=== PATIENT | male | born 1950 | race Caucasian/White ===

== ENCOUNTER → 2017-05-05 | Outpatient (CLI) | payer BC ==
[~2017-05-05] MED LIST: ACIDOPHILUS1 EAC3 PO; ALPHA LIPOIC A600 M1 PO; AMLODIPINE BESY10 MG PO; ANCEF 1GM1 GM/50 M2 IV; ASPIR 8181 MG PO; ASPIRIN325 PO; ATORVASTATIN CA20 MG PO; AZITHROMYCIN 2250 MG PO; BENTYL 10 MG CA10 M1 PO; CEFDINIR300 MG PO; COLESTID1 GM PO; COREG25 MG PO; COZAAR 25 MG TA25 M1 PO; FLAGYL500 MG PO; FLEXERIL PO; GABAPENTIN PO; HUMALOG100 UNIT/1 SUBQ; INSULIN; IRON325 PO; JUVEN PACKET1 EAC1 PO; LANTUS SUBQ; LEVAQUIN 500 M500 M2 PO; LISINOPRIL20 MG PO; LOMOTIL TABLET1 EACH PO; LOPRESSOR 50 MG50 M1 PO; LOPRESSOR100 M1 PO; MAALOX ADVANCE355 M1 PO; NEURONTIN 300300 M1 PO; NEURONTIN 400400 M1 PO; NORVASC 5 MG TAB5 MG PO; NORVASC5 MG PO; OMEPRAZOLE40 MG PO; ONDANSETRON HCL4 M2 PO; PERCOCET 5-3251 EACH PO; PHENERGAN12.5 M2 PO; PRILOSEC 20 MG20 MG PO; PRILOSEC PO; PRILOSEC40 MG PO; REGLAN 10 MG TA10 M1 PO; REGLAN 10 MG TA10 MG PO; SENNA-DOCUSATE1 EACH PO; SERTRALINE HCL50 MG PO; SIMVASTATIN20 MG PO; TOPROL XL50 MG PO; TRAZODONE HCL50 MG PO; UNICOMPLEX M TA1 TA1 PO; VITAMIN C1000 MG PO; VITAMIN D3400 UNIT PO; VITAMINC500 PO; ZINC CHELATE50 MG PO; ZOCOR PO; [UNRECOGNIZED DRUG - OTHER]
== END ==
LOC: M.WC 05-04 08:00
DX: E11.621 Type 2 diabetes mellitus with foot ulcer (principal); L97.411 Non-pressure chronic ulcer of right heel and midfoot limited to breakdown of skin; I70.234 Atherosclerosis of native arteries of right leg with ulceration of heel and midfoot; E11.51 Type 2 diabetes mellitus with diabetic peripheral angiopathy without gangrene; E78.2 Mixed hyperlipidemia; K21.9 Gastro-esophageal reflux disease without esophagitis; Z68.23 Body mass index [BMI] 23.0-23.9, adult; E11.40 Type 2 diabetes mellitus with diabetic neuropathy, unspecified; Z87.891 Personal history of nicotine dependence

== ENCOUNTER → 2017-05-09 | Outpatient (CLI) | payer BC | LOC: M.ULTRA 05-06 13:00 | DX: M79.671 Pain in right foot (principal); M79.89 Other specified soft tissue disorders ==

== ENCOUNTER → 2017-05-11 | Outpatient (CLI) | payer BC | LOC: M.RAD 01:39 → M.WC 01:39 | DX: I70.234 Atherosclerosis of native arteries of right leg with ulceration of heel and midfoot (principal); E11.621 Type 2 diabetes mellitus with foot ulcer; L97.411 Non-pressure chronic ulcer of right heel and midfoot limited to breakdown of skin; E11.51 Type 2 diabetes mellitus with diabetic peripheral angiopathy without gangrene; I10 Essential (primary) hypertension; E78.2 Mixed hyperlipidemia; K21.9 Gastro-esophageal reflux disease without esophagitis; E11.40 Type 2 diabetes mellitus with diabetic neuropathy, unspecified; Z87.891 Personal history of nicotine dependence ==

== ENCOUNTER → 2017-05-25 | Outpatient (CLI) | payer BC | LOC: M.WC 03:25 | DX: E11.621 Type 2 diabetes mellitus with foot ulcer (principal); L97.411 Non-pressure chronic ulcer of right heel and midfoot limited to breakdown of skin; L97.421 Non-pressure chronic ulcer of left heel and midfoot limited to breakdown of skin; I70.234 Atherosclerosis of native arteries of right leg with ulceration of heel and midfoot; I70.244 Atherosclerosis of native arteries of left leg with ulceration of heel and midfoot; E11.40 Type 2 diabetes mellitus with diabetic neuropathy, unspecified; E11.51 Type 2 diabetes mellitus with diabetic peripheral angiopathy without gangrene; I10 Essential (primary) hypertension; E78.2 Mixed hyperlipidemia; L84 Corns and callosities; K21.9 Gastro-esophageal reflux disease without esophagitis; Z87.891 Personal history of nicotine dependence ==

== ENCOUNTER 2017-06-01 12:44 | Inpatient (IN) | payer BC ==
[~2017-06-01] VITALS: Ht 175.3 cm; Wt 69.9 kg
[~2017-06-01 12:44] MED LIST changes: -ACIDOPHILUS1 EAC3 PO; -AMLODIPINE BESY10 MG PO; -ANCEF 1GM1 GM/50 M2 IV; -ATORVASTATIN CA20 MG PO; -AZITHROMYCIN 2250 MG PO; -CEFDINIR300 MG PO; -IRON325 PO; -JUVEN PACKET1 EAC1 PO; -LOPRESSOR100 M1 PO; -MAALOX ADVANCE355 M1 PO; -NEURONTIN 300300 M1 PO; -NEURONTIN 400400 M1 PO; -NORVASC5 MG PO; -OMEPRAZOLE40 MG PO; -ONDANSETRON HCL4 M2 PO; -PERCOCET 5-3251 EACH PO; -PHENERGAN12.5 M2 PO; -SENNA-DOCUSATE1 EACH PO; -SERTRALINE HCL50 MG PO; -UNICOMPLEX M TA1 TA1 PO; -VITAMIN C1000 MG PO; -VITAMINC500 PO; -ZINC CHELATE50 MG PO
[2017-06-01 16:00] VITALS: BP 174/77
[2017-06-01 18:04] LABS: HEMATOCRIT 24.3 % (42.0-52.0); MCH 24.7 pg (26.0-34.0); MPV 8.5 fl. (7.2-11.1); NUCLEATED RBCS 0 /100WBC; PLATELET COUNT* 335 thou/uL (150-400); RBC 3.24 mil/uL (4.50-6.00); RDW-CV 14.5 % (10.5-14.5); WBC 8.3 thou/uL (4.0-11.0)
--- NOTE | 2017-06-01 18:05 | NUR ---
PATIENT DIRECT ADMIT TO ROOM 311. ALERT AND ORIENTED X 4. NO COMPLAINTS OF PAIN. PATIENT SENT OVER TO ADMIT FROM WOUND CENTER. RIGHT AND LEFT HEEL WOUND NOTED, PATIENT REFUSED TO LET THIS NURSE REMOVE WRAPPINGS AT THIS TIME PATIENT REQUESTING TO WAIT FOR PODIATRY. IV TO LEFT FOREARM, SCHED ABX ORDERED. BLOOD SUGAR 337 THIS EVENING, DR. HUBER NOTIFIED. MRSA SWAB SENT ORDERED. PATIENT AWARE OF NEED FOR URINE SAMPLE. NPO AFTER MIDNIGHT. ORIENTED TO CALL LIGHT. FALL RISK PROTOCOL PATIENT STATES HE HAS FALLEN IN THE LAST FEW DAYS. DR. HUBER NOTIFIED THAT IS HAS BEEN OVER A WEEK SINCE PATIENT HAD A BM.
[2017-06-01 18:17] LABS: ALBUMIN 2.3 g/dL (3.4-5.0); CALCIUM 8.3 mg/dL (8.5-10.1); CREATININE 1.8 mg/dL (0.6-1.3); TOTAL BILIRUBIN 0.3 mg/dL (<0.1-1.0); TOTAL PROTEIN 6.4 g/dL (6.4-8.2)
[2017-06-01 19:19] LABS: ESR (SEDRATE) 74 mm/hr (0-20)
[2017-06-01 19:33] LABS: ABSOLUTE LYMPHOCYTES 0.3 thou/uL (0.8-5.3); ABSOLUTE MONOCYTES 0.4 thou/uL (0.0-1.2); ABSOLUTE NEUTROPHILS 7.6 thou/uL (1.6-8.1); PLATELET ESTIMATE ADEQUATE
[2017-06-01 19:34] LABS: HYPOCHROMASIA 1+; MACROCYTES Occasional; MICROCYTES Occasional
[2017-06-02] VITALS (9 sets, daily range): BP systolic 143–201; BP diastolic 67–101
[2017-06-02 02:49] LABS: URINE BILIRUBIN NEGATIVE (Negative); URINE BLOOD TRACE (Negative); URINE CLARITY CLEAR; URINE COLOR YELLOW; URINE GLUCOSE-RANDOM TRACE (Negative); URINE KETONES NEGATIVE (Negative); URINE LEUKOCYTES-REFLEX NEGATIVE (Negative); URINE NITRITE-REFLEX NEGATIVE (Negative); URINE PROTEIN 2+ (Negative); URINE UROBILINOGEN 0.2 E.U./dl (0.2-1.0)
[2017-06-02 03:08] LABS: SQUAMOUS 0-3 Few /LPF (0-3); TRANSITIONAL EPITHEL CELL 0-3 Few /LPF (None Seen); URINE RBC 3-10 Few /HPF (0-2); URINE WBC-REFLEX 0-5 Rare /HPF (0-5)
[2017-06-02 03:09] LABS: AMORPHOUS URATES Few /LPF (None Seen); CELLULAR CASTS 0-3 Few /LPF (None Seen); COARSE GRANULAR CASTS 0-3 Few /LPF (None Seen); FINE GRANULAR CASTS 0-3 Few /LPF (None Seen); HYALINE CASTS 0-3 Few /LPF (None Seen); MUCUS 4-6 Moderate strn/LPF (None Seen)
[2017-06-02 04:32] LABS: HEMOGLOBIN 8.2 gm/dL (14.0-18.0); MCH 24.4 pg (26.0-34.0); MCHC 32.7 g/dL (28.0-37.0); MCV 74.4 fL (80.0-100.0); MPV 8.5 fl. (7.2-11.1); RBC 3.36 mil/uL (4.50-6.00); RDW-CV 14.1 % (10.5-14.5); WBC 7.9 thou/uL (4.0-11.0)
[2017-06-02 04:37] LABS: CALCIUM 8.3 mg/dL (8.5-10.1); CREATININE 1.9 mg/dL (0.6-1.3); MAGNESIUM 1.5 mg/dL (1.8-2.4); POTASSIUM 4.3 mmol/L (3.5-5.1)
--- NOTE | 2017-06-02 05:37 | NUR ---
PATIENT SLEPT MOST OF THE NIGHT. PATIENT HAD NO COMPLAINTS OF PAIN. DRESSINGS REMAIN INTACT TO BILATERAL HEELS. PATIENT HAS BEEN NPO SINCE MIDNIGHT FOR SURGERY LATER THIS AFTERNOON. WILL CONTINUE TO MONITOR.
--- NOTE | 2017-06-02 14:47 | NUR ---
Nutrition: Pt seen for admission for heel ulcer. Pt has DM, likely osteomyelitis, going for procedure today. Is seen in wound clinic. RX: aspirin, insulin, vanc. Currently NPO. Pt stated no wt changes. Wt: 154#. He stated he has had his ulcer for 3-4 months. Labs: BUN 29, creat 1.9, alb 2.3, prealb 11.7, BG 254. Will not order Arginaid at this time - Pt is still NPO and he has CKD IV. I did recommend renal MVI to aid in wound healing. Consider mild risk at this time. GOALS: tight BG control, diet to advance to a renal after surgery. Follow up per protocol.
--- NOTE | 2017-06-02 15:36 | EKG ---
[place] [address] ELECTROCARDIOGRAM REPORT Name: ABDIAZIZLON Meli Room: [address] ADM IN M.R.#: [id number] Admission: 06/01/17 Attend Phys: Asaf Jaeger MD Discharge: Date of : 50 Report #: [id number] THIS REPORT FOR: //name// [facility] Test Date: 2017-06-01 Test Time: 17:29:14 Pat Name: LON FREED Department: Room: [address] Gender: M Glass Block Bender: : 1950 Requested By: Asaf Jaeger Order Number: [id number] Refugio MD: Jeovany Salgado Measurements Intervals [place] Rate: 97 P: 73 PA: 123 QRS: 48 QRSD: 80 T: 235 QT: 324 QTc: 412 Interpretive Statements Sinus rhythm Nonspecific repol abnormality, diffuse leads Compared to ECG 05/03/2016 15:22:59 Early repolarization now present T-wave abnormality no longer present Electronically Signed On 06-02-2017 15:36:45 BUSINESS SERVICES DIRECTOR by Jeovany Salgado [email or web address] <ELECTRONICALLY SIGNED> By: Jeovany Salgado MD, FACC 06/02/17 1536 1729 1729 Jeovany Salgado MD, [facility] /EPI
--- NOTE | 2017-06-02 19:44 | NUR ---
PATIENT RESTING IN BED. PATIENT RETURNED FROM I&D OF RIGHT HEEL AT 1830, WITHOUT INCIDIENT. PATIENT DENIES ANY PAIN. PATIENT HAS DRESSING TO RIGHT HEEL DRY AND INTACT. PATIENT WAS UP TO COMMODE WITH STAND PIVOT FOR BM. PATIENT HAS EXCELLENT APPETITE. PATIENT BLOOD PRESSURE RUNNING HIGH, DR HUBER AWARE. PATIENT DENIES ANY NEEDS AT THIS TIME. WILL CONTINUE TO MONITOR.
[2017-06-03 00:11] VITALS: BP 118/56
[2017-06-03 03:54] VITALS: BP 158/83
--- NOTE | 2017-06-03 04:56 | NUR ---
PT SLEPT AT INTERVALS DURING THE NIGHT, RIGHT FOOT ON PILLOW, DRSG REMAINS C/D/I, UP WITH ASSIST TO THE BSC, NON-WT BEARING RIGHT FOOT, REMINDED MULTIPLE TIMES NOT TO PLACE PRESSURE ON RIGHT FOOT. IV VANC INFUSED. DENIES PAIN, CALL LIGHT IN REACH, BED ALARM ON FOR SAFETY, WILL CONTINUE TO MONITOR
--- NOTE | 2017-06-03 07:56 | CON ---
[address] [address] CONSULTATION Name: HOWIEANATOLYLON Meli Room: [address] IN .R.#: [id number] Admission: 06/01/17 Attend Phys: Asaf Jaeger MD Discharge: Date of : 50 Report #: [id number] THIS REPORT FOR: //name// CC: Terrell Jaeger DATE OF SERVICE: 06/02/2017 ATTENDING PHYSICIAN: Asaf Jaeger MD REASON FOR EVALUATION: Right calcaneal osteomyelitis. HISTORY OF PRESENT ILLNESS: Chart reviewed, the patient was examined. This is a 66-year-old gentleman with diabetes mellitus who apparently developed a lesion over the plantar aspect of his right foot, this over the toe roughly 3 months ago. It actually had healed, developed a second lesion over the plantar aspect of the heel and has been persistent. He does have some degree of neuropathy, although experiences significant pain associated with it and has been trying to offload walking on his tip toes. He has some intermittent fevers. He notes that he has had some anorexia and believes a small degree of weight loss. Due to concerns about possible infection, he was subsequently admitted. Inflammatory markers were elevated as are blood sugars in the 300s. The MRI of the foot shows possible osteomyelitis involving the calcaneus. He has got to undergo operative debridement this day. Blood cultures are negative thus far. Empirically placed on ceftriaxone and vancomycin. ALLERGIES: LISTED TO DIAZEPAM. CURRENT MEDICATIONS: Include aspirin, losartan, pantoprazole, vancomycin, insulin, metoclopramide, atorvastatin, gabapentin, hydrocodone, p.r.n. analgesics and antiemetics. PAST MEDICAL HISTORY: In addition to the diabetes mellitus, reflux, sleep apnea, hypertension, previous herniorrhaphy, sinus surgery, adenoidectomy, tonsillectomy, carpal tunnel and back surgery. SOCIAL HISTORY: Nonsmoker and no ethanol. FAMILY HISTORY: Noncontributory. REVIEW OF SYSTEMS: Denies significant pulmonary-related complaints. PHYSICAL EXAMINATION: GENERAL: He appears chronically ill and undernourished. VITAL SIGNS: Temperature 98.7 with a T-max of 99.7, pulse 85, respirations 19 and blood pressure 143/70[place] [address] CONSULTATION Name: LON FREED Room: [address]#: [id number] Admission: 06/01/17 Attend Phys: Asaf Jaeger MD Discharge: Date of : 50 Report #: [id number] SKIN: Warm, dry and no rashes. HEENT: Nasal cannula oxygen in place. NECK: Supple. LUNGS: Few scattered coarse breath sounds. HEART: Regular. I do not appreciate a murmur. ABDOMEN: Soft, nontender and nondistended. SKIN: He has got dressing over his right foot. GENITOURINARY AND RECTAL: Deferred. LABORATORY DATA: Blood cultures and MRI as noted above. Prealbumin of 11.7. CBC: White count of 7.9, H and H 8.2 and 25.0 and platelets of 355. Electrolytes: Sodium 137, potassium 4.3, chloride 101, bicarbonate is 27, BUN and creatinine 29 and 1.9 with anion gap of 9. Estimated GFR of 36. Urinalysis: 0-5 white cells. Urine culture is pending. Sed rate is 74. CRP of 114.8. Lactic acid of 0.7. Liver function tests are unremarkable. Albumin of 2.3 and total protein 6.4. Estimated GFR of ____. ASSESSMENT: Probable osteomyelitis involving the right calcaneus. He is scheduled to undergo operative debridement. We will continue empiric therapy as prescribed. Await results/findings of surgery including culture results. In the event of ____, will likely need extended period of parenteral antimicrobial therapy. Again depending on the results, we will go ahead and arrange a PICC line, potentially arrange for outpatient IV therapy versus transitioning to a facility. <ELECTRONICALLY SIGNED> By: Murali Booker MD 06/03/17 0756 1509 [id number] Booker MD /nt
[2017-06-03 08:05] VITALS: BP 155/72
--- NOTE | 2017-06-03 13:13 | NUR ---
WOUND CARE NOTE: CONSULT RECEIVED FOR RIGHT FOOT WOUND. PATIENT IS POD #1 FROM DEBRIDEMENT TO RIGHT FOOT. PATIENT WAS SEEN WITH RECOVERY AGENT. DRESSING TO RIGHT FOOT DRY AND INTACT. DRESSING TAKEN DOWN. LARGE AMOUNTS OF SEROSANGUINEOUS DRAINAGE NOTED ON KERLIX AND ABD OF OLD DRESSING. LARY-WOUND IS SLIGHTLY MACERATED. WOUND BED WITH GEL FOAM, LEAVING IN PLACE AT THIS TIME. MODERATE AMOUNTS OF SANGUINEOUS DRAINAGE NOTED. WOUND BED IS RED, MOIST. GENTLY CLEANSED WITH WOUND CLEANSER AND PHOTOGRAPHED. WOUND MEASURES 7X6.2X0.5. APPLIED AQUACEL AG AND COVERED WIHT 4X4 THEN ABD. SECURED WITH KERLIX AND ROMINA. LEFT FOOT: DIABETIC FOOT ULCER MEASURING 0.5X0.5X0.1. BLACK, ESCHAR COVERING 100% OF WOUND BED. AREA IS BOGGY. LARY-WOUND WITH REDNESS. PAINTED AREA WITH BETADINE AND ALLOWED TO DRY. PATIENT WAS EDUCATED ON IMPORTANCE OF OFFLOADING, NUTRITION, AND BLOOD SUGAR CONTROL, COMMUNICATED WITH UNDERSTANDING. WILL NEED REINFORCEMENT. RECOMMEND PODUS BOOTS TO BILATERAL FEET WHEN IN BED ENCOURAGE GOOD NUTRITION AND HYDRATION TIGHT BLOOD GLUCOSE CONTROL FOLLOW UP IN WOUND CENTER UPON DISCHARGE
--- NOTE | 2017-06-03 15:22 | NUR ---
CONSULTED TO PLACE PICC FOR LEASE BROKER ATB THERAPY. ORDER AND CONSENT NOTED. PT BROUGHT TO INFUSION LAB FOR LINE PLACEMENT. SPOKE WITH PT ABOUT RISK AND BENIFIT INCLUDING INFECTION AND DVT. PT VERBALIZED UNDERSTANDING AND AGREED. RIGHT UPPER ARM BASILIC IDENTIFIED AND NOTED TO BE WIDLEY PATENT. A 3FR SINGLE LUMAN POWER PICC PLACED PER HOSPITAL POLICY. LINE TRIMMED TO 40CM AND ADVANCED TO 37CM LEAVING 3CM EXTERNAL. LINE TIP PLACEMENT CONFIRMED WITH SHERLOCK 3CG. LINE SECURED AND RELEASED FOR USE.
[2017-06-03 15:35] VITALS: BP 167/79
--- NOTE | 2017-06-03 16:58 | NUR ---
CHECKED IV DRUG BENEFITS WITH AMARJIT. ARTIE CALLED BACK AND SAID PT.HAS MET OOP AND DEDUCTIBLE AND THERFORE IVAB AT HOME WOULD BE COVERED AT 100%. PT.HAVING OT, SO DISCUSSED WITH ,KANCHAN, OTHER OPTIONS BESIDES,HOME IV THERAPY. EITHER SNF OR COMING IN DAILY FOR IV INFUSION AT HOSPITAL. SHE IS INTERESTED IN SNF. PT.SAID OK TO THIS. GAVE HER A LIST OF CONTRACTED SNFS WITH HIS INSURANCE. FIRST CHOICE IS [facility] AND 2ND IS [facility] [place], [facility]. CM WILL MAKE REFERRAL TO BOTH.
--- NOTE | 2017-06-03 18:21 | NUR ---
PATIENT RESTING IN BED. PATIENT HAS HAD FEET/HEELS ELEVATED OFF BED. PATIENT SEEN BY DR FERRER AND WOUND CARE NURSE FOR WOUND CARE TO BILATERAL HEELS. PATIENT WORKED WITH PT/OT FOR NWB TRAINING. PATIENT HAS USED URINAL AT EDGE OF BED. PATIENT HAS EXCELLENT APPETITE. PATIENT DENIES ANT NEEDS AT THIS TIME. WILL CONTINUE TO MONITOR.
[2017-06-03 21:00] VITALS: BP 139/68
[2017-06-04 06:13] LABS: HEMOGLOBIN 7.2 gm/dL (14.0-18.0); MCH 24.2 pg (26.0-34.0); MCHC 32.6 g/dL (28.0-37.0); MCV 74.3 fL (80.0-100.0); MPV 8.8 fl. (7.2-11.1); RBC 2.97 mil/uL (4.50-6.00); RDW-CV 14.1 % (10.5-14.5); WBC 8.9 thou/uL (4.0-11.0)
[2017-06-04 06:27] LABS: CALCIUM 8.3 mg/dL (8.5-10.1); CREATININE 1.3 mg/dL (0.6-1.3); MAGNESIUM 1.7 mg/dL (1.8-2.4); POTASSIUM 4.4 mmol/L (3.5-5.1)
--- NOTE | 2017-06-04 07:24 | NUR ---
PT SLEPT MOST OF SHIFT. ASSESSMENT DOCUMENTED. MEDS GIVEN PER E-MAR. PICC PATENT. NO REPORTS OF PAIN OR NAUSEA. DRESSING ON RIGHT FOOT C/D/I. FEET REMAINED ELEVATED ON PILLOWS. WILL CONTINUE WITH PLAN OF CARE.
[2017-06-04 08:40] VITALS: BP 143/74
--- NOTE | 2017-06-04 11:46 | NUR ---
MARY ELLEN SPOKE TO THE PATIENT'S SPOUSE AND SHE INFORMS THAT SHE WOULD LIKE A REFERRAL SENT TO [facility] FOR SKILLED. CM SPOKE TO LAKSHMI AT [facility] TO INFORM OF THE REFERRAL AND FAXED THE PATIENT'S FACESHEET, H&P, LABS, AND PT/OT NOTES. CM WILL REMAIN AVAILABLE TO ASSIST AND FOLLOW NEEDED.
[2017-06-04 14:18] VITALS: BP 103/81; BP 122/59; BP 140/62; BP 141/71
[2017-06-04 14:59] VITALS: BP 143/74
--- NOTE | 2017-06-04 17:18 | NUR ---
PATIENT RECEIVING 1 UNIT OF PRBC'S AT THIS TIME FOR HGB OF 7.2, TOLERATING WELL. INSULIN GIVEN WITH MEALS WHEN REQUIRED. PODUS BOOTS IN PLACE PHILLIP FEET, DR. FERRER HERE THIS AFTERNOON AND RIGHT HEEL DRESSING CHANGED. PATIENT TO HAVE OUTPATIENT WOUND VAC. PRN MORPHIN GIVEN THIS AM FOR PAIN, PATIENT STILL RATED PAIN A 6/10, DILAUDID ORDERED AND GIVEN. NO FURTHER COMPLAINTS OF PAIN THIS EVENING. MG VALUE 1.7 THIS AM, REPLACED PER PROTOCOL.
[2017-06-04 19:44] LABS: HEMOGLOBIN 8.1 gm/dL (14.0-18.0)
[2017-06-04 20:20] VITALS: BP 128/70
--- NOTE | 2017-06-05 05:35 | NUR ---
PT SLEPT SOUNDLY DURING THE NIGHT, UP WITH ASSIST AT HS TO VOID PER URINAL, VOICED PAIN IN FEET ONCE BACK IN BED, PRN PAIN MEDS THEN GIVEN, ALONG WITH BENEDRYL FOR REQUEST FOR SLEEPING MEDICATION, BOOTS ON BOTH FEET, IV VANC GIVEN, RIGHT FOOT DRESSING REMAINS C/D/I, CALL LIGHT IN REACH, BED ALARM ON FOR SAFETY, WILL CONTINUE TO MONITOR
[2017-06-05 07:06] LABS: ABSOLUTE BASOPHILS 0.1 thou/uL (0.0-0.2); ABSOLUTE EOSINOPHILS 0.2 thou/uL (0.0-0.7); ABSOLUTE LYMPHOCYTES 1.4 thou/uL (0.8-5.3); ABSOLUTE MONOCYTES 0.7 thou/uL (0.0-1.2); ABSOLUTE NEUTROPHILS 3.8 thou/uL (1.6-8.1); BASOPHILS 1.4 %; EOSINOPHILS 2.7 %; HEMATOCRIT 23.8 % (42.0-52.0); HEMOGLOBIN 7.7 gm/dL (14.0-18.0); MCH 24.6 pg (26.0-34.0); MCHC 32.5 g/dL (28.0-37.0); MCV 75.6 fL (80.0-100.0); MONOCYTES 11.7 %; MPV 9.1 fl. (7.2-11.1); NUCLEATED RBCS 0 /100WBC; PLATELET COUNT* 270 thou/uL (150-400); POLYS 61.2 %; RBC 3.14 mil/uL (4.50-6.00); RDW-CV 14.7 % (10.5-14.5); WBC 6.3 thou/uL (4.0-11.0)
[2017-06-05 07:13] LABS: CALCIUM 8.3 mg/dL (8.5-10.1); CREATININE 1.5 mg/dL (0.6-1.3); POTASSIUM 4.4 mmol/L (3.5-5.1)
[2017-06-05 09:00] VITALS: BP 142/72
[2017-06-05 16:36] LABS: % SATURATION 16 % (20-39); IRON 19 ug/dL (50-175)
[2017-06-05 16:50] VITALS: BP 150/70
--- NOTE | 2017-06-05 17:44 | NUR ---
PHOTOS TAKEN TODAY OF HEEL WOUNDS, DR. FERRER HERE THIS AM AND RIGHT HEEL DRESSING CHANGED. PODUS BOOTS REMAIN IN PLACE TO PHILLIP FEET. PRN HYDROCODONE GIVEN X 1 THIS SHIFT, GOOD RELIEF NOTED. SCHED IV ABX REMAIN. INSULIN GIVEN WITH MEALS WHEN REQUIRED.
[2017-06-05 23:29] VITALS: BP 131/67
[2017-06-06 04:42] LABS: HEMATOCRIT 24.2 % (42.0-52.0); HEMOGLOBIN 7.8 gm/dL (14.0-18.0); MCH 24.6 pg (26.0-34.0); MCHC 32.2 g/dL (28.0-37.0); MCV 76.2 fL (80.0-100.0); RBC 3.18 mil/uL (4.50-6.00); RDW-CV 14.7 % (10.5-14.5); WBC 7.1 thou/uL (4.0-11.0)
[2017-06-06 04:53] LABS: CREATININE 1.8 mg/dL (0.6-1.3); MAGNESIUM 1.9 mg/dL (1.8-2.4); POTASSIUM 4.9 mmol/L (3.5-5.1)
--- NOTE | 2017-06-06 05:04 | NUR ---
PT SLEPT OFF AND ON OVERNIGHT. UP WITH ASSIST AND WALKER AT BEDSIDE TO VOID PER URINAL, NWB R FOOT. PODUS BOOTS REMAIN IN PLACE TO PHILLIP FEET. ISABELLE CDI. RPICC SL, AM LAB DRAWN. IV PAIN MED AND BENADRYL GIVEN AT HS FOR CO PAIN AND SLEEP AID-GOOD RESULT.HS ACCUCHECK 168, INSULIN GIVEN ORDERED WITH SNACK. ABLE TO USE CALL LITE AND MAKE NEEDS KNOWN. AM LABS DRAWN.
[2017-06-06 08:00] VITALS: BP 180/85
--- NOTE | 2017-06-06 10:14 | NUR ---
MARY ELLEN SPOKE TO LAKSHMI AT [facility] TO DISCUSS THE SKILLED REFERRAL. LAKSHMI INFORMS THAT GLENN WILL COME TO THE HOSPITAL TODAY TO DO AN ON-SITE VISIT WITH THE PATIENT. MARY ELLEN INFORMED THE PATIENT, HIS SPOUSE, AND THE RN IN-CHARGE OF THE PATIENT OF THIS INFO AND ALL ARE IN AGREEMENT. CM WILL REMAIN AVIALABLE TO ASSIST AND FOLLOW NEEDED.
--- NOTE | 2017-06-06 13:05 | NUR ---
Nutrition: RN alerted me that pt's was asking questions about high-protein diet. RD provided pt and handouts and discussion on protein sources. All questions answered. Will continue to follow per protocol.
[2017-06-06 16:00] VITALS: BP 156/78
--- NOTE | 2017-06-06 18:48 | NUR ---
PT UP IN CHAIR MOST OF SHIFT. PT TOLERATING PO WELL. GOOD APPETITE. PAIN CONTROLLED WITH PO MEDS
[2017-06-06 23:53] VITALS: BP 114/58
--- NOTE | 2017-06-07 06:38 | NUR ---
PT SLEPT WELL OVERNIGHT. UP WITH ASSIST AND WALKER TO VOID USING URINAL AT BEDSIDE. SPECIALTY BOOTS ON BLE, NWB RLE. DRSG CDI. LESLY PICC SL, NO LABS THIS MORNING. HS ACCUCHECK 148. CM ASSISTING TO ARRANGE POSSIBLE DISCHARGE TO [facility]. ABLE TO USE CALL LITE AND MAKE NEEDS KNOWN.
--- NOTE | 2017-06-07 08:14 | NUR ---
MARY ELLEN RECIEVED A CALL FROM [facility] WITH V ADMISSIONS AND SHE INFROMS THAT THE [facility] HAS ACCEPTED THE PATIENT PENDING INSURANCE AUTH. CM WILL REMAIN AVIALABLE TO ASSIST AND FOLLOW NEEDED.
[2017-06-07 08:30] VITALS: BP 180/80
--- NOTE | 2017-06-07 11:20 | S ---
[place] [address] SURGICAL PATH RPT PROCEDURE Name: GEMA FREED Room: [address] IN .R.#: [id number] Admission: 06/01/17 Date of : 50 Discharge: Report #: [id number] Path Case #: [id number] PATHOLOGY REPORT COLLECTION DATE: 06/02/2017 RECEIVED DATE: 06/03/2017 SUBMITTING PHYS: Dr. Wily Graham OTHER PHYS: Dr. Asaf Cosby SPECIMEN(S) RECEIVED: A.Lesion right calcaneous B.R calcaneous * * * * * * * * * * * * FINAL DIAGNOSIS: A. Skin with underlying soft tissue, "lesion right calcaneous": - Acute ulceration with necrotic acute inflammatory exudate extending deeply into the underlying fat and to the deep inked surgical resection margin. B. Bone and soft tissue, "right calcaneous": - Acute inflammation extending into the underlying bone with acute osteomyelitis. (see comment) COMMENT: B: No resection margins were dictated grossly and microscopically as they could not be seen grossly. ([facility]:; 06/07/2017) PATHOLOGIST: Peterson Randolph M.D. REPORT ELECTRONICALLY SIGNED BY: Peterson Randolph M.D. DATE/TIME: 06/07/2017 11:19 * * * * * * * * * * * * GROSS PATHOLOGY: A. Received in formalin labeled "Gema Freed, lesion right calcaneus" is a 7.5 x 6.3 x 1.0 cm ovoid portion of payne-brown possibly necrotic skin and soft tissue. The resection margin is inked entirely black. A scant amount of possible uninvolved payne-white skin is identified along the periphery. The discolored lesional tissue grossly abuts the resection margins. A digital sales representative section of the specimen is submitted in cassette A1. B. Received in formalin labeled "Gema Freed right calcaneus" is a 6.2 x 3.2 x 1.5 cm irregular portion of payne-white bone and attached payne-white membranous possible soft tissue. The specimen does not have a definitive resection margin. Multiple areas of payne-zacarias discoloration are present on the soft tissue, [place] [address] SURGICAL PATH RPT PROCEDURE Name: GEMA FREED Room: [address] IN [facility].#: [id number] Admission: 06/01/17 Date of : 50 Discharge: Report #: [id number] Path Case #: [id number] 75% of the soft tissue. News Videotape Editor sections of the specimen are submitted in cassette B1 following decalcification. ([facility]; 06/05/2017) CLINICAL HISTORY: Osteomyelitis right heel. INITIAL CPT CODE(S): A; 58344 B; 29571, 39640 Professional services performed by [employer] at [facility], [facility] [place] [address]. Technical services performed by [facility] at [address] [place] [address], [address], [place] [address]. [facility] [address] [place] [address] PHONE: [phone] DIRECTOR: Harsh Jerez M.D. * * * END OF REPORT * * *
[2017-06-07 16:31] VITALS: BP 102/54
--- NOTE | 2017-06-07 19:51 | NUR ---
PATIENT HAS BEEN A/O X 4 THIS SHIFT. MEDICATED FOR RIGHT HEEL PAIN WITH HYDROCODONE AND OXYCODONE. STATES OXYCODONE HAS RELIEVED PAIN BETTER THAN HYDROCODONE. PICC LINE PATENT AND ANTIBIOTICS INFUSED ORDERED. DRESSING TO RIGHT HEEL CHANGED WITH DR FERRER AND LEFT HEEL PAINTED WITH BETADINE. PATIENT PARTICIPATED WITH PHYSICAL THERAPY. HOPEFUL TO BE DISCHARGED SOON TO [facility]. AT BEDSIDE. HOURLY ROUNDING COMPLETED. CALL LIGHT WITHIN REACH. WILL CONTINUE WITH PLAN OF CARE.
[2017-06-07 22:22] VITALS: BP 127/62
[2017-06-08 08:30] VITALS: BP 170/84
[2017-06-08 09:00] VITALS: BP 170/84
--- NOTE | 2017-06-08 11:00 | NUR ---
MARY ELLEN SPOKE TO [facility] AND SHE INFORMS THAT THE FACILITY HAS RECIEVED INSURANCE AUTH, AND WILL PROVIDE TRANSPORTATION AT 1300. CM SPOKE TO THE PATIENT AND TO INFORM OF THIS AND THEY ARE IN AGREEMENT. CM INFORMED THE RN IN-CHARGE OF THE PATIENT OF [facility] ACCEPTANCE OF THE PATIENT AND WHERE TO CALL REPORT. CM WILL REMAIN AVAILABLE TO ASSIST AND FOLLOW NEEDED.
[2017-06-08] MEDS ORDERED: ANCEF 1GM1 GM/50 M2 IV (11:39)
[2017-06-08] MEDS ORDERED: PERCOCET 5-3251 EACH PO (11:40)
[2017-06-08] MEDS ORDERED: HUMALOG100 UNIT/1 SUBQ (11:40)
--- NOTE | 2017-06-11 14:18 | CON ---
[address] [address] CONSULTATION Name: LON FREED Room: [address] IN .R.#: [id number] Admission: 06/01/17 Attend Phys: Asaf Jaeger MD Discharge: 06/08/17 Date of : 50 Report #: [id number] THIS REPORT FOR: //name// CC: Terrell Jaeger DICTATED BY: Ana M PLASENCIA DATE OF SERVICE: 06/03/2017 REASON FOR CONSULTATION: Right diabetic foot wound. HISTORY OF PRESENT ILLNESS: The patient is a very pleasant 66-year-old male who is well known to our service with a history of a chronic right foot wound. He follows as an outpatient with Dr. Matthew Samuel. He was seen in the wound care on Tuesday, Dr. Samuel was concerned about progression of the wound; therefore, recommended admission to the hospital for further evaluation and treatment. He underwent an MRI, which suggested osteomyelitis of the calcaneus. He ultimately underwent surgical debridement with Dr. Schmidt on 06/01. The patient did recently undergo a right lower extremity arteriogram on 05/24/2017 with ____. He was found to have normal arterial flow with 3-vessel runoff into the right ankle. The posterior tibial artery was noted to be diminutive at the ankle, but good collateral flow on to the ankle via the peroneal and anterior tibial arteries. The patient currently reports minimal discomfort in his right foot, no other complaints at this time. PAST MEDICAL HISTORY: 1. Diabetes mellitus. 2. History of diabetic ketoacidosis. 3. Diabetic foot ulcer. 4. Osteomyelitis. 5. Gastroesophageal reflux disease. 6. Sleep apnea. 7. Hypertension. 8. Carpal tunnel. PAST SURGICAL HISTORY: 1. Sinus surgery. 2. Adenoids removed. 3. Tonsillectomy. 4. Hernia surgery. 5. Elbow surgery. 6. Back surgery. 7. Right foot debridement. 8. Right [place] [address] CONSULTATION Name: LON FREED Room: [address]#: [id number] Admission: 06/01/17 Attend Phys: Asaf Jaeger MD Discharge: 06/08/17 Date of : 50 Report #: [id number] ALLERGIES: DIAZEPAM. HOME MEDICATIONS: 1. Lantus insulin 5-10 units subcutaneously at bedtime. 2. Simvastatin 20 mg at bedtime. 3. Gabapentin 800 mg at dinner. 4. Humalog insulin before meals and at bedtime. 5. Bentyl 10 mg 3 times daily as needed for abdominal pain. 6. Lomotil one tablet 4 times daily as needed for diarrhea. 7. Aspirin 81 mg daily. 8. Metoclopramide 10 mg before meals and at bedtime. 9. Prilosec 40 mg daily. 10. Cozaar 25 mg daily. SOCIAL HISTORY: He is a nonsmoker and no alcohol or illicit drug use. REVIEW OF SYSTEMS: A 12-point review of systems has been reviewed and is negative except for the above-mentioned in the history of present illness. PHYSICAL EXAMINATION: VITAL SIGNS: Temperature 36.6, heart rate 86, respiratory rate 18, blood pressure 167/79 and oxygen saturation is 96% on room air. GENERAL: He is alert and oriented, in no acute distress. HEENT: Head is normocephalic and atraumatic. NECK: Supple without jugular venous distention. HEART: Regular rate and rhythm. CHEST: Lungs are diminished throughout. ABDOMEN: Soft and nontender. EXTREMITIES: Palpable bilateral radial and femoral pulses. He has a surgical dressing in place to the right foot. His toes are pink and warm. He does have diminished sensation to the right toes. NEUROLOGIC: Alert and oriented with no focal neurologic deficits. LABORATORY DATA: Hemoglobin 8.2, hematocrit 25, white blood cell count 7.9 and platelets 355. Sodium 137, potassium 4.3, chloride 101, CO2 27, BUN 29, creatinine 1.9 and glucose 240. ASSESSMENT AND PLAN: Right diabetic foot ulcer, status post debridement by Dr. Magana. Recommend continued local wound care per Dr. Magana. He should have adequate arterial perfusion for wound healing noted [place] [address] CONSULTATION Name: LON FREED Room: [address]#: [id number] Admission: 06/01/17 Attend Phys: Asaf Jaeger MD Discharge: 06/08/17 Date of : 50 Report #: [id number] We thank you for the opportunity to participate in the care of the patient. Please feel free to contact our office with any questions or concerns. <ELECTRONICALLY SIGNED> By: Matthew Samuel DO 06/11/17 1418 1704 [id number] Samuel DO /nt
--- NOTE | 2017-06-22 13:02 | CON ---
[address] [address] CONSULTATION Name: HOWIEANATOLYLON Meli Room: [address] IN .R.#: [id number] Admission: 06/01/17 Attend Phys: Asaf Jaeger MD Discharge: 06/08/17 Date of : 50 Report #: [id number] THIS REPORT FOR: //name// CC: Terrell Jaeger DATE OF SERVICE: 06/07/2017 CHIEF COMPLAINT: Status post right partial calcanectomy for osteomyelitis, which grew methicillin sensitive Staph aureus and Klebsiella pneumoniae. He is on parenteral cefazolin per Dr. Booker. Possible discharge to a long-term facility today, pending insurance approval. He has moderate pain somewhat controlled with oral hydrocodone. He is nonweightbearing to the right lower extremity. He has had physical therapy, so that he can use the walker appropriately for transfers and short distances. He has been afebrile with no constitutional symptoms and stable appetite. There are no new labs for review. PHYSICAL EXAMINATION: The right postoperative wound has healthy granulation to the periphery with some areas of slough. There is no melissa necrosis, low grade inflammation to the wound periphery consistent with resolving cellulitis. No melissa bone necrosis or lysis of the other residual inferior calcaneus. The extremity is warm with palpable dorsalis pedis and posterior tibial pulses with no signs of acute vascular embarrassment. The left inferior heel ulcer has a dry eschar with no inflammation or drainage. IMPRESSION: Status post partial calcanectomy, right foot; osteomyelitis; type 2 diabetes mellitus; peripheral arterial disease. PLAN: Excisional ulcer debridement with forceps and scissors to remove subcutaneous tissue and slough. The wound was cleansed and dressed with Aquacel Ag and sterile gauze and offload in a PRAFO boot. I will follow up with him next week at [facility] with Dr. Murali Booker. <ELECTRONICALLY SIGNED> By: Kain Magana DPM 06/22/17 1302 1239 1345Kain Magana DPM /nt
--- NOTE | 2017-06-22 13:02 | CON ---
[address] [address] CONSULTATION Name: HOWIEANATOLYLON Meli Room: [address]R.#: [id number] Admission: 06/01/17 Attend Phys: Asaf Jaeger MD Discharge: 06/08/17 Date of : 50 Report #: [id number] THIS REPORT FOR: //name// CC: Terrell Jaeger DATE OF SERVICE: 06/05/2017 CHIEF COMPLAINT: Postoperative right partial calcanectomy for osteomyelitis. Surgical pathology is pending. Surgical bone and tissue cultures grew sensitive Staph aureus and Klebsiella pneumoniae. He is on parenteral vancomycin and ceftriaxone with good tolerance. He relates his pain as 6/10. We have been changing his bandage daily with Aquacel Ag, ABDs, Kerlix, Lewis and offloading both heels in a Multi Podus PRAFO boot. He received 1 unit of PRBCs yesterday, his hemoglobin is 7.7 this morning. LABORATORY DATA: WBC 6.3, RBC 3.14, hemoglobin 7.7, hematocrit 23.8, platelets 270. BUN 25, creatinine 1.5, glucose 193. PHYSICAL EXAMINATION: The wound bed is fairly clean with red granulation with some slough along the periphery. The calcaneus is exposed with no necrosis or active bleeding, minimal inflammation around the periwound, which has decreased since prior to surgery. The foot is warm with palpable right dorsalis pedis and posterior tibial pulses with no pallor, cyanosis or signs of acute vascular embarrassments. No Shelley's or Alanis sign either extremity, no right popliteal adenopathy, moderate pain with palpation to the periwound during the dressing change. IMPRESSION: Osteomyelitis, right calcaneus with diabetes mellitus, peripheral neuropathy and peripheral vascular disease. PLAN: The wound was cleansed with wound cleanser and redressed with Aquacel Ag, ABDs, Kerlix and Lewis and offloaded with the PRAFO boot. The left heel had a dry intact eschar with no inflammation, basically unchanged since hospital admission. The patient requires rehabilitative physical therapy to improve his strength and ability to transfer and ambulate nonweightbearing. He will require parenteral antibiotics and a wound vacuum to the right heel. I will follow daily during this hospitalization. <ELECTRONICALLY SIGNED> By: Kain Magana DPM 06/22/17 1302 1014 [id number] Magana DPM /nt
--- NOTE | 2017-06-22 13:02 | OP ---
[address] [address] OPERATIVE REPORT Name: ABDIAZIZLON Meli Room: [address]R.#: [id number] Admission: 06/01/17 Attend Phys: Asaf Jaeger MD Discharge: 06/08/17 Date of : 50 Report #: [id number] THIS REPORT FOR: //name// CC: Terrell Jaeger DATE OF SERVICE: 06/02/2017 SURGEON: Kain Magana DPM PREOPERATIVE DIAGNOSIS: Osteomyelitis, right calcaneus with nonhealing ulceration. POSTOPERATIVE DIAGNOSIS: Osteomyelitis, right calcaneus with nonhealing ulceration. PROCEDURE: 1. Partial calcanectomy, right foot. 2. Incision and drainage, right foot. 3. Wound debridement of subcutaneous tissue, muscle and fascial layer, right foot. ANESTHESIA: MAC. INJECTABLES: 30 mL of a 1:1 mixture of 0.5% Marcaine plain and 1% lidocaine plain. HEMOSTASIS: Right ankle pneumatic tourniquet at 250 mmHg. SPECIMENS: 1. Right inferior calcaneus. 2. Soft tissue ulceration, right inferior heel. CULTURES: 1. Bone, right calcaneus, aerobic and anaerobic. 2. Soft tissue, right foot, aerobic and anaerobic. ESTIMATED BLOOD LOSS: Roughly 50 mL. COMPLICATIONS: None. DESCRIPTION OF PROCEDURE: The patient was brought to the OR and placed on the table supine with induction of MAC anesthesia. A well-padded right ankle pneumatic tourniquet was given and the right ankle block was performed. The extremity was prepped and draped aseptically. It was then exsanguinated with inflation of the tourniquet, and a #10 blade was used to excise the necrotic [address] [address] OPERATIVE REPORT Name: HOWIEANATOLYLON Meli Room: [address]#: [id number] Admission: 06/01/17 Attend Phys: Asaf Jaeger MD Discharge: 06/08/17 Date of : 50 Report #: [id number] ulcer from the right inferior heel down to the bone. There was no healthy granulation and the entire soft tissue wound was grossly necrotic and infected. I sent a development representative specimen for aerobic and anaerobic tissue cultures. The remaining wound was sent for surgical pathology. I extensively debrided the inferior calcaneus of all infected and necrotic tissue. At this point, I inspected the calcaneus and the plantar lateral aspect was grossly necrotic and infected consistent with osteomyelitis. The bone was soft and discolored with a yellowish zacarias appearance. I used an osteotome and mallet. I removed a portion of the inferior calcaneus and a portion was sent for bone culture and the remainder for surgical pathology. The bone was hard at this level, although I went back and removed more bone with the osteotome until I am sure that I had solid hard bone that did not display clinical signs of osteomyelitis. Hemostasis was achieved during the surgery with electrocautery. The wound was flushed with 1 liter of sterile saline with bacitracin. The wound was dried and packed with Gelfoam and covered with fluffs, ABDs, Kerlix and Lewis. The tourniquet was deflated and the patient left the OR alert and oriented with no complications. <ELECTRONICALLY SIGNED> By: Kain Magana DPM 06/22/17 1302 0723 [id number] Magana DPM /sina
--- NOTE | 2017-06-22 13:02 | CON ---
[address] [address] CONSULTATION Name: HOWIEANATOLYLON Meli Room: [address]R.#: [id number] Admission: 06/01/17 Attend Phys: Asaf Jaeger MD Discharge: 06/08/17 Date of : 50 Report #: [id number] THIS REPORT FOR: //name// CC: Terrell Jaeger DATE OF SERVICE: 06/01/2017 CHIEF COMPLAINT: Podiatric consultation for evaluation and treatment of right inferior calcaneal wound for surgical debridement. The patient was referred by Dr. Samuel, vascular surgery. HISTORY OF PRESENT ILLNESS: The patient is a 66-year-old male with a history of type 2 diabetes mellitus and nonhealing ulceration to the right inferior calcaneus of several months. He has been seen at [facility] by Dr. Samuel, although the wound has recently worsened with a soft black eschar and necrotic odor. He relates mild to moderate pain with direct pressure of the calcaneus, but not when he is resting and offloading it. He denies fevers, chills, nausea or shortness of breath. Recent right foot wound cultures grew Enterococcus faecalis and Klebsiella pneumoniae. He was on oral minocycline 100 mg p.o. b.i.d. as an outpatient, but was placed on parenteral vancomycin today after hospital admission. He had noninvasive arterial duplex Doppler performed last month, which showed noncompressible vessels consistent with medial calcific sclerosis. Avulsed pulse volume recordings and Doppler showed normal waveforms throughout both lower extremities. Today's foot x-rays were negative for osteolysis or bony abnormality. He is scheduled for MRI without contrast tomorrow morning. Blood cultures are pending. LABORATORY DATA: WBC 8.3, RBC 3.24, hemoglobin 8.0, hematocrit 24.3, platelets 335. BUN 27, creatinine 1.8, glucose 367. PHYSICAL EXAMINATION: There is a large, soft black eschar to the right inferior calcaneus that encompasses nearly the entire inferior calcaneus and extends slightly at the lateral aspect. There is no drainage or active bleeding. The area is soft with melissa necrosis of the underlying subcutaneous tissue. There is no crepitation noted and no granulation. His feet are warm with faintly palpable dorsalis pedis and posterior tibial pulses bilaterally. No popliteal adenopathy to either extremity. Negative Homans' or Alanis sign. IMPRESSION: Deep tissue infection to right calcaneus, possible osteomyelitis complicated by type 2 diabetes mellitus with peripheral arterial disease. PLAN: I will surgically debride the right calcaneus tomorrow to excise soft tissue and possibly some portion of bone depending on its [place] [address] CONSULTATION Name: LON FREED Meli Room: [address] IN M.R.#: [id number] Admission: 06/01/17 Attend Phys: Asaf Jaeger MD Discharge: 06/08/17 Date of : 50 Report #: [id number] findings. The patient does have an eschar to the left inferior, which I did not plan on debriding. I will review MRI findings tomorrow prior to surgery. <ELECTRONICALLY SIGNED> By: Kain Magana DPM 06/22/17 1302 2008 [id number] Magana DPM /nt
--- NOTE | 2017-06-22 13:02 | CON ---
[address] [address] CONSULTATION Name: HOWIEANATOLYLON Meli Room: [address] IN M.R.#: [id number] Admission: 06/01/17 Attend Phys: Asaf Jageer MD Discharge: 06/08/17 Date of : 50 Report #: [id number] THIS REPORT FOR: //name// CC: Terrell Jaeger Primary Care Physician DATE OF SERVICE: 06/04/2017 CHIEF COMPLAINT: Followup of partial calcanectomy with wound debridement to right heel for osteomyelitis. Surgical bone and tissue cultures growing Klebsiella pneumoniae and Staph aureus. Surgical pathology is pending. He is on parenteral vancomycin and ceftriaxone with good tolerance. He relates moderate pain to the area, he is offloading in a PRAFO boot. He has been afebrile with no constitutional symptoms. LABORATORY DATA: WBC 8.9, RBC 2.97, hemoglobin 7.2, hematocrit 22.0, platelets 313. BUN 27, creatinine 1.3, glucose 203. PHYSICAL EXAMINATION: Postoperative wound is stable with no signs of acute vascular embarrassment. The inferior calcaneus is visible with no bone necrosis, some slough mixed with granulation along the wound margins. No pallor or cyanosis. No dehiscence to the wound margins. The foot is warm with palpable dorsalis pedis and posterior tibial pulses. Negative Homans' or Alanis sign in either extremity. No right popliteal adenopathy. Inflammation is low grade to the wound margins, substantially improved since prior to surgery. IMPRESSION: Osteomyelitis, status post partial calcanectomy, right foot; diabetes mellitus, peripheral artery disease. PLAN: Excisional ulcer debridement with scissors and forceps to excise subcutaneous tissue from the wound margins. Bleeding was stopped with pressure. The wound was cleansed and dressed with Aquacel Ag over the bone, covered with ABDs, Kerlix, and Lewis bandage and offloaded in a Multi Podus PRAFO boot. I did not change the left heel bandage today since it is a dry eschar. The left foot is also being offloaded in the PRAFO boot. The patient to receive 1 unit of PRBCs today. Physical Therapy to continue with nonweightbearing to the right extremity, likely chcf placement next week, PICC line was placed yesterday. <ELECTRONICALLY SIGNED> By: Kain Magana DPM 06/22/17 1302 1419 [id number] Magana DPM /nt
--- NOTE | 2017-06-22 13:02 | CON ---
[address] [address] CONSULTATION Name: ABDIAZIZLON Meli Room: [address] IN M.R.#: [id number] Admission: 06/01/17 Attend Phys: Asaf Jaeger MD Discharge: 06/08/17 Date of : 50 Report #: [id number] THIS REPORT FOR: //name// CC: Terrell Jaeger DATE OF SERVICE: 06/03/2017 CHIEF COMPLAINT: Status post right partial calcanectomy and wound debridement for osteomyelitis. He has type 2 diabetes mellitus with PAD and peripheral neuropathy. He has poor glycemic control. Surgical pathology and cultures are pending. He relates mild pain to the area, he has been afebrile during hospitalization with stable vitals. No new labs for review. PHYSICAL EXAMINATION: Inferior calcaneus is exposed with overlying Gelfoam. There is a mixture of slough and granulation to the wound periphery with mild periwound inflammation, which has decreased since prior to surgery. No pallor, cyanosis or signs of acute vascular embarrassment. The right foot is warm to the touch with palpable dorsalis pedis and posterior tibial pulses. No popliteal adenopathy to right lower extremity and negative Homans' or Alanis sign either leg. IMPRESSION: Status post right partial calcanectomy. PLAN: The wound was cleansed and I removed some of the Gelfoam with forceps and scissors. No debridement was performed. The wound was dressed with Aquacel Ag, ABDs, Kerlix and gauze and off loaded in a PRAFO boot. I will follow the patient daily during hospitalization. He will likely require 6 weeks of parenteral antibiotics, put PICC line. <ELECTRONICALLY SIGNED> By: Kain Magana DPM 06/22/17 1302 1422 1846Kain Magana DPM /nt
[2018-01-28] MEDS ORDERED: OMEPRAZOLE40 MG PO (12:01)
[2018-01-31] MEDS ORDERED: AZITHROMYCIN 2250 MG PO (13:43)
[2018-01-31] MEDS ORDERED: CEFDINIR300 MG PO (13:43)
[2018-01-31] MEDS ORDERED: ATORVASTATIN CA20 MG PO (13:43)
[2018-01-31] MEDS ORDERED: AMLODIPINE BESY10 MG PO (13:44)
[2018-01-31] MEDS ORDERED: NEURONTIN 300300 M1 PO (13:45)
[2018-01-31] MEDS ORDERED: VITAMIN C1000 MG PO (13:45)
[2018-01-31] MEDS ORDERED: SENNA-DOCUSATE1 EACH PO (13:45)
[2018-01-31] MEDS ORDERED: NORVASC5 MG PO (16:41)
[2018-01-31] MEDS ORDERED: NEURONTIN 400400 M1 PO (16:41)
== END 2017-06-08 13:10 | DRG 622 ==
LOC: M.3W 12:44
PROVIDERS: Family Medicine; Internal Medicine Infectious Disease; ADMIT Internal Medicine
PROC: 0QBL0ZZ Excision of Right Tarsal, Open Approach (ICD-10-PCS; principal; 2017-06-02)
PROC: 0JBQ0ZZ Excision of Right Foot Subcutaneous Tissue and Fascia, Open Approach (ICD-10-PCS; principal; 2017-06-02)
PROC: 05HB33Z Insertion of Infusion Device into Right Basilic Vein, Percutaneous Approach (ICD-10-PCS; 2017-06-03)
PROC: 30233N1 Transfusion of Nonautologous Red Blood Cells into Peripheral Vein, Percutaneous Approach (ICD-10-PCS; 2017-06-04)
DX: E11.69 Type 2 diabetes mellitus with other specified complication (principal); R65.11 Systemic inflammatory response syndrome (SIRS) of non-infectious origin with acute organ dysfunction; M86.9 Osteomyelitis, unspecified; E44.1 Mild protein-calorie malnutrition; L97.419 Non-pressure chronic ulcer of right heel and midfoot with unspecified severity; E11.51 Type 2 diabetes mellitus with diabetic peripheral angiopathy without gangrene; E11.621 Type 2 diabetes mellitus with foot ulcer; N18.4 Chronic kidney disease, stage 4 (severe); N17.9 Acute kidney failure, unspecified; K21.9 Gastro-esophageal reflux disease without esophagitis; E11.22 Type 2 diabetes mellitus with diabetic chronic kidney disease; E11.42 Type 2 diabetes mellitus with diabetic polyneuropathy; D64.9 Anemia, unspecified; I12.9 Hypertensive chronic kidney disease with stage 1 through stage 4 chronic kidney disease, or unspecified chronic kidney disease; E11.65 Type 2 diabetes mellitus with hyperglycemia; I25.10 Atherosclerotic heart disease of native coronary artery without angina pectoris; B96.1 Klebsiella pneumoniae [K. pneumoniae] as the cause of diseases classified elsewhere; B95.61 Methicillin susceptible Staphylococcus aureus infection as the cause of diseases classified elsewhere; Z88.8 Allergy status to other drugs, medicaments and biological substances; Z79.82 Long term (current) use of aspirin; Z83.3 Family history of diabetes mellitus; Z79.899 Other long term (current) drug therapy

== ENCOUNTER → 2017-06-01 | Outpatient (CLI) | payer BC | LOC: M.WC 04:46 | DX: E11.621 Type 2 diabetes mellitus with foot ulcer (principal); L97.421 Non-pressure chronic ulcer of left heel and midfoot limited to breakdown of skin; L97.411 Non-pressure chronic ulcer of right heel and midfoot limited to breakdown of skin; I70.244 Atherosclerosis of native arteries of left leg with ulceration of heel and midfoot; I70.234 Atherosclerosis of native arteries of right leg with ulceration of heel and midfoot; E11.51 Type 2 diabetes mellitus with diabetic peripheral angiopathy without gangrene; E11.40 Type 2 diabetes mellitus with diabetic neuropathy, unspecified; I10 Essential (primary) hypertension; K21.9 Gastro-esophageal reflux disease without esophagitis; L84 Corns and callosities; Z87.891 Personal history of nicotine dependence ==

== ENCOUNTER → 2017-06-15 | Outpatient (CLI) | payer BC ==
[~2017-06-15] MED LIST changes: +ACIDOPHILUS1 EAC3 PO; +AMLODIPINE BESY10 MG PO; +ANCEF 1GM1 GM/50 M2 IV; +ATORVASTATIN CA20 MG PO; +AZITHROMYCIN 2250 MG PO; +CEFDINIR300 MG PO; +IRON325 PO; +JUVEN PACKET1 EAC1 PO; +LOPRESSOR100 M1 PO; +MAALOX ADVANCE355 M1 PO; +NEURONTIN 300300 M1 PO; +NEURONTIN 400400 M1 PO; +NORVASC5 MG PO; +OMEPRAZOLE40 MG PO; +ONDANSETRON HCL4 M2 PO; +PERCOCET 5-3251 EACH PO; +PHENERGAN12.5 M2 PO; +SENNA-DOCUSATE1 EACH PO; +SERTRALINE HCL50 MG PO; +UNICOMPLEX M TA1 TA1 PO; +VITAMIN C1000 MG PO; +VITAMINC500 PO; +ZINC CHELATE50 MG PO
--- NOTE | 2017-06-16 13:07 | CON ---
[address] [address] CONSULTATION Name: HOWIEANATOLYLON Meli [facility] [id number] Admission: 06/15/17 Attend Phys: Kain Magana DPM Discharge: Date of : 50 Report #: [id number] THIS REPORT FOR: //name// CC: Terrell Magana DATE OF SERVICE: 06/15/2017 HISTORY OF PRESENT ILLNESS: He is here for osteomyelitis involving the right calcaneus. He was post partial osteoectomy. Review of path confirmed acute osteomyelitis. He has completed about 3 weeks of parenteral therapy at this point. PHYSICAL EXAMINATION: On evaluation, the wound shows some degree of healing. There is some granulation tissue starting to cover the bone. He does have some marginal wound inflammation that is at least moderate and he notes some pain on palpation. Dr. Magana did debride the site. ASSESSMENT: Acute osteomyelitis involving the right calcaneus. PLAN: We will continue parenteral therapy. We will plan at least 6 weeks of treatment. He is to continue wound care as prescribed. They are trying to arrange a wound VAC as well. Optimize nutritional status. Certainly offload the site. There is some discussion if not improved in terms of the inflammation, may need additional surgery. We will reevaluate next week. <ELECTRONICALLY SIGNED> By: Murali Booker MD 06/16/17 1307 2039 [id number] Booker MD /sina
== END ==
LOC: M.WC 02:02
DX: E11.621 Type 2 diabetes mellitus with foot ulcer (principal); L97.421 Non-pressure chronic ulcer of left heel and midfoot limited to breakdown of skin; L97.411 Non-pressure chronic ulcer of right heel and midfoot limited to breakdown of skin; I70.234 Atherosclerosis of native arteries of right leg with ulceration of heel and midfoot; I70.244 Atherosclerosis of native arteries of left leg with ulceration of heel and midfoot; E11.51 Type 2 diabetes mellitus with diabetic peripheral angiopathy without gangrene; E11.40 Type 2 diabetes mellitus with diabetic neuropathy, unspecified; I10 Essential (primary) hypertension; E78.2 Mixed hyperlipidemia; K21.9 Gastro-esophageal reflux disease without esophagitis; Z68.23 Body mass index [BMI] 23.0-23.9, adult; Z87.891 Personal history of nicotine dependence

== ENCOUNTER 2017-06-19 08:17 | Inpatient (IN) | payer BC ==
[~2017-06-19] VITALS: Ht 175.3 cm; Wt 79.5 kg
--- NOTE | ~2017-06-19 | OP ---
[address] [address] OPERATIVE REPORT Name: LON FREED Room: [address] IN ..#: [id number] Admission: 06/19/17 Attend Phys: Kendy Holley Discharge: Date of : 50 Report #: [id number] THIS REPORT FOR: //name// For details of the operative procedure, please see the post operative note. By: 06Medical Records Staff MELODY /STEVE
[~2017-06-19 08:17] MED LIST changes: -ACIDOPHILUS1 EAC3 PO; -AMLODIPINE BESY10 MG PO; -ATORVASTATIN CA20 MG PO; -AZITHROMYCIN 2250 MG PO; -CEFDINIR300 MG PO; -IRON325 PO; -JUVEN PACKET1 EAC1 PO; -LOPRESSOR100 M1 PO; -MAALOX ADVANCE355 M1 PO; -NEURONTIN 300300 M1 PO; -NEURONTIN 400400 M1 PO; -NORVASC5 MG PO; -OMEPRAZOLE40 MG PO; -ONDANSETRON HCL4 M2 PO; -PHENERGAN12.5 M2 PO; -SENNA-DOCUSATE1 EACH PO; -SERTRALINE HCL50 MG PO; -UNICOMPLEX M TA1 TA1 PO; -VITAMIN C1000 MG PO; -VITAMINC500 PO; -ZINC CHELATE50 MG PO
[2017-06-19] MEDS ORDERED: VITAMINC500 PO (08:24)
[2017-06-19] MEDS ORDERED: ACIDOPHILUS1 EAC3 PO (08:24)
[2017-06-19] MEDS ORDERED: ZINC CHELATE50 MG PO (08:30)
[2017-06-19] MEDS ORDERED: UNICOMPLEX M TA1 TA1 PO (08:30)
[2017-06-19] MEDS ORDERED: JUVEN PACKET1 EAC1 PO (08:30)
[2017-06-19] MEDS ORDERED: IRON325 PO (08:31)
[2017-06-19] MEDS ORDERED: MAALOX ADVANCE355 M1 PO (08:31)
[2017-06-19] MEDS ORDERED: ONDANSETRON HCL4 M2 PO (08:32)
[2017-06-19] MEDS ORDERED: PHENERGAN12.5 M2 PO (08:32)
[2017-06-19 08:44] LABS: PCO2 36.7 mmHg (35.0-45.0); pH 7.468 (7.340-7.450)
--- NOTE | 2017-06-19 08:55 | NUR ---
PT HAD A LARGE BM AT THIS TIME, CLEANED PT UP AND CHANGED SHEETS.
[2017-06-19 08:57] LABS: HEMATOCRIT 28.5 % (42.0-52.0); MCHC 31.6 g/dL (28.0-37.0); NUCLEATED RBCS 0 /100WBC; PLATELET COUNT* 301 thou/uL (150-400); RBC 3.75 mil/uL (4.50-6.00); RDW-CV 15.9 % (10.5-14.5); WBC 8.4 thou/uL (4.0-11.0)
[2017-06-19 09:04] LABS: CALCIUM 8.7 mg/dL (8.5-10.1); POTASSIUM 4.5 mmol/L (3.5-5.1)
[2017-06-19 09:11] LABS: ALBUMIN 2.4 g/dL (3.4-5.0); TOTAL BILIRUBIN 0.4 mg/dL (<0.1-1.0); TOTAL PROTEIN 6.9 g/dL (6.4-8.2); TROPONIN-I LEVEL 0.16 ng/mL (<0.06)
[2017-06-19 09:26] LABS: ABSOLUTE LYMPHOCYTES 0.5 thou/uL (0.8-5.3); ABSOLUTE NEUTROPHILS 6.9 thou/uL (1.6-8.1); ANISOCYTOSIS 1+; HYPOCHROMASIA 1+; PLATELET ESTIMATE ADEQUATE
[2017-06-19 09:28] LABS: TEARDROPS Occasional
[2017-06-19 10:53] VITALS: BP 166/83
[2017-06-19 11:00] VITALS: BP 143/72
--- NOTE | 2017-06-19 11:59 | NUR ---
PATIENT ADMITTED TO ICU ROOM 007 AT 1100. HISTORY AND ASSESSMENT COMPLETED. MEDICATIONS RECONCILED AND MESSAGE SENT TO DR PEREZ TO REORDER. PATIENT VITALS STABLE AT THIS TIME. REFER TO CHARTING. TRACING NSR ON FLY FRAME TENDER. BIPAP IN PLACE. SETTINGS 14/6, 15, 40%, CURRENT SATURATION 96%. PATIENT AOX4, CALM, COOPERATIVE. DTRS RANDALL AND DESTINY TO SEE PATIENT AND UPDATED ON PLAN OF CARE. NS BOLUSES INFUSING AT THIS TIME. WILL CONTINUE WITH CURRENT PLAN OF CARE.
[2017-06-19 12:48] LABS: BE -0.1 mmol/L (-2 to +3); HCO3 25.1 mmol/L (22.0-26.0); PCO2 43.7 mmHg (35.0-45.0); PO2 105.7 mmHg (75.0-100.0); pH 7.377 (7.340-7.450)
[2017-06-19 13:14] VITALS: BP 132/49
[2017-06-19 13:47] LABS: URINE BILIRUBIN NEGATIVE (Negative); URINE BLOOD NEGATIVE (Negative); URINE CLARITY CLEAR; URINE COLOR YELLOW; URINE GLUCOSE-RANDOM NEGATIVE (Negative); URINE KETONES TRACE (Negative); URINE LEUKOCYTES-REFLEX NEGATIVE (Negative); URINE NITRITE-REFLEX NEGATIVE (Negative); URINE PROTEIN 2+ (Negative); URINE SPECIFIC GRAVITY 1.025 (1.005-1.030); URINE UROBILINOGEN 0.2 E.U./dl (0.2-1.0)
[2017-06-19 13:53] LABS: CALCIUM 7.9 mg/dL (8.5-10.1); CREATININE 1.8 mg/dL (0.6-1.3); MAGNESIUM 1.9 mg/dL (1.8-2.4); POTASSIUM 4.2 mmol/L (3.5-5.1)
[2017-06-19 13:58] LABS: CRYSTALS None Seen /LPF (None Seen); HYALINE CASTS 0-3 Few /LPF (None Seen); MUCUS 0-3 Light strn/LPF (None Seen); SQUAMOUS 0-3 Few /LPF (0-3)
[2017-06-19 13:59] LABS: BACTERIA-REFLEX 1-9 Few /HPF (None Seen); URINE RBC 0-2 Rare /HPF (0-2); URINE WBC-REFLEX 0-5 Rare /HPF (0-5)
[2017-06-19 14:31] LABS: AMP/METHAMP Negative (Negative); BARBITURATES Negative (Negative); BENZODIAZEPINES Negative (Negative); COCAINE Negative (Negative); METHADONE Negative (Negative); OPIATES Negative (Negative); PCP Negative (Negative); THC Negative (Negative)
[2017-06-19 15:48] VITALS: BP 128/52
--- NOTE | 2017-06-19 18:06 | NUR ---
PATIENT PROGRESSING TOWARDS GOALS. HAS REMAINED AOX4 SINCE ADMISSION. ANSWERS ALL QUESTIONS APPROPRAITELY. DOES SLEEP CONSTANTLY, STATES HE DOES THIS AT [facility]. WHEN ASKED ABOUT THERAPY HE STATED "I HATE IT". EDUCATED ON IMPORTANCE OF BUILDING UP STRENGTH AND HE STATED "I'M STRONG ENOUGH. I DON'T NEED THIS". DENIES PAIN. DIABETIC WOUNDS TO BILATERAL HEELS, DRESSING CHANGED, PHOTOS TAKEN. LESLY PICC IN PLACE WITH FLUIDS PER ORDERS. PATIENT DOWNGRADED TO TELEMETRY STATUS. CARDIOLOGY SAW PATIENT TODAY AND STATED HE WOULD NEED TO HAVE HEART CATHETERIZATION AT SOME POINT. LAST TROPONIN 0.72. DENIES CHEST PAIN. REMAINS NSR ON LEGAL ASSISTANT WITH NO ECTOPY. VITALS WNL. AFEBRILE. PATIENT POSSIBLY ASPIRATION. O2 DESATURATES MORE THAN 10% WITH DRINKING WATER. PLACED NPO AND SPEECH EVALUATION ORDERED FOR TOMORROW. DENIES OTHER CONCERNS WITH CARE.
--- NOTE | 2017-06-19 18:53 | NUR ---
PATIENT TRANSFERED TO ROOM 212 AT 1850.
[2017-06-19 20:00] VITALS: BP 159/81
[2017-06-20] VITALS (7 sets, daily range): BP systolic 135–173; BP diastolic 71–84
[2017-06-20 04:52] LABS: HEMATOCRIT 23.6 % (42.0-52.0); HEMOGLOBIN 7.5 gm/dL (14.0-18.0); MCH 24.5 pg (26.0-34.0); MCHC 31.9 g/dL (28.0-37.0); MCV 76.8 fL (80.0-100.0); MPV 9.4 fl. (7.2-11.1); RBC 3.08 mil/uL (4.50-6.00); RDW-CV 15.5 % (10.5-14.5); WBC 8.4 thou/uL (4.0-11.0)
--- NOTE | 2017-06-20 04:56 | NUR ---
ASSUME DPT CARE AT 1930, PT IS A&OX4, TRACING NSR ON THE MONITOR, ON 7L NC AT THIS TIME. PT IS C/O NAUSEA, PRN NAUSEA MEDICATIONS GIVEN PER MAY. THIS RN STARTED IVF WELL A HEPARIN GTT PER CARDIOLOGY PROTOCOL. PT HAS HAD A SLIGHT FEVER THIS SHIFT., PT IS NPO AT THIS TIME PENDING SPEECH CONSULT. PT HAS WOUNDS TO BOTH HEELS, WOUNDS WERE WRAPPED AND PICTURES TAKEN BY DAY RN. ACCORDING TO THE PATIENT HE IS NON WEIGHT BEARING TO HIS RIGHT LEG THEY HAD RECENTLY CUT PART OF HIS HEEL OFF. AROUND 0400 PT SHOWED SOME INCREASE IN RESPIRATORY DISTRESS SATTING 80 ON 7L NC, PT WAS PLACED ON 10L HFNC, STILL SATTING IN THE UPPER 80'S. PT WAS THE PLACED ON BIPAP BY RT, PT IS NOW SATTING MID TO HIGH 90'S. STAT ABG AND CHEST XRAY ORDERED. BED IN LOW POSITION, CALL LIGHT IN REACH, BED ALARM ON, YELLOW ARM BAND AND SOCKS IN PLACE. HOURLY ROUNDING COMPLETED FOR PT SAFETY.
[2017-06-20 05:07] LABS: BE -4.1 mmol/L (-2 to +3); HCO3 20.9 mmol/L (22.0-26.0); PCO2 37.4 mmHg (35.0-45.0); pH 7.365 (7.340-7.450)
[2017-06-20 05:12] LABS: PO2 56.9 mmHg (75.0-100.0)
[2017-06-20 05:12] LABS: ALBUMIN 2.1 g/dL (3.4-5.0); CALCIUM 7.9 mg/dL (8.5-10.1); CREATININE 1.5 mg/dL (0.6-1.3); POTASSIUM 4.3 mmol/L (3.5-5.1); TOTAL BILIRUBIN 0.3 mg/dL (<0.1-1.0); TOTAL PROTEIN 6.1 g/dL (6.4-8.2)
--- NOTE | 2017-06-20 12:31 | NUR ---
CM ASSESSMENT: Pt asleep, spoke with Pt's via phone. informed that Pt was being skilled at [facility] prior to this hospital stay. states that Pt had been progressing towards his goals. Prior to skilled, Pt resided at home with his and was independent with ADLS. Pt used a cane for mobility. No hx of HH. Pt also has a walker at home that he can use. states that she has the flu, which is why she has not been up to the hospital. Goal is for Pt to return to [facility] at or. Spoke with Ld, admissions at [facility], they are able to accept Pt at or, pending insurance auth. Following.
--- NOTE | 2017-06-20 13:28 | NUR ---
WOUND CARE NOTE: CONSULT RECEIVED FOR DIABETIC ULCERS TO BILATERAL HEELS. PATIENT WAS SEEN WITH PODIATRY. PATIENT KNOWN TO ME FROM PREVIOUS STAY. FULL THICKNESS ULCERATION NOTED TO THE RIGHT HEEL. WOUND MEASURES 6.5X9X1.5 PINK, MOIST GRANULATION TO 80% OF WOUND BED, THERE IS BONE PRESENT IN WOUND BED TOO. TO THE WOUND EDGES, THERE IS 20% YELLOW/BLACK SLOUGH TISSUE. LARY-WOUND WITH SMALL AMOUNT OF REDNESS. WOUND WAS CLEANSED WITH WOUND CLEANSER, PATTED DRY. APPLIED AQUACEL AG TO WOUND BED AND COVERED WITH ABD. SECURED WITH KERLIX THEN ROMINA. APPLIED PODUS BOOT. LEFT HEEL WITH WOUND MEASURING 3X2.5X0.1. LARY-WOUND WITH BLACK ESCHAR. CENTER OF WOUND IS PINK, MOIST, DRAINING SMALL AMOUNTS OF SANGUINEOUS DRAINAGE. AREA WAS CLEANSED WITH WOUND CLEANSER, PATTED DRY. APPLIED AQUACEL AG AND SECURED WITH KERLIX. APPLIED OFFLOADING BOOT. EDUCATED PATIENT ON IMPORTANCE OF KEEPING HEELS UP OFF BED, COMMUNICATED UNDERSTANDING. RECOMMEND OFFLOADING BOOTS BILATERALLY ENCOURAGE GOOD NUTRITION AND HYDRATION FOR WOUND HEALING FOLLOW UP IN WOUND CENTER UPON DISCHARGE TIGHT BLOOD GLUCOSE CONTROL
--- NOTE | 2017-06-20 14:31 | 2DMMODE ---
[place] [address] 2 D/M-MODE ECHOCARDIOGRAM Name: HOWIECHARLEYLON PENNINGTON Room: [address] ADM IN [facility]#: [id number] Admission: 06/19/17 Attend Phys: Jaya Mayorga Discharge: Date of : 50 Date of Service: 06/20/17 1431 Report #: [id number] THIS REPORT FOR: //name// APPROVED REPORT Study performed: 06/20/2017 11:20:31 EXAM: Comprehensive 2D, Doppler, and color-flow Echocardiogram Patient Location: In-Patient Room #: [facility] Status: routine BSA: 1.80 HR: 92 bpm BP: 164/84 mmHg Rhythm: NSR Other Information Study Quality: Good Indications Sepsis Dyspnea CAD Elevated Troponin pneumonia 2D Dimensions LVEF(%): 61.94 (>50%) IVSd: 13.17 (7-11mm) LVOT Diam: 19.92 (18-24mm) LVDd: 43.31 mm PWd: 12.28 (7-11mm) Ascending Ao: 27.41 (22-36mm) LVDs: 28.98 (25-40mm) Aortic Root: 32.31 mm Serrano's LVEF: 61.94 % Volumes Left Atrial Volume (Systole) LA ESV Index: 34.70 mL/m2 Aortic Valve AoV Peak Carlos.: 1.63 m/s AO Peak Gr.: 10.65 mmHg LVOT Max P.71 mmHg AO Mean Gr.: 6.63 mmHg LVOT Mean P.16 mmHg LVOT Max V: 1.09 m/s AO V2 VTI: 30.05 cm LVOT Mean V: 0.67 m/[place] [address] 2 D/M-MODE ECHOCARDIOGRAM Name: LON FREED Room: [address] IN ..#: [id number] Admission: 06/19/17 Attend Phys: Jaya Mayorga Discharge: Date of : 50 Date of Service: 06/20/17 1431 Report #: [id number] YUKI (VTI): 2.25 cm2 LVOT V1 VTI: 21.70 cm Mitral Valve E/A Ratio: 1.10 MV Decel. Time: 159.54 ms MV E Max Carlos.: 1.45 m/s MV PHT: 46.27 ms MVA (PHT): 4.76 cm2 TDI E/Lateral E': 16.11 E/Medial E': 16.11 Medial E' Carlos.: 0.09 m/s Lateral E' Carlos.: 0.09 m/s Pulmonary Valve PV Peak Carlos.: 1.01 m/s PV Peak Gr.: 4.07 mmHg Tricuspid Valve TR Peak Gr.: 30.38 mmHg RVSP: 35.00 mmHg Left Ventricle The left ventricle is normal size. There is normal LV segmental wall motion. Mild concentric left ventricular hypertrophy. Left ventricular systolic function is normal. The left ventricular ejection fraction is within the normal range. LVEF is 60-65%. The left ventricular diastolic function is normal. Right Ventricle The right ventricle is normal size. The right ventricular systolic function is normal. Atria The left atrium size is normal. The right atrium size is normal. Aortic Valve The aortic valve is normal in structure. No aortic regurgitation is present. There is no aortic valvular stenosis. Mitral Valve There is mitral annular calcification. Mild mitral regurgitation. No evidence of mitral valve stenosis. Tricuspid Valve The tricuspid valve is normal in structure. Trace tricuspid regurgitation. The RVSP is 35-[place] [address] 2 D/M-MODE ECHOCARDIOGRAM Name: LON FREED Room: [address]#: [id number] Admission: 06/19/17 Attend Phys: Jaya Mayorga Discharge: Date of : 50 Date of Service: 06/20/17 1431 Report #: [id number] Pulmonic Valve The pulmonary valve is normal in structure. There is no pulmonic valvular regurgitation. Great Vessels The aortic root is normal in size. IVC is normal in size and collapses with >50% inspiration Pericardium There is no pericardial effusion. <Conclusion> The left ventricle is normal size. Mild concentric left ventricular hypertrophy. Left ventricular systolic function is normal. The left ventricular ejection fraction is within the normal range. LVEF is 60-65%. The left ventricular diastolic function is normal. The right ventricle is normal size. The left atrium size is normal. The aortic valve is normal in structure. There is mitral annular calcification. Mild mitral regurgitation. No evidence of mitral valve stenosis. The tricuspid valve is normal in structure. Trace tricuspid regurgitation. The RVSP is 35-40 mmHg. IVC is normal in size and collapses with >50% inspiration There is no pericardial effusion. There is normal LV segmental wall motion. <ELECTRONICALLY SIGNED> By: Gautam Rodriguez MD, FACC 06/20/17 1431 1431 1431 Gautam Rodriguez MD, FACC /INF
--- NOTE | 2017-06-20 14:42 | EKG ---
[place] [address] ELECTROCARDIOGRAM REPORT Name: JULIANNREGANLON LEDBETTER Room: [address] ADM IN .R.#: [id number] Admission: 06/19/17 Attend Phys: Kendy Holley Discharge: Date of : 50 Report #: [id number] THIS REPORT FOR: //name// [facility] ED Test Date: 2017-06-19 Test Time: 08:29:41 Pat Name: LON FREED Department: Room: [facility] Gender: M Pet Care Associate: STEVE : 1950 Requested By: Nina Stovall Order Number: [id number] MD: Gautam Rodriguez Measurements Intervals [place] Rate: 111 P: 77 MO: 129 QRS: 42 QRSD: 78 T: 200 QT: 333 QTc: 453 Interpretive Statements Sinus tachycardia Probable left atrial enlargement Anterior infarct, old Repol abnrm suggests ischemia, lateral leads Compared to ECG 06/01/2017 17:29:14 Myocardial infarct finding now present Possible ischemia now present Electronically Signed On 06-20-2017 14:42:44 CDT by Gautam Rodriguez [email or web address] <ELECTRONICALLY SIGNED> By: Gautam Rodriguez MD, [facility] 06/20/17 1442 0829 0829 Gautam Rodriguez MD, [facility] /EPI
--- NOTE | 2017-06-20 14:43 | EKG ---
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 : 1950 Requested By: Nina Stovall Order Number: [id number] : Gautam Rodriguez Measurements Intervals [place] Rate: 99 P: 68 MD: 119 QRS: 43 QRSD: 85 T: 101 QT: 358 QTc: 460 Interpretive Statements Sinus rhythm Anterior infarct, old Borderline repolarization abnormality Compared to ECG 06/01/2017 17:29:14 Myocardial infarct finding now present Electronically Signed On 06-20-2017 14:43:22 CDT by Gautam Rodriguez [email or web address] <ELECTRONICALLY SIGNED> By: Gautam Rodriguez MD, [facility] 06/20/17 1443 1035 1035 Gautam Rodriguez MD, [facility] /EPI
--- NOTE | 2017-06-20 18:48 | NUR ---
ASSUMED CARE OF PT AT 0730. PT CONTINUES TO BE A&O X4 CALM AND COOPERATIVE BUT TIRED. PT WAS ON BIPAP THIS AM AND WAS SWITCHED TO HIGH FLOW NC AT 9L THIS AFTERNOON PER PULMONOLOGY ORDERS. PT HAS HAD C/O BILATERAL HEEL PAIN TODAY AND PAIN MEDS GIVEN PER MAY. PT WAS RUNNING A FEVER THIS MORNING BUT WAS NPO D/T ASPIRATION CONCERNS. PT REFUSED RECTAL TYLENOL FOR HIS FEVER AND BY THE TIME THE PT WAS TAKEN OFF OF NPO HIS FEVER HAD SUBSIDED. PT HAS BEEN TRACING SR-ST ON THE MONITOR TODAY WITH RATES MAINLY IN THE UPPER 90'S. PT HEEL WOUNDS WERE ASSESSED AND REDRESSED BR DR SYLVESTER AND WOUND NURSE SRINIVASAN. PT HAS HAD A POOR APPETITE AND ATE 0% OF HIS MEALS TODAY. THIS NURSE OFFERED SUPPLEMENMTS AND ALTERNATIVES BUT PT REFUSED. PT VOIDING VIA URINAL NORMALLY, NO BM TODAY. PT CURRENTLY RESTING IN BED WITH NC IN PLACE AND NO APPARENT S/S OF PAIN OR DISTRESS.
--- NOTE | 2017-06-20 23:25 | NUR ---
PT'S APTT WAS FOUND TO BE OVER 100 AT 2044; HEPARIN GTT WAS TURNED OFF FOR AN HOUR AT THAT TIME; GTT WAS RESUMED AT 2144 AT A REDUCED RATE CALCULATED USING THE WEIGHT BASED PROTOCOL FOUND ON THE PT'S MAY.
[2017-06-21 03:03] LABS: HEMATOCRIT 22.1 % (42.0-52.0); HEMOGLOBIN 7.3 gm/dL (14.0-18.0); MCH 24.9 pg (26.0-34.0); MCV 75.3 fL (80.0-100.0); MPV 9.3 fl. (7.2-11.1); RBC 2.93 mil/uL (4.50-6.00); RDW-CV 15.9 % (10.5-14.5); WBC 7.5 thou/uL (4.0-11.0)
[2017-06-21 03:18] LABS: ALBUMIN 1.8 g/dL (3.4-5.0); CALCIUM 7.6 mg/dL (8.5-10.1); CREATININE 1.9 mg/dL (0.6-1.3); POTASSIUM 3.8 mmol/L (3.5-5.1); TOTAL BILIRUBIN 0.3 mg/dL (<0.1-1.0); TOTAL PROTEIN 5.5 g/dL (6.4-8.2); TROPONIN-I LEVEL 0.4 ng/mL (<0.06)
[2017-06-21 04:00] VITALS: BP 141/64
[2017-06-21 06:16] LABS: BE -0.9 mmol/L (-2 to +3); HCO3 23.6 mmol/L (22.0-26.0); PCO2 38.3 mmHg (35.0-45.0); pH 7.407 (7.340-7.450)
[2017-06-21 06:17] LABS: PO2 59.6 mmHg (75.0-100.0)
[2017-06-21 07:30] VITALS: BP 144/68
--- NOTE | 2017-06-21 08:06 | NUR ---
PT IS ABLE TO COMMUNICATE HIS NEEDS TO STAFF EFFECTIVELY. HE HAS DENIED THE NEED FOR PAIN MEDICATION UP TO THIS TIME. HEPARIN GTT RUNNING AT THIS TIME. BILATERAL HEEL WOUND DRESSINGS CHANGED DAILY ON DAY SHIFT. HEEL PROTECTION BOOTS IN PLACE OVERNIGHT AND UP TO THIS TIME.
[2017-06-21 11:30] VITALS: BP 152/76
--- NOTE | 2017-06-21 15:09 | NUR ---
CONSULTED TO REMOVED PICC PT HAD PARTIALY PULLED OUT AND PLACE NEW PICC. ORDER AND CONSENT NOTED. RIGHT UPPER ARM PICC NOTED TO HAVE DRESSING PULLED BACK AND 30CM OF PICC EXTERNAL. PICC AND DRESSING REMOVED WITH EASE. NEW SINGLE LUMAN 3FR. POWER PICC PLACED TO RIGHT UPPER BASILIC PER HOSPITAL POLICY. LINE TRIMMED TO 45CM AND ADVANCED TO OCM EXTERNAL. LINE CLEARED WITH SHERLOCK 3CG AND SECURED. LINE RELEASED FOR IMMEDIATE USE TO PRIMARY RN TALIA. TOLERATED WELL.
[2017-06-21 16:00] VITALS: BP 166/80
--- NOTE | 2017-06-21 16:00 | CON ---
[address] [address] CONSULTATION Name: LON FREED Room: [address] IN .R.#: [id number] Admission: 06/19/17 Attend Phys: Kendy Holley Discharge: Date of : 50 Report #: [id number] THIS REPORT FOR: //name// CC: TERRELL Mayorga DATE OF SERVICE: 06/20/2017 ATTENDING PHYSICIAN: Celine Walker MD. PRIMARY CARE PHYSICAIN: Dr. Terrell Valderrama. The patient is located in room 212 up on U. INDICATION FOR CONSULTATION: Aspiration pneumonia, hypoxemia. CLINICAL SUMMARY: The patient is a 66-year-old male who states he is a nonsmoker, admitted to the hospital with possible drug overdose on 06/18. He is admitted to the ICU over the weekend. He was on 40% BiPAP. He seemed to do okay with that. It appeared the detention staff was unable to arouse him on the morning of admission. He was given some Percocet for pain around 1700, in the morning, could not recall if anything else was given. During the morning, he did woke up after being given Narcan, and he was better. He has had some chills. has had a dry cough, no fever or purulent sputum. He has no memory of losing consciousness, states he has not had pneumonia or COPD before. He is on BiPAP and then he is on 7 liters, sats are 94%. He feels better. He was getting tired of the BiPAP. PAST MEDICAL HISTORY: He has had altered mental status, possibly some dementia, diabetic foot ulcers, has a history of diabetic ketoacidosis. He has had diabetes mellitus with peripheral vascular disease, osteomyelitis and neuropathy and nephropathy. ALLERGIES: FROM DIAZEPAM, NOT CERTAIN WHAT. OUTPATIENT MEDICATIONS: Included metoclopramide 10 mg 4 times a day, ferrous sulfate 325 mg 3 times a day for iron deficiency anemia. Simvastatin 20 mg at bedtime, aspirin 81 mg daily, omeprazole 20 mg daily, gabapentin 400 mg b.i.d., losartan 25 mg daily. In the hospital, he is on antibiotics, vancomycin and Zosyn, on some breathing treatments and BiPAP, now on 7 liters. PAST SURGICAL HISTORY: He has had obstructive sleep apnea. The patient refuses treatment, has also diabetes mellitus with again neuropathy, nephropathy and vasculopathy. He has had rotator cuff repair, elbow surgery, hernia surgery, [place] [address] CONSULTATION Name: LON FREED Room: [address]#: [id number] Admission: 06/19/17 Attend Phys: Kendy Holley Discharge: Date of : 50 Report #: [id number] tonsillectomy, osteomyelitis and chronic leg lesions. He has had muscle weakness. SOCAL HISTORY: By history, he is a nonsmoker, nondrinker. FAMILY HISTORY: Positive for diabetes, negative for other premature cardiopulmonary disease. REVIEW OF SYSTEMS: A 14-point review of systems reviewed and negative except for pertinent positives noted in HPI. PHYSICAL EXAMINATION: GENERAL: Thin, frail, older appearing 66-year-old male, in no acute distress. He is on 7 liters at this time. Saturation of 95%. He is off his BiPAP. VITAL SIGNS: Blood pressure is 159/71, heart rate is 90, respirations are 16, temperature is 37.5 degrees. He is 5 feet 4 inches tall, weight 76 kilograms or 170 pounds, BMI is 33. HEENT: He is somewhat sluggish. He will respond to a few commands. He will stick out his tongue, and he can cough on command to protect his airway. Mucous membranes slightly dry. Pupils are midpoint. NECK: Supple without nodes. CHEST: Shows bilateral rhonchi and crackles in both lower lobes. HEART: Regular rate and rhythm without murmur, gallop or rub. Heart rate is 90. ABDOMEN: Soft, without masses or megaly. EXTREMITIES: Both covered up. He has Unna boots on both legs, and he has had previous diabetic foot ulcers as well as osteomyelitis there. Peripheral pulses are 0-1+. NEUROLOGIC: He moves all 4 extremities, albeit somewhat weekly. LABORATORY DATA: He has had iron deficiency anemia. Labs from 06/20/2017: Hemoglobin 7.5, white count 8400, MCV is 76 and platelet count of 241,000. Sodium is 143, potassium is 4.3, BUN is 30, creatinine is 1.5, glucose 119, calcium 7.9. LFTs within normal limits. Albumin is low at 2.1. ABGs from this morning at 06/20 on 0500 on either 40% or 60% BiPAP, not certain, with a 14/6 and a backup rate of 14, shows a pO2 of 57, a pH of 7.36, pCO2 is 37, bicarbonate is 22, sat 85%. Previous carboxyhemoglobins were 0.3-0.6. Serology is negative. Urine drug screen was negative. Chest x-ray shows diffuse lower lobe infiltrates consistent with aspiration pneumonia, right lower lobe greater than left lower lobe. Somewhat more prevalent than on the 06/19 chest x-ray, which basically was within normal limits and diffuse infiltrate at least at that time. IMPRESSION: 1. Aspiration pneumonia, etiology unclear. 2. Altered mental status, etiology unclear, could [place] [address] CONSULTATION Name: LON FREED Room: [address] IN [facility].#: [id number] Admission: 06/19/17 Attend Phys: Kendy Holley Discharge: Date of : 50 Report #: [id number] Percocet use. 3. Diabetes mellitus with end-organ damage with peripheral vascular disease, osteomyelitis. PLAN: Continue on with antibiotics. Keep him on either BiPAP at 60% and 14/8, we can go up to 16/8 if the need to, with a backup rate of 14 and see if we can oxygenate him better. If not, we will see how he does on the 7 liters nasal cannula and will do another chest x-ray in a day or two. I think he is still full code at this time, we have to look into his code status. <ELECTRONICALLY SIGNED> By: Romel Regalado MD 06/21/17 1600 1414 1458Agalindo Ocampo MD /nt
--- NOTE | 2017-06-21 18:51 | NUR ---
PATIENT PARTIALLY PROGRESSING TOWARDS GOALS. PAIN CONTROLLED WITH PRN PAIN MEDICATIONS. CONTINUES TO WEAR O2 AT 9L PER NC. UP IN THE CHAIR WITH ASSIST X1 AND A WALKER. TOLERATED THERAPY WELL THIS AFTERNOON. HE CONTINUES TO REFUSE TO EAT THE FOOD. SUPPLEMENTAL BREEZE FRUIT DRINK GIVEN AND BOOST PUDDING. PATIENT DID DRINK THE BREEZE FRUIT DRINK AND DID HAVE CHICKEN BROTH PER HIS REQUEST BUT REFUSED TO EAT THE FOOD IN HIS LUNCH AND DINNER TRAYS. PICC LINE WAS FOUND TO BE PULLED OUT OF PLACE AND IVF WERE STOPPED. PICC LINE NURSE NOTIFIED FOR NEW PICC PLACEMENT. CONSENT SIGNED AND PICC WAS PLACED IN THE RIGHT UPPER ARM. PROCAL INFUSION STARTED POST PICC PLACEMENT. LASIX X1 DOSE ORDERED PER PULMONARY THIS AFTERNOON BUT PATIENT REFUSED THIS DOSE AND STATED 'I PEE ENOUGH IT IS AND I DO NOT NEED THAT.' EDUCATION GIVEN BUT PATIENT CONTINUED TO REFUSE. ATTEMPTED TO CHANGE 210'S WOUND DRESSINGS THIS AFTERNOON BUT PATIENT REFUSED STATING 'I DONT NEED THEM CHANGED, I AM GOING TO THE WOUND CARE CLINIC TOMORROW AND DR FERRER SAID THEY ARE TO BE CHANGED EVERY OTHER DAY.' EXPLAINED TO PATIENT THAT WHEN YOU ARE INPATIENT WOUND CARE COMES TO HIM AND THE CURRENT ORDERS PER DR FERRER ARE TO CHANGE THEM EVERY DAY ON HIS RIGHT FOOT AND EVERY OTHER DAY ON HIS LEFT FOOT. PATIENT BECAME FRUSTRATED AND STATED 'I AM DONE' 'YOU PEOPLE COME IN MY ROOM EVERY 20 MIN TO DO SOMETHING AND I CAN NEVER GET ANY SLEEP.''I WILL NEVER GET BETTER IF YOU GUYS WON'T LEAVE ME ALONE.' EDUCATED AND REINFORCED TO PATIENT THAT WE ARE ONLY TRYING TO HELP HIM GET BETTER SO HE CAN GO HOME. HOURLY ROUNDING CHARTED. CALL LIGHT WITHIN REACH. BED ALARM ON. WILL CONTINUE TO MONITOR.
[2017-06-21 20:59] VITALS: BP 161/80
[2017-06-22] VITALS (7 sets, daily range): BP systolic 151–193; BP diastolic 71–92
[2017-06-22 04:50] LABS: HEMATOCRIT 23.5 % (42.0-52.0); HEMOGLOBIN 7.6 gm/dL (14.0-18.0); MCH 24.4 pg (26.0-34.0); MCHC 32.4 g/dL (28.0-37.0); MCV 75.3 fL (80.0-100.0); MPV 9.3 fl. (7.2-11.1); RBC 3.12 mil/uL (4.50-6.00); RDW-CV 15.6 % (10.5-14.5); WBC 4.7 thou/uL (4.0-11.0)
[2017-06-22 05:04] LABS: ALBUMIN 1.8 g/dL (3.4-5.0); CALCIUM 7.8 mg/dL (8.5-10.1); CREATININE 1.6 mg/dL (0.6-1.3); POTASSIUM 4.4 mmol/L (3.5-5.1); TOTAL BILIRUBIN 0.3 mg/dL (<0.1-1.0); TOTAL PROTEIN 6.1 g/dL (6.4-8.2)
--- NOTE | 2017-06-22 07:46 | NUR ---
PT IS ABLE TO COMMUNICATE HIS NEEDS TO STAFF EFFECTIVELY. HE HAS DENIED THE NEED FOR PAIN MEDICATION UP TO THIS TIME. RIGHT ARM PICC LINE IS PATENT. PT HAS TOLERATED PROCAL UP TO THIS TIME. BILATERAL HEEL BOOTS AND BANDAGES INTACT.
--- NOTE | 2017-06-22 13:02 | CON ---
[address] [address] CONSULTATION Name: ALESSANDRO FREEDDALLAS Meli Room: [address] IN M.R.#: [id number] Admission: 06/19/17 Attend Phys: Kendy Holley Discharge: Date of : 50 Report #: [id number] THIS REPORT FOR: //name// CC: Terrell Mayorga DATE OF SERVICE: 06/20/2017 CHIEF COMPLAINT: Followup of ulceration to both plantar heels. I performed a recent partial calcanectomy to the right heel for osteomyelitis. He is on parenteral Zosyn and vancomycin. He also has a small eschar to the left inferior heel without clinical signs of infection. Surgical bone and tissue cultures grew Klebsiella pneumoniae and sensitive Staph aureus. He was admitted yesterday for respiratory failure with likely due to the medicine overdose. He was given Narcan and woke up and admitted to the ICU. He is now on the cardiac unit. He is scheduled for a transesophageal echocardiogram today. LABORATORY DATA: WBC 8.4, RBC 3.08, hemoglobin 7.5, hematocrit 23.6, platelets 241. BUN 30, creatinine 1.5, glucose 119. PHYSICAL EXAMINATION: Large wound to the right inferior calcaneus, relatively unchanged in size since his last visit at [facility] last week. There is exposed calcaneus with red granulation. There is no visible bone lysis or necrosis. There is some yellow slough at the wound periphery. The inflammation to the medial aspect of the wound is decreased since last week's visit. No melissa necrosis or signs of acute vascular embarrassment. The left plantar heel has a black eschar with an adjacent area of red granulation. There is no inflammation to that area. IMPRESSION: Status post partial calcanectomy, right foot, for osteomyelitis. Type 2 diabetes mellitus, coronary artery disease, acute respiratory failure, chronic renal insufficiency, anemia. PLAN: The wound was cleansed and re-dressed with Aquacel Ag, ABDs, Kerlix and a PRAFO boot. The left heel wound was painted with Betadine and dressed with ABDs, Kerlix and PRAFO. I will monitor the patient during his hospitalization. <ELECTRONICALLY SIGNED> By: Kain Magana DPM 06/22/17 1302 1207 [id number] Magana DPM /nt
--- NOTE | 2017-06-22 18:04 | NUR ---
ASSUMED PT CARE AT 0700 PT IS ALERT AND ORIENTED X 4 PT IS A FALL RISK BED ALARM IS ON, PT DENIES PAIN OR SOA, PT HAS MULTIPLE ANTIBIOTICS PT IS ON PPN, PHYSICIAN STARTED MEDICATION TO INCREASE APPETITE, PT AGREES TO BOOST PUDDING WHEN OFFERED PT REFUSED, PT IS EATING MORE AT MEALS, PT BLOOD SUGARS HAVE STAYED ELEVATED THIS NURSE INCREASED SLIDING SCALE THIS AM TO MODERATE WHICH DID NOT LOWERS BLOOD SUGARS THIS NURSE NOTIFIED PHYSICIAN WHO ORDERED BLOOD SUGARS Q 4 HOURS FOR 24 HOURS AND THEN RESUME BLOOD GLUCOSE MONITORING AC AND HS INCREASE SLIDING SCALE TO HIGH DOSE WHICH THIS NURSE DID AND GAVE DOSE OF INSULIN FROM NEW SCALE, PT HAS VIDEO SWALLOW WHICH PT PASSED HAS CARB CONTROL DIET ORDERED, WILL CONTINUE TO MONITOR
[2017-06-23 03:47] VITALS: BP 177/88
[2017-06-23 05:06] LABS: HEMATOCRIT 23.5 % (42.0-52.0); MCH 24.7 pg (26.0-34.0); MCHC 33.9 g/dL (28.0-37.0); MCV 72.9 fL (80.0-100.0); MPV 9.1 fl. (7.2-11.1); RBC 3.23 mil/uL (4.50-6.00); RDW-CV 15.4 % (10.5-14.5); WBC 7.7 thou/uL (4.0-11.0)
[2017-06-23 05:10] LABS: CALCIUM 7.7 mg/dL (8.5-10.1); CREATININE 1.4 mg/dL (0.6-1.3); POTASSIUM 3.9 mmol/L (3.5-5.1)
--- NOTE | 2017-06-23 07:25 | NUR ---
CHANGE OF SHIFT, BEDSIDE REPORT GIVEN ASSUMED PATIENT CARE PATIENT SEEN IN ROOM IN BED ASLEEP
[2017-06-23 08:00] VITALS: BP 182/87
--- NOTE | 2017-06-23 08:18 | NUR ---
PT IS ABLE TO COMMUNICATE HIS NEEDS TO STAFF EFFECTIVELY. HE HAS DENIED THE NEED FOR PAIN MEDICATION U[P TO THIS TIME. ORDERED Q4 HR. BLOOD SUGAR CHECKS MAINTAINED THIS SHIFT. BILATERAL HEEL PROTECTION BOOT ON PT THROUGHOUT THIS SHIFT.
[2017-06-23 11:20] VITALS: BP 196/88
--- NOTE | 2017-06-23 18:28 | NUR ---
PATIENT TRANSFERRED TO 3RD FLOOR RM 315 MS STATUS, TELEMETRY BOX REMOVED EARLIER PERSONAL BELONGINGS RETURNED REPORT GIVEN FAMILY NOTIFIED
--- NOTE | 2017-06-23 18:55 | NUR ---
PATIENT CAME TO THE FLOOR IN STABLE CONDITION. ON 2 LITERS OF OXYGEN THROUGH NASAL CANNULA. NO COMPLAINTS OF ANY PAIN AT THIS TIME.
[2017-06-23 20:00] VITALS: BP 131/67
[2017-06-24 03:17] VITALS: BP 157/76
--- NOTE | 2017-06-24 05:06 | NUR ---
ASSUMED CARE OF PT AT 1900 PT ALERT AND ORIENTED X4 VS AND ASSESSMENT STABLE. PT VERY IRRITABLE AT THE BEGINING OF THE SHIFT PT WANTING TO BE LEFT ALONE. PT YELLED AT TECH WHEN SHE WAS TRYING TO TAKE HIM TO THE TOILET "IF YOU DONT WANT TO HELP ME THEN JUST LEAVE" EXPLAINED TO PT THAT WE WERE THERE TO HELP HIM AND WERE JUST TRYING TO FIGURE OUT THE BEST WAY TO HELP HIM. PT ASSISTED TO TOILET AND BACK TO BED. 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 PT GETS MULTIPLE ABX AND WAS IRRITATED WITH THE FREQUENT INTERUPTIONS./ WILL CONTINUE PLAN OF CARE.
[2017-06-24 06:09] LABS: ABSOLUTE LYMPHOCYTES 0.8 thou/uL (0.8-5.3); ABSOLUTE MONOCYTES 0.6 thou/uL (0.0-1.2); ABSOLUTE NEUTROPHILS 6.1 thou/uL (1.6-8.1); BASOPHILS 0.3 %; HEMATOCRIT 26.2 % (42.0-52.0); HEMOGLOBIN 8.4 gm/dL (14.0-18.0); LYMPHOCYTES 10.3 %; MCH 23.8 pg (26.0-34.0); MCV 74.4 fL (80.0-100.0); MPV 9.2 fl. (7.2-11.1); NUCLEATED RBCS 0 /100WBC; PLATELET COUNT* 255 thou/uL (150-400); POLYS 81.4 %; RBC 3.52 mil/uL (4.50-6.00); RDW-CV 16.1 % (10.5-14.5); WBC 7.5 thou/uL (4.0-11.0)
[2017-06-24 06:30] LABS: ALBUMIN 1.8 g/dL (3.4-5.0); CREATININE 1.5 mg/dL (0.6-1.3); MAGNESIUM 1.9 mg/dL (1.8-2.4); POTASSIUM 4.5 mmol/L (3.5-5.1); TOTAL BILIRUBIN 0.3 mg/dL (<0.1-1.0); TOTAL PROTEIN 5.1 g/dL (6.4-8.2)
--- NOTE | 2017-06-24 11:17 | CON ---
[address] [address] CONSULTATION Name: HOWIECHARLEYADITILON Meli Room: [address] IN .R.#: [id number] Admission: 06/19/17 Attend Phys: Kendy Holley Discharge: Date of : 50 Report #: [id number] THIS REPORT FOR: //name// CC: Terrell Mayorga DATE OF SERVICE: 06/19/2017 REASON FOR CONSULTATION: Abnormal ECG. HISTORY OF PRESENT ILLNESS: The patient is a 66-year-old man brought with a decreased level of consciousness from a long-term. Apparently, he had a mild narcotic overdose and respiratory insufficiency. His presenting ECG showed dynamic lateral ST segment depression with 1-2 mm, which normalized in the second ECG. The patient is mildly obtunded. He is on BiPAP, but has no active complaints of chest discomfort or chest tightness. He has a significant cardiovascular and cardiovascular risk factor history. He has a history of severe peripheral vascular disease and has nonhealing foot heel ulcer where he recently just had a podiatric surgery and was recovering at a usp facility after this. He is a longtime insulin-requiring diabetic. He denies a history of congestive heart failure. PAST MEDICAL HISTORY: Apparently had a heart attack 2 years ago, which was said to be treated at this hospital, but there are no records. He also gets care at [facility]. He had a lower extremity arteriogram at that hospital. He has insulin requiring diabetes, GERD, hypertension and hyperlipidemia. HOME MEDICATIONS: Include Zocor 20 mg daily, Bentyl, aspirin, omeprazole, gabapentin, insulin, oxycodone, lactobacillus, ascorbic acid, zinc, multivitamin, iron and losartan 25 mg daily. ALLERGIES: HE HAS ALLERGIES TO DIAZEPAM. FAMILY HISTORY: Positive for high blood pressure and coronary artery disease. SOCIAL HISTORY: He is a remote smoker and none actively. Does not actively drink. REVIEW OF SYSTEMS: GENERAL: No fevers or chills. CARDIOVASCULAR: No chest pain. PULMONARY: Positive shortness of breath. No cough. GENERAL: [place] [address] CONSULTATION Name: LON FREED Room: [address]#: [id number] Admission: 06/19/17 Attend Phys: Kendy Holley Discharge: Date of : 50 Report #: [id number] HEMATOLOGIC: No anemia or bleeding disorders. SKIN: No rashes. MUSCULOSKELETAL: Positive weakness. GENITOURINARY: No dysuria. HEMATOLOGIC: No anemia or bleeding disorders. GASTROINTESTINAL: No hematemesis or melena. SKIN: He has a nonhealing ulcer on his right heel, not actively bleeding. OBJECTIVE: VITAL SIGNS: Blood pressure is 143/72, heart rate is 95, temperature is 37.1 and respirations 20. GENERAL: This is a middle-aged male. He is in no apparent distress. HEENT: Eyes are intact. No facial asymmetry. NECK: Supple. No jugular venous distention. CARDIOVASCULAR: Regular. I cannot hear a murmur. LUNGS: Clear to auscultation. ABDOMEN: Soft and nontender. EXTREMITIES: On his right heel, there is a clean and dry dressing. PULSES: Femoral pulses are intact. Dorsalis pedis pulses are diminished. NEUROLOGIC: There are no focal deficits. ELECTROCARDIOGRAM: On initial presentation showed a sinus rhythm with 1-[address] segment depressions. His ECG most recently performed showed normalization of these abnormalities and a concern for prior anterior infarct. His hemoglobin is 9.0, white blood cell count 8.4 and platelet count 301,000. Sodium is 142, potassium is 4.5, chloride 102, CO2 is 29, BUN is 29 and creatinine is 2.0. Glucose is 320. CK was 52. Troponin I was 0.27. BNP is 91. IMPRESSION: 1. Acute coronary syndrome. He has dynamic ST segment changes, numerous cardiovascular risk factors and a questionable history of [place] remotely. His ECG abnormalities have normalized. I am concerned with his kidney dysfunction and concern for active bleeding. I would like to continue with aspirin and place him on IV heparin without a bolus and monitor for bleeding. I will check an echocardiogram to assess LV function. Based on the dynamic abnormalities on his ECG, I would not recommend stress testing and we will plan for heart catheterization at some point during this hospitalization after his respiratory function has stabilized and his renal function has improved. 2. Acute kidney injury. I think he is dehydrated. We will start him on gentle IV fluid hydration. 3. Chronic wound. We will need to monitor for any bleeding on [place] [address] CONSULTATION Name: LON FREED Room: [address] IN ..#: [id number] Admission: 06/19/17 Attend Phys: Kendy Holley Discharge: Date of : 50 Report #: [id number] think is really going to be critical as to whether or not we can proceed with revascularization this hospitalization. <ELECTRONICALLY SIGNED> By: Edu Chavez MD, FACC 06/24/17 1117 1231 1303Edu Chavez MD, FACC /nt
--- NOTE | 2017-06-24 15:27 | NUR ---
CAROLYN met with pt and pt son today and provided the [facility] paperwork to son to give to his mother ([place]). SW clarifying dc plan to go to SNF vs home with care and pt and pt son preference for pt to return to [facility] SNF at dc. Pt under the impression that he will have surgery this weekend. CAROLYN called and spoke with Angela at [facility] and SW faxed referral for SNF. Angela explained that insurances aren't responding today (on Good Tuesday) and would not be able to receive auth over the weekend either if pt ready to dc over the weekend, the transition to SNF would need to be on Tuesday due to insurance authorization not attainable until Tuesday at least. SW to continue to follow to assist with safe dc planning.
[2017-06-24 17:07] VITALS: BP 116/64
--- NOTE | 2017-06-24 18:32 | NUR ---
PATIENT IS ALERT AND ORIENTED TODAY VERY PLEASANT IS AT BEDSIDE AND HELPFUL TODAY. PATIENT IS HAVING DIARRHEA TODAY. NO COMPLAINTS OF PAIN TODAY. BANDAGE WAS CHANGED TODAY BY PROVIDER AT BEDSIDE. PATIENT IS WEAK TODAY. PICC LINE IN RIGHT UPPER ARM WORKS WELL. CALL LIGHT IS IN REACH. WILL CONTINUE TO MONITOR.
[2017-06-25 05:03] LABS: HEMATOCRIT 26.6 % (42.0-52.0); HEMOGLOBIN 8.9 gm/dL (14.0-18.0); MCH 24.5 pg (26.0-34.0); MCHC 33.6 g/dL (28.0-37.0); MCV 72.9 fL (80.0-100.0); RBC 3.64 mil/uL (4.50-6.00); RDW-CV 15.5 % (10.5-14.5); WBC 7.1 thou/uL (4.0-11.0)
[2017-06-25 05:13] LABS: ALBUMIN 1.7 g/dL (3.4-5.0); CALCIUM 7.9 mg/dL (8.5-10.1); CREATININE 1.5 mg/dL (0.6-1.3); MAGNESIUM 1.7 mg/dL (1.8-2.4); POTASSIUM 3.7 mmol/L (3.5-5.1); TOTAL BILIRUBIN 0.2 mg/dL (<0.1-1.0); TOTAL PROTEIN 5.3 g/dL (6.4-8.2)
--- NOTE | 2017-06-25 05:28 | NUR ---
ASSESSMENT COMPLETE. PT SLEPT THROUGH THE NIGHT. PT HAD ONE EPISODE OF DIARRHEA DURING THE NIGHT. PT DENIES PAIN. PT IS ON ROOM AIR WITH ADEQAUTE SATS. PT REFUSED Q2 TURNS. PT HAS BOOTS ON BILAT FEET, ELEVATED WITH PILLOWS. PT HAS PICC IN RIGHT UPPER ARM, FLUSHES AND DRAWS WITHOUT DIFFICULTY. PT USES URINAL WITH STANDBY ASSIST. PT IS FALL RISK, BED ALARM ON. SEE ASSESSMENT AND VITALS FOR OTHER DETAILS. CALL LIGHT WITHIN REACH, WILL CONTINUE PLAN OF CARE
[2017-06-25 08:00] VITALS: BP 114/66
[2017-06-25 16:00] VITALS: BP 131/65
--- NOTE | 2017-06-25 19:50 | NUR ---
PT IS ALERT AND ORIENTED X 3 BUT FORGETFUL PT WAS VERY AGITATED THIS AM BUT BECAME BETTER WITH THERAPEUTIC COMMUNICATION IV ANTIBIOTICS CONTINUE TO LESLY PICC PT DENIES ANY PAIN WEARS BOOTS TO BLE NEED MRSA SWAB TOLD HS NURSE STILL NEED SPUTUM AND STOOL WELL BUT NO PRODUCTION YET PT WITH GOOD APPETITE BS ELEVATED AT LUNCH INSULIN CONTINUES TOE TOUCH WEIGHT BEARING CALL LIGHT IN REACH
[2017-06-26 00:50] VITALS: BP 141/67
--- NOTE | 2017-06-26 06:32 | NUR ---
ASSESSMENT COMPLETE. PT SLEPT THROUGH THE NIGHT. PT IS ON ROOM AIR WITH ADEQUATE SATS. DENIES PAIN. PT HAS PICC IN RIGHT UPPER ARM, FLUSHES AND DRAWS WITHOUT DIFFICULTY. PT DID NOT HAVE ANY DIARRHEA DURING THE NIGHT. PT STANDS AT BEDSIDE TO USE URINAL. PT IS ONE ASSIST WITH WALKER. BED ALARM ON. BOOTS TO BILATERAL FEET IN PLACE. SEE ASSESSMENT AND VITALS FOR OTHER DETAILS. CALL LIGHT WITHIN REACH, WILL CONTINUE PLAN OF CARE
[2017-06-26 07:22] LABS: CALCIUM 7.8 mg/dL (8.5-10.1); CREATININE 1.5 mg/dL (0.6-1.3); MAGNESIUM 1.8 mg/dL (1.8-2.4); POTASSIUM 4.3 mmol/L (3.5-5.1)
[2017-06-26 12:48] VITALS: BP 160/75
--- NOTE | 2017-06-26 17:32 | NUR ---
PATIENT IS ALERT AND ORIENTED TODAY PLEASANT. HAS BEEN AT BEDSIDE MOST OF THE DAY. VITAL SIGNS STABLE ON ROOM AIR. NO COMPLAINTS OF PAIN TODAY. DRESSING ON FEET CHAGED AND PICC DRESSING AND CAP CHANGED TODAY. CALL LIGHT IS IN REACH, WILL CONTINUE TO MONITOR.
[2017-06-27 01:59] VITALS: BP 152/71
[2017-06-27 05:46] LABS: CALCIUM 7.9 mg/dL (8.5-10.1); CREATININE 1.5 mg/dL (0.6-1.3); MAGNESIUM 1.7 mg/dL (1.8-2.4); POTASSIUM 4.1 mmol/L (3.5-5.1)
--- NOTE | 2017-06-27 06:11 | NUR ---
ASSESSMENT COMPLETE. PT SLEPT MOST OF THE NIGHT. PT UP TO URINATE IN URINAL A COUPLE TIMES DURING THE NIGHT. PT DENIES PAIN. BOOTS ON BILATERAL FEET. DRESSING TO RIGHT FOOT C/D/I. PT IS ON ROOM AIR WITH ADEQUATE SATS. PT HAS PIC IN RIGHT UPPER ARM, FLUSHES AND DRAWS WITHOUT DIFFICULTY. PT REPORTS DIARRHEA, IMMODIUM GIVEN PER REQUEST. PT REFUSED TURNS DURING THE NIGHT, PT TURNS SELF WHEN HE WANTS. PT HAS BEEN NPO FOR STRESS TEST ORDERED TODAY. SEE ASSESSMENT AND VITALS FOR OTHER DETAILS. BED ALARM ON, CALL LIGHT WITHIN REACH. WILL CONTINUE PLAN OF CARE.
[2017-06-27 08:50] VITALS: BP 139/64
--- NOTE | 2017-06-27 10:53 | NUR ---
SW followed up with nursing and pt to complete stress test today, possibly not ready to dc until a couple more days. CAROLYN called and spoke with Ld at [facility] to provide update for possible dc to SNF when pt ready. SW to send PT, OT notes tomorrow to continue pending referral/insurance auth process. SW to continue to follow.
[2017-06-27 16:02] VITALS: BP 109/56
--- NOTE | 2017-06-27 16:33 | CARDNUC ---
[place] [address] CARDIAC NUCLEAR IMAGING REPORT Name: LON FREED Room: [address] IN [facility]#: [id number] Admission: 06/19/17 Attend Phys: Jaya Mayorga Discharge: Date of : 50 Date of Service: 06/27/17 1633 Report #: [id number] THIS REPORT FOR: //name// APPROVED REPORT Study performed: 06/25/2017 12:30:00 Exam: Nuclear Stress Test Patient Location: In-Patient Stress Tech: Alessandra Duncan NM Tech:DEJAH Perez BMI: 0 Stress Test Details HR Max Heart Rate (APMHR): 154 bpm Target HR (85% APMHR): 130 bpm BP ECG Resting ECG: Sinus Rhythm, normal EKG Stress ECG: Sinus Rhythm, normal EKG ST Change: None Arrhythmia: None Recovery ECG: Sinus Rhythm, normal EKG Recovery ST Change: None Recovery Arrhythmia: None Clinical The patient had no significant symptoms with Lexiscan infusion. Stress ECG Conclusion The baseline 12-lead electrocardiogram shows sinus rhythm with no significant ST or T wave abnormality. EKGs obtained during and post Lexiscan stress show sinus rhythm with no significant ST or T wave changes when compared to baseline. There were no stress-induced arrhythmias. NM EXAM: Myocardial Perfusion REST/STRESS Imaging Protocol: Rest Tc-99m/Stress Tc-99m 1 day Resting Data Rest SPECT myocardial perfusion imaging [place] [address] CARDIAC NUCLEAR IMAGING REPORT Name: HOWIEANATOLYLON Meli Room: [address] IN ..#: [id number] Admission: 06/19/17 Attend Phys: Jaya Mayorga Discharge: Date of : 50 Date of Service: 06/27/17 1633 Report #: [id number] position 30 minutes following the intravenous injection of 12.0 mCi of Tc-99m Sestamibi. Time of rest injection: 0945 Time of rest imagin The images were gated to evaluate regional wall motion and calculate left ventricular ejection fraction. Administration Route: IV Administration Site: Right AC Pharmacologic Stress Pharmacologic stress test was performed by injecting Regadenoson 0.4 mg IV push followed by the intravenous injection of 36.0 mCi of Tc-99m Sestamibi. Time of stress injection: 1115 Time of stress imagin Administration Route: IV Administration Site: Right AC Heart Rate at time of stress injection: 78 bpm. Gated Stress SPECT was performed 125 minutes after stress injection. The images were gated to evaluate regional wall motion and calculate left ventricular ejection fraction. Study Quality Study: Fair Artifact: Mild Diaphragmatic artifact Study Data At rest, the left ventricular ejection fraction was 62%.. Post stress, the left ventricular ejection was C1%.. TID = 0.94. Perfusion Myocardial perfusion images obtained at rest and post Lexiscan infusion show a moderate size mild intensity defect involving the inferior wall likely due to diaphragmatic attenuation artifact. No other defects were identified. Wall Motion Gated study showed normal left ventricular systolic function with normal wall motion. Nuclear Conclusion ECG Findings: negative for ischemia Clinical Findings: negative for ischemia Nuclear Findings: [place] [address] CARDIAC NUCLEAR IMAGING REPORT Name: HOWIEANATOLYLON Meli Room: [address] IN ..#: [id number] Admission: 06/19/17 Attend Phys: Jaya Mayorga Discharge: Date of : 50 Date of Service: 06/27/17 1633 Report #: [id number] Exercise Capacity: not assessed Left Ventricular Function: normal Risk Study: low Myocardial perfusion images show no defects to suggest ischemia. Fixed defect of the inferior wall is likely due to diaphragmatic attenuation artifact in light of normal wall motion. This is a low risk study. <Conclusion> The baseline 12-lead electrocardiogram shows sinus rhythm with no significant ST or T wave abnormality. EKGs obtained during and post Lexiscan stress show sinus rhythm with no significant ST or T wave changes when compared to baseline. There were no stress-induced arrhythmias. <ELECTRONICALLY SIGNED> By: Jeovany Salgado MD, FACC 06/27/17 1633 1633 1633 Jeovany Salgado MD, FAC /INF
--- NOTE | 2017-06-27 17:13 | NUR ---
PATIENT HAS BEEN A/O X 4 THIS SHIFT, FLAT AFFECT AT TIMES. PATIENT HAS DENIED PAIN OR SHORTNESS OF AIR, CONTINUES ON ROOM AIR. PATIENT HAD STRESS TEST COMPLETED THIS SHIFT, DR MASCORRO GAVE RESULTS TO PATIENT AND SPOUSE. PATIENT VOIDING PER URINAL. BLOOD SUGARS CHARTED AND COVERED WITH INSULIN. C DIFF NEGATIVE THIS SHIFT. DRESSINGS INTACT TO FEET BILATERALLY, PATIENT WOULD PREFER TO HAVE DR FERRER CHANGE DRESSINGS TODAY. REFUSED TO WORK WITH PHYSICAL THERAPY DUE TO BEING WORN OUT FROM TESTING. HOURLY ROUNDING COMPLETED. CALL LIGHT WITHIN REACH. WILL CONTINUE WITH PLAN OF CARE.
[2017-06-27 20:45] VITALS: BP 109/52
[2017-06-28 05:23] LABS: HEMATOCRIT 22.8 % (42.0-52.0); HEMOGLOBIN 7.4 gm/dL (14.0-18.0); MCH 24.4 pg (26.0-34.0); MCHC 32.5 g/dL (28.0-37.0); MCV 74.9 fL (80.0-100.0); MPV 8.4 fl. (7.2-11.1); RBC 3.04 mil/uL (4.50-6.00); RDW-CV 16.1 % (10.5-14.5); WBC 6.6 thou/uL (4.0-11.0)
--- NOTE | 2017-06-28 05:45 | NUR ---
PT SLEPT MOST OF SHIFT. ASSESSMENT DOCUMENTED. MEDS GIVEN PER E-MAY. PICC PATENT. TYLENOL GIVEN FOR DISCOMFORT. BOOTS REMAINED ON FEET, DRESSINGS C/D/I. WILL CONTINUE WITH PLAN OF CARE.
[2017-06-28 05:56] LABS: ALBUMIN 1.7 g/dL (3.4-5.0); CALCIUM 7.8 mg/dL (8.5-10.1); CREATININE 1.5 mg/dL (0.6-1.3); MAGNESIUM 1.7 mg/dL (1.8-2.4); POTASSIUM 4.3 mmol/L (3.5-5.1); TOTAL BILIRUBIN 0.2 mg/dL (<0.1-1.0); TOTAL PROTEIN 5.2 g/dL (6.4-8.2)
[2017-06-28 09:30] VITALS: BP 192/85
[2017-06-28 14:45] VITALS: BP 192/85
--- NOTE | 2017-06-28 14:57 | NUR ---
CAROLYN met with pt and pt about possible dc planning for tomorrow. Pt and pt hopeful for a short stay at [facility] SNF and then for pt to be strong enough to be able to dc home with HH. CAROLYN faxed updated progress note and what therapy notes/variance notes were available to [facility] admissions in case pt ready to dc tomorrow so that insurance authorization could be in progress. CAROLYN called and left message for [facility] admissions requesting return call to update on possibility of admission to SNF. SW to continue to follow.
--- NOTE | 2017-06-28 15:56 | NUR ---
PATIENT TAKEN TO SURGERY AT THIS TIME VIA BED. ZOSYN CURRENTLY INFUSING AND SENT WITH PATIENT AND PACU PERSONNEL. ACCOMPANIED PATIENT.
[2017-06-28 16:00] VITALS: BP 155/76
--- NOTE | 2017-06-28 17:17 | NUR ---
PATIENT HAS BEEN A/O X 4 THIS SHIFT, FLAT AFFECT NOTED AT TIMES. HAS CONTINUED TO DENY PAIN OR SHORTNESS OF AIR. PATIENT NPO FOR MOST OF SHIFT DUE TO SURGERY THIS AFTERNOON WITH DR FERRER. PATIENT UP TO CHAIR THIS SHIFT. PATIENT REMINDED TO TURN WHILE IN BED, HAS HAD FEET ELEVATED WHILE IN BED. PATIENT STARTED ON IV FLUIDS DUE TO BEING NPO FOR THIS SHIFT. CONTINUES ON IV ANTIBIOTICS VIA PICC LINE TO RIGHT UPPER ARM. PODUS BOOT IN PLACE TO RIGHT FOOT AND PREVALON BOOT IN PLACE TO LEFT HEEL. AT BEDSIDE THIS SHIFT. FALL PRECAUTIONS IN PLACE. HOURLY ROUNDING COMPLETED. CALL LIGHT WITHIN REACH. WILL CONTINUE WITH PLAN OF CARE.
[2017-06-28 19:01] VITALS: BP 168/75
[2017-06-28 20:00] VITALS: BP 129/62
[2017-06-29 01:00] VITALS: BP 122/66
--- NOTE | 2017-06-29 04:57 | NUR ---
PATIENT SLEPT WELL DURING THIS SHIFT. PT REPOSITIONED SEVERAL TIMES DURING THIS SHIFT. DSG ON RT FOOT C/D/I; ELEVATED WITH PILLOW. LT FOOT DSG C/D/I WITH PROVO BOOT IN PLACE. PT WITH FLUIDS/ANTIBIOTICS INFUSING PER DR ORDER IN RT UPPER SINGLE LUMAN PICC LINE. ABLE TO DRAW/FLUSH LINE WITH NO RESISTANCE. PT DENIES PAIN ON THIS SHIFT. PT DISCUSSED HOW HE WAS NOT LOOKING FORWARD TO HAVING HIS FOOT AMPUTATED. ENCOURAGEMENT GIVEN. PT DENIES NEEDS AT THIS TIME. FREQUENTLY USED ITEMS AND CALL LIGHT WITHIN REACH. SIDERAILS UPX4 AND BED ALARM ON. WILL CONTINUE TO MONITOR.
[2017-06-29 05:04] LABS: ABSOLUTE BASOPHILS 0.1 thou/uL (0.0-0.2); ABSOLUTE EOSINOPHILS 0.3 thou/uL (0.0-0.7); ABSOLUTE MONOCYTES 0.4 thou/uL (0.0-1.2); BASOPHILS 0.8 %; EOSINOPHILS 3.9 %; HEMATOCRIT 21.2 % (42.0-52.0); HEMOGLOBIN 7.1 gm/dL (14.0-18.0); LYMPHOCYTES 12.9 %; MCH 24.7 pg (26.0-34.0); MCHC 33.3 g/dL (28.0-37.0); MCV 74.1 fL (80.0-100.0); MONOCYTES 5.4 %; MPV 7.9 fl. (7.2-11.1); NUCLEATED RBCS 0 /100WBC; PLATELET COUNT* 286 thou/uL (150-400); RBC 2.86 mil/uL (4.50-6.00); RDW-CV 16.5 % (10.5-14.5); WBC 7.8 thou/uL (4.0-11.0)
[2017-06-29 05:06] LABS: CALCIUM 7.5 mg/dL (8.5-10.1); CREATININE 1.5 mg/dL (0.6-1.3); POTASSIUM 4.5 mmol/L (3.5-5.1)
[2017-06-29 07:24] LABS: ESR (SEDRATE) 30 mm/hr (0-20)
[2017-06-29 07:46] VITALS: BP 178/79
--- NOTE | 2017-06-29 13:26 | NUR ---
SW met with pt and pt to discuss pending dc plans. Pt and pt expressed dc on hold due to pt surgery for BKA. Pt and pt wondered if dc plan could be inpt rehab at [facility] and if not, then possibly SNF at [facility]. SW to continue to follow to assist with safe dc planning.
[2017-06-29 14:48] VITALS: BP 114/55
--- NOTE | 2017-06-29 20:31 | NUR ---
PATIENT HAS BEEN A/O X4 THIS SHIFT, PATIENT VERY FLAT AND DEPRESSED. PATIENT NOT VERY COMPLIANT WITH NON WEIGHT BEARING STATUS TO RIGHT FOOT. DRESSING TO RIGHT FOOT REINFORCED X 2 TODAY DUE TO BLEEDTRHU. PATIENT REFUSED TO WORK WITH PHYSICAL THERAPY. PICC LINE PATENT AND ZOSYN CONTINUES. SEEN BY ID AND VASCULAR. PLAN IS FOR PATIENT TO HAVE BKA ON TUESDAY. INSULIN ADJUSTED PER DR CHRISTOPHER. PATIENT STARTING TO HAVE LOOSE STOOLS THIS EVENING. APPETITE POOR, REFUSES SUPPLEMENTS. FAMILY AT BEDSIDE THIS SHIFT. PATIENT TURNED WHEN ALLOWED, PODUS BOOT REMAINS IN PLACE TO RIGHT FOOT AND PREVALON BOOT TO LEFT FOOT. PATIENT TO BE NPO AFTER MIDNIGHT. HOULRY ROUNDING COMPLETED. CALL LIGHT WITHIN. WILL CONTINUE WITH PLAN OF CARE.
[2017-06-30] VITALS (8 sets, daily range): BP systolic 138–192; BP diastolic 64–90
[2017-06-30 05:52] LABS: ABSOLUTE BASOPHILS 0.1 thou/uL (0.0-0.2); ABSOLUTE EOSINOPHILS 0.2 thou/uL (0.0-0.7); ABSOLUTE LYMPHOCYTES 1.1 thou/uL (0.8-5.3); ABSOLUTE MONOCYTES 0.4 thou/uL (0.0-1.2); ABSOLUTE NEUTROPHILS 6.4 thou/uL (1.6-8.1); BASOPHILS 0.7 %; HEMATOCRIT 22.2 % (42.0-52.0); HEMOGLOBIN 7.1 gm/dL (14.0-18.0); LYMPHOCYTES 13.5 %; MCH 24.4 pg (26.0-34.0); MCHC 32.1 g/dL (28.0-37.0); MONOCYTES 4.9 %; NUCLEATED RBCS 0 /100WBC; PLATELET COUNT* 283 thou/uL (150-400); POLYS 77.9 %; RBC 2.92 mil/uL (4.50-6.00); WBC 8.2 thou/uL (4.0-11.0)
[2017-06-30 05:59] LABS: ALBUMIN 1.8 g/dL (3.4-5.0); CALCIUM 7.6 mg/dL (8.5-10.1); CREATININE 1.5 mg/dL (0.6-1.3); POTASSIUM 4.8 mmol/L (3.5-5.1); TOTAL BILIRUBIN 0.2 mg/dL (<0.1-1.0); TOTAL PROTEIN 5.4 g/dL (6.4-8.2)
--- NOTE | 2017-06-30 06:06 | NUR ---
ASSESSMENT COMPLETE. PT SLEPT THROUGH THE NIGHT WITHOUT ANY CONCERNS. DENIES PAIN. PT TURNED SELF IN BED. PT IS FALL RISK, BED ALARM ON. PT HAS PICC IN RIGHT UPPER ARM, DRAWS AND FLUSHES WITHOUT DIFFICULTY. PT HAS BEEN AFEBRILE THROUGH THE NIGHT. DR FERRER CALLED AND NOTIFIED RN HE'D COME SEE PT IN AM. PT HAS BEEN NPO SINCE MIDNIGHT FOR SURGERY. SEE ASSESSMENT AND VITALS FOR OTHER DETAILS. CALL LIGHT WITHIN REACH, WILL CONTINUE PLAN OF CARE
--- NOTE | 2017-06-30 10:57 | CON ---
[address] [address] CONSULTATION Name: LON FREED Meli Room: [address] IN M.R.#: [id number] Admission: 06/19/17 Attend Phys: Kendy Holley Discharge: Date of : 50 Report #: [id number] THIS REPORT FOR: //name// CC: Terrell Mayorga DATE OF SERVICE: 06/29/2017 INFECTIOUS DISEASES CONSULTATION ATTENDING PHYSICIAN: Jaya Mayorga DO REASON FOR EVALUATION: Deep infection and osteomyelitis involving the right foot, particularly calcaneus. HISTORY OF PRESENT ILLNESS: Chart reviewed, the patient examined. This is a 67-year-old who I am familiar with, saw in early part of May in 2017 with complaints of right calcaneal ulceration in the setting of diabetes mellitus, had progressed rapidly and ended up having partial calcaneal osteoectomy, confirmed to have acute osteomyelitis, been on antibiotics based on culture results, which had polymicrobial growth including Enterococcus, Klebsiella, Staph aureus. DICTATION ENDS HERE. <ELECTRONICALLY SIGNED> By: Murali Booker MD 06/30/17 1057 1502 1819Murali Booker MD /nt
--- NOTE | 2017-06-30 10:57 | CON ---
[address] [address] CONSULTATION Name: HOWIEANATOLYLON Meli Room: [address] IN M.R.#: [id number] Admission: 06/19/17 Attend Phys: Kendy Holley Discharge: Date of : 50 Report #: [id number] THIS REPORT FOR: //name// CC: Terrell Mayorga INFECTIOUS DISEASE CONSULTATION HISTORY OF PRESENT ILLNESS: He completed roughly 3 weeks of therapy. He was readmitted due to worsening signs and symptoms associated with the foot. There was a concern about noncompliance and walking, evaluation including surgical intervention over the course of the last couple of days. It was recommended that he undergo below-knee amputation at this point. He has been on broad spectrum therapy with linezolid as well as Zosyn. There were additional cultures collected yesterday, which are in progress. He does have moderate degree of pain at this point. He has not been febrile. He is as expected quite discouraged. ALLERGIES: DIAZEPAM. CURRENT MEDICATIONS: Include promethazine, Zosyn, carvedilol, insulin, losartan, aspirin, pantoprazole, metoprolol, gabapentin, atorvastatin, ferrous sulfate, ondansetron, zolpidem, and melatonin. PAST MEDICAL HISTORY: As noted above, diabetes mellitus type 2 complicated by some diminished sensation, reflux disease, sleep apnea, and hypertension. PAST SURGICAL HISTORY: Previous hernia surgery, elbow surgery, rotator cuff surgery, carpal tunnel, and back surgery. SOCIAL HISTORY: Nonsmoker, no ethanol. FAMILY HISTORY: Noncontributory. REVIEW OF SYSTEMS: As above. PHYSICAL EXAMINATION: GENERAL: He appears somewhat chronically ill. He has a flat affect. He is not encephalopathic, [id number] distress. VITAL SIGNS: Temperature 100.2, pulse 73, respirations 16, blood pressure 114/55. SKIN: Warm, dry. HEENT: Otherwise, unremarkable. NECK: Supple. LUNGS: Diminished, otherwise clear breath sounds. HEART: Regular. I do not appreciate murmur. ABDOMEN: [place] [address] CONSULTATION Name: HOWIEANATOLYLON Room: [address] [place] [facility]#: [id number] Admission: 06/19/17 Attend Phys: Kendy oHlley Discharge: Date of : 50 Report #: [id number] EXTREMITIES: Dressing over the left foot. GENITOURINARY AND RECTAL: Deferred. LABORATORY DATA: Most recent CBC, white count of 7.8, H and H 7.1 and 21.2, platelets of 286. Sed rate of 30. Recent resection of the right inferior calcaneus, suggested clinically consistent with osteomyelitis. Path report is pending as are culture results. Prealbumin 16.7. Legionella antibody was negative. Electrolytes: Sodium 138, potassium 4.3, chloride 105, bicarbonate is 26, anion gap of 7, BUN and creatinine 27 and 1.5, glucose of 346. AST of 14, ALT of 7. Albumin 17, total protein 5.2, estimated GFR 47. ASSESSMENT: Right calcaneal osteomyelitis, status post osteoectomy, partial inferior aspect. Apparently, the decision was made to go ahead and do the below-knee amputation. We will continue perioperative antibiotics at this point. I do not think he will need a long-term course. He does have a PICC line in place and likely we will remove that prior to his discharge. We will await culture results, adjust as needed. <ELECTRONICALLY SIGNED> By: Murali Booker MD 06/30/17 1057 1509 1844Joramon Booker MD /nt
--- NOTE | 2017-06-30 16:22 | NUR ---
PATIENT NPO THIS SHIFT FOR RIGHT BKA PER VASCULAR. PATIENT STATED HE WANTED TO TALK TO VASCULAR FIRST BEFORE SIGNING CONSENTS. IV ABX SCHEDULED. DR. CHRISTOPHER NOTIFIED THIS AM REGARDING HGB AND SURGERY THIS AFTERNOON, ORDERS FOR BLOOD. PATIENT GIVEN 1 UNIT PRBCS TOLERATING WITHOUT DIFFICULTY. UP TO BEDSIDE WITH WALKER AND ASSISTANCE TO VOID PER URINAL, LARGE AMOUNTS OF URINE NOTED. INUSLIN GIVEN THIS SHIFT FOR INCREASED BLOOD SUGARS.
[2017-07-01 03:52] VITALS: BP 164/80
[2017-07-01 05:20] LABS: PREALBUMIN 16.1 mg/dL (18.0-35.7)
[2017-07-01 05:23] LABS: ALBUMIN 1.7 g/dL (3.4-5.0); CALCIUM 7.9 mg/dL (8.5-10.1); CREATININE 1.3 mg/dL (0.6-1.3); POTASSIUM 4.5 mmol/L (3.5-5.1); TOTAL BILIRUBIN 0.4 mg/dL (<0.1-1.0); TOTAL PROTEIN 5.3 g/dL (6.4-8.2)
--- NOTE | 2017-07-01 06:22 | NUR ---
PT BACK TO FLOOR AROUND 2207. ASSESSMENT AND VITALS COMPLETE. PT ALERT AND ORIENTED X4. PT DEPRESSED AND WITHDRAWN. PT REPORTS PAIN THROUGHOUT THE NIGHT IN RIGHT LEG, PRN PAIN MEDICATIONS GIVEN NEEDED. PT HAD CAPNO DURING THE NIGHT. DRESSING AND WOUND VAC TO RIGHT LEG IN PLACE. PT HAS PICC IN RIGHT UPPER ARM. PT REFUSED Q2 TURNS. LEGS ELEVATED ON PILLOWS. PT UNABLE TO VOID MOST THE NIGHT, BLADDER SCAN AT 0500 SHOWED 900ML, PT REUFSED [place] AND STRAIGHT CATH AND DR NOTIFIED. PT ABLE TO URINATE 250ML IN URINAL AROUND 0600 BUT STILL REFUSING CATHETER. PT IS FALL RISK, BED ALARM ON. SEE ASSESSMENT AND VITALS FOR OTHER DETAILS. CALL LIGHT WITHIN REACH, WILL CONTINUE PLAN OF CARE
[2017-07-01 06:26] LABS: HEMATOCRIT 26.7 % (42.0-52.0); HEMOGLOBIN 8.7 gm/dL (14.0-18.0); MCH 25.7 pg (26.0-34.0); MCHC 32.7 g/dL (28.0-37.0); MCV 78.5 fL (80.0-100.0); MPV 8.1 fl. (7.2-11.1); NUCLEATED RBCS 0 /100WBC; PLATELET COUNT* 240 thou/uL (150-400); RDW-CV 18.1 % (10.5-14.5); WBC 10.4 thou/uL (4.0-11.0)
[2017-07-01 07:23] LABS: ABSOLUTE LYMPHOCYTES 0.6 thou/uL (0.8-5.3); ABSOLUTE MONOCYTES 0.4 thou/uL (0.0-1.2); ABSOLUTE NEUTROPHILS 9.4 thou/uL (1.6-8.1)
[2017-07-01 07:24] LABS: ANISOCYTOSIS 1+; PLATELET ESTIMATE ADEQUATE
[2017-07-01 08:30] VITALS: BP 178/80
--- NOTE | 2017-07-01 12:15 | S ---
[place] [address] SURGICAL PATH RPT PROCEDURE Name: GEMA FREED Room: [address] IN ..#: [id number] Admission: 06/19/17 Date of : 50 Discharge: Report #: [id number] Path Case #: [id number] PATHOLOGY REPORT COLLECTION DATE: 06/28/2017 RECEIVED DATE: 06/29/2017 SUBMITTING PHYS: Dr. Kain Magana OTHER PHYS: Dr. Jaya Cosby SPECIMEN(S) RECEIVED: A.Superficial calcaneus right foot B.Deep calcaneus right foot * * * * * * * * * * * * FINAL DIAGNOSIS: A. Superficial calcaneus right foot: - Bone with acute osteomyelitis and extensive remodeling. - Osteomyelitis involves inked resection margin. B. Deep calcaneus right foot: - Bone with remodeling. - Negative for osteomyelitis. - Fragment of benign skin. PATHOLOGIST: Jeovany Moore M.D. REPORT ELECTRONICALLY SIGNED BY: Jeovany Moore M.D. DATE/TIME: 07/01/2017 12:14 * * * * * * * * * * * * GROSS PATHOLOGY: A. The specimen is received in formalin labeled "Gema Freed superficial calcaneus right foot". Received is a segment of white-payne bone with a slight amount of attached necrotic-appearing white-payne possible soft tissue measuring 5.0 x 3.2 x 2.3 cm in greatest dimensions. The blunt margin with no attached soft tissue is inked black. Sectioning reveals light payne cut surfaces throughout. The specimen is submitted representatively in cassettes A1 through A4, following decalcification. B. The specimen is received in formalin labeled "Gema Freed, deep calcaneus right foot". Received is a segment of light payne bone measuring 4.7 x 2.8 by up to 1.0 cm in greatest dimensions. One margin is smooth and blunt in appearance, and is inked black. The opposite margin is irregular in contour. Sectioning reveals light payne cut surfaces throughout. The specimen is submitted representatively in cassettes B1 through B3, following decalcification. Gross photographs are taken, one of which shows how the [place] [address] SURGICAL PATH RPT PROCEDURE Name: GEMA FREED Room: [address] IN [facility].#: [id number] Admission: 06/19/17 Date of : 50 Discharge: Report #: [id number] Path Case #: [id number] (CAA; 06/30/2017) CLINICAL HISTORY: Osteomyelitis right calcaneus INITIAL CPT CODE(S): A; 80656, 92074 B; 56858, 96796 Professional services performed by [facility] at [address] [address] Technical services performed by [facility] at [address] [place] [address], [address], [place] [address]. [facility] [address] [place] [address] PHONE: [phone] DIRECTOR: Harsh Jerez M.D. * * * END OF REPORT * * *
[2017-07-01 16:14] VITALS: BP 149/66
--- NOTE | 2017-07-01 16:24 | NUR ---
PATIENT GIVEN PRN FENTANYL/DILAUDID/PERCOCET FOR PAIN THIS SHIFT. DRESSING TO LEFT HEEL CHANGED THIS EVENING PER ORDERS. SCHED IV ABX REMAIN. PATIENT REFUSING TO EAT THIS AM, DR. CHRISTOPHER SPOKE WITH PATIENT. MEALS ORDERED FOR PATIENT PER PATIENT REQUEST OF WHAT HE WANTS TO EAT. NO INSULIN REQUIRED WITH MEALS FOR BREAKFAST OF LUNCH. PATIENT REFUSED TO TURN THIS SHIFT OR LEGS BE READJUSTED, EDUCATION GIVEN. PATIENT 93% ON RA.
--- NOTE | 2017-07-01 17:22 | NUR ---
CALLED TO REQUEST P.T./O.T. RESUME ORDERS. NURSE ASKED PHYSICIAN, BUT PT. IS NOT READY PER PHYSICIAN TO RESUME THERAPY.
[2017-07-01 23:39] VITALS: BP 127/73; BP 132/78
--- NOTE | 2017-07-02 06:00 | NUR ---
PT STATES HE SLEPT FAIRLY WELL. USING URINAL TO VOID OVERNIGHT. R BKA WITH ROMINA WRAP, SPLINT AND WOUND VAC INTACT. LESLY PICC SL, ABX GIVEN SCHEDULED. AM LABS DRAWN AND TAKEN TO LAB. HS ACCUCHECK 232, INSULIN GIVEN ORDERED. PT DENIES NEED FOR PAIN MED THIS SHIFT. REFUSING TURNS, EDUCATION GIVEN. ABLE TO USE CALL LITE AND MAKE NEEDS KNOWN. BED ALARM ON FOR SAFETY.
[2017-07-02 06:06] LABS: HEMATOCRIT 24.2 % (42.0-52.0); HEMOGLOBIN 7.9 gm/dL (14.0-18.0); MCH 25.5 pg (26.0-34.0); MCHC 32.5 g/dL (28.0-37.0); MCV 78.6 fL (80.0-100.0); MPV 7.5 fl. (7.2-11.1); RBC 3.08 mil/uL (4.50-6.00); RDW-CV 18.5 % (10.5-14.5); WBC 7.4 thou/uL (4.0-11.0)
[2017-07-02 09:10] VITALS: BP 155/68
--- NOTE | 2017-07-02 16:20 | NUR ---
PATIENT SLEEPING ALL AFTERNOON. PRN DILAUDID, PERCOCET, AND FENTANYL. PATIENT INCONTINENT OF BOWEL THIS AM. PATIENT REFUSING TO TURN, EDUCATION GIVEN. RIGHT BKA REMAINS ON PILLOW WITH PROVENA IN PLACE. LEFT HEEL DRESSING REMAINS IN PLACE. IV ABX REMAIN. FAIR APPETITE THE PAST 2 DAYS. INSULIN GIVEN WITH MEALS WHEN REQUIRED.
[2017-07-02 17:53] VITALS: BP 157/70
[2017-07-02 20:40] VITALS: BP 158/67
--- NOTE | 2017-07-03 06:14 | NUR ---
PATIENT SLEPT MOST OF THE NIGHT. PATIENT WAS GIVEN PAIN MEDICINE ONCE THIS SHIFT. PATIENT CONTINUES TO REFUSE TO TURN. WILL CONTINUE TO MONITOR.
[2017-07-03 08:00] VITALS: BP 127/59
--- NOTE | 2017-07-03 10:00 | NUR ---
PT REFUSES STAFF ASSISTED TURNS. HE STATES IT CAUSES TOO MUCH PAIN. DISCUSSED RISK OF PRESSURE ULCERS BY NOT TURNING. PT STATES "I MOVE MY BUTT BY MYSELF". COCCYX INTACT-NO PRESSURE ULCERS NOTED. PAIN MEDS GIVEN ORDERED
[2017-07-03 16:10] VITALS: BP 118/57
--- NOTE | 2017-07-03 17:08 | NUR ---
PT REPORTS PAIN-NOT CONTROLLED WITH CURRENT MEDS. PT REFUSES TO GET OUT OF BED AND REPOSITIONING DUE TO PAIN. PT TOLERATING PO WELL WITH A GOOD APPETITE. VOIDING PER URINAL.
[2017-07-03 20:45] VITALS: BP 155/67
--- NOTE | 2017-07-04 06:22 | NUR ---
PATIENT SLEPT MOST OF THE NIGHT. IV ANTIBIOTICS WERE GIVEN ORDERED. PATIENT WAS GIVEN PAIN MEDICINE ONCE THIS SHIFT. WILL CONTINUE TO MONITOR.
[2017-07-04 09:00] VITALS: BP 190/83
--- NOTE | 2017-07-04 11:01 | S ---
[place] [address] SURGICAL PATH RPT PROCEDURE Name: GEMA FREED Room: [address] IN [facility].#: [id number] Admission: 06/19/17 Date of : 50 Discharge: Report #: [id number] Path Case #: [id number] PATHOLOGY REPORT COLLECTION DATE: 07/01/2017 RECEIVED DATE: 07/01/2017 SUBMITTING PHYS: Dr. Matthew Samuel OTHER PHYS: Dr. Jaya Cosby SPECIMEN(S) RECEIVED: A.Right below knee amputation * * * * * * * * * * * * FINAL DIAGNOSIS: Right below knee amputation: - Benign right lower extremity with nonspecific ulceration of heel, acute and chronic inflammation and necrosis of soft tissues and osteomyelitis of calcaneus and with diffuse severe calcifying arteriosclerosis of anterior and posterior tibial arteries and more distal arteries. (FRANKLIN:mml; 07/04/2017) PATHOLOGIST: Edgar Ching M.D. REPORT ELECTRONICALLY SIGNED BY: Edgar Ching M.D. DATE/TIME: 07/04/2017 11:01 * * * * * * * * * * * * GROSS PATHOLOGY: Received fresh labeled "Gema Freed, right below knee amputation" and consists of a right leg amputated below the knee with the leg measuring 42 cm from heel to tibia margin and foot measuring 25 cm from heel to tip of hallux. All 5 toes are present. There is an ulcerated wound at the heel measuring 8.0 x 4.5 cm. The calcaneus is exposed. The bed of the wound is dark red and shaggy. There are no other lesions identified. There is 5 cm of tibia and 4 cm of fibula extending above the soft tissue margin. The anterior and posterior tibial arteries show marked atherosclerosis. The margin appears grossly viable. Deliverer Outside sections submitted A1-A5. A1 lesion at heel A2 anterior and posterior tibial arteries A3 margin A4 calcaneus bone, decal A5 marrow of tibia (NATASHA; 07/01/2017) [place] [address] SURGICAL PATH RPT PROCEDURE Name: GEMA FREED Room: [address] IN .R.#: [id number] Admission: 06/19/17 Date of : 50 Discharge: Report #: [id number] Path Case #: [id number] CLINICAL HISTORY: Osteomyelitis, gangrene INITIAL CPT CODE(S): A; 65142, 30166 Professional services performed by [facility] at [facility] [address] [place] [address] Technical services performed by [facility] at [address] [place] [address], [address] [address]. [facility] [address] [place] [address] PHONE: [phone] DIRECTOR: Harsh Jerez M.D. * * * END OF REPORT * * *
[2017-07-04 16:00] VITALS: BP 157/66
--- NOTE | 2017-07-04 16:21 | NUR ---
PT.PARTICIPATED IN THERAPY TODAY. CONSULT FOR /[facility].REHAB MADE BY .
--- NOTE | 2017-07-04 18:03 | NUR ---
PATIENT HAS BEEN ALERT AND ORIENTED TODAY. SOME PAIN THAT IS CONTROLLED PARTIALLY WITH ORAL PAIN MEDICATIONS. PATIENT WORKED WITH THERAPY TODAY UNTIL PATIENT ASKED THERAPIST TO LEAVE. PATIENT DID SIT UP ON THE SIDE OF THE BED TO EAT DINNER. VITAL SIGNS HAVE BEEN STABLE ON ROOM AIR. CALL LIGHT IS IN REACH, WILL CONTINUE TO MONITOR.
[2017-07-05 00:08] VITALS: BP 151/66
[2017-07-05 05:44] LABS: ABSOLUTE BASOPHILS 0.1 thou/uL (0.0-0.2); ABSOLUTE EOSINOPHILS 0.1 thou/uL (0.0-0.7); ABSOLUTE LYMPHOCYTES 0.9 thou/uL (0.8-5.3); ABSOLUTE MONOCYTES 0.8 thou/uL (0.0-1.2); ABSOLUTE NEUTROPHILS 5.7 thou/uL (1.6-8.1); BASOPHILS 0.9 %; EOSINOPHILS 1.5 %; HEMATOCRIT 22.8 % (42.0-52.0); HEMOGLOBIN 7.4 gm/dL (14.0-18.0); MCH 25.7 pg (26.0-34.0); MCHC 32.4 g/dL (28.0-37.0); MCV 79.2 fL (80.0-100.0); MONOCYTES 10.8 %; MPV 8.3 fl. (7.2-11.1); NUCLEATED RBCS 0 /100WBC; PLATELET COUNT* 198 thou/uL (150-400); POLYS 74.8 %; RBC 2.87 mil/uL (4.50-6.00); RDW-CV 18.8 % (10.5-14.5); WBC 7.6 thou/uL (4.0-11.0)
[2017-07-05 06:16] LABS: ALBUMIN 1.7 g/dL (3.4-5.0); CALCIUM 8.1 mg/dL (8.5-10.1); CREATININE 1.3 mg/dL (0.6-1.3); POTASSIUM 4.2 mmol/L (3.5-5.1); TOTAL BILIRUBIN 0.2 mg/dL (<0.1-1.0); TOTAL PROTEIN 5.1 g/dL (6.4-8.2)
--- NOTE | 2017-07-05 06:21 | NUR ---
ASSESSMENT COMPLETE. PT SLEPT THROUGH THE NIGHT WITHOUT ANY CONCERNS. PT DENIES PAIN MEDS. PT ENCOURAGED TO TURN Q2 FOR SKIN INTEGRITY. PT HAS HARD BOOT ON LEFT HEEL, BLE ELEVATED WITH PILLOW. RIGHT BKA DRESSING INTACT WITH WOUND VAC IN PLACE. PT WITHDRAWN AND DEPRESSED. PT IS ON ROOM AIR WITH ADEQUATE SATS. PT USES URINAL NEEDED. SEE ASSESSMENT AND VITALS FOR OTHER DETAILS. BED ALARM ON, CALL LIGHT WITHIN REACH. WILL CONTINUE PLAN OF CARE
[2017-07-05 08:00] VITALS: BP 189/89
--- NOTE | 2017-07-05 14:58 | NUR ---
SW faxed updated information and referral for SNF to [facility] as an option for dc placement in case option of [facility] not available or approved by insurance. CAROLYN met with pt to discuss dc planning options and pt said that he would like to go to [facility] re[facility] but expressed understanding of [facility] SNF as a back up option if needed. SW to continue to follow to assist with safe dc planning.
--- NOTE | 2017-07-05 17:43 | NUR ---
PATIENT HAS BEEN ALERT AND ORIENTED TODAY VERY PLEASANT. VITAL SIGNS STABLE ON ROOM AIR. WORKED WELL WITH THERAPY AND SAT UP FOR MOST OF THE MORNING IN THE CHAIR. SOME COMPLAINTS OF PAIN THAT IS WELL CONTROLLED WITH ORAL PAIN MEDICATIONS. CALL LIGHT IS IN REACH, WELL CONTINUE TO MONITOR.
[2017-07-05 23:18] VITALS: BP 153/70
--- NOTE | 2017-07-06 06:43 | NUR ---
ASSESSMENT COMPLETE. PT SLEPT THROUGH THE NIGHT WITHOUT ANY CONCERNS. PRN PAIN MEDICATION GIVEN ONCE. PT ENCOURAGED TO TURN FOR SKIN INTEGRITY. DRESSING C/D/I. PT IS FALL RISK, BED ALARM ON. SEE ASSESSMENT AND VITALS FOR OTHER DETAILS. CALL LIGHT WITHIN REACH, WILL CONTINUE PLAN OF CARE
[2017-07-06 06:47] LABS: ABSOLUTE EOSINOPHILS 0.1 thou/uL (0.0-0.7); ABSOLUTE LYMPHOCYTES 0.9 thou/uL (0.8-5.3); ABSOLUTE MONOCYTES 0.6 thou/uL (0.0-1.2); ABSOLUTE NEUTROPHILS 4.8 thou/uL (1.6-8.1); BASOPHILS 0.7 %; EOSINOPHILS 1.8 %; HEMOGLOBIN 7.5 gm/dL (14.0-18.0); LYMPHOCYTES 14.5 %; MCH 25.5 pg (26.0-34.0); MCHC 32.5 g/dL (28.0-37.0); MCV 78.4 fL (80.0-100.0); MONOCYTES 9.5 %; NUCLEATED RBCS 0 /100WBC; PLATELET COUNT* 223 thou/uL (150-400); POLYS 73.5 %; RBC 2.94 mil/uL (4.50-6.00); RDW-CV 18.7 % (10.5-14.5); WBC 6.5 thou/uL (4.0-11.0)
[2017-07-06 06:54] LABS: ALBUMIN 1.7 g/dL (3.4-5.0); CALCIUM 8.3 mg/dL (8.5-10.1); CREATININE 1.1 mg/dL (0.6-1.3); POTASSIUM 4.2 mmol/L (3.5-5.1); TOTAL BILIRUBIN 0.2 mg/dL (<0.1-1.0); TOTAL PROTEIN 5.4 g/dL (6.4-8.2)
[2017-07-06 07:30] VITALS: BP 173/77
--- NOTE | 2017-07-06 09:42 | NUR ---
RECEIVED CONSULT FOR POSSIBLE REHAB ADMISSION. CONSULT HAS BEEN ACKNOWLEDGED BY CHAIN REPAIRER AND DR. SANTA. PT IS S/P RIGHT BKA. HE IS PARTICIPATING WITH THERAPIES AND SLOWLY PROGRESSING. SPOKE WITH PT AND HE IS WILLING AND ABLE TO TOLERATE 3 HOURS OF THERAPY AND IS AWARE OF AGREEABLE TO ACUTE REHAB GUIDELINES. SPOKE WITH MAGO HYDE AND INFORMED WILL ACCEPT PT TO REHAB PENDING INSURANCE AUTHORIZATION. THANK YOU FOR THIS CONSULT.
--- NOTE | 2017-07-06 09:47 | OP ---
[facility] [address] [place] [address] OPERATIVE REPORT Name: HOWIEANATOLYLON Meli Room: [address] IN .R.#: [id number] Admission: 06/19/17 Attend Phys: Kendy Holley Discharge: Date of : 50 Report #: [id number] THIS REPORT FOR: //name// CC: Terrell Mayorga DATE OF SERVICE: 06/30/2017 PREOPERATIVE DIAGNOSIS: Osteomyelitis and gangrene, right foot. POSTOPERATIVE DIAGNOSIS: Osteomyelitis and gangrene, right foot. SURGEON: Matthew Samuel DO POWER REACTOR OPERATOR: None. PROCEDURE: Right below knee amputation. ANESTHESIA: General endotracheal anesthesia. ESTIMATED BLOOD LOSS: 150 mL. SPECIMEN: Right leg, which was discarded. COMPLICATIONS: None. CONDITION: Stable. DISPOSITION: Floor. INDICATIONS FOR THE PROCEDURE AND CONSENT: This is a 67-year-old male with a nonhealing right calcaneal heel ulcer that had been debrided multiple times, attempted wound VAC therapy and local wound care without any improvement. Recommendation for below knee amputation was made by his technical staff engineer, Dr. Magana and I agreed and concurred with this assessment and plan and recommended the same. Risks and benefits were discussed, infection, bleeding, inability to re-have a prosthesis despite good results. The patient wished to proceed, was consented and scheduled. PROCEDURE IN DETAIL: After timeout was performed, the patient was placed in the supine position with sterile prep and drape of the right lower extremity. Transverse incision was made in the lower leg proximal one handbreadth below the tibial tuberosity. Dissection was carried down using Bovie electrocautery. Superficial veins were controlled with hemostats, divided and ligated with silk sutures. The compartmental muscles were divided with Bovie electrocautery anteriorly. The anterior tibial vascular bundle was controlled and ligated with [facility] [address] [place] [address] OPERATIVE REPORT Name: LON FREED Meli Room: [address] IN [facility]#: [id number] Admission: 06/19/17 Attend Phys: Kendy Holley Discharge: Date of : 50 Report #: [id number] 4-0 Prolene and divided. The fibula was identified and freed of its attachments with Bovie electrocautery and a Oneil periosteal elevator. The tibia was also freed of its attachments and cleaned with a ramsey periosteal elevator. Once these attachments were freed and vascular bundle was noted to be controlled, the tibia and fibula were then divided with the bone saw and the bone cutter respectively. The posterior flap was then created with an amputation knife and the leg was discarded. The bleeding arteries were then controlled with hemostats and larger vessels controlled with 4-0 Prolene. Smaller vessels were controlled with either simple cautery or silk ties. The main bleeding vein was also controlled with [id number] 4-0 Prolene. I did identify the tibial nerve, which was rather large. This was injected. This was freed up and injected with lidocaine and transected proximally within the muscle. The wound was copiously irrigated. The tibia was then bevelled and sanded to have a smooth transition as to avoid undue tension on the skin. The posterior flap was then brought up to the anterior tibia for myodesis. It was also transected and additional 2 inches to fit well; 2-0 Vicryl was then used to close the fascial layers. Subdermal components and then esteban were used to close the skin. A Prevena wound VAC and ROMINA compression were applied as sterile dressing. A posterior knee immobilizer was also applied. The patient tolerated the procedure well. Lap, needle and instrument counts were correct. <ELECTRONICALLY SIGNED> By: Matthew Samuel DO 07/06/17 0947 2149 [id number] Samuel DO /nt
--- NOTE | 2017-07-06 14:21 | CON ---
[address] [address] CONSULTATION Name: HOWIEANATOLYLON Meli Room: [address] IN .R.#: [id number] Admission: 06/19/17 Attend Phys: Kendy Holley Discharge: Date of : 50 Report #: [id number] THIS REPORT FOR: //name// CC: Terrell Mayroga DATE OF SERVICE: 06/27/2017 CHIEF COMPLAINT: Status post right partial calcanectomy for osteomyelitis and deep tissue infection. He has a large postoperative wound to the right inferior heel with some necrotic tissue and possible retained osteomyelitis. He had a nuclear medicine cardiac stress test today, the report is not available for review. I was told by the nurse that he was verbally cleared by Cardiology for surgery. I have not confirmed that with Cardiology yet. I would like to perform some more bone and soft tissue debridement of the wound and get a wound VAC in place at some point. His anemia is improved. He denies foot pain to either extremity. He is on parenteral Zosyn and p.o. linezolid with good tolerance. LABORATORY DATA: Sodium 134, potassium 4.1, chloride 102, CO2 of 26, BUN 28, creatinine 1.5, glucose 158. PHYSICAL EXAMINATION: Large wound to the right inferior calcaneus with exposed bone. There is inflammation to the plantar medial aspect of the wound with some fibronecrotic tissue along that wound margin. It is unclear whether the bone is infected. There is no visible necrosis, but the bone is exposed across the entire inferior wound from the prior surgical resection site. Prior surgical pathology confirmed osteomyelitis, no margins were delineated in the surgical pathology report. Foot is warm with palpable dorsalis pedis and posterior tibial pulses, no pallor or cyanosis. No popliteal adenopathy. Negative Homans or Alanis sign to either extremity. IMPRESSION: Status post right partial calcanectomy, deep tissue infection, possible osteomyelitis. PLAN: I recommend to start formal surgical debridement in the OR to remove some more bone to even out the inferior surface of the calcaneus to make it more plantigrade and acceptable for weightbearing in the future. I will obtain more bone and soft tissue cultures as well as bone pathology. I plan on having a wound VAC in placed in the next several days once surgical hemostasis has been achieved. <ELECTRONICALLY SIGNED> By: Kain Magana DPM 07/06/17 1421 [id number] Magana DPM /nt
--- NOTE | 2017-07-06 14:21 | CON ---
[address] [address] CONSULTATION Name: ALESSANDRO FREEDDALLAS Meli Room: [address] IN .R.#: [id number] Admission: 06/19/17 Attend Phys: Kendy Holley Discharge: Date of : 50 Report #: [id number] THIS REPORT FOR: //name// CC: Terrell Mayorga DATE OF SERVICE: 06/24/2017 CHIEF COMPLAINT: Followup of partial calcanectomy to the right foot for osteomyelitis. The patient had an acute respiratory failure, some improvement in anemia with iron infusion. He is currently comfortable, afebrile with no constitutional symptoms. He remains off oxygen. Denies foot pain to either extremity. He is on parenteral Zosyn with good tolerance. LABORATORY DATA: WBC is 7.5, hemoglobin 8.4, hematocrit 26.2, platelets 255, BUN 45, creatinine 1.5, glucose 302. PHYSICAL EXAMINATION: Surgical bed has exposed bone with some granulation buds to the surface. There is some inflammation to the plantar medial soft tissue envelope. There is some yellowish fibronecrotic tissue along the medial edge of the wound from the 6 to 12 o'clock position. There is no purulence, no fluctuance or crepitation, no pallor or cyanosis, no melissa necrosis of the bone. Overall, slightly improved since hospital admission. IMPRESSION: Chronic osteomyelitis, right calcaneus with deep tissue infection. PLAN: An excisional ulcer debridement will be performed with scissors and forceps to excise subcutaneous tissue from the wound margin. This was a surgical excisional wound debridement, minimal bleeding was achieved. The wound was cleansed and dried. It was dressed with Aquacel Ag to the inferior calcaneus covered with ABDs and Kerlix gauze and PRAFO boot to offload. The patient would likely benefit from further surgical debridement, but his medical status is tenuous as he is getting over ____ due to the recent respiratory failure. I will monitor and continue daily dressing changes. <ELECTRONICALLY SIGNED> By: Kain Magana DPM 07/06/17 1421 1243 2102Dleslie Magana DPM /nt
[2017-07-06 16:00] VITALS: BP 167/72
--- NOTE | 2017-07-06 16:17 | NUR ---
PATIENT A&OX4, FLAT AFFECT, DEPRESSED AT TIMES. ROOM AIR, RIGH UPPER ARM SINGLE LUMEN PICC, FLUSHES AND DRAWS FINE. UP WITH MAX ASSISTX2-3 WITH WALKER AND GAITBELT. RIGHT BKA, WITH BRACE AND WOUND VAC. WOUND TO LEFT HEEL, HARD BOOT ON, WITH TRANSFERS AND AMBULATION. CONSULT TO BE ACCEPTED TO IN HOUSE REHAB, PENDING. REDNESS AND YEAST NOTED IN GROIN AREA, PHYSICIAN AWARE. NO OTHER CONCERNS AT THIS TIME. APPROPRIATE AND COOPORATIVE WITH CARE.
[2017-07-07 00:11] VITALS: BP 158/79
--- NOTE | 2017-07-07 05:23 | NUR ---
ASSESSMENT COMPLETE. PT SLEPT GOOD THROUGH THE NIGHT. PT GIVEN PAIN MEDICATION ONCE WITH RELIEF REPORTED. PT TURNED Q2 FOR SKIN INTEGRITY. [place]STATIN POWDER STARTED FOR REDNESS TO GROIN AREA. PT HAD 2 EPISODES OF DIARRHEA THROUGHOUT THE NIGHT, PRN IMODIUM GIVEN. PT USES URINAL NEEDED. PT IS ON ROOM AIR WITH ADEQAUTE SATS. BLE ELEVATED WITH PILLOWS. PT IS FALL RISK, BED ALARM ON. SEE ASSESSMENT AND VITALS FOR OTHER DETAILS. CALL LIGHT WITHIN REACH, WILL CONTINUE PLAN OF CARE
[2017-07-07 06:33] LABS: HEMOGLOBIN 7.8 gm/dL (14.0-18.0); MCH 25.4 pg (26.0-34.0); MCHC 32.5 g/dL (28.0-37.0); MPV 7.8 fl. (7.2-11.1); NUCLEATED RBCS 0 /100WBC; PLATELET COUNT* 254 thou/uL (150-400); RBC 3.07 mil/uL (4.50-6.00); RDW-CV 19.4 % (10.5-14.5); WBC 6.4 thou/uL (4.0-11.0)
[2017-07-07 06:46] LABS: PREALBUMIN 13.4 mg/dL (18.0-35.7)
[2017-07-07 07:01] LABS: ALBUMIN 1.8 g/dL (3.4-5.0); CALCIUM 8.4 mg/dL (8.5-10.1); POTASSIUM 4.1 mmol/L (3.5-5.1); TOTAL BILIRUBIN 0.2 mg/dL (<0.1-1.0); TOTAL PROTEIN 5.6 g/dL (6.4-8.2)
[2017-07-07 07:17] LABS: ABSOLUTE EOSINOPHILS 0.3 thou/uL (0.0-0.7); ABSOLUTE LYMPHOCYTES 1.4 thou/uL (0.8-5.3); ABSOLUTE MONOCYTES 0.4 thou/uL (0.0-1.2); ABSOLUTE NEUTROPHILS 4.4 thou/uL (1.6-8.1); ANISOCYTOSIS 1+; PLATELET ESTIMATE ADEQUATE; POLYCHROMASIA 1+
[2017-07-07 07:40] VITALS: BP 159/74
--- NOTE | 2017-07-07 10:47 | NUR ---
UDPATED INSURANCE CM/JOHANNE MANTILLA OF PLAN FOR INPT REHAB PENDING INSURANCE AUTH. LEFT VMAIL AT [phone] [id number]
[2017-07-07 15:52] VITALS: BP 156/64
--- NOTE | 2017-07-07 19:06 | NUR ---
PATIENT A&OX4, ROOM AIR, IV RIGHT UPPER ARM SALINE LOCK. UP WITH MODERATE TO MAX ASSISTX1-2 WITH WALKER AND GAITBELT. C/O PAIN IN LEGS, RELIEF WITH MEDICATION. RIGHT BKA, BRACE ON AT ALL TIMES. NO BM TODAY. STILL WAITING AUTHORIZATION FOR REHAB. NO OTHER CONCERNS AT THIS TIME. APPROPRAITE AND COOPORATIVE WITH CARE.
--- NOTE | 2017-07-08 04:49 | NUR ---
PATIENT SLEPT WELL DURING THIS SHIFT. PT TURNED Q2H PER PROTOCAL. PT WITH 2100 BLOOD SUGAR OF 232; LANTUS 5 UNITS GIVEN AND HUMALOG 3 UNITS GIVEN. PT DENIES PAIN/NAUSEA ON THIS SHIFT. PT WITH RT UPPER ARM PICC LINE, UNABLE TO DRAW BLOOD THIS AM AND DIFFICULTY FLUSHING LINE. PAIN MEDICATION GIVEN X1 FOR RT LEG PAIN. PT WITH ONE BOWEL MOVEMENT IN BEDPAN, VOIDS PER URINAL AND ONE EPISODE OF INCONTINENCE OF URINE. FREQUENTLY USED ITEMS AND CALL LIGHT WITHIN REACH. SIDERAILS UPX4 AND BED ALARM ON. WILL CONTINUE TO MONITOR.
[2017-07-08 05:22] VITALS: BP 172/76
[2017-07-08 09:00] VITALS: BP 153/67
--- NOTE | 2017-07-08 14:40 | NUR ---
Pt accepted to inpatient rehab unit and to dc there today. Pt and pt in agreement with plan.
[2017-07-08 15:43] VITALS: BP 102/63
--- NOTE | 2017-07-08 16:22 | NUR ---
PATIENT TURNED Q2. GOOD APPETITE THIS SHIFT. INSULIN GIVEN WITH MEALS WHEN REQUIRED. NO BM NOTED TODAY. RIGHT PICC DC'D PER ORDERS, HARD TO FLUSH THIS AM AND NO BLOOD RETURN NOTED. NO PRN PAIN MEDICATION NEEDED THIS SHIFT. DRESSING TO LEFT HEEL CHANGED AND PHOTO TAKEN. PATIENT TO DISCHARGE OVER TO REHAB TODAY ROOM 324. REPORT GIVEN TO GOSIA SPENCE.
--- NOTE | 2017-07-19 13:30 | CON ---
[address] [address] CONSULTATION Name: HOWIEANATOLYLON Meli Room: [address] IN M.R.#: [id number] Admission: 06/19/17 Attend Phys: Kendy Holley Discharge: 07/08/17 Date of : 50 Report #: [id number] THIS REPORT FOR: //name// CC: Terrell Mayorga REASON FOR CONSULTATION: Evaluation and recommendations regarding post-acute rehabilitation. HISTORY OF PRESENT ILLNESS: This is a 67-year-old male with chronic right foot wound, who is now status post below-knee amputation after multiple I and Ds over the last several months. He has been followed by Podiatry as well as Vascular for a long time. He has also had intermediate altered mental status, anemia and currently is complaining of diarrhea, which is his current reason for saying he is unable to do his therapies. His previous level of function sounds like modified independent with activities of daily living. Current level of function is min assist to supervision on days where he has participated with occupational therapy and moderate assistance to max assistance with physical therapies. He has been refusing gait training most recently, but did ambulate 4 feet on 07/05 at max assist. He lives in a house with his who he states is in fairly good health and is able to help at the home setting upon discharge. He has about 3 steps to enter. He does have multiple medical comorbidities. Imaging, vital signs, labs, and medications have all been reviewed. PAST MEDICAL HISTORY AND PAST SURGICAL HISTORY: Diabetes mellitus, uncontrolled; GERD; sleep apnea, but refusing treatment; hypertension; back surgery; carpal tunnel surgery; rotator cuff injury; elbow surgery; hernia repair; tonsillectomy; adenoids removed; sinus surgery; osteomyelitis, now with right-sided below-knee amputation; ongoing weakness. FAMILY HISTORY: Diabetes and heart disease. SOCIAL HISTORY: No tobacco, alcohol or illicit drug use. REVIEW OF SYSTEMS: A 14-point review of systems is attempted today, but patient is very groggy and unable to answer questions. PHYSICAL EXAMINATION: Somewhat limited. GENERAL: The patient is stating that he is not feeling well. He is having diarrhea and is not cooperative with extensive physical exam. GENERAL: He is alert. HEENT: Head is atraumatic. LUNGS: Symmetric expansion. ABDOMEN: Soft. SKIN: Warm and dry. EXTREMITIES: Right below-knee amputation stump [place] [address] CONSULTATION Name: LON FERED Room: [address]#: [id number] Admission: 06/19/17 Attend Phys: Kendy Holley Discharge: 07/08/17 Date of : 50 Report #: [id number] NEUROLOGIC: Unable to complete exam. ASSESSMENT: 1. Status post right below-knee amputation due to ongoing nonhealing wound. 2. Recent altered mental status with lactic acidosis, known diabetes mellitus and possible overdose. 3. Hypertension. 4. Hyperlipidemia. 5. Multiple medical comorbidities. 6. Changes and alterations in activities of daily living from previous level of function. PLAN: 1. He is still on the acute side and physical and occupational therapy are on board. 2. Recommend BiPAP, but he is refusing. 3. Recommend acute inpatient rehabilitation if he is willing to participate in his therapies. We will follow. <ELECTRONICALLY SIGNED> By: Naina Martinez DO 07/19/17 1330 1356 1447Naina Martinez DO /nt
[2018-01-28] MEDS ORDERED: OMEPRAZOLE40 MG PO (12:01)
[2018-01-31] MEDS ORDERED: CEFDINIR300 MG PO (13:43)
[2018-01-31] MEDS ORDERED: AZITHROMYCIN 2250 MG PO (13:43)
[2018-01-31] MEDS ORDERED: ATORVASTATIN CA20 MG PO (13:43)
[2018-01-31] MEDS ORDERED: AMLODIPINE BESY10 MG PO (13:44)
[2018-01-31] MEDS ORDERED: NEURONTIN 300300 M1 PO (13:45)
[2018-01-31] MEDS ORDERED: VITAMIN C1000 MG PO (13:45)
[2018-01-31] MEDS ORDERED: SENNA-DOCUSATE1 EACH PO (13:45)
[2018-01-31] MEDS ORDERED: NORVASC5 MG PO (16:41)
[2018-01-31] MEDS ORDERED: NEURONTIN 400400 M1 PO (16:41)
== END 2017-07-08 18:49 | DRG 239 ==
LOC: M.ERS 08:17 → M.TBA-ER 09:23 → M.2W 09:23 → M.ICU 09:23 → M.2W 19:18 → M.3W 06-23 18:39
PROVIDERS: Internal Medicine; Internal Medicine Critical Care Medicine; Personal Emergency Response Attendant; Podiatrist Foot & Ankle Surgery; Registered Nurse; ADMIT Internal Medicine
PROC: 5A09357 Assistance with Respiratory Ventilation, Less than 24 Consecutive Hours, Continuous Positive Airway Pressure (ICD-10-PCS; principal; 2017-06-19)
PROC: B24BZZ4 Ultrasonography of Heart with Aorta, Transesophageal (ICD-10-PCS; 2017-06-20)
PROC: 02HV33Z Insertion of Infusion Device into Superior Vena Cava, Percutaneous Approach (ICD-10-PCS; 2017-06-21)
PROC: 0Q9 Lower Bones, Drainage (ICD-10-PCS; 2017-06-29)
PROC: 0QBL0ZZ Excision of Right Tarsal, Open Approach (ICD-10-PCS; 2017-06-29)
PROC: 30233N1 Transfusion of Nonautologous Red Blood Cells into Peripheral Vein, Percutaneous Approach (ICD-10-PCS; 2017-06-30)
PROC: 0Y6H0Z1 Detachment at Right Lower Leg, High, Open Approach (ICD-10-PCS; 2017-06-30)
DX: E11.52 Type 2 diabetes mellitus with diabetic peripheral angiopathy with gangrene (principal); J69.0 Pneumonitis due to inhalation of food and vomit; I21.4 Non-ST elevation (NSTEMI) myocardial infarction; R65.11 Systemic inflammatory response syndrome (SIRS) of non-infectious origin with acute organ dysfunction; J96.01 Acute respiratory failure with hypoxia; G92 Toxic encephalopathy; E87.2 Acidosis; M86.671 Other chronic osteomyelitis, right ankle and foot; E44.0 Moderate protein-calorie malnutrition; N17.9 Acute kidney failure, unspecified; E11.69 Type 2 diabetes mellitus with other specified complication; I25.10 Atherosclerotic heart disease of native coronary artery without angina pectoris; I12.9 Hypertensive chronic kidney disease with stage 1 through stage 4 chronic kidney disease, or unspecified chronic kidney disease; E11.22 Type 2 diabetes mellitus with diabetic chronic kidney disease; E11.40 Type 2 diabetes mellitus with diabetic neuropathy, unspecified; G47.33 Obstructive sleep apnea (adult) (pediatric); E11.621 Type 2 diabetes mellitus with foot ulcer; L97.519 Non-pressure chronic ulcer of other part of right foot with unspecified severity; N18.3 Chronic kidney disease, stage 3 (moderate); F32.9 Major depressive disorder, single episode, unspecified; B96.1 Klebsiella pneumoniae [K. pneumoniae] as the cause of diseases classified elsewhere; B95.2 Enterococcus as the cause of diseases classified elsewhere; D50.9 Iron deficiency anemia, unspecified; B95.61 Methicillin susceptible Staphylococcus aureus infection as the cause of diseases classified elsewhere; K21.9 Gastro-esophageal reflux disease without esophagitis; E78.5 Hyperlipidemia, unspecified; Z68.25 Body mass index [BMI] 25.0-25.9, adult; Z87.891 Personal history of nicotine dependence; I25.2 Old myocardial infarction; Z79.4 Long term (current) use of insulin; Z90.49 Acquired absence of other specified parts of digestive tract; Z79.82 Long term (current) use of aspirin; Z79.899 Other long term (current) drug therapy; Z88.8 Allergy status to other drugs, medicaments and biological substances; Z82.49 Family history of ischemic heart disease and other diseases of the circulatory system; Z83.3 Family history of diabetes mellitus

== ENCOUNTER 2017-07-08 14:24 | Inpatient (IN) | payer BC ==
[~2017-07-08] VITALS: Ht 175.3 cm; Wt 67.9 kg
--- NOTE | ~2017-07-08 | H ---
[address] [address] HISTORY AND PHYSICAL Name: LON FREED Room: [address]#: [id number] Admission: 07/08/17 Attend Phys: Naina Martinez DO Discharge: 07/27/17 Date of : 50 Report #: [id number] THIS REPORT FOR: //name// For History and Physical please refer to the handwritten note in the patient's medical record. By: [id number] Records Staff CHRISS /STEVE
[~2017-07-08 14:24] MED LIST changes: +ACIDOPHILUS1 EAC3 PO; +IRON325 PO; +JUVEN PACKET1 EAC1 PO; +MAALOX ADVANCE355 M1 PO; +ONDANSETRON HCL4 M2 PO; +PHENERGAN12.5 M2 PO; +UNICOMPLEX M TA1 TA1 PO; +VITAMINC500 PO; +ZINC CHELATE50 MG PO
[2017-07-08 19:00] VITALS: BP 165/70
[2017-07-09 06:28] LABS: HEMATOCRIT 24.4 % (42.0-52.0); MCH 25.7 pg (26.0-34.0); MCHC 32.6 g/dL (28.0-37.0); MCV 78.8 fL (80.0-100.0); MPV 8.1 fl. (7.2-11.1); RBC 3.1 mil/uL (4.50-6.00); RDW-CV 19.4 % (10.5-14.5); WBC 4.5 thou/uL (4.0-11.0)
[2017-07-09 06:59] LABS: CALCIUM 8.5 mg/dL (8.5-10.1); POTASSIUM 4.6 mmol/L (3.5-5.1)
[2017-07-09 07:30] VITALS: BP 183/74
[2017-07-09 20:36] VITALS: BP 170/77
[2017-07-10 08:00] VITALS: BP 165/75
[2017-07-10 19:30] VITALS: BP 133/63
[2017-07-11 08:00] VITALS: BP 183/81
[2017-07-11 20:05] VITALS: BP 148/61
[2017-07-12 08:14] VITALS: BP 142/66
[2017-07-12 20:00] VITALS: BP 144/68
[2017-07-13 08:00] VITALS: BP 177/83
[2017-07-13 20:12] VITALS: BP 113/55
[2017-07-14 08:01] VITALS: BP 178/77
[2017-07-14 20:14] VITALS: BP 141/61
[2017-07-15 08:00] VITALS: BP 174/74
[2017-07-15 20:14] VITALS: BP 119/59
[2017-07-16 07:38] VITALS: BP 166/73
[2017-07-16 20:10] VITALS: BP 142/64
[2017-07-17 07:28] VITALS: BP 165/79
[2017-07-17 20:28] VITALS: BP 153/72
[2017-07-18 08:33] VITALS: BP 183/86
[2017-07-18 16:00] VITALS: BP 130/71
[2017-07-18 19:59] VITALS: BP 134/68
[2017-07-19 07:30] VITALS: BP 165/78
[2017-07-19 21:06] VITALS: BP 134/60
[2017-07-20 08:17] VITALS: BP 166/77
--- NOTE | 2017-07-20 14:27 | CON ---
[address] [address] CONSULTATION Name: VICKADITIALESSANDRODALLAS Meli Room: [address] IN M.R.#: [id number] Admission: 07/08/17 Attend Phys: Naina Martinez DO Discharge: Date of : 50 Report #: [id number] THIS REPORT FOR: //name// CC: Terrell Martinez DATE OF SERVICE: 07/13/2017 CHIEF COMPLAINT: Followup of ulceration to the left inferior calcaneus complicated by type 2 diabetes mellitus with peripheral vascular disease and diabetic peripheral neuropathy. He is status post right BK amputation for osteomyelitis of the calcaneus. He has had a longstanding ulceration to the left inferior heel, Stout stage 2 to 3. We have kept it dry and clean with Betadine so as not to exacerbate maceration and bacterial infection. He offloads the area and up in a Multi Podus PRAFO boot. He is doing physical therapy, ambulating in a surgical shoe, and he relates good traction in the surgical shoe. PHYSICAL EXAMINATION: Ulceration of the left inferior heel, roughly 1.5 cm diameter, full thickness and with a superficial level of the subcutaneous tissue exposed. There is some loose skin at the periphery and pale slough overlying the granulation. There is no exposed bone, tendon or joint. Minimal inflammation with no melissa cellulitis. Overall, the wound has improved over the last several weeks with less fibrosis and eschar. IMPRESSION: Type 2 diabetes mellitus with peripheral vascular disease, left inferior calcaneal ulceration. PLAN: I debrided some loose skin and macerated tissue with forceps and scissors. I did not violate the subcutaneous tissue layer, nor did I achieve any bleeding. This was trimmed skin and macerated tissue that was loose and lifted off the wound margin. The wound was painted with Betadine. He was placed back in a clean sock with PRAFO boot for offloading. <ELECTRONICALLY SIGNED> By: Kain Magana DPM 07/20/17 1427 1713 1911Dleslie Magana DPM /nt
[2017-07-20 20:32] VITALS: BP 142/64
[2017-07-21 07:43] VITALS: BP 168/77
[2017-07-21 20:42] VITALS: BP 92/49
[2017-07-22 06:10] VITALS: BP 155/72
[2017-07-22 08:11] VITALS: BP 161/73
[2017-07-22 20:34] VITALS: BP 149/65
[2017-07-23 08:30] VITALS: BP 191/78
[2017-07-23 11:38] VITALS: BP 181/80
[2017-07-23 20:00] VITALS: BP 147/68
[2017-07-24 08:25] VITALS: BP 185/84
[2017-07-24 20:00] VITALS: BP 134/63
[2017-07-25 08:27] VITALS: BP 169/74
[2017-07-25 20:39] VITALS: BP 183/66
[2017-07-25 21:25] VITALS: BP 124/55
[2017-07-26 04:43] LABS: HEMATOCRIT 26.4 % (42.0-52.0); HEMOGLOBIN 8.5 gm/dL (14.0-18.0); MCH 25.5 pg (26.0-34.0); MCV 79.6 fL (80.0-100.0); MPV 8.8 fl. (7.2-11.1); RBC 3.32 mil/uL (4.50-6.00); RDW-CV 19.7 % (10.5-14.5); WBC 5.3 thou/uL (4.0-11.0)
[2017-07-26 04:55] LABS: ALBUMIN 2.4 g/dL (3.4-5.0); CALCIUM 8.6 mg/dL (8.5-10.1); CREATININE 1.1 mg/dL (0.6-1.3); POTASSIUM 5.5 mmol/L (3.5-5.1); TOTAL BILIRUBIN 0.1 mg/dL (<0.1-1.0); TOTAL PROTEIN 5.6 g/dL (6.4-8.2)
[2017-07-26 07:00] VITALS: BP 120/76
[2017-07-26 15:03] VITALS: BP 120/76
[2017-07-26 20:10] VITALS: BP 175/61
[2017-07-27] MEDS ORDERED: SERTRALINE HCL50 MG PO (01:48)
[2017-07-27 07:35] VITALS: BP 180/76
--- NOTE | 2017-07-27 14:25 | PLAN ---
[address] [address] REHAB UNIT PLAN OF CARE Name: HOWIEANATOLYLON Meli Room: [address] IN .R.#: [id number] Admission: 07/08/17 Attend Phys: Naina Martinez DO Discharge: 07/27/17 Date of : 50 Report #: [id number] THIS REPORT FOR: //name// CC: Terrell Martinez The patient is known from previous consultation while on acute. He is status post right below-knee amputation on 06/30/2017. He did have some postoperative confusion and encephalopathy. He does have also a left heel ulceration. He has needs in physical and occupational therapy as well as speech and language pathology in the postoperative period. His previous level of function was modified independent with activities of daily living. His current level of function is minimum to moderate assistance of 1-2 depending on therapy, activity and time of day. He does have some mild confusion, delayed processing and some memory changes. Medical prognosis is good. Rehabilitation prognosis is good. Estimated length of stay is 14-16 days with discharge disposition to the home setting with supportive family. Physical therapy will see the patient 60-90 minutes per day, 5 days per week, working on upper and lower body strength, balance, coordination, and navigation. Occupational therapy will work with the patient 60-90 minutes per day, 5 days per week, working on upper and lower body strength, balance, coordination, navigation, bathing, dressing, and toileting. Speech and language pathology will work with the patient, 30-90 minutes per day, 5 days per week, working on cognition, memory, and strategies for effective with expression. This is an overall plan of care, may change from time to time. We will team weekly and make changes to plan of care as needed. <ELECTRONICALLY SIGNED> By: Naina Martinez DO 07/27/17 1425 1157 1333Kalonzo Martinez DO /nt
--- NOTE | 2017-07-27 14:26 | D ---
[address] [address] DISCHARGE SUMMARY Name: JULIANNREGANANATOLYLON Meli Room: [address] IN M.R.#: [id number] Admission: 07/08/17 Attend Phys: Naina Martinez DO Discharge: 07/27/17 Date of : 50 Report #: [id number] THIS REPORT FOR: //name// CC: Terrell Martinez DATE OF SERVICE: 07/27/2017 DISCHARGE DIAGNOSIS: Right below knee amputation. DISCHARGE DISPOSITION: To the home setting with supportive spouse. MEDICATIONS: Reviewed, reconciled by myself and available in the MAR. Two prescriptions were given, one for Zoloft 50 mg p.o. daily, which was started here, and one also for his Cozaar, which is a new dose of 75 mg daily as opposed to 25 mg. He was given one month prescriptions for those. He will remain on his diabetic home regimen. He does have a wound on the left heel, which will be skin prepped, Drawtex to the wound bed, cover with a 4 x 4 and change every other day and p.r.n. Will follow up with Dr. Whitfield at [facility] and his primary care physician within one week. Notifications for physician were given. Have a regular diet, carb-controlled diabetic. Right lower extremity nonweightbearing until released from Vascular Surgery. Fall precautions. DISCHARGE PHYSICAL EXAMINATION: GENERAL: Alert, oriented, no apparent distress. VITAL SIGNS: Reviewed and are stable. HEENT: Head atraumatic, normocephalic. Pupils equal, round, reactive. ABDOMEN: Soft, nontender, nondistended. NEUROLOGIC: Cranial nerves 2-12 are grossly intact with no focal neuro deficits, 5/5 strength in the bilateral upper and lower extremities. SKIN: Warm and dry. Left heel wound is freshly dressed, right stump is also freshly dressed, immobilizer is in place. <ELECTRONICALLY SIGNED> By: Naina Martinez DO 07/27/17 1426 1309 1421Naina Martinez DO /nt
[2018-01-28] MEDS ORDERED: OMEPRAZOLE40 MG PO (12:01)
[2018-01-31] MEDS ORDERED: ATORVASTATIN CA20 MG PO (13:43)
[2018-01-31] MEDS ORDERED: CEFDINIR300 MG PO (13:43)
[2018-01-31] MEDS ORDERED: AZITHROMYCIN 2250 MG PO (13:43)
[2018-01-31] MEDS ORDERED: AMLODIPINE BESY10 MG PO (13:44)
[2018-01-31] MEDS ORDERED: NEURONTIN 300300 M1 PO (13:45)
[2018-01-31] MEDS ORDERED: VITAMIN C1000 MG PO (13:45)
[2018-01-31] MEDS ORDERED: SENNA-DOCUSATE1 EACH PO (13:45)
[2018-01-31] MEDS ORDERED: NORVASC5 MG PO (16:41)
[2018-01-31] MEDS ORDERED: NEURONTIN 400400 M1 PO (16:41)
== END 2017-07-27 13:45 | disposition home health service (06) | DRG 637 ==
LOC: M.REH 14:24
PROVIDERS: Internal Medicine; ADMIT Physical Medicine & Rehabilitation
DX: E11.69 Type 2 diabetes mellitus with other specified complication (principal); G93.40 Encephalopathy, unspecified; J69.0 Pneumonitis due to inhalation of food and vomit; J96.01 Acute respiratory failure with hypoxia; M86.8X6 Other osteomyelitis, lower leg; E44.0 Moderate protein-calorie malnutrition; L97.429 Non-pressure chronic ulcer of left heel and midfoot with unspecified severity; E11.51 Type 2 diabetes mellitus with diabetic peripheral angiopathy without gangrene; N18.3 Chronic kidney disease, stage 3 (moderate); E11.22 Type 2 diabetes mellitus with diabetic chronic kidney disease; D64.9 Anemia, unspecified; F32.9 Major depressive disorder, single episode, unspecified; K59.00 Constipation, unspecified; I12.9 Hypertensive chronic kidney disease with stage 1 through stage 4 chronic kidney disease, or unspecified chronic kidney disease; Z88.8 Allergy status to other drugs, medicaments and biological substances; Z79.82 Long term (current) use of aspirin; Z79.899 Other long term (current) drug therapy; Z90.49 Acquired absence of other specified parts of digestive tract; Z68.23 Body mass index [BMI] 23.0-23.9, adult; Z83.3 Family history of diabetes mellitus; Z89.511 Acquired absence of right leg below knee

== ENCOUNTER → 2017-08-02 | Outpatient (CLI) | payer BC ==
[~2017-08-02] MED LIST changes: +AMLODIPINE BESY10 MG PO; +ATORVASTATIN CA20 MG PO; +AZITHROMYCIN 2250 MG PO; +CEFDINIR300 MG PO; +COLACE100 MG PO; +FLOMAX0.4 MG PO; +LASIX 20 MG TAB20 MG PO; +LOPRESSOR100 M1 PO; +MIRALAX17 GM PO; +NEURONTIN 300300 M1 PO; +NEURONTIN 400400 M1 PO; +NORVASC5 MG PO; +OMEPRAZOLE40 MG PO; +SENNA-DOCUSATE1 EACH PO; +SERTRALINE HCL50 MG PO; +VITAMIN C1000 MG PO; +ZOLOFT50 MG PO
== END ==
LOC: M.WC 08:38
DX: T87.89 Other complications of amputation stump (principal); E11.621 Type 2 diabetes mellitus with foot ulcer; L89.623 Pressure ulcer of left heel, stage 3; L97.421 Non-pressure chronic ulcer of left heel and midfoot limited to breakdown of skin; E11.622 Type 2 diabetes mellitus with other skin ulcer; L97.811 Non-pressure chronic ulcer of other part of right lower leg limited to breakdown of skin; E11.40 Type 2 diabetes mellitus with diabetic neuropathy, unspecified; K21.9 Gastro-esophageal reflux disease without esophagitis; Z87.891 Personal history of nicotine dependence; Y83.5 Amputation of limb(s) as the cause of abnormal reaction of the patient, or of later complication, without mention of misadventure at the time of the procedure

== ENCOUNTER → 2017-08-16 | Outpatient (CLI) | payer BC | LOC: M.WC 02:10 | DX: T87.89 Other complications of amputation stump (principal); E11.621 Type 2 diabetes mellitus with foot ulcer; L97.421 Non-pressure chronic ulcer of left heel and midfoot limited to breakdown of skin; E11.622 Type 2 diabetes mellitus with other skin ulcer; L97.811 Non-pressure chronic ulcer of other part of right lower leg limited to breakdown of skin; E11.40 Type 2 diabetes mellitus with diabetic neuropathy, unspecified; K21.9 Gastro-esophageal reflux disease without esophagitis; Z87.891 Personal history of nicotine dependence; Y83.5 Amputation of limb(s) as the cause of abnormal reaction of the patient, or of later complication, without mention of misadventure at the time of the procedure ==

== ENCOUNTER → 2017-08-24 | Outpatient (CLI) | payer BC | LOC: M.WC 04:13 | DX: T87.89 Other complications of amputation stump (principal); E11.621 Type 2 diabetes mellitus with foot ulcer; L89.623 Pressure ulcer of left heel, stage 3; L97.421 Non-pressure chronic ulcer of left heel and midfoot limited to breakdown of skin; E11.622 Type 2 diabetes mellitus with other skin ulcer; L97.811 Non-pressure chronic ulcer of other part of right lower leg limited to breakdown of skin; K21.9 Gastro-esophageal reflux disease without esophagitis; Z87.891 Personal history of nicotine dependence; Y83.5 Amputation of limb(s) as the cause of abnormal reaction of the patient, or of later complication, without mention of misadventure at the time of the procedure ==

== ENCOUNTER → 2017-08-25 | Outpatient (CLI) | payer BC | LOC: M.RAD 00:58 → M.WC 00:58 | DX: T81.89XD Other complications of procedures, not elsewhere classified, subsequent encounter (principal); E11.622 Type 2 diabetes mellitus with other skin ulcer; L97.811 Non-pressure chronic ulcer of other part of right lower leg limited to breakdown of skin; E11.621 Type 2 diabetes mellitus with foot ulcer; L97.421 Non-pressure chronic ulcer of left heel and midfoot limited to breakdown of skin; E11.40 Type 2 diabetes mellitus with diabetic neuropathy, unspecified; K21.9 Gastro-esophageal reflux disease without esophagitis; Z87.891 Personal history of nicotine dependence; Z89.511 Acquired absence of right leg below knee; Y83.8 Other surgical procedures as the cause of abnormal reaction of the patient, or of later complication, without mention of misadventure at the time of the procedure ==

== ENCOUNTER → 2017-08-31 | Outpatient (CLI) | payer BC | LOC: M.WC 03:32 | DX: T87.89 Other complications of amputation stump (principal); E11.621 Type 2 diabetes mellitus with foot ulcer; L89.623 Pressure ulcer of left heel, stage 3; L97.421 Non-pressure chronic ulcer of left heel and midfoot limited to breakdown of skin; E11.622 Type 2 diabetes mellitus with other skin ulcer; L97.811 Non-pressure chronic ulcer of other part of right lower leg limited to breakdown of skin; E11.40 Type 2 diabetes mellitus with diabetic neuropathy, unspecified; L84 Corns and callosities; K21.9 Gastro-esophageal reflux disease without esophagitis; Z87.891 Personal history of nicotine dependence; Y83.5 Amputation of limb(s) as the cause of abnormal reaction of the patient, or of later complication, without mention of misadventure at the time of the procedure ==

== ENCOUNTER → 2017-09-07 | Outpatient (CLI) | payer BC | LOC: M.WC 00:22 | DX: T87.89 Other complications of amputation stump (principal); E11.621 Type 2 diabetes mellitus with foot ulcer; L89.623 Pressure ulcer of left heel, stage 3; L97.421 Non-pressure chronic ulcer of left heel and midfoot limited to breakdown of skin; E11.40 Type 2 diabetes mellitus with diabetic neuropathy, unspecified; L84 Corns and callosities; K21.9 Gastro-esophageal reflux disease without esophagitis; Z87.891 Personal history of nicotine dependence; Y83.5 Amputation of limb(s) as the cause of abnormal reaction of the patient, or of later complication, without mention of misadventure at the time of the procedure ==

== ENCOUNTER → 2017-09-14 | Outpatient (CLI) | payer BC | LOC: M.WC 04:02 | DX: T87.89 Other complications of amputation stump (principal); E11.622 Type 2 diabetes mellitus with other skin ulcer; L97.811 Non-pressure chronic ulcer of other part of right lower leg limited to breakdown of skin; E11.621 Type 2 diabetes mellitus with foot ulcer; L89.623 Pressure ulcer of left heel, stage 3; L97.421 Non-pressure chronic ulcer of left heel and midfoot limited to breakdown of skin; E11.40 Type 2 diabetes mellitus with diabetic neuropathy, unspecified; L84 Corns and callosities; K21.9 Gastro-esophageal reflux disease without esophagitis; Z87.891 Personal history of nicotine dependence; Y83.5 Amputation of limb(s) as the cause of abnormal reaction of the patient, or of later complication, without mention of misadventure at the time of the procedure ==

== ENCOUNTER → 2017-09-15 | Outpatient (CLI) | payer BC | LOC: M.WC 09:30 | DX: T87.89 Other complications of amputation stump (principal); E11.622 Type 2 diabetes mellitus with other skin ulcer; L97.811 Non-pressure chronic ulcer of other part of right lower leg limited to breakdown of skin; E11.621 Type 2 diabetes mellitus with foot ulcer; L97.421 Non-pressure chronic ulcer of left heel and midfoot limited to breakdown of skin; E11.40 Type 2 diabetes mellitus with diabetic neuropathy, unspecified; K21.9 Gastro-esophageal reflux disease without esophagitis; Z87.891 Personal history of nicotine dependence; Y83.5 Amputation of limb(s) as the cause of abnormal reaction of the patient, or of later complication, without mention of misadventure at the time of the procedure ==

== ENCOUNTER → 2017-09-16 | Outpatient (CLI) | payer BC | LOC: M.WC 09:00 | DX: T87.89 Other complications of amputation stump (principal); E11.621 Type 2 diabetes mellitus with foot ulcer; L97.421 Non-pressure chronic ulcer of left heel and midfoot limited to breakdown of skin; E11.622 Type 2 diabetes mellitus with other skin ulcer; L97.811 Non-pressure chronic ulcer of other part of right lower leg limited to breakdown of skin; E11.40 Type 2 diabetes mellitus with diabetic neuropathy, unspecified; K21.9 Gastro-esophageal reflux disease without esophagitis; Z87.891 Personal history of nicotine dependence; Y83.5 Amputation of limb(s) as the cause of abnormal reaction of the patient, or of later complication, without mention of misadventure at the time of the procedure ==

== ENCOUNTER → 2017-09-21 | Outpatient (CLI) | payer BC | LOC: M.WC 05:05 | DX: T87.89 Other complications of amputation stump (principal); E11.621 Type 2 diabetes mellitus with foot ulcer; L97.421 Non-pressure chronic ulcer of left heel and midfoot limited to breakdown of skin; L97.511 Non-pressure chronic ulcer of other part of right foot limited to breakdown of skin; L97.811 Non-pressure chronic ulcer of other part of right lower leg limited to breakdown of skin; E11.622 Type 2 diabetes mellitus with other skin ulcer; E11.40 Type 2 diabetes mellitus with diabetic neuropathy, unspecified; K21.9 Gastro-esophageal reflux disease without esophagitis; Z68.22 Body mass index [BMI] 22.0-22.9, adult; Z87.891 Personal history of nicotine dependence; Y83.5 Amputation of limb(s) as the cause of abnormal reaction of the patient, or of later complication, without mention of misadventure at the time of the procedure ==

== ENCOUNTER → 2017-10-03 | Outpatient (CLI) | payer BC ==
[~2017-10-03] MED LIST changes: +NYSTATIN15 G1 TOP
== END ==
LOC: M.WC 10:00
DX: T81.89XD Other complications of procedures, not elsewhere classified, subsequent encounter (principal); E11.622 Type 2 diabetes mellitus with other skin ulcer; L97.811 Non-pressure chronic ulcer of other part of right lower leg limited to breakdown of skin; E11.621 Type 2 diabetes mellitus with foot ulcer; L97.421 Non-pressure chronic ulcer of left heel and midfoot limited to breakdown of skin; E11.40 Type 2 diabetes mellitus with diabetic neuropathy, unspecified; H61.321 Acquired stenosis of right external ear canal secondary to inflammation and infection; K21.9 Gastro-esophageal reflux disease without esophagitis; Z68.22 Body mass index [BMI] 22.0-22.9, adult; Z87.891 Personal history of nicotine dependence; Z89.511 Acquired absence of right leg below knee; Y83.8 Other surgical procedures as the cause of abnormal reaction of the patient, or of later complication, without mention of misadventure at the time of the procedure

== ENCOUNTER → 2017-10-05 | Outpatient (CLI) | payer BC | LOC: M.WC 04:34 | DX: T81.89XD Other complications of procedures, not elsewhere classified, subsequent encounter (principal); E11.621 Type 2 diabetes mellitus with foot ulcer; L97.421 Non-pressure chronic ulcer of left heel and midfoot limited to breakdown of skin; E11.622 Type 2 diabetes mellitus with other skin ulcer; L97.811 Non-pressure chronic ulcer of other part of right lower leg limited to breakdown of skin; E11.40 Type 2 diabetes mellitus with diabetic neuropathy, unspecified; L84 Corns and callosities; K21.9 Gastro-esophageal reflux disease without esophagitis; Z68.22 Body mass index [BMI] 22.0-22.9, adult; Z87.891 Personal history of nicotine dependence; Y83.8 Other surgical procedures as the cause of abnormal reaction of the patient, or of later complication, without mention of misadventure at the time of the procedure ==

== ENCOUNTER → 2017-10-12 | Outpatient (CLI) | payer BC | LOC: M.WC 05:08 | DX: T87.81 Dehiscence of amputation stump (principal); E11.621 Type 2 diabetes mellitus with foot ulcer; L97.421 Non-pressure chronic ulcer of left heel and midfoot limited to breakdown of skin; E11.622 Type 2 diabetes mellitus with other skin ulcer; L97.811 Non-pressure chronic ulcer of other part of right lower leg limited to breakdown of skin; E11.40 Type 2 diabetes mellitus with diabetic neuropathy, unspecified; K21.9 Gastro-esophageal reflux disease without esophagitis; H61.321 Acquired stenosis of right external ear canal secondary to inflammation and infection; Z87.891 Personal history of nicotine dependence; Y83.5 Amputation of limb(s) as the cause of abnormal reaction of the patient, or of later complication, without mention of misadventure at the time of the procedure ==

== ENCOUNTER → 2017-10-13 | Outpatient (CLI) | payer BC ==
[2017-10-13 09:43] LABS: CALCIUM 8.7 mg/dL (8.5-10.1); CREATININE 1.8 mg/dL (0.6-1.3); POTASSIUM 5.8 mmol/L (3.5-5.1)
== END ==
LOC: M.LAB 09:13
PROVIDERS: Family Medicine
DX: E11.65 Type 2 diabetes mellitus with hyperglycemia (principal)

== ENCOUNTER → 2017-10-20 | Outpatient (CLI) | payer BC | LOC: M.WC 03:43 | DX: T87.89 Other complications of amputation stump (principal); E11.621 Type 2 diabetes mellitus with foot ulcer; L97.421 Non-pressure chronic ulcer of left heel and midfoot limited to breakdown of skin; E11.622 Type 2 diabetes mellitus with other skin ulcer; L97.821 Non-pressure chronic ulcer of other part of left lower leg limited to breakdown of skin; L97.811 Non-pressure chronic ulcer of other part of right lower leg limited to breakdown of skin; E11.40 Type 2 diabetes mellitus with diabetic neuropathy, unspecified; L84 Corns and callosities; K21.9 Gastro-esophageal reflux disease without esophagitis; Z87.891 Personal history of nicotine dependence; Y83.5 Amputation of limb(s) as the cause of abnormal reaction of the patient, or of later complication, without mention of misadventure at the time of the procedure ==

== ENCOUNTER → 2017-10-26 | Outpatient (CLI) | payer BC | LOC: M.WC 02:56 | DX: T87.89 Other complications of amputation stump (principal); E11.621 Type 2 diabetes mellitus with foot ulcer; L97.421 Non-pressure chronic ulcer of left heel and midfoot limited to breakdown of skin; E11.622 Type 2 diabetes mellitus with other skin ulcer; I70.238 Atherosclerosis of native arteries of right leg with ulceration of other part of lower leg; L97.811 Non-pressure chronic ulcer of other part of right lower leg limited to breakdown of skin; E11.40 Type 2 diabetes mellitus with diabetic neuropathy, unspecified; K21.9 Gastro-esophageal reflux disease without esophagitis; Z87.891 Personal history of nicotine dependence; Y83.5 Amputation of limb(s) as the cause of abnormal reaction of the patient, or of later complication, without mention of misadventure at the time of the procedure ==

== ENCOUNTER → 2017-11-01 | Outpatient (CLI) | payer BC | LOC: M.WC 09:30 | DX: T81.89XD Other complications of procedures, not elsewhere classified, subsequent encounter (principal); E11.622 Type 2 diabetes mellitus with other skin ulcer; I70.238 Atherosclerosis of native arteries of right leg with ulceration of other part of lower leg; L97.811 Non-pressure chronic ulcer of other part of right lower leg limited to breakdown of skin; E11.621 Type 2 diabetes mellitus with foot ulcer; L97.421 Non-pressure chronic ulcer of left heel and midfoot limited to breakdown of skin; E11.40 Type 2 diabetes mellitus with diabetic neuropathy, unspecified; K21.9 Gastro-esophageal reflux disease without esophagitis; Z87.891 Personal history of nicotine dependence; Y83.8 Other surgical procedures as the cause of abnormal reaction of the patient, or of later complication, without mention of misadventure at the time of the procedure ==

== ENCOUNTER → 2017-11-02 | Outpatient (CLI) | payer BC | LOC: M.WC 04:05 | DX: T87.89 Other complications of amputation stump (principal); E11.622 Type 2 diabetes mellitus with other skin ulcer; I70.238 Atherosclerosis of native arteries of right leg with ulceration of other part of lower leg; L97.821 Non-pressure chronic ulcer of other part of left lower leg limited to breakdown of skin; E11.621 Type 2 diabetes mellitus with foot ulcer; L97.421 Non-pressure chronic ulcer of left heel and midfoot limited to breakdown of skin; E11.40 Type 2 diabetes mellitus with diabetic neuropathy, unspecified; K21.9 Gastro-esophageal reflux disease without esophagitis; Z87.891 Personal history of nicotine dependence; Y83.5 Amputation of limb(s) as the cause of abnormal reaction of the patient, or of later complication, without mention of misadventure at the time of the procedure ==

== ENCOUNTER → 2017-11-09 | Outpatient (CLI) | payer BC | LOC: M.WC 03:20 | DX: T87.89 Other complications of amputation stump (principal); E11.621 Type 2 diabetes mellitus with foot ulcer; L97.421 Non-pressure chronic ulcer of left heel and midfoot limited to breakdown of skin; E11.622 Type 2 diabetes mellitus with other skin ulcer; I70.238 Atherosclerosis of native arteries of right leg with ulceration of other part of lower leg; L97.811 Non-pressure chronic ulcer of other part of right lower leg limited to breakdown of skin; E11.51 Type 2 diabetes mellitus with diabetic peripheral angiopathy without gangrene; E11.40 Type 2 diabetes mellitus with diabetic neuropathy, unspecified; K21.9 Gastro-esophageal reflux disease without esophagitis; Z87.891 Personal history of nicotine dependence; Y83.8 Other surgical procedures as the cause of abnormal reaction of the patient, or of later complication, without mention of misadventure at the time of the procedure ==

== ENCOUNTER → 2017-11-16 | Outpatient (CLI) | payer BC | LOC: M.WC 01:34 | DX: T87.89 Other complications of amputation stump (principal); E11.622 Type 2 diabetes mellitus with other skin ulcer; L97.811 Non-pressure chronic ulcer of other part of right lower leg limited to breakdown of skin; E11.621 Type 2 diabetes mellitus with foot ulcer; L97.421 Non-pressure chronic ulcer of left heel and midfoot limited to breakdown of skin; I70.238 Atherosclerosis of native arteries of right leg with ulceration of other part of lower leg; E11.51 Type 2 diabetes mellitus with diabetic peripheral angiopathy without gangrene; E11.40 Type 2 diabetes mellitus with diabetic neuropathy, unspecified; K21.9 Gastro-esophageal reflux disease without esophagitis; Z87.891 Personal history of nicotine dependence; Y83.5 Amputation of limb(s) as the cause of abnormal reaction of the patient, or of later complication, without mention of misadventure at the time of the procedure ==

== ENCOUNTER → 2017-11-23 | Outpatient (CLI) | payer BC | LOC: M.WC 04:34 | DX: T87.89 Other complications of amputation stump (principal); E11.621 Type 2 diabetes mellitus with foot ulcer; L97.421 Non-pressure chronic ulcer of left heel and midfoot limited to breakdown of skin; E11.40 Type 2 diabetes mellitus with diabetic neuropathy, unspecified; K21.9 Gastro-esophageal reflux disease without esophagitis; Z87.891 Personal history of nicotine dependence; Y83.5 Amputation of limb(s) as the cause of abnormal reaction of the patient, or of later complication, without mention of misadventure at the time of the procedure ==

== ENCOUNTER → 2017-11-30 | Outpatient (CLI) | payer BC | LOC: M.WC 04:49 | DX: T87.89 Other complications of amputation stump (principal); E11.622 Type 2 diabetes mellitus with other skin ulcer; L97.811 Non-pressure chronic ulcer of other part of right lower leg limited to breakdown of skin; E11.621 Type 2 diabetes mellitus with foot ulcer; L97.421 Non-pressure chronic ulcer of left heel and midfoot limited to breakdown of skin; I70.238 Atherosclerosis of native arteries of right leg with ulceration of other part of lower leg; E11.51 Type 2 diabetes mellitus with diabetic peripheral angiopathy without gangrene; E11.40 Type 2 diabetes mellitus with diabetic neuropathy, unspecified; K21.9 Gastro-esophageal reflux disease without esophagitis; Z87.891 Personal history of nicotine dependence; Y83.5 Amputation of limb(s) as the cause of abnormal reaction of the patient, or of later complication, without mention of misadventure at the time of the procedure ==

== ENCOUNTER → 2017-12-07 | Outpatient (CLI) | payer BC, OTHER | LOC: M.WC 03:04 | DX: T87.89 Other complications of amputation stump (principal); E11.622 Type 2 diabetes mellitus with other skin ulcer; L97.811 Non-pressure chronic ulcer of other part of right lower leg limited to breakdown of skin; E11.621 Type 2 diabetes mellitus with foot ulcer; L97.421 Non-pressure chronic ulcer of left heel and midfoot limited to breakdown of skin; I70.238 Atherosclerosis of native arteries of right leg with ulceration of other part of lower leg; E11.51 Type 2 diabetes mellitus with diabetic peripheral angiopathy without gangrene; E11.42 Type 2 diabetes mellitus with diabetic polyneuropathy; K21.9 Gastro-esophageal reflux disease without esophagitis; Z87.891 Personal history of nicotine dependence; Y83.5 Amputation of limb(s) as the cause of abnormal reaction of the patient, or of later complication, without mention of misadventure at the time of the procedure ==

== ENCOUNTER 2017-12-12 18:41 | Emergency (ER) | payer BC, OTHER ==
[~2017-12-12] VITALS: Ht 175.3 cm; Wt 74.8 kg
[~2017-12-12 18:41] MED LIST changes: -AMLODIPINE BESY10 MG PO; -ATORVASTATIN CA20 MG PO; -AZITHROMYCIN 2250 MG PO; -CEFDINIR300 MG PO; -COLACE100 MG PO; -FLOMAX0.4 MG PO; -LASIX 20 MG TAB20 MG PO; -LOPRESSOR100 M1 PO; -MIRALAX17 GM PO; -NEURONTIN 300300 M1 PO; -NEURONTIN 400400 M1 PO; -NORVASC5 MG PO; -NYSTATIN15 G1 TOP; -OMEPRAZOLE40 MG PO; -SENNA-DOCUSATE1 EACH PO; -VITAMIN C1000 MG PO; -ZOLOFT50 MG PO
[2017-12-12] MEDS ORDERED: LOPRESSOR100 M1 PO (19:05)
[2017-12-12 19:21] LABS: ABSOLUTE EOSINOPHILS 0.2 thou/uL (0.0-0.7); ABSOLUTE LYMPHOCYTES 1.1 thou/uL (0.8-5.3); ABSOLUTE MONOCYTES 0.6 thou/uL (0.0-1.2); ABSOLUTE NEUTROPHILS 3.1 thou/uL (1.6-8.1); EOSINOPHILS 3.7 %; HEMATOCRIT 30.9 % (42.0-52.0); LYMPHOCYTES 21.8 %; MCH 26.5 pg (26.0-34.0); MCHC 32.4 g/dL (28.0-37.0); MCV 81.9 fL (80.0-100.0); MPV 8.5 fl. (7.2-11.1); NUCLEATED RBCS 0 /100WBC; PLATELET COUNT* 296 thou/uL (150-400); POLYS 62.5 %; RBC 3.78 mil/uL (4.50-6.00)
[2017-12-12 19:25] LABS: CALCIUM 8.7 mg/dL (8.5-10.1); CREATININE 1.6 mg/dL (0.6-1.3); POTASSIUM 4.5 mmol/L (3.5-5.1)
[2017-12-12 19:30] LABS: ALBUMIN 2.7 g/dL (3.4-5.0); TOTAL BILIRUBIN 0.2 mg/dL (<0.1-1.0); TOTAL PROTEIN 6.6 g/dL (6.4-8.2)
[2017-12-12 21:33] VITALS: BP 176/78
[2018-01-28] MEDS ORDERED: OMEPRAZOLE40 MG PO (12:01)
[2018-01-31] MEDS ORDERED: AZITHROMYCIN 2250 MG PO (13:43)
[2018-01-31] MEDS ORDERED: CEFDINIR300 MG PO (13:43)
[2018-01-31] MEDS ORDERED: ATORVASTATIN CA20 MG PO (13:43)
[2018-01-31] MEDS ORDERED: AMLODIPINE BESY10 MG PO (13:44)
[2018-01-31] MEDS ORDERED: VITAMIN C1000 MG PO (13:45)
[2018-01-31] MEDS ORDERED: NEURONTIN 300300 M1 PO (13:45)
[2018-01-31] MEDS ORDERED: SENNA-DOCUSATE1 EACH PO (13:45)
[2018-01-31] MEDS ORDERED: NEURONTIN 400400 M1 PO (16:41)
[2018-01-31] MEDS ORDERED: NORVASC5 MG PO (16:41)
== END 2017-12-12 21:35 | disposition home or self-care (01) ==
LOC: M.ERS 18:41
PROVIDERS: Personal Emergency Response Attendant
DX: E11.649 Type 2 diabetes mellitus with hypoglycemia without coma (principal); K21.9 Gastro-esophageal reflux disease without esophagitis; G47.30 Sleep apnea, unspecified; I10 Essential (primary) hypertension; Z87.891 Personal history of nicotine dependence; Z88.8 Allergy status to other drugs, medicaments and biological substances; Z79.4 Long term (current) use of insulin

== ENCOUNTER → 2017-12-14 | Outpatient (CLI) | payer BC ==
[~2017-12-14] MED LIST changes: +AMLODIPINE BESY10 MG PO; +ATORVASTATIN CA20 MG PO; +AZITHROMYCIN 2250 MG PO; +CEFDINIR300 MG PO; +COLACE100 MG PO; +FLOMAX0.4 MG PO; +LASIX 20 MG TAB20 MG PO; +LOPRESSOR100 M1 PO; +MIRALAX17 GM PO; +NEURONTIN 300300 M1 PO; +NEURONTIN 400400 M1 PO; +NORVASC5 MG PO; +NYSTATIN15 G1 TOP; +OMEPRAZOLE40 MG PO; +SENNA-DOCUSATE1 EACH PO; +VITAMIN C1000 MG PO; +ZOLOFT50 MG PO
== END ==
LOC: M.WC 05:18
DX: T87.89 Other complications of amputation stump (principal); E11.621 Type 2 diabetes mellitus with foot ulcer; L97.421 Non-pressure chronic ulcer of left heel and midfoot limited to breakdown of skin; E11.622 Type 2 diabetes mellitus with other skin ulcer; L97.811 Non-pressure chronic ulcer of other part of right lower leg limited to breakdown of skin; I70.238 Atherosclerosis of native arteries of right leg with ulceration of other part of lower leg; E11.51 Type 2 diabetes mellitus with diabetic peripheral angiopathy without gangrene; E11.40 Type 2 diabetes mellitus with diabetic neuropathy, unspecified; K21.9 Gastro-esophageal reflux disease without esophagitis; Z87.891 Personal history of nicotine dependence; Y83.5 Amputation of limb(s) as the cause of abnormal reaction of the patient, or of later complication, without mention of misadventure at the time of the procedure

== ENCOUNTER → 2017-12-21 | Outpatient (CLI) | payer BC | LOC: M.WC 04:25 | DX: T87.89 Other complications of amputation stump (principal); E11.622 Type 2 diabetes mellitus with other skin ulcer; L97.811 Non-pressure chronic ulcer of other part of right lower leg limited to breakdown of skin; I70.238 Atherosclerosis of native arteries of right leg with ulceration of other part of lower leg; E11.621 Type 2 diabetes mellitus with foot ulcer; L97.421 Non-pressure chronic ulcer of left heel and midfoot limited to breakdown of skin; E11.51 Type 2 diabetes mellitus with diabetic peripheral angiopathy without gangrene; E11.40 Type 2 diabetes mellitus with diabetic neuropathy, unspecified; K21.9 Gastro-esophageal reflux disease without esophagitis; Z87.891 Personal history of nicotine dependence; Y83.5 Amputation of limb(s) as the cause of abnormal reaction of the patient, or of later complication, without mention of misadventure at the time of the procedure ==

== ENCOUNTER → 2017-12-28 | Outpatient (CLI) | payer BC ==
[~2017-12-28] MED LIST changes: -COLACE100 MG PO; -FLOMAX0.4 MG PO; -LASIX 20 MG TAB20 MG PO; -MIRALAX17 GM PO; -NYSTATIN15 G1 TOP; -ZOLOFT50 MG PO
== END ==
LOC: M.WC 03:57
DX: T87.89 Other complications of amputation stump (principal); E11.621 Type 2 diabetes mellitus with foot ulcer; L97.421 Non-pressure chronic ulcer of left heel and midfoot limited to breakdown of skin; E11.622 Type 2 diabetes mellitus with other skin ulcer; L97.811 Non-pressure chronic ulcer of other part of right lower leg limited to breakdown of skin; I70.238 Atherosclerosis of native arteries of right leg with ulceration of other part of lower leg; E11.51 Type 2 diabetes mellitus with diabetic peripheral angiopathy without gangrene; E11.40 Type 2 diabetes mellitus with diabetic neuropathy, unspecified; K21.9 Gastro-esophageal reflux disease without esophagitis; Z87.891 Personal history of nicotine dependence; Y83.5 Amputation of limb(s) as the cause of abnormal reaction of the patient, or of later complication, without mention of misadventure at the time of the procedure

== ENCOUNTER → 2018-01-04 | Outpatient (CLI) | payer BC | LOC: M.WC 01:34 | DX: T87.89 Other complications of amputation stump (principal); E11.622 Type 2 diabetes mellitus with other skin ulcer; L97.811 Non-pressure chronic ulcer of other part of right lower leg limited to breakdown of skin; I70.238 Atherosclerosis of native arteries of right leg with ulceration of other part of lower leg; E11.621 Type 2 diabetes mellitus with foot ulcer; L97.421 Non-pressure chronic ulcer of left heel and midfoot limited to breakdown of skin; E11.40 Type 2 diabetes mellitus with diabetic neuropathy, unspecified; K21.9 Gastro-esophageal reflux disease without esophagitis; Z87.891 Personal history of nicotine dependence; Y83.5 Amputation of limb(s) as the cause of abnormal reaction of the patient, or of later complication, without mention of misadventure at the time of the procedure ==

== ENCOUNTER → 2018-01-13 | Outpatient (CLI) | payer BC ==
[~2018-01-13] MED LIST changes: +COLACE100 MG PO; +FLOMAX0.4 MG PO; +LASIX 20 MG TAB20 MG PO; +MIRALAX17 GM PO; +NYSTATIN15 G1 TOP; +ZOLOFT50 MG PO
== END ==
LOC: M.WC 01-11 10:00
DX: T87.89 Other complications of amputation stump (principal); E11.621 Type 2 diabetes mellitus with foot ulcer; L97.421 Non-pressure chronic ulcer of left heel and midfoot limited to breakdown of skin; E11.622 Type 2 diabetes mellitus with other skin ulcer; I70.238 Atherosclerosis of native arteries of right leg with ulceration of other part of lower leg; L97.811 Non-pressure chronic ulcer of other part of right lower leg limited to breakdown of skin; E11.51 Type 2 diabetes mellitus with diabetic peripheral angiopathy without gangrene; E11.40 Type 2 diabetes mellitus with diabetic neuropathy, unspecified; K21.9 Gastro-esophageal reflux disease without esophagitis; Z87.891 Personal history of nicotine dependence; Y83.5 Amputation of limb(s) as the cause of abnormal reaction of the patient, or of later complication, without mention of misadventure at the time of the procedure

== ENCOUNTER → 2018-01-18 | Outpatient (CLI) | payer BC ==
[~2018-01-18] MED LIST changes: -COLACE100 MG PO; -FLOMAX0.4 MG PO; -LASIX 20 MG TAB20 MG PO; -MIRALAX17 GM PO; -NYSTATIN15 G1 TOP; -ZOLOFT50 MG PO
== END ==
LOC: M.WC 04:25
DX: T87.89 Other complications of amputation stump (principal); E11.622 Type 2 diabetes mellitus with other skin ulcer; I70.238 Atherosclerosis of native arteries of right leg with ulceration of other part of lower leg; L97.811 Non-pressure chronic ulcer of other part of right lower leg limited to breakdown of skin; E11.621 Type 2 diabetes mellitus with foot ulcer; L97.421 Non-pressure chronic ulcer of left heel and midfoot limited to breakdown of skin; L97.521 Non-pressure chronic ulcer of other part of left foot limited to breakdown of skin; E11.40 Type 2 diabetes mellitus with diabetic neuropathy, unspecified; K21.9 Gastro-esophageal reflux disease without esophagitis; Z87.891 Personal history of nicotine dependence; Y83.2 Surgical operation with anastomosis, bypass or graft as the cause of abnormal reaction of the patient, or of later complication, without mention of misadventure at the time of the procedure

== ENCOUNTER → 2018-01-25 | Outpatient (CLI) | payer BC ==
[~2018-01-25] MED LIST changes: +COLACE100 MG PO; +FLOMAX0.4 MG PO; +LASIX 20 MG TAB20 MG PO; +MIRALAX17 GM PO; +NYSTATIN15 G1 TOP; +ZOLOFT50 MG PO
== END ==
LOC: M.WC 03:00
DX: T87.89 Other complications of amputation stump (principal); E11.621 Type 2 diabetes mellitus with foot ulcer; L97.421 Non-pressure chronic ulcer of left heel and midfoot limited to breakdown of skin; L97.521 Non-pressure chronic ulcer of other part of left foot limited to breakdown of skin; E11.622 Type 2 diabetes mellitus with other skin ulcer; I70.238 Atherosclerosis of native arteries of right leg with ulceration of other part of lower leg; L97.811 Non-pressure chronic ulcer of other part of right lower leg limited to breakdown of skin; E11.51 Type 2 diabetes mellitus with diabetic peripheral angiopathy without gangrene; E11.40 Type 2 diabetes mellitus with diabetic neuropathy, unspecified; K21.9 Gastro-esophageal reflux disease without esophagitis; Z87.891 Personal history of nicotine dependence; Y83.5 Amputation of limb(s) as the cause of abnormal reaction of the patient, or of later complication, without mention of misadventure at the time of the procedure

== ENCOUNTER 2018-01-28 11:35 | Inpatient (IN) | payer BC ==
[~2018-01-28] VITALS: Ht 175.3 cm; Wt 75.7 kg
[~2018-01-28 11:35] MED LIST changes: -AMLODIPINE BESY10 MG PO; -ATORVASTATIN CA20 MG PO; -AZITHROMYCIN 2250 MG PO; -CEFDINIR300 MG PO; -COLACE100 MG PO; -FLOMAX0.4 MG PO; -LASIX 20 MG TAB20 MG PO; -MIRALAX17 GM PO; -NEURONTIN 300300 M1 PO; -NEURONTIN 400400 M1 PO; -NORVASC5 MG PO; -NYSTATIN15 G1 TOP; -OMEPRAZOLE40 MG PO; -SENNA-DOCUSATE1 EACH PO; -VITAMIN C1000 MG PO; -ZOLOFT50 MG PO
[2018-01-28 11:42] VITALS: BP 230/100
[2018-01-28] MEDS ORDERED: OMEPRAZOLE40 MG PO ×2 (12:01)
[2018-01-28 12:31] LABS: HEMATOCRIT 35.1 % (42.0-52.0); HEMOGLOBIN 11.5 gm/dL (14.0-18.0); MCH 26.7 pg (26.0-34.0); MCHC 32.7 g/dL (28.0-37.0); MCV 81.5 fL (80.0-100.0); MPV 7.8 fl. (7.2-11.1); NUCLEATED RBCS 0 /100WBC; PLATELET COUNT* 390 thou/uL (150-400)
[2018-01-28 12:40] LABS: ANION GAP 6 mmol/L (7-16); BUN 21 mg/dL (7-18); CALCIUM 9.3 mg/dL (8.5-10.1); CHLORIDE 102 mmol/L (98-107); CO2 30 mmol/L (21-32); CREATININE 1.2 mg/dL (0.6-1.3); GLUCOSE 198 mg/dL (70-99); POTASSIUM 4.3 mmol/L (3.5-5.1); SODIUM 138 mmol/L (136-145)
[2018-01-28 12:57] LABS: ALBUMIN 2.8 g/dL (3.4-5.0); ALKALINE PHOSPHATASE 155 U/L (46-116); LIPASE 60 U/L (73-393); SGOT 16 U/L (15-37); SGPT 20 U/L (30-65); TOTAL BILIRUBIN 0.3 mg/dL (<0.1-1.0); TOTAL PROTEIN 7.2 g/dL (6.4-8.2); TROPONIN-I LEVEL <0.06 ng/mL (<0.06)
[2018-01-28 13:15] LABS: ABSOLUTE BASOPHILS 0.1 thou/uL (0.0-0.2); ABSOLUTE LYMPHOCYTES 0.6 thou/uL (0.8-5.3); ABSOLUTE MONOCYTES 0.5 thou/uL (0.0-1.2); ABSOLUTE NEUTROPHILS 6.8 thou/uL (1.6-8.1); ANISOCYTOSIS 1+; PLATELET ESTIMATE ADEQUATE; POIKILOCYTOSIS 1+
[2018-01-28 13:45] LABS: URINE BILIRUBIN NEGATIVE (Negative); URINE BLOOD 2+ (Negative); URINE CLARITY CLEAR; URINE COLOR YELLOW; URINE GLUCOSE-RANDOM 1+ (Negative); URINE KETONES TRACE (Negative); URINE LEUKOCYTES-REFLEX NEGATIVE (Negative); URINE NITRITE-REFLEX NEGATIVE (Negative); URINE PROTEIN 3+ (Negative); URINE SPECIFIC GRAVITY 1.025 (1.005-1.030); URINE UROBILINOGEN 0.2 E.U./dl (0.2-1.0)
[2018-01-28 13:53] LABS: BACTERIA-REFLEX 1-9 Few /HPF (None Seen); CASTS None Seen /LPF (None Seen); CRYSTALS None Seen /LPF (None Seen); MUCUS 0-3 Light strn/LPF (None Seen); SQUAMOUS 4-10 Moderate /LPF (0-3); URINE RBC 3-10 Few /HPF (0-2); URINE WBC-REFLEX 0-5 Rare /HPF (0-5)
[2018-01-28 14:03] VITALS: BP 187/81
[2018-01-28 14:11] LABS: INFLUENZA A ANTIGEN None Detected (None Detect); INFLUENZA B ANTIGEN None Detected (None Detect)
[2018-01-28 14:52] VITALS: BP 189/75
[2018-01-28 20:00] VITALS: BP 160/64
[2018-01-29 00:40] VITALS: BP 156/54
[2018-01-29 03:27] VITALS: BP 179/72
[2018-01-29 04:39] LABS: HEMATOCRIT 31.2 % (42.0-52.0); HEMOGLOBIN 10.1 gm/dL (14.0-18.0); MCH 26.7 pg (26.0-34.0); MCHC 32.4 g/dL (28.0-37.0); MCV 82.4 fL (80.0-100.0); MPV 8.1 fl. (7.2-11.1); RBC 3.79 mil/uL (4.50-6.00); RDW-CV 13.8 % (10.5-14.5); WBC 8.5 thou/uL (4.0-11.0)
[2018-01-29 04:45] LABS: CALCIUM 8.5 mg/dL (8.5-10.1); CREATININE 1.4 mg/dL (0.6-1.3); MAGNESIUM 1.7 mg/dL (1.8-2.4); POTASSIUM 4.1 mmol/L (3.5-5.1)
[2018-01-29 08:00] VITALS: BP 162/74
[2018-01-29 11:52] VITALS: BP 132/67
[2018-01-29 15:33] VITALS: BP 109/47
[2018-01-29 19:20] VITALS: BP 145/68
[2018-01-30 00:40] VITALS: BP 143/83
[2018-01-30 04:00] VITALS: BP 178/82
[2018-01-30 04:24] LABS: ABSOLUTE BASOPHILS 0.1 thou/uL (0.0-0.2); ABSOLUTE EOSINOPHILS 0.5 thou/uL (0.0-0.7); ABSOLUTE LYMPHOCYTES 1.3 thou/uL (0.8-5.3); ABSOLUTE MONOCYTES 0.8 thou/uL (0.0-1.2); ABSOLUTE NEUTROPHILS 5.2 thou/uL (1.6-8.1); BASOPHILS 1.1 %; EOSINOPHILS 6.8 %; HEMATOCRIT 30.3 % (42.0-52.0); HEMOGLOBIN 9.9 gm/dL (14.0-18.0); LYMPHOCYTES 16.6 %; MCH 26.8 pg (26.0-34.0); MCHC 32.5 g/dL (28.0-37.0); MCV 82.3 fL (80.0-100.0); MONOCYTES 9.7 %; MPV 8.2 fl. (7.2-11.1); NUCLEATED RBCS 0 /100WBC; PLATELET COUNT* 328 thou/uL (150-400); POLYS 65.8 %; RBC 3.69 mil/uL (4.50-6.00); RDW-CV 13.7 % (10.5-14.5); WBC 7.8 thou/uL (4.0-11.0)
[2018-01-30 04:42] LABS: CALCIUM 8.5 mg/dL (8.5-10.1); CREATININE 1.7 mg/dL (0.6-1.3); MAGNESIUM 1.9 mg/dL (1.8-2.4); POTASSIUM 4.8 mmol/L (3.5-5.1)
--- NOTE | 2018-01-30 10:00 | EKG ---
[place] [address] ELECTROCARDIOGRAM REPORT Name: LON FREED Room: [address] ADM IN .R.#: [id number] Admission: 01/28/18 Attend Phys: Asaf Jaeger MD Discharge: Date of : 50 Report #: [id number] THIS REPORT FOR: //name// [facility] ED Test Date: 2018-01-28 Test Time: 12:10:17 Pat Name: LON FREED Department: Room: [facility] Gender: M Vasc Tech: JULIEN : 1950 Requested By: Nina Méndez Order Number: [id number] MD: Stanley Bob Measurements Intervals [place] Rate: 84 P: 15 IA: 126 QRS: 7 QRSD: 77 T: 85 QT: 375 QTc: 444 Interpretive Statements Sinus rhythm Consider anterior infarct Compared to ECG 06/19/2017 10:35:01 No significant changes Electronically Signed On 01-30-2018 10:00:42 MOLECULAR BIOLOGIST by Stanley Bob [email or web address] <ELECTRONICALLY SIGNED> By: Stanley Bob MD, [facility] 01/30/18 1000 1210 1210 Stanley Bob MD, [facility] /EPI
[2018-01-30 12:00] VITALS: BP 160/75
[2018-01-30 16:00] VITALS: BP 168/77
[2018-01-30 20:00] VITALS: BP 133/66
[2018-01-31] VITALS: BP 153/70
[2018-01-31 04:00] VITALS: BP 165/74
[2018-01-31 05:35] LABS: ABSOLUTE BASOPHILS 0.1 thou/uL (0.0-0.2); ABSOLUTE EOSINOPHILS 0.8 thou/uL (0.0-0.7); ABSOLUTE LYMPHOCYTES 1.2 thou/uL (0.8-5.3); ABSOLUTE MONOCYTES 0.8 thou/uL (0.0-1.2); ABSOLUTE NEUTROPHILS 3.9 thou/uL (1.6-8.1); BASOPHILS 1.4 %; EOSINOPHILS 12.3 %; HEMATOCRIT 31.6 % (42.0-52.0); HEMOGLOBIN 10.2 gm/dL (14.0-18.0); LYMPHOCYTES 17.1 %; MCH 26.8 pg (26.0-34.0); MCHC 32.2 g/dL (28.0-37.0); MCV 83.2 fL (80.0-100.0); MONOCYTES 12.1 %; MPV 8.5 fl. (7.2-11.1); NUCLEATED RBCS 0 /100WBC; PLATELET COUNT* 299 thou/uL (150-400); POLYS 57.1 %; RDW-CV 14.2 % (10.5-14.5); WBC 6.9 thou/uL (4.0-11.0)
[2018-01-31 05:44] LABS: CALCIUM 8.7 mg/dL (8.5-10.1); CREATININE 1.6 mg/dL (0.6-1.3); PHOSPHORUS* 4.7 mg/dL (2.5-4.9); POTASSIUM 4.6 mmol/L (3.5-5.1)
[2018-01-31 08:00] VITALS: BP 175/79
[2018-01-31 11:38] VITALS: BP 172/72
[2018-01-31] MEDS ORDERED: CEFDINIR300 MG PO ×2 (13:43)
[2018-01-31] MEDS ORDERED: ATORVASTATIN CA20 MG PO ×2 (13:43)
[2018-01-31] MEDS ORDERED: AZITHROMYCIN 2250 MG PO ×2 (13:43)
[2018-01-31] MEDS ORDERED: AMLODIPINE BESY10 MG PO ×2 (13:44)
[2018-01-31] MEDS ORDERED: NEURONTIN 300300 M1 PO ×2 (13:45)
[2018-01-31] MEDS ORDERED: SENNA-DOCUSATE1 EACH PO ×2 (13:45)
[2018-01-31] MEDS ORDERED: VITAMIN C1000 MG PO ×2 (13:45)
[2018-01-31 15:42] VITALS: BP 172/72
[2018-01-31] MEDS ORDERED: NORVASC5 MG PO ×2 (16:41)
[2018-01-31] MEDS ORDERED: NEURONTIN 400400 M1 PO ×2 (16:41)
[2018-01-31 16:54] VITALS: BP 172/72
== END 2018-01-31 18:00 | disposition home or self-care (01) | DRG 177 ==
LOC: M.ERS 11:35 → M.TBA-ER 13:22 → M.2W 13:22
PROVIDERS: Emergency Medicine; Family Medicine; Physician Assistant; ADMIT Internal Medicine
DX: J15.6 Pneumonia due to other Gram-negative bacteria (principal); J96.01 Acute respiratory failure with hypoxia; E44.0 Moderate protein-calorie malnutrition; M86.9 Osteomyelitis, unspecified; K21.9 Gastro-esophageal reflux disease without esophagitis; G47.30 Sleep apnea, unspecified; E10.22 Type 1 diabetes mellitus with diabetic chronic kidney disease; E10.43 Type 1 diabetes mellitus with diabetic autonomic (poly)neuropathy; K31.84 Gastroparesis; I13.10 Hypertensive heart and chronic kidney disease without heart failure, with stage 1 through stage 4 chronic kidney disease, or unspecified chronic kidney disease; N18.3 Chronic kidney disease, stage 3 (moderate); I25.2 Old myocardial infarction; I25.10 Atherosclerotic heart disease of native coronary artery without angina pectoris; K52.9 Noninfective gastroenteritis and colitis, unspecified; I16.0 Hypertensive urgency; E10.65 Type 1 diabetes mellitus with hyperglycemia; G56.00 Carpal tunnel syndrome, unspecified upper limb; D50.9 Iron deficiency anemia, unspecified; Z79.82 Long term (current) use of aspirin; Z79.4 Long term (current) use of insulin; Z79.899 Other long term (current) drug therapy; Z87.891 Personal history of nicotine dependence; Z79.2 Long term (current) use of antibiotics; Z88.8 Allergy status to other drugs, medicaments and biological substances; Z90.49 Acquired absence of other specified parts of digestive tract; Z89.511 Acquired absence of right leg below knee; Z68.24 Body mass index [BMI] 24.0-24.9, adult; Z83.3 Family history of diabetes mellitus

== ENCOUNTER → 2018-02-01 | Outpatient (CLI) | payer BC ==
[~2018-02-01] MED LIST changes: +AMLODIPINE BESY10 MG PO; +ATORVASTATIN CA20 MG PO; +AZITHROMYCIN 2250 MG PO; +CEFDINIR300 MG PO; +COLACE100 MG PO; +FLOMAX0.4 MG PO; +LASIX 20 MG TAB20 MG PO; +MIRALAX17 GM PO; +NEURONTIN 300300 M1 PO; +NEURONTIN 400400 M1 PO; +NORVASC5 MG PO; +NYSTATIN15 G1 TOP; +OMEPRAZOLE40 MG PO; +SENNA-DOCUSATE1 EACH PO; +VITAMIN C1000 MG PO; +ZOLOFT50 MG PO
== END ==
LOC: M.WC 03:09
DX: T87.89 Other complications of amputation stump (principal); E11.622 Type 2 diabetes mellitus with other skin ulcer; I70.238 Atherosclerosis of native arteries of right leg with ulceration of other part of lower leg; L97.811 Non-pressure chronic ulcer of other part of right lower leg limited to breakdown of skin; E11.621 Type 2 diabetes mellitus with foot ulcer; L97.411 Non-pressure chronic ulcer of right heel and midfoot limited to breakdown of skin; E11.51 Type 2 diabetes mellitus with diabetic peripheral angiopathy without gangrene; E11.40 Type 2 diabetes mellitus with diabetic neuropathy, unspecified; K21.9 Gastro-esophageal reflux disease without esophagitis; Z87.891 Personal history of nicotine dependence; Y83.5 Amputation of limb(s) as the cause of abnormal reaction of the patient, or of later complication, without mention of misadventure at the time of the procedure

== ENCOUNTER 2018-02-05 12:15 | Inpatient (IN) | payer BC ==
[~2018-02-05] VITALS: Ht 175.3 cm; Wt 84.4 kg
--- NOTE | ~2018-02-05 | EKG ---
[place] [address] ELECTROCARDIOGRAM REPORT Name: HOWIEANATOLYLON BLOOD Room: [address] IN .R.#: [id number] Admission: 02/05/18 Attend Phys: Jaylen Kaye MD Discharge: 02/17/18 Date of : 50 Report #: [id number] THIS REPORT FOR: //name// [facility] ED Test Date: 2018-02-21 Test Time: 20:45:22 Pat Name: LON FREED Department: Room: Gender: M Field Engineer: ENOCH : 1950 Requested By: Jack Soto Order Number: [id number] MD: Measurements Intervals [place] Rate: 83 P: 73 NV: 123 QRS: 44 QRSD: 86 T: 207 QT: 386 QTc: 454 Interpretive Statements Sinus rhythm Probable left atrial enlargement Anteroseptal infarct, old Borderline repolarization abnormality No previous ECG available for comparison [email or web address] By: 2045 44 Epiphany Ep[facility]any[facility] /EPI
[~2018-02-05 12:15] MED LIST changes: -COLACE100 MG PO; -FLOMAX0.4 MG PO; -LASIX 20 MG TAB20 MG PO; -MIRALAX17 GM PO; -NYSTATIN15 G1 TOP; -ZOLOFT50 MG PO
[2018-02-05 12:21] VITALS: BP 135/56
[2018-02-05 12:43] LABS: HEMATOCRIT 32.7 % (42.0-52.0); HEMOGLOBIN 10.4 gm/dL (14.0-18.0); MCH 26.8 pg (26.0-34.0); MCHC 31.7 g/dL (28.0-37.0); MCV 84.3 fL (80.0-100.0); MPV 8.6 fl. (7.2-11.1); NUCLEATED RBCS 0 /100WBC; PLATELET COUNT* 333 thou/uL (150-400); RBC 3.88 mil/uL (4.50-6.00); RDW-CV 14.4 % (10.5-14.5); WBC 7.2 thou/uL (4.0-11.0)
[2018-02-05 12:57] LABS: BE -5.7 mmol/L (-2 to +3); HCO3 20.8 mmol/L (22.0-26.0); PCO2 44.8 mmHg (35.0-45.0); PO2 73.2 mmHg (75.0-100.0)
[2018-02-05 13:00] LABS: pH 7.284 (7.340-7.450)
[2018-02-05 13:02] LABS: ALBUMIN 2.5 g/dL (3.4-5.0); ALKALINE PHOSPHATASE 142 U/L (46-116); ANION GAP 11 mmol/L (7-16); BUN 56 mg/dL (7-18); CALCIUM 8.6 mg/dL (8.5-10.1); CHLORIDE 97 mmol/L (98-107); CO2 23 mmol/L (21-32); CREATININE 2.8 mg/dL (0.6-1.3); GLUCOSE 465 mg/dL (70-99); LIPASE 61 U/L (73-393); POTASSIUM 4.3 mmol/L (3.5-5.1); SGOT 12 U/L (15-37); SGPT 19 U/L (30-65); SODIUM 131 mmol/L (136-145); TOTAL BILIRUBIN 0.2 mg/dL (<0.1-1.0); TOTAL PROTEIN 6.3 g/dL (6.4-8.2); TROPONIN-I LEVEL <0.06 ng/mL (<0.06)
[2018-02-05 13:41] LABS: ABSOLUTE BASOPHILS 0.1 thou/uL (0.0-0.2); ABSOLUTE EOSINOPHILS 0.2 thou/uL (0.0-0.7); ABSOLUTE LYMPHOCYTES 0.8 thou/uL (0.8-5.3); ABSOLUTE MONOCYTES 0.4 thou/uL (0.0-1.2); ABSOLUTE NEUTROPHILS 5.6 thou/uL (1.6-8.1); PLATELET ESTIMATE ADEQUATE
[2018-02-05 13:43] LABS: MICROCYTES 1+
[2018-02-05 14:24] VITALS: BP 147/68
[2018-02-05 14:45] VITALS: BP 99/46
[2018-02-05 17:00] VITALS: BP 139/62
[2018-02-05 19:11] LABS: URINE BILIRUBIN NEGATIVE (Negative); URINE BLOOD NEGATIVE (Negative); URINE CLARITY CLEAR; URINE COLOR YELLOW; URINE GLUCOSE-RANDOM 2+ (Negative); URINE KETONES TRACE (Negative); URINE LEUKOCYTES-REFLEX NEGATIVE (Negative); URINE NITRITE-REFLEX NEGATIVE (Negative); URINE PROTEIN 2+ (Negative); URINE SPECIFIC GRAVITY 1.025 (1.005-1.030); URINE UROBILINOGEN 0.2 E.U./dl (0.2-1.0)
[2018-02-05 19:21] LABS: AMORPHOUS URATES Many /LPF (None Seen); BACTERIA-REFLEX 1-9 Few /HPF (None Seen); HYALINE CASTS 0-3 Few /LPF (None Seen); MUCUS 0-3 Light strn/LPF (None Seen); SQUAMOUS 0-3 Few /LPF (0-3); URINE RBC 0-2 Rare /HPF (0-2); URINE WBC-REFLEX None Seen /HPF (0-5)
[2018-02-05 20:32] VITALS: BP 139/60
[2018-02-06] VITALS: BP 124/55
[2018-02-06 04:00] VITALS: BP 118/62
[2018-02-06 06:09] LABS: ABSOLUTE BASOPHILS 0.1 thou/uL (0.0-0.2); ABSOLUTE EOSINOPHILS 0.3 thou/uL (0.0-0.7); ABSOLUTE MONOCYTES 0.9 thou/uL (0.0-1.2); ABSOLUTE NEUTROPHILS 6.8 thou/uL (1.6-8.1); BASOPHILS 1.1 %; EOSINOPHILS 3.7 %; HEMATOCRIT 29.7 % (42.0-52.0); HEMOGLOBIN 9.6 gm/dL (14.0-18.0); LYMPHOCYTES 10.9 %; MCH 27.1 pg (26.0-34.0); MCHC 32.4 g/dL (28.0-37.0); MCV 83.4 fL (80.0-100.0); MONOCYTES 10.2 %; NUCLEATED RBCS 0 /100WBC; PLATELET COUNT* 310 thou/uL (150-400); POLYS 74.1 %; RBC 3.56 mil/uL (4.50-6.00); RDW-CV 14.2 % (10.5-14.5); WBC 9.2 thou/uL (4.0-11.0)
[2018-02-06 06:35] LABS: CALCIUM 8.1 mg/dL (8.5-10.1); CREATININE 2.4 mg/dL (0.6-1.3); POTASSIUM 4.4 mmol/L (3.5-5.1)
[2018-02-06 08:00] VITALS: BP 147/73
[2018-02-06 12:00] VITALS: BP 138/70
[2018-02-06 16:20] VITALS: BP 154/67
[2018-02-06 16:57] LABS: BE -6.1 mmol/L (-2 to +3); HCO3 20.6 mmol/L (22.0-26.0); PO2 66.2 mmHg (75.0-100.0)
[2018-02-06 20:47] VITALS: BP 144/71
[2018-02-06 23:06] LABS: GLYCOHEMOGLOBIN (HGB A1C) 8.4 % (4.8-5.6)
[2018-02-07] VITALS: BP 122/58
[2018-02-07 04:00] VITALS: BP 146/56
[2018-02-07 05:27] LABS: ABSOLUTE BASOPHILS 0.1 thou/uL (0.0-0.2); ABSOLUTE EOSINOPHILS 0.3 thou/uL (0.0-0.7); ABSOLUTE LYMPHOCYTES 0.9 thou/uL (0.8-5.3); ABSOLUTE MONOCYTES 0.9 thou/uL (0.0-1.2); ABSOLUTE NEUTROPHILS 7.5 thou/uL (1.6-8.1); BASOPHILS 0.9 %; EOSINOPHILS 3.2 %; HEMATOCRIT 29.1 % (42.0-52.0); HEMOGLOBIN 9.6 gm/dL (14.0-18.0); LYMPHOCYTES 9.2 %; MCH 27.6 pg (26.0-34.0); MCHC 32.8 g/dL (28.0-37.0); MCV 84.1 fL (80.0-100.0); MONOCYTES 9.3 %; NUCLEATED RBCS 0 /100WBC; PLATELET COUNT* 273 thou/uL (150-400); POLYS 77.4 %; RBC 3.47 mil/uL (4.50-6.00); RDW-CV 14.4 % (10.5-14.5); WBC 9.6 thou/uL (4.0-11.0)
[2018-02-07 05:57] LABS: ALBUMIN 2.1 g/dL (3.4-5.0); CREATININE 2.5 mg/dL (0.6-1.3); MAGNESIUM 1.8 mg/dL (1.8-2.4); PHOSPHORUS* 3.7 mg/dL (2.5-4.9); TOTAL BILIRUBIN 0.3 mg/dL (<0.1-1.0); TOTAL PROTEIN 5.6 g/dL (6.4-8.2)
[2018-02-07 08:12] VITALS: BP 165/74
--- NOTE | 2018-02-07 10:07 | CON ---
[address] [address] CONSULTATION Name: LON FREED Room: [address] IN M.R.#: [id number] Admission: 02/05/18 Attend Phys: Jaylen Kaye MD Discharge: Date of : 50 Report #: [id number] THIS REPORT FOR: //name// CC: Jaylen Tejada Harjeet CONSULTING PHYSICIAN: Jaylen Kaye MD REASON FOR CONSULTATION: Acute kidney injury. HISTORY OF PRESENT ILLNESS: This is a 67-year-old gentleman admitted with pneumonia and poorly controlled diabetes. He was having some jerking movements recently as well as decreased urination. He has had some nausea and vomiting. He is having an EEG done now. He does not have an outpatient kidney doctor, but was actually scheduled to see me as an outpatient on 02/24/2018. He does not take any NSAIDs on a regular basis. He currently has no complaints and appears to be comfortable. REVIEW OF SYSTEMS: Constitutional, psych, heme, eyes, ENT, respiratory, cardiac, GI, and endocrine, all negative except as documented above. PAST MEDICAL HISTORY: Diabetes; GERD; history of sleep apnea, but according to the chart he has refused treatment; history of hypertension; back surgery; coronary artery disease and right BKA. FAMILY HISTORY: Not pertinent in this 67-year-old gentleman. SOCIAL HISTORY: Former smoker. MEDICATIONS: Reviewed. PHYSICAL EXAMINATION: VITAL SIGNS: Blood pressure 147/73, pulse 64, temperature 36.3 and respirations 18. GENERAL: No acute distress. EYES: Extraocular movements intact. EARS: Externally normal. CARDIOVASCULAR: Slightly bradycardic. LUNGS: Decreased breath sounds. ABDOMEN: Soft. MUSCULOSKELETAL: Nontender. PSYCH: Somnolent, but easily arousable and alert and able to answer questions appropriately. LABORATORY DATA: White cell count 9.2, hemoglobin 9.6 and platelets 310. Sodium 136, potassium 4.4, chloride 104, bicarbonate 25, BUN 49, creatinine 2.4, glucose 104 and calcium 8.1[place] [address] CONSULTATION Name: HOWIEANATOLYLON CAITIE Room: [address] IN [facility]#: [id number] Admission: 02/05/18 Attend Phys: Jaylen Kaye MD Discharge: Date of : 50 Report #: [id number] ASSESSMENT: 1. Acute kidney injury in the setting of nausea and vomiting. UA noted. He was also on losartan. He was on outpatient antibiotics and has suspected pneumonia. His admission creatinine is 2.8. He has had creatinines running 1.4 to 1.6 going back to September, but in 07/2017 his creatinine was 1.1. 2. Mixed acidosis with an anion gap metabolic acidosis and respiratory acidosis with an ABG of 7.28, 45 and 21. 3. Hypoalbuminemia with an albumin of 2.5. 4. Diabetes. 5. Diabetic foot infection. 6. Peripheral vascular disease with a history of right below-knee amputation. 7. Suspected pneumonia. PLAN: 1. Renal function is slightly improved. 2. Continue IV fluids. 3. Caution vancomycin use in the setting of renal insufficiency. 4. Check a renal ultrasound. 5. Check urine protein to creatinine ratio. 6. Check CK. 7. He has an outpatient new patient appointment with me on 02/24/2018. We will follow closely. Check labs again in the a.m. Thank you for requesting my opinion in the care and management of this patient. <ELECTRONICALLY SIGNED> By: Cara Brown MD 02/07/18 1007 1156 0006Amelvina Brown MD /nt
--- NOTE | 2018-02-07 11:10 | EKG ---
[place] [address] ELECTROCARDIOGRAM REPORT Name: LON FREED Room: [address] ADM IN .R.#: [id number] Admission: 02/05/18 Attend Phys: Jaylen Kaye MD Discharge: Date of : 50 Report #: [id number] THIS REPORT FOR: //name// [facility] ED Test Date: 2018-02-05 Test Time: 12:45:37 Pat Name: LON FREED Department: Room: [facility] Gender: M Claim Professional: Vito JETT : 1950 Requested By: Sj Paul Order Number: [id number] MD: Edu Chavez Measurements Intervals [place] Rate: 63 P: 7 NM: 92 QRS: 11 QRSD: 90 T: 143 QT: 450 QTc: 461 Interpretive Statements Sinus rhythm Short NM interval Borderline repolarization abnormality Compared to ECG 01/28/2018 12:10:17 Short NM interval now present Myocardial infarct finding no longer present Electronically Signed On 02-07-2018 11:09:58 [employer] by Edu Chavez [email or web address] <ELECTRONICALLY SIGNED> By: Edu Chavez MD, FACC 02/07/18 1109 1245 1245 Edu Chavez MD, FAC /EPI
[2018-02-07 11:55] VITALS: BP 132/64
[2018-02-07 15:52] VITALS: BP 116/55
[2018-02-07 19:50] VITALS: BP 128/58
[2018-02-08] VITALS (16 sets, daily range): BP systolic 143–180; BP diastolic 59–105
[2018-02-08 06:25] LABS: ALBUMIN 2.2 g/dL (3.4-5.0); CALCIUM 8.1 mg/dL (8.5-10.1); CREATININE 2.9 mg/dL (0.6-1.3); PHOSPHORUS* 4.2 mg/dL (2.5-4.9); POTASSIUM 5.1 mmol/L (3.5-5.1)
[2018-02-08 09:19] LABS: BE -10.1 mmol/L (-2 to +3); HCO3 17.6 mmol/L (22.0-26.0); PCO2 46.1 mmHg (35.0-45.0)
[2018-02-08 09:22] LABS: pH 7.199 (7.340-7.450)
[2018-02-08 09:23] LABS: PO2 59.2 mmHg (75.0-100.0)
[2018-02-08 10:57] LABS: HEMOGLOBIN 10.3 gm/dL (14.0-18.0); MCH 26.6 pg (26.0-34.0); MCHC 31.3 g/dL (28.0-37.0); MCV 84.9 fL (80.0-100.0); MPV 9.4 fl. (7.2-11.1); NUCLEATED RBCS 0 /100WBC; RBC 3.89 mil/uL (4.50-6.00); RDW-CV 15.1 % (10.5-14.5)
[2018-02-08 11:19] LABS: NT-PRO BRAIN NAT PEPTIDE 3320 pg/mL (<300); TROPONIN-I LEVEL <0.06 ng/mL (<0.06)
[2018-02-08 11:28] LABS: BE -10.7 mmol/L (-2 to +3); HCO3 16.7 mmol/L (22.0-26.0); PCO2 42.8 mmHg (35.0-45.0); PO2 110.7 mmHg (75.0-100.0)
[2018-02-08 11:30] LABS: pH 7.209 (7.340-7.450)
[2018-02-08 11:35] LABS: PLATELET COUNT* 293 thou/uL (150-400)
[2018-02-08 11:37] LABS: ABSOLUTE BASOPHILS 0.4 thou/uL (0.0-0.2); ABSOLUTE EOSINOPHILS 0.3 thou/uL (0.0-0.7); ABSOLUTE LYMPHOCYTES 0.3 thou/uL (0.8-5.3); ABSOLUTE MONOCYTES 0.5 thou/uL (0.0-1.2); ABSOLUTE NEUTROPHILS 11.6 thou/uL (1.6-8.1); PLATELET ESTIMATE ADEQUATE
--- NOTE | 2018-02-08 15:05 | 2DMMODE ---
[place] [address] 2 D/M-MODE ECHOCARDIOGRAM Name: LON FREED CAITIE [facility] IN [facility]#: [id number] Admission: 02/05/18 Attend Phys: Jaylen Kaye, Discharge: Date of : 50 Date of Service: 02/08/18 1505 Report #: [id number] THIS REPORT FOR: //name// APPROVED REPORT Study performed: 02/08/2018 11:55:36 EXAM: Comprehensive 2D, Doppler, and color-flow Echocardiogram Patient Location: In-Patient Room #: 001 Status: routine BSA: 1.90 HR: 62 bpm BP: 162/104 mmHg Rhythm: NSR Other Information Study Quality: Good Indications Congestive Heart Failure 2D Dimensions IVSd: 12.69 (7-11mm) LVOT Diam: 20.13 (18-24mm) LVDd: 46.70 mm PWd: 11.31 (7-11mm) Ascending Ao: 26.43 (22-36mm) LVDs: 24.76 (25-40mm) Aortic Root: 31.87 mm Volumes Left Atrial Volume (Systole) LA ESV Index: 29.80 mL/m2 Aortic Valve AoV Peak Carlos.: 1.55 m/s AO Peak Gr.: 9.59 mmHg LVOT Max P.82 mmHg AO Mean Gr.: 5.46 mmHg LVOT Mean P.84 mmHg LVOT Max V: 0.98 m/s AO V2 VTI: 36.95 cm LVOT Mean V: 0.62 m/s YUKI (VTI): 2.21 cm2 LVOT V1 VTI: 25.60 cm Mitral Valve E/A Ratio: 1.25 MV Decel. Time: 171.89 ms MV E Max Carlos.: 1.32 m/[place] [address] 2 D/M-MODE ECHOCARDIOGRAM Name: LON FREED CAITIE Room: [address] IN ..#: [id number] Admission: 02/05/18 Attend Phys: Jaylen Kaye, Discharge: Date of : 50 Date of Service: 02/08/18 1505 Report #: [id number] MV PHT: 49.85 ms MVA (PHT): 4.41 cm2 TDI E/Lateral E': 26.40 E/Medial E': 22.00 Medial E' Carlos.: 0.06 m/s Lateral E' Carlos.: 0.05 m/s Pulmonary Valve PV Peak Carlos.: 0.83 m/s PV Peak Gr.: 2.76 mmHg Tricuspid Valve RAP Estimate: 5.00 mmHg TR Peak Gr.: 39.16 mmHg RVSP: 44.00 mmHg PA Pressure: 44.00 mmHg Left Ventricle The left ventricle is normal size. There is normal LV segmental wall motion. Mild concentric left ventricular hypertrophy. Left ventricular systolic function is normal. The left ventricular ejection fraction is within the normal range. LVEF is 60-65%. The left ventricular diastolic function is normal. Right Ventricle The right ventricle is normal size. The right ventricular systolic function is normal. Atria Left atrium is mildly dilated. The right atrium size is normal. Aortic Valve The aortic valve is normal in structure. No aortic regurgitation is present. There is no aortic valvular stenosis. Mitral Valve There is mitral annular calcification. Mild mitral regurgitation. No evidence of mitral valve stenosis. Tricuspid Valve The tricuspid valve is normal in structure. Trace tricuspid regurgitation. estimate pa pressure 45 mm Hg Pulmonic Valve The pulmonary valve is normal in structure. There is no pulmonic [place] [address] 2 D/M-MODE ECHOCARDIOGRAM Name: LON FREED [place] Room: [address] IN .R.#: [id number] Admission: 02/05/18 Attend Phys: Jaylen Kaye, Discharge: Date of : 50 Date of Service: 02/08/18 1505 Report #: [id number] Great Vessels The aortic root is normal in size. IVC is normal in size and collapses >50% with inspiration. Pericardium There is no pericardial effusion. Left pleural effusion. <Conclusion> Mild concentric left ventricular hypertrophy. LVEF is 60-65%. Left atrium is mildly dilated. Mild mitral regurgitation. Trace tricuspid regurgitation. estimate pa pressure 45 mm Hg <ELECTRONICALLY SIGNED> By: Stanley Bob MD, FACC 02/08/18 1505 1505 1505 Stanley Bob MD, FACC /INF
[2018-02-08 18:03] LABS: BE -9.4 mmol/L (-2 to +3); HCO3 16.8 mmol/L (22.0-26.0); PCO2 37.9 mmHg (35.0-45.0)
[2018-02-08 18:08] LABS: pH 7.265 (7.340-7.450)
[2018-02-08 18:09] LABS: PO2 56.5 mmHg (75.0-100.0)
[2018-02-08 21:10] LABS: COMPLEMENT-C4 33 mg/dL (14-44); IgA 194 mg/dL (61-437); IgG 853 mg/dL (700-1600); IgM 210 mg/dL (20-172)
[2018-02-08 23:07] LABS: HEPATITIS B SURFACE AG Negative (Negative)
[2018-02-09] VITALS (16 sets, daily range): BP systolic 135–196; BP diastolic 51–101
[2018-02-09 04:01] LABS: ABSOLUTE EOSINOPHILS 0.2 thou/uL (0.0-0.7); ABSOLUTE LYMPHOCYTES 0.8 thou/uL (0.8-5.3); ABSOLUTE MONOCYTES 1.1 thou/uL (0.0-1.2); ABSOLUTE NEUTROPHILS 8.9 thou/uL (1.6-8.1); BASOPHILS 0.3 %; EOSINOPHILS 1.6 %; HEMATOCRIT 30.6 % (42.0-52.0); HEMOGLOBIN 9.9 gm/dL (14.0-18.0); LYMPHOCYTES 7.5 %; MCH 26.6 pg (26.0-34.0); MCHC 32.2 g/dL (28.0-37.0); MCV 82.6 fL (80.0-100.0); MONOCYTES 9.8 %; MPV 8.4 fl. (7.2-11.1); NUCLEATED RBCS 0 /100WBC; PLATELET COUNT* 329 thou/uL (150-400); POLYS 80.8 %; RDW-CV 14.8 % (10.5-14.5)
[2018-02-09 04:25] LABS: ALBUMIN 1.9 g/dL (3.4-5.0); CREATININE 3.2 mg/dL (0.6-1.3); MAGNESIUM 1.9 mg/dL (1.8-2.4); TOTAL BILIRUBIN 0.2 mg/dL (<0.1-1.0); TOTAL PROTEIN 5.6 g/dL (6.4-8.2)
[2018-02-09 04:48] LABS: PREALBUMIN 15.8 mg/dL (18.0-35.7)
[2018-02-09 05:34] LABS: BE -3.7 mmol/L (-2 to +3); HCO3 22.6 mmol/L (22.0-26.0); PCO2 46.2 mmHg (35.0-45.0); pH 7.307 (7.340-7.450)
[2018-02-09 05:36] LABS: PO2 150.6 mmHg (75.0-100.0)
[2018-02-09 11:34] LABS: INR 1.1; PROTIME 11.3 Seconds (9.20-11.50)
[2018-02-09 12:05] LABS: KAPPA FREE LIGHT CHAINS 40.9 mg/L (3.3-19.4); LAMBDA FREE LIGHT CHAINS 28.9 mg/L (5.7-26.3)
--- NOTE | 2018-02-09 12:06 | CON ---
[facility] [address] [place] [address] CONSULTATION Name: LON FREED Room: [address] ADM IN M.R.#: [id number] Admission: 02/05/18 Attend Phys: Jaylen Kaye MD Discharge: Date of : 50 Report #: [id number] THIS REPORT FOR: //name// CC: Jaylen Tejada [facility] REQUESTING PHYSICIAN: Jaylen Kaye M.D. REASON FOR CONSULTATION: Respiratory failure, now on BiPAP. DISCUSSION: The patient is a 67-year-old man who is currently unable to really provide any history. History was obtained talking with the staff and medical records. He has multiple medical problems. He does have a history of diabetes mellitus, peripheral vascular disease. He was admitted after presenting to Emergency Department on of this month. His blood sugars were uncontrolled. He was having vomiting at home. When seen initially in the Emergency Department, he was noted to have acute kidney injury superimposed on his chronic kidney disease as well as an acidosis. He was started on antibiotics. He was having some abnormal movements. He was confused. Neurology has been involved as well. 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 He has remained afebrile. It is difficult to ascertain what his I's and O's have been, just had a Moody catheter placed. He had increased respiratory difficulty this morning. O2 was titrated up to a nonrebreather. Because of that he was transferred to the Intensive Care Unit. Several hours ago, he was transitioned over to BiPAP. FiO2 is now down to 55% on the BiPAP. Reviewing his records, it is noted he has multiple medical problems. He has a history of diabetes mellitus and it appears overall it is not well controlled. He has had multiple hospitalizations. He was hospitalized here at the beginning of the month for pneumonia as well as ongoing issues with some nausea and vomiting. He was discharged on 01/31/2018. Past medical history besides his diabetes mellitus is also notable for gastroparesis. He has had intermittent issues with nausea and vomiting in the past. He has also had periods of decreased level of consciousness. My group has seen him on other occasions in the past given his altered mental status thought to be due to medication usage, reversed with BiPAP. I do not believe he has been intubated. He has a known history of obstructive sleep apnea, but has declined treatment. Issues with neuropathy and vascular disease. He had a right BKA earlier this year. He has had ongoing issues with left heel wounds. He has known iron deficiency anemia, did receive some intravenous iron earlier this month. History of GERD in addition [place] [address] CONSULTATION Name: LON FREED Room: [address] IN [facility].#: [id number] Admission: 02/05/18 Attend Phys: Jaylen Kaye MD Discharge: Date of : 50 Report #: [id number] SOCIAL HISTORY: He is . Nonsmoker. FAMILY HISTORY: Per chart is positive for diabetes. REVIEW OF SYSTEMS: Unable to obtain from the patient. PHYSICAL EXAMINATION: GENERAL APPEARANCE: A man who looks older than stated age. He is in the Intensive Care Unit. He is currently on BiPAP with FiO2 of 55%. He is not breathing much over the set rate on the BiPAP. His respirations are nonlabored. SpO2 is 100%. He is responding to noxious stimuli. He is not attempting to verbalize (do note he received some IV sedation not too long ago). HEENT: Head is normocephalic. Sclerae nonicteric. Mucous membranes do look a little dry. NECK: Negative for adenopathy. Neck veins are prominent. HEART: Tones are distant to regular. He is mildly tachycardic. No S3 is heard. LUNGS: Sounds are coarse. He has few rhonchi heard bilaterally. Excursion appears equal. ABDOMEN: Protuberant. Does appear to have abdominal wall hernias. No definite hepatosplenomegaly is appreciated. A Moody catheter is in place, it is draining some bloody urine. EXTREMITIES: He has generalized edema noted. He has a right BKA. Left foot is wrapped and immobilized, this was not disturbed. LABORATORY DATA AND X-RAY FINDINGS: Blood gases done earlier this morning, he had a pH of 7.199, pCO2 of 46, pO2 of 59, bicarbonate of 18 with a saturation of 88% on a nonrebreather mask. Blood gases on the BiPAP are pending. When he was admitted several days ago, on 2 liters he had a pH of 7.28, pCO2 of 45, pO2 of 73 and a bicarbonate of 20. On his chemistry this morning, potassium is 5.1, sodium 136, serum bicarbonate is 21, BUN 48, creatinine of 2.9 (up from 1.6 earlier this month). Calcium was 8.1. Transaminases yesterday were unremarkable. Albumin is 2.2. Lactic acid 0.7. ProBNP 3320. Troponins unremarkable. Blood sugar earlier this morning was 320, on recheck 292. White blood cell count 13,000, hemoglobin 10.3, hematocrit 33, platelets 273,000. CRP yesterday was 57.1. MRSA screen done beginning of the month was negative. UA on admission showed 1-9 bacteria, no white blood cells. Blood cultures done on admission, no growth. Cultures done earlier in the month, blood cultures were negative and the urine for legionella antigen were negative. Echocardiogram done this spring revealed preserved LV function with an EF of 60-65%. He had mild concentric LVH. RV was normal. He had mild mitral regurgitation. Chest x-ray was reviewed. Films done earlier this [place] [address] CONSULTATION Name: HOWIELON LEDBETTER CAITIE Room: [address] ADM IN M.R.#: [id number] Admission: 02/05/18 Attend Phys: Jaylen Kaye MD Discharge: Date of : 50 Report #: [id number] post-central line placement. Appears to have some pulmonary vascular congestion. Bilateral infiltrates. Also appears to have a right pleural effusion, which is larger than a small effusion noted on the left side. A followup study done late this morning shows left subclavian line in place. No change relative to studies done earlier. A CT head done several days ago was negative for acute findings. He also had a CT scan done of his abdomen and pelvis on 02/05/2018. It did reveal bibasilar infiltrates. He also had bilateral pleural effusions, right greater than left. Also, he had changes consistent with anasarca. There was also diffuse mesenteric haziness without any inflammatory mass noted. IMPRESSION: 1. Acute respiratory failure. Now on BiPAP, appears to be oxygenating adequately. 2. Profound metabolic acidosis. It does not appear to be a lactic acidosis. Could be from his worsening renal failure. It could also be from worsening pneumonia. Also, he is having issues with perfusion. He appears to be maintaining a good blood pressure at this time. He did not have any evidence of impaired left ventricular function on echocardiogram done earlier this year. It could also be related to his diabetes. 3. Pulmonary infiltrates. It is not clear how much is fluid versus pneumonia. With his ongoing issues with gastroparesis, gastroesophageal reflux disease as well as the nausea and vomiting he had, he is at very high risk for aspiration pneumonia. 4. Altered level of consciousness. This has been an ongoing issue for him. It has somewhat waxed and waned. Did receive some IV medication shortly before I saw him, which may have depressed him more at the time I was seeing him. 5. Diabetes mellitus. 6. Acute kidney injury superimposed on chronic kidney disease. 7. Peripheral vascular disease. RECOMMENDATIONS: 1. Follow up blood gases. If he worsens, may require intubation to protect his airway. 2. Continue with antibiotics. Note, there has been a change today, is now on cefepime, which I agree with. 3. We will increase his neb treatments to every 4 hours. 4. Follow up x-rays, blood gases, lab in the morning as well. <ELECTRONICALLY SIGNED> By: Ciera Bill MD 02/09/18 1206 1141 [id number] Spear MD /nt
--- NOTE | 2018-02-09 12:31 | CON ---
[address] [address] CONSULTATION Name: LON FREED Room: [address] ADM IN M.R.#: [id number] Admission: 02/05/18 Attend Phys: Jaylen Kaye MD Discharge: Date of : 50 Report #: [id number] THIS REPORT FOR: //name// CC: Jaylen Tejada [facility] DATE OF SERVICE: 02/08/2018 INFECTIOUS DISEASE CONSULTATION ATTENDING PHYSICIAN: Jaylen Kaye M.D. REASON FOR EVALUATION: Severe pneumonitis, complicated by respiratory failure. HISTORY OF PRESENT ILLNESS: Chart reviewed, patient examined. This is a 67-year-old gentleman known to myself, has diabetes mellitus type 2 with severe sequelae including renal disease, vasculopathy, previous below-knee amputation due to chronic osteomyelitis. He was admitted through the Emergency Room with complaints of marked hyperglycemia, lactic acidemia, developed some jerking movements of the upper extremities with generalized weakness, nausea with emesis, it is notable he has gastroparesis as well. He was placed on the telemetry floor; however, had worsening encephalopathy, deterioration in his overall status including respiratory failure, now on BiPAP. He is really minimally responsive at this point. He is unable to give additional history. He was started on broad-spectrum antimicrobial therapy. This was tested more recently to cefepime. He has not had any fevers. Hemodynamics have been relatively stable. Initial chest x-ray showed bilateral lower lobe infiltrates, which felt to have worsened over the course of the hours of admission. Empirically started on Zosyn and vancomycin originally. Blood cultures collected on 02/05/2018 are sterile thus far. ALLERGIES: DIAZEPAM. CURRENT MEDICATIONS: Include insulin, metoprolol, ipratropium and albuterol inhaler, cefepime, amlodipine, multivitamin, aspirin, sertraline, pantoprazole, atorvastatin, ascorbic acid, hydralazine as needed, ondansetron and p.r.n. analgesics. PAST MEDICAL HISTORY: As described above, history of diabetes mellitus complicated by vasculopathy, below knee amputation, renal insufficiency, reflux, sleep apnea, coronary artery disease, previous rotator cuff surgery, tonsillectomy, adenoids, sinus surgery, herniorrhaphy. SOCIAL HISTORY: Former smoker. No ethanol, [place] [address] CONSULTATION Name: LON FREED Room: [address]#: [id number] Admission: 02/05/18 Attend Phys: Jaylen Kaye MD Discharge: Date of : 50 Report #: [id number] FAMILY HISTORY: Noncontributory. REVIEW OF SYSTEMS: Not obtainable. PHYSICAL EXAMINATION: GENERAL: He is in moderate to marked distress. He is struggling with the BiPAP attempting to remove it at times, appears chronically ill. VITAL SIGNS: Afebrile, temperature 97.5, pulse 64, respirations 14, blood pressure 143/67. SKIN: Warm, dry, no rashes. HEENT: Remarkable for the BiPAP in place. NECK: Supple. LUNGS: Scattered coarse breath sounds. HEART: Regular. I do not appreciate murmur. ABDOMEN: Mildly distended, soft. There are no peritoneal signs. EXTREMITIES: Distal lower extremity is noted have significant amount of edema. GENITOURINARY: Deferred. RECTAL: Deferred. LABORATORY DATA: Electrolytes: Sodium 136, potassium 5.1, chloride 104, bicarbonate is 21, anion gap of 11, BUN and creatinine 48 and 2.9, glucose of 277. Albumin of 2.2. Estimated GFR of 22. Blood cultures from 02/05/2018 are sterile thus far. CBC: White count of 9.6, H and H 9.6 and 29.1, platelets of 273. ABGs: pH 7.278, pCO2 of 46, pO2 of 66.2 on 2 liters, this was before the clinical deterioration. Lactic acid 0.8. Again, prior to his worsening status. ASSESSMENT: Respiratory failure with complication of pneumonitis in the setting of a patient with recent hospitalization, severe underlying diabetes. We will continue therapeutic approach with cefepime. Did have an elevated vancomycin level to 19. We should give additional 4-6 hours of coverage to see how he does clinically. At this point, it perhaps may worsen before he improves. Did discuss with the spouse. He is critically ill. Continue maximal support. <ELECTRONICALLY SIGNED> By: Murali Booker MD 02/09/18 1231 2219 [id number] Booker MD /nt
[2018-02-09 17:35] LABS: BF RBC <1000 /mm3; TOTAL CELL COUNT 55 /mm3
[2018-02-09 18:47] LABS: CLARITY CLEAR; COLOR YELLOW; TOTAL VOLUME 2265 ml
[2018-02-09 18:48] LABS: SOURCE PLEURAL
[2018-02-09 19:01] LABS: BF LYMPHOCYTES 24 %; BF MONOCYTES 48 %; BF POLYS 28 %; BF TISSUE 4 /100 WBC
[2018-02-10 00:01] VITALS: BP 172/52
[2018-02-10 02:28] LABS: ABSOLUTE BASOPHILS 0.1 thou/uL (0.0-0.2); ABSOLUTE EOSINOPHILS 0.2 thou/uL (0.0-0.7); ABSOLUTE LYMPHOCYTES 0.7 thou/uL (0.8-5.3); ABSOLUTE MONOCYTES 0.7 thou/uL (0.0-1.2); ABSOLUTE NEUTROPHILS 6.2 thou/uL (1.6-8.1); BASOPHILS 0.9 %; EOSINOPHILS 2.1 %; HEMATOCRIT 24.6 % (42.0-52.0); HEMOGLOBIN 8.1 gm/dL (14.0-18.0); LYMPHOCYTES 9.5 %; MCHC 32.9 g/dL (28.0-37.0); MCV 82.2 fL (80.0-100.0); MONOCYTES 9.1 %; NUCLEATED RBCS 0 /100WBC; POLYS 78.4 %; RBC 2.99 mil/uL (4.50-6.00); RDW-CV 15.2 % (10.5-14.5); WBC 7.9 thou/uL (4.0-11.0)
[2018-02-10 02:31] LABS: PLATELET COUNT* 244 thou/uL (150-400)
[2018-02-10 02:43] LABS: PREALBUMIN 13.8 mg/dL (18.0-35.7)
[2018-02-10 03:02] LABS: CALCIUM 7.9 mg/dL (8.5-10.1); MAGNESIUM 1.8 mg/dL (1.8-2.4); POTASSIUM 4.3 mmol/L (3.5-5.1); TOTAL BILIRUBIN 0.2 mg/dL (<0.1-1.0); TOTAL PROTEIN 4.9 g/dL (6.4-8.2)
[2018-02-10 04:32] VITALS: BP 142/107
[2018-02-10 06:04] VITALS: BP 144/58
[2018-02-10 08:15] LABS: BE -3.2 mmol/L (-2 to +3); HCO3 22.6 mmol/L (22.0-26.0); pH 7.329 (7.340-7.450)
[2018-02-10 11:11] LABS: GLOMERULR BASEM MEMBRN AB 4 units (0-20)
[2018-02-10 11:11] LABS: BODY FLUID LDH 40 IU/L (()); BODY FLUID PROTEIN 1.1 g/dL (())
[2018-02-10 13:00] VITALS: BP 136/39
[2018-02-10 14:10] LABS: ANA INTERPRETATION Negative (Negative)
[2018-02-10 16:13] LABS: GLOBULIN TOTAL 2.9 g/dL (2.2-3.9); M-SPIKE Not Observed g/dL (Not Observed)
[2018-02-10 20:00] VITALS: BP 153/100
[2018-02-10 20:37] VITALS: BP 146/83
[2018-02-11] VITALS (7 sets, daily range): BP systolic 106–197; BP diastolic 47–69
[2018-02-11 02:29] LABS: HEMATOCRIT 26.3 % (42.0-52.0); HEMOGLOBIN 8.6 gm/dL (14.0-18.0); MCH 26.9 pg (26.0-34.0); MCHC 32.6 g/dL (28.0-37.0); MCV 82.5 fL (80.0-100.0); MPV 8.4 fl. (7.2-11.1); RBC 3.19 mil/uL (4.50-6.00); RDW-CV 14.9 % (10.5-14.5); WBC 6.5 thou/uL (4.0-11.0)
[2018-02-11 02:47] LABS: ALBUMIN 1.9 g/dL (3.4-5.0); CREATININE 2.3 mg/dL (0.6-1.3); MAGNESIUM 1.7 mg/dL (1.8-2.4); POTASSIUM 3.8 mmol/L (3.5-5.1); TOTAL BILIRUBIN 0.2 mg/dL (<0.1-1.0); TOTAL PROTEIN 5.2 g/dL (6.4-8.2)
[2018-02-11 06:22] LABS: BE 0.2 mmol/L (-2 to +3); PCO2 41.4 mmHg (35.0-45.0); pH 7.399 (7.340-7.450)
[2018-02-12] VITALS: BP 134/62
[2018-02-12 04:00] VITALS: BP 164/97
[2018-02-12 04:36] LABS: HEMATOCRIT 25.6 % (42.0-52.0); HEMOGLOBIN 8.4 gm/dL (14.0-18.0); MCH 26.7 pg (26.0-34.0); MCHC 32.9 g/dL (28.0-37.0); MCV 81.1 fL (80.0-100.0); MPV 8.9 fl. (7.2-11.1); RBC 3.15 mil/uL (4.50-6.00); RDW-CV 14.6 % (10.5-14.5); WBC 6.9 thou/uL (4.0-11.0)
[2018-02-12 04:43] LABS: CALCIUM 8.4 mg/dL (8.5-10.1); MAGNESIUM 1.7 mg/dL (1.8-2.4); POTASSIUM 3.9 mmol/L (3.5-5.1)
[2018-02-12 07:38] VITALS: BP 159/70
[2018-02-12 11:57] VITALS: BP 151/59
[2018-02-12 15:52] VITALS: BP 148/61
[2018-02-12 20:00] VITALS: BP 143/62
[2018-02-13 01:33] VITALS: BP 155/63
[2018-02-13 04:00] VITALS: BP 150/63
[2018-02-13 06:34] LABS: HEMATOCRIT 28.7 % (42.0-52.0); HEMOGLOBIN 9.3 gm/dL (14.0-18.0); MCH 26.7 pg (26.0-34.0); MCHC 32.5 g/dL (28.0-37.0); MPV 9.3 fl. (7.2-11.1); RBC 3.5 mil/uL (4.50-6.00); RDW-CV 14.7 % (10.5-14.5); WBC 9.3 thou/uL (4.0-11.0)
[2018-02-13 06:40] LABS: CALCIUM 8.6 mg/dL (8.5-10.1); CREATININE 1.6 mg/dL (0.6-1.3); MAGNESIUM 1.6 mg/dL (1.8-2.4); POTASSIUM 3.9 mmol/L (3.5-5.1)
[2018-02-13 08:00] VITALS: BP 167/746
[2018-02-13 11:51] VITALS: BP 170/74
[2018-02-13 15:12] LABS: SOURCE PLEURAL
[2018-02-13 16:00] VITALS: BP 170/64
[2018-02-13 20:00] VITALS: BP 150/66; BP 161/65
[2018-02-14] VITALS: BP 161/65
[2018-02-14 04:00] VITALS: BP 168/64
[2018-02-14 05:23] LABS: HEMATOCRIT 27.5 % (42.0-52.0); MCH 26.6 pg (26.0-34.0); MCHC 32.7 g/dL (28.0-37.0); MCV 81.3 fL (80.0-100.0); MPV 8.7 fl. (7.2-11.1); RBC 3.39 mil/uL (4.50-6.00); RDW-CV 14.2 % (10.5-14.5); WBC 7.8 thou/uL (4.0-11.0)
[2018-02-14 05:36] LABS: CALCIUM 8.1 mg/dL (8.5-10.1); CREATININE 1.4 mg/dL (0.6-1.3)
[2018-02-14 05:46] LABS: POTASSIUM 2.8 mmol/L (3.5-5.1)
[2018-02-14 08:00] VITALS: BP 159/55
[2018-02-14 12:00] VITALS: BP 148/66
[2018-02-14 16:00] VITALS: BP 164/70
[2018-02-14 20:00] VITALS: BP 156/67
[2018-02-15] VITALS (7 sets, daily range): BP systolic 134–160; BP diastolic 59–76
[2018-02-15 06:22] LABS: HEMATOCRIT 27.4 % (42.0-52.0); HEMOGLOBIN 8.9 gm/dL (14.0-18.0); MCH 26.4 pg (26.0-34.0); MCHC 32.6 g/dL (28.0-37.0); MCV 81.1 fL (80.0-100.0); MPV 8.3 fl. (7.2-11.1); RBC 3.38 mil/uL (4.50-6.00); RDW-CV 14.2 % (10.5-14.5); WBC 7.4 thou/uL (4.0-11.0)
[2018-02-15 06:45] LABS: CALCIUM 8.3 mg/dL (8.5-10.1); CREATININE 1.4 mg/dL (0.6-1.3); MAGNESIUM 1.7 mg/dL (1.8-2.4); POTASSIUM 4.7 mmol/L (3.5-5.1)
--- NOTE | 2018-02-15 17:08 | PATH ---
[address] [address] PATHOLOGY RPT PROCEDURE Name: LON FREED Room: [address] IN .R.#: [id number] Admission: 02/05/18 Date of : 50 Discharge: Report #: [id number] Path Case #: [id number] Note [facility] Accession Number: [id number] TESTS RESULT FLAG UNITS REF RANGE LAB Clinician Provided Cytology Information No. of containers..01 Other (Miscellaneous) Source: RIGHT PLEURAL DIAGNOSIS: 02 RIGHT PLEURAL INCONCLUSIVE. REACTIVE MESOTHELIAL CELLS ARE PRESENT. Addendum: 02 "This report was reviewed and proofread by Dr. Edgar Ching, electronically released by Dr. Harsh Jerez." QMS/02/15/2018 Addendum Electronically Signed by Harsh Jerez MD, Pathologist Signed out by: 02 Harsh Jerez MD, Pathologist NPI- [id number] Performed by: 01 Milagro Narayanan, Cheese Cook ([facility]) Gross description: 01 40ML, NONE, CLEAR /LCS FLAG LEGEND: L-Low Normal,H-High Normal,LL-Alert Low,HH-Alert High <-Panic Low,>-Panic High,A-Abnormal,AA-Critical Abnormal Performed at: [address] [place] [address] Luke Urrutia MD, [address] [address] Harsh Jerez MD, Specimen Comment: A courtesy copy of this report has been sent to Specimen Comment: [phone]. Specimen Comment: Report sent to Performed at: [address], [place], [place] [id number] MD Luke Urrutia MD Phone: [phone]
[2018-02-16 07:19] LABS: HEMATOCRIT 27.1 % (42.0-52.0); HEMOGLOBIN 8.9 gm/dL (14.0-18.0); MCH 26.5 pg (26.0-34.0); MCHC 32.8 g/dL (28.0-37.0); MCV 80.9 fL (80.0-100.0); MPV 7.7 fl. (7.2-11.1); RBC 3.35 mil/uL (4.50-6.00); RDW-CV 13.8 % (10.5-14.5); WBC 7.2 thou/uL (4.0-11.0)
[2018-02-16 07:30] VITALS: BP 154/68
[2018-02-16 07:33] LABS: ALBUMIN 1.9 g/dL (3.4-5.0); CALCIUM 8.5 mg/dL (8.5-10.1); CREATININE 1.5 mg/dL (0.6-1.3); POTASSIUM 4.4 mmol/L (3.5-5.1); TOTAL BILIRUBIN 0.2 mg/dL (<0.1-1.0); TOTAL PROTEIN 5.5 g/dL (6.4-8.2)
[2018-02-16 12:00] VITALS: BP 143/61
[2018-02-16 16:00] VITALS: BP 139/62
[2018-02-16 19:30] VITALS: BP 140/61
[2018-02-17 06:25] LABS: HEMATOCRIT 28.2 % (42.0-52.0); HEMOGLOBIN 9.2 gm/dL (14.0-18.0); MCH 26.4 pg (26.0-34.0); MCHC 32.5 g/dL (28.0-37.0); MPV 8.1 fl. (7.2-11.1); RBC 3.48 mil/uL (4.50-6.00)
[2018-02-17 06:44] LABS: CALCIUM 8.4 mg/dL (8.5-10.1); CREATININE 1.8 mg/dL (0.6-1.3); MAGNESIUM 2.2 mg/dL (1.8-2.4); PHOSPHORUS* 3.8 mg/dL (2.5-4.9); POTASSIUM 5.2 mmol/L (3.5-5.1)
[2018-02-17 08:17] VITALS: BP 149/57
[2018-02-17 11:56] VITALS: BP 143/49
[2018-02-17] MEDS ORDERED: FLOMAX0.4 MG PO (12:31)
[2018-02-17] MEDS ORDERED: ZOLOFT50 MG PO (12:31)
[2018-02-17] MEDS ORDERED: MIRALAX17 GM PO (12:32)
[2018-02-17] MEDS ORDERED: COLACE100 MG PO (12:32)
[2018-02-17] MEDS ORDERED: LASIX 20 MG TAB20 MG PO (12:34)
--- NOTE | 2018-02-18 15:44 | CON ---
[address] [address] CONSULTATION Name: LON FREED Room: [address] IN M.R.#: [id number] Admission: 02/05/18 Attend Phys: Jaylen Kaye MD Discharge: 02/17/18 Date of : 50 Report #: [id number] THIS REPORT FOR: //name// CC: Jaylen Tejada [facility] DATE OF SERVICE: 02/06/2018 HISTORY OF PRESENT ILLNESS: This is a 67-year-old male patient who was evaluated by me for involuntary movements of all 4 extremities. It is not clear when this started. The family and the patient think it was a few days ago. It started insidiously and has progressively become worse. The patient is on gabapentin. He is on gabapentin for a long time, but his creatinine has increased from 1.2 to 2.4 from 01/28/2018 to 02/06/2018. He does not know anything, which makes it worse or better, but these movements are pretty repetitive and pretty exhaustive. He is going to be seen by a mold closer helper. REVIEW OF SYSTEMS: Indicate that he does have kidney problems, but his renal problem has deteriorated looking at his creatinine. He has a pretty involved history. His 14-point review of systems indicates that he is a diabetic. He has elevated blood sugar when he came in. He has generalized weakness, nausea and vomiting. The patient has recently been diagnosed with pneumonia and he is getting antibiotics for that. He had a below-knee amputation earlier this year. He has a known history of diabetic neuropathy, which has caused weakness in the upper and lower extremities and they are pretty severe. also thinks the patient is confused. He is usually pretty sharp, but now, his mentation has slowed down a lot. He is not complaining of any new visual, ENT, cardiac, respiratory, , musculoskeletal, dermatological, hematological, psychiatric, throat, allergic symptom associated with present symptomatology. PAST MEDICAL HISTORY: Positive for neuropathy involving all 4 extremities. FAMILY HISTORY: Negative for congenital neuropathy. SOCIAL HISTORY: He lives with his who is here and she is very concerned with his condition. He used to smoke in the past and does not abuse alcohol. PHYSICAL EXAMINATION: Indicate he is alert. He is responsive. He can follow simple commands. He is very slow in responding. When I asked him what month it is, he says it is January. When I asked him what date, he says it is 02/03/2018. He, after sometime, is able to come that he is in [facility] and after thinking for some time, is able to name the president. His speech is slow and most of the time, he does not want to talk. His cranial nerve examination 2-12, the best I can do looks mostly unremarkable. Neuromuscular examination is difficult because he had carpal tunnel syndrome, rotator cuff, elbow surgeries in the past, so I do not know what his baseline is, [place] [address] CONSULTATION Name: LON FREED Room: [address] IN [facility]#: [id number] Admission: 02/05/18 Attend Phys: Jaylen Kaye MD Discharge: 02/17/18 Date of : 50 Report #: [id number] an amputation on the right side. He has no position sense in the left lower extremity. His reflexes are absent in the left lower extremity. Tone looks still symmetrical. His muscle strength is diminished, but he can move the left lower extremity. His strength in the upper extremity is also diminished. He does not appear to have any cerebellar sign. I could not look at the patient's fundus. He is moderately built individual who does not have any dysmorphic features of eyes, ears and face. His vision and hearing looks adequate. His pulses are difficult to palpate and I could not palpate in the left lower extremity. He does not have any edema, cyanosis or jaundice. He has no thyroid mass. His vital signs indicate a blood pressure of 147/73, pulse is 54, temperature is 97.4. LABORATORY DATA: Indicate a white count of 9.2 and the creatinine has progressively increased. He did not have any imaging study of the brain. IMPRESSION: The patient's clinical symptoms are pretty typical for gabapentin toxicity. He is on the same dose of gabapentin, but his creatinine has significantly increased in the last few days and that will cause gabapentin toxicity and will give rise to these kinds of symptoms. We need to exclude the possibility of seizure disorder and may be a stroke in a location where it can cause involuntary movements. I discussed that aspect with the family. RECOMMENDATIONS: 1. We will get an EEG done. 2. Once he is stabilized to some extent, we will get an MRI done. 3. We will stop the patient's gabapentin, but it will take a little while for the patient's gabapentin to be out of the patient's system. 4. I will give him some thiamine since he had some nausea and vomiting as well as kidney problems. Thank you very much for this referral and we will follow this patient along with you. <ELECTRONICALLY SIGNED> By: Ricardo Reed MD 02/18/18 1544 1057 [id number] Reed MD /sina
--- NOTE | 2018-02-18 15:44 | EEG ---
[address] [address] EEG STUDY REPORT Name: LON FREED Room: [address] IN M.R.#: [id number] Admission: 02/05/18 Attend Phys: Jaylen Kaye MD Discharge: 02/17/18 Date of : 50 Report #: [id number] THIS REPORT FOR: //name// CC: Jaylen Tejada [facility] DATE OF SERVICE: 02/06/2018 This patient is being evaluated for involuntary movements. EEG is being done to evaluate the possibility of seizure. Background activity in this patient's EEG is about 7-8 Hz and 30 microvolt. The patient went to sleep and that is associated with bilaterally symmetrical sleep spindle and vertex sharp waves. Photic stimulation was unremarkable. EEG demonstrates no active epileptiform activity. IMPRESSION: This patient's EEG does not demonstrate any active epileptiform activity. That would indicate that the patient's symptoms are probably because of the medication effect, especially gabapentin. The patient's EEG also demonstrated diffuse slowing consistent with encephalopathy. Clinical correlation is recommended. <ELECTRONICALLY SIGNED> By: Ricardo Reed MD 02/18/18 1544 1707 [id number] m Reed MD /nt
== END 2018-02-17 15:37 | disposition home health service (06) | DRG 177 ==
LOC: M.ERS 12:15 → M.2W 13:33 → M.TBA-ER 13:33 → M.2W 14:52 → M.ICU 02-08 09:24 → M.2W 02-11 14:25
PROVIDERS: Emergency Medicine Emergency Medical Services; Internal Medicine; Internal Medicine Nephrology; Internal Medicine Pulmonary Disease; ADMIT Internal Medicine
PROC: 5A09357 Assistance with Respiratory Ventilation, Less than 24 Consecutive Hours, Continuous Positive Airway Pressure (ICD-10-PCS; principal; 2018-02-08)
PROC: 0W993ZZ Drainage of Right Pleural Cavity, Percutaneous Approach (ICD-10-PCS; 2018-02-09)
PROC: 5A09357 Assistance with Respiratory Ventilation, Less than 24 Consecutive Hours, Continuous Positive Airway Pressure (ICD-10-PCS; 2018-02-09)
PROC: 5A09357 Assistance with Respiratory Ventilation, Less than 24 Consecutive Hours, Continuous Positive Airway Pressure (ICD-10-PCS; 2018-02-10)
PROC: 0W9B3ZZ Drainage of Left Pleural Cavity, Percutaneous Approach (ICD-10-PCS; 2018-02-10)
PROC: 5A09357 Assistance with Respiratory Ventilation, Less than 24 Consecutive Hours, Continuous Positive Airway Pressure (ICD-10-PCS; 2018-02-11)
DX: J69.0 Pneumonitis due to inhalation of food and vomit (principal); E11.10 Type 2 diabetes mellitus with ketoacidosis without coma; J96.20 Acute and chronic respiratory failure, unspecified whether with hypoxia or hypercapnia; N17.9 Acute kidney failure, unspecified; E87.2 Acidosis; G93.40 Encephalopathy, unspecified; I50.30 Unspecified diastolic (congestive) heart failure; I13.0 Hypertensive heart and chronic kidney disease with heart failure and stage 1 through stage 4 chronic kidney disease, or unspecified chronic kidney disease; K21.9 Gastro-esophageal reflux disease without esophagitis; I25.10 Atherosclerotic heart disease of native coronary artery without angina pectoris; N18.3 Chronic kidney disease, stage 3 (moderate); E88.09 Other disorders of plasma-protein metabolism, not elsewhere classified; E11.51 Type 2 diabetes mellitus with diabetic peripheral angiopathy without gangrene; E11.622 Type 2 diabetes mellitus with other skin ulcer; E11.40 Type 2 diabetes mellitus with diabetic neuropathy, unspecified; T42.6X5A Adverse effect of other antiepileptic and sedative-hypnotic drugs, initial encounter; E11.22 Type 2 diabetes mellitus with diabetic chronic kidney disease; E11.65 Type 2 diabetes mellitus with hyperglycemia; E11.649 Type 2 diabetes mellitus with hypoglycemia without coma; N40.1 Benign prostatic hyperplasia with lower urinary tract symptoms; R33.8 Other retention of urine; E87.70 Fluid overload, unspecified; E83.42 Hypomagnesemia; G24.9 Dystonia, unspecified; I25.2 Old myocardial infarction; Z89.511 Acquired absence of right leg below knee; Z88.8 Allergy status to other drugs, medicaments and biological substances; Z87.891 Personal history of nicotine dependence; Z83.3 Family history of diabetes mellitus; Z79.82 Long term (current) use of aspirin; Z79.899 Other long term (current) drug therapy

== ENCOUNTER 2018-02-21 19:04 | Emergency (ER) | payer BC ==
[~2018-02-21] VITALS: Ht 175.3 cm; Wt 72.6 kg
[~2018-02-21 19:04] MED LIST changes: +COLACE100 MG PO; +FLOMAX0.4 MG PO; +LASIX 20 MG TAB20 MG PO; +MIRALAX17 GM PO; +ZOLOFT50 MG PO
[2018-02-21 20:03] LABS: HEMATOCRIT 32.2 % (42.0-52.0); HEMOGLOBIN 10.1 gm/dL (14.0-18.0); MCH 25.6 pg (26.0-34.0); MCHC 31.4 g/dL (28.0-37.0); MCV 81.5 fL (80.0-100.0); MPV 8.6 fl. (7.2-11.1); NUCLEATED RBCS 0 /100WBC; PLATELET COUNT* 435 thou/uL (150-400); RBC 3.95 mil/uL (4.50-6.00); RDW-CV 14.2 % (10.5-14.5); WBC 11.4 thou/uL (4.0-11.0)
[2018-02-21 20:12] LABS: ANION GAP 15 mmol/L (7-16); BUN 34 mg/dL (7-18); CHLORIDE 92 mmol/L (98-107); CO2 22 mmol/L (21-32); CREATININE 1.8 mg/dL (0.6-1.3); GLUCOSE 432 mg/dL (70-99); POTASSIUM 3.9 mmol/L (3.5-5.1); SODIUM 129 mmol/L (136-145)
[2018-02-21 20:18] LABS: ALBUMIN 2.7 g/dL (3.4-5.0); ALKALINE PHOSPHATASE 154 U/L (46-116); LIPASE 79 U/L (73-393); SGOT 26 U/L (15-37); SGPT 35 U/L (30-65); TOTAL BILIRUBIN 0.5 mg/dL (<0.1-1.0); TOTAL PROTEIN 6.7 g/dL (6.4-8.2); TROPONIN-I LEVEL <0.06 ng/mL (<0.06)
[2018-02-21 20:28] LABS: ABSOLUTE LYMPHOCYTES 1.4 thou/uL (0.8-5.3); ABSOLUTE MONOCYTES 0.6 thou/uL (0.0-1.2); ABSOLUTE NEUTROPHILS 9.5 thou/uL (1.6-8.1)
[2018-02-21 20:29] LABS: PLATELET ESTIMATE ADEQUATE
[2018-02-21 20:30] LABS: MICROCYTES Occasional
[2018-02-21] MEDS ORDERED: NYSTATIN15 G1 TOP (21:40)
[2018-02-21 21:49] VITALS: BP 162/68
== END 2018-02-21 21:52 | disposition home or self-care (01) ==
LOC: M.ERS 19:04
PROVIDERS: Emergency Medicine
DX: E11.65 Type 2 diabetes mellitus with hyperglycemia (principal); B35.6 Tinea cruris; K21.9 Gastro-esophageal reflux disease without esophagitis; G47.30 Sleep apnea, unspecified; I12.9 Hypertensive chronic kidney disease with stage 1 through stage 4 chronic kidney disease, or unspecified chronic kidney disease; E11.22 Type 2 diabetes mellitus with diabetic chronic kidney disease; N18.3 Chronic kidney disease, stage 3 (moderate); I25.10 Atherosclerotic heart disease of native coronary artery without angina pectoris; Z89.511 Acquired absence of right leg below knee; Z98.890 Other specified postprocedural states; Z87.891 Personal history of nicotine dependence; Z88.8 Allergy status to other drugs, medicaments and biological substances; Z79.4 Long term (current) use of insulin

== ENCOUNTER → 2018-02-22 | Outpatient (CLI) | payer BC ==
[~2018-02-22] MED LIST changes: +NYSTATIN15 G1 TOP
== END ==
LOC: M.WC 10:00
DX: T87.89 Other complications of amputation stump (principal); E11.622 Type 2 diabetes mellitus with other skin ulcer; I70.238 Atherosclerosis of native arteries of right leg with ulceration of other part of lower leg; L97.811 Non-pressure chronic ulcer of other part of right lower leg limited to breakdown of skin; E11.51 Type 2 diabetes mellitus with diabetic peripheral angiopathy without gangrene; E11.40 Type 2 diabetes mellitus with diabetic neuropathy, unspecified; K21.9 Gastro-esophageal reflux disease without esophagitis; Z87.891 Personal history of nicotine dependence; Y83.5 Amputation of limb(s) as the cause of abnormal reaction of the patient, or of later complication, without mention of misadventure at the time of the procedure

== ENCOUNTER → 2018-03-01 | Outpatient (CLI) | payer BC | LOC: M.WC 04:31 | DX: T87.89 Other complications of amputation stump (principal); E11.622 Type 2 diabetes mellitus with other skin ulcer; I70.238 Atherosclerosis of native arteries of right leg with ulceration of other part of lower leg; L97.811 Non-pressure chronic ulcer of other part of right lower leg limited to breakdown of skin; E11.621 Type 2 diabetes mellitus with foot ulcer; L97.421 Non-pressure chronic ulcer of left heel and midfoot limited to breakdown of skin; E11.51 Type 2 diabetes mellitus with diabetic peripheral angiopathy without gangrene; E11.40 Type 2 diabetes mellitus with diabetic neuropathy, unspecified; K21.9 Gastro-esophageal reflux disease without esophagitis; Z87.891 Personal history of nicotine dependence; Y83.5 Amputation of limb(s) as the cause of abnormal reaction of the patient, or of later complication, without mention of misadventure at the time of the procedure ==

== ENCOUNTER → 2018-03-08 | Outpatient (CLI) | payer BC | LOC: M.WC 02:49 | DX: T87.89 Other complications of amputation stump (principal); E11.622 Type 2 diabetes mellitus with other skin ulcer; I70.238 Atherosclerosis of native arteries of right leg with ulceration of other part of lower leg; L97.811 Non-pressure chronic ulcer of other part of right lower leg limited to breakdown of skin; E11.40 Type 2 diabetes mellitus with diabetic neuropathy, unspecified; K21.9 Gastro-esophageal reflux disease without esophagitis; Z87.891 Personal history of nicotine dependence; Y83.5 Amputation of limb(s) as the cause of abnormal reaction of the patient, or of later complication, without mention of misadventure at the time of the procedure ==

== ENCOUNTER → 2018-03-15 | Outpatient (CLI) | payer BC ==
[~2018-03-15] MED LIST changes: +COZAAR 25 MG TA25 M2 PO; +IRON325 M1 PO
== END ==
LOC: M.WC 04:39
DX: T87.89 Other complications of amputation stump (principal); E11.622 Type 2 diabetes mellitus with other skin ulcer; I70.238 Atherosclerosis of native arteries of right leg with ulceration of other part of lower leg; L97.818 Non-pressure chronic ulcer of other part of right lower leg with other specified severity; E11.51 Type 2 diabetes mellitus with diabetic peripheral angiopathy without gangrene; E11.40 Type 2 diabetes mellitus with diabetic neuropathy, unspecified; K21.9 Gastro-esophageal reflux disease without esophagitis; Z87.891 Personal history of nicotine dependence; Y83.5 Amputation of limb(s) as the cause of abnormal reaction of the patient, or of later complication, without mention of misadventure at the time of the procedure

== ENCOUNTER 2018-03-18 08:30 | Inpatient (IN) | payer BC ==
[~2018-03-18] VITALS: Ht 175.3 cm; Wt 72.6 kg
[2018-03-18] VITALS (10 sets, daily range): BP systolic 111–193; BP diastolic 54–95
--- NOTE | ~2018-03-18 | EEG ---
[address] [address] EEG STUDY REPORT Name: LON FREED Room: [address] IN M.R.#: [id number] Admission: 03/18/18 Attend Phys: Jimi Pugh MD Discharge: Date of : 50 Report #: [id number] THIS REPORT FOR: //name// CC: Terrell Pugh DATE OF SERVICE: 03/19/2018 DESCRIPTION: This patient is being evaluated for altered mental status. EEG was done by placing the electrode by standard 10-20 system of electrode placement. Both referential and sequential montages were used for recording. Background activity in this patient's EEG is about 7 Hz and 30 microvolts. The patient went to sleep that is associated with bilaterally symmetrical sleep spindle and vertex sharp waves. Photic stimulation is unremarkable. No active epileptiform activity was noticed. IMPRESSION: This patient's EEG is intermixed with theta range slowing on both sides. That is a nonspecific finding, which can occur with encephalopathy, effect of psychotropic medication, dementia, etc. Clinical correlation is recommended. By: 1353 [id number] m Reed MD /nt
--- NOTE | ~2018-03-18 | CON ---
[address] [address] CONSULTATION Name: LON FREED Room: [address] ADM IN M.R.#: [id number] Admission: 03/18/18 Attend Phys: Jimi Pugh MD Discharge: Date of : 50 Report #: [id number] THIS REPORT FOR: //name// CC: Terrell Pugh DATE OF SERVICE: 03/19/2018 REQUESTING PHYSICIAN: Dr. Pugh. REASON FOR CONSULTATION: Acute kidney injury. HISTORY OF PRESENT ILLNESS: The patient is a 67-year-old gentleman known to us. We saw him while he was here in January of this year. He did not have a chance to follow up with us in the office. The patient was admitted yesterday with altered mental status. Apparently, it started about 24 hours prior to admission. He was not following commands. He was found to be diabetic ketoacidosis, also had left-sided weakness and was diagnosed with a stroke. He was not a TPA candidate due to his severe DKA, so he started on IV fluids, on insulin drip, also was found to have acute myocardial infarction. His creatinine on admission was 2.4, down to 1.8, baseline creatinine is somewhere 1.3 to 1.5. His tells me that his neurological symptoms are significantly less pronounced today compared to yesterday. PAST MEDICAL HISTORY: Significant for: 1. Diabetes mellitus type 1 for the last 30 years. 2. Chronic kidney disease. 3. Peripheral artery disease, status post right below knee amputation. 4. Coronary artery disease. 5. Hypertension. MEDICATIONS: Prior to admission reviewed. From my standpoint, he was on losartan, insulin, amlodipine, metoprolol. FAMILY HISTORY: Positive for coronary artery disease. SOCIAL HISTORY: . He used to smoke, but quit smoking 20 years ago. No alcohol abuse. He lives with his in [place]. REVIEW OF SYSTEMS: Unable to obtain now. He does not talk to me, he cannot talk, but he does [place] [address] CONSULTATION Name: LON FREED Room: [address]#: [id number] Admission: 03/18/18 Attend Phys: Jimi Pugh MD Discharge: Date of : 50 Report #: [id number] PHYSICAL EXAMINATION: GENERAL: He is awake, alert, follows simple commands. HEAD, EYES, EARS, NOSE, AND THROAT: His pupils are round and reactive to light. VITAL SIGNS: His blood pressure 184/83, heart rate 88, respirations 22 and afebrile. His maximal temperature was 38.7 Celsius yesterday at 10:00 p.m. NECK: Supple. LUNGS: Decreased air movements. No crackles. CARDIOVASCULAR: Regular rate. ABDOMEN: Soft. EXTREMITIES: Lower extremities, no edema. He has a right below-knee amputation. NEUROLOGIC: He is weaker on the left side, but can move his left leg and left arm, 2/5 strength, cannot assess accessory status. LABORATORY DATA: Lab report this morning, his serum sodium 137, potassium 3.7, chloride 102, carbon dioxide 26, BUN 39, creatinine 1.8, albumin 2.7, magnesium 1.6, phosphorus 2.1, calcium 8.5. His troponin level ____ it was initially 1.1 and maximum was 26.5 today at 4:20 a.m. ASSESSMENT AND PLAN: 1. Acute kidney injury due to volume depletion diabetic ketoacidosis. Renal functions are improving. Not quite back to baseline yet. 2. Chronic kidney disease stage 3. 3. Diabetes ketoacidosis, diabetes mellitus type 1. 4. Coronary artery disease, acute myocardial infarction. Cardiology is on the case. 5. The patient also had a stroke. Overall, his prognosis is guarded. PLAN: 1. Continue with DKA protocol. 2. Follow labs. His renal functions are improving. 3. Await recommendation from treating engineer helper. Discussed the case with Dr. Pugh. Thank you very much for asking my opinion on acute kidney injury. By: [id number] Orlando MD /ROYAL
[~2018-03-18 08:30] MED LIST changes: -COZAAR 25 MG TA25 M2 PO; -IRON325 M1 PO
[2018-03-18] MEDS ORDERED: LOMOTIL TABLET1 EACH PO (08:36)
[2018-03-18] MEDS ORDERED: NORVASC5 MG PO (08:37)
[2018-03-18] MEDS ORDERED: COZAAR 25 MG TA25 M2 PO (08:41)
[2018-03-18] MEDS ORDERED: IRON325 M1 PO (08:42)
[2018-03-18 09:23] LABS: BE -16.5 mmol/L (-2 to +3); PCO2 31.5 mmHg (35.0-45.0); PO2 101.8 mmHg (75.0-100.0)
[2018-03-18 09:29] LABS: pH 7.159 (7.340-7.450)
[2018-03-18 10:08] LABS: HEMATOCRIT 31.5 % (42.0-52.0); HEMOGLOBIN 9.6 gm/dL (14.0-18.0); MCH 26.5 pg (26.0-34.0); MCHC 30.3 g/dL (28.0-37.0); MCV 87.4 fL (80.0-100.0); NUCLEATED RBCS 0 /100WBC; PLATELET COUNT* 246 thou/uL (150-400); RBC 3.61 mil/uL (4.50-6.00); RDW-CV 15.2 % (10.5-14.5); WBC 9.1 thou/uL (4.0-11.0)
--- NOTE | 2018-03-18 10:10 | NUR ---
CENTRAL LINE PLACED BY DR. ACE AT BEDSIDE
[2018-03-18 10:20] LABS: CALCIUM 7.6 mg/dL (8.5-10.1); CREATININE 2.4 mg/dL (0.6-1.3); POTASSIUM 4.1 mmol/L (3.5-5.1)
--- NOTE | 2018-03-18 10:22 | NUR ---
SEE CODE STROKE SHEET
[2018-03-18 10:24] LABS: ALBUMIN 2.4 g/dL (3.4-5.0); TOTAL BILIRUBIN 0.4 mg/dL (<0.1-1.0); TOTAL PROTEIN 5.7 g/dL (6.4-8.2)
[2018-03-18 10:35] LABS: ABSOLUTE BASOPHILS 0.2 thou/uL (0.0-0.2); ABSOLUTE LYMPHOCYTES 0.6 thou/uL (0.8-5.3); ABSOLUTE MONOCYTES 0.1 thou/uL (0.0-1.2); ABSOLUTE NEUTROPHILS 8.2 thou/uL (1.6-8.1); ATYPICAL LYMPHS 1 %; METAMYELOCYTES 2 %; PLATELET ESTIMATE ADEQUATE
[2018-03-18 10:36] LABS: TROPONIN-I LEVEL 1.12 ng/mL (<0.06)
[2018-03-18 11:05] LABS: INR 1.1; PROTIME 10.8 Seconds (9.20-11.50)
--- NOTE | 2018-03-18 12:41 | NUR ---
BS READS HIGH DR ACE NOTIFIED ORDERS OBTAINED.
[2018-03-18 13:28] LABS: ALBUMIN 2.7 g/dL (3.4-5.0); CALCIUM 7.8 mg/dL (8.5-10.1); CREATININE 2.3 mg/dL (0.6-1.3); MAGNESIUM 1.7 mg/dL (1.8-2.4); PHOSPHORUS* 3.9 mg/dL (2.5-4.9); POTASSIUM 4.2 mmol/L (3.5-5.1)
--- NOTE | 2018-03-18 18:19 | NUR ---
RECEIVED PATIENT FROM ED AT APPX 1400. PATIENT LETHARGIC, L FACIAL DROOP NOTED. PATIENT ORIENTED TO SELF ONLY, UNAWARE OF PLACE, TIME OR SITUATION. PATIENT ON INSULIN GTT INFUSING THROUGH RIJ TLC. NO BELONGINGS WITH PATIENT, ED NURSE STATED THAT AT HOME AND WOULD RETURN LATER THIS AFTERNOON. PATIENT NOT COMPLAINING OF PAIN, NO TEMPERATURE, BP ELEVATED. SPOKE WITH DR DE PAZ AND NOTIFIED OF BP, NO ORDERS AT THIS TIME. DID D/C HEPARIN GTT.
[2018-03-18 18:37] LABS: CALCIUM 8.2 mg/dL (8.5-10.1)
[2018-03-18 18:40] LABS: ALBUMIN 2.7 g/dL (3.4-5.0); MAGNESIUM 1.7 mg/dL (1.8-2.4); PHOSPHORUS* 2.3 mg/dL (2.5-4.9)
[2018-03-18 21:51] LABS: CALCIUM 8.5 mg/dL (8.5-10.1); CREATININE 1.8 mg/dL (0.6-1.3); POTASSIUM 3.7 mmol/L (3.5-5.1)
[2018-03-18 21:54] LABS: ALBUMIN 2.7 g/dL (3.4-5.0); MAGNESIUM 1.6 mg/dL (1.8-2.4); PHOSPHORUS* 2.1 mg/dL (2.5-4.9)
[2018-03-19] VITALS (16 sets, daily range): BP systolic 154–204; BP diastolic 67–95
[2018-03-19 06:02] LABS: MAGNESIUM 1.6 mg/dL (1.8-2.4)
[2018-03-19 06:07] LABS: TROPONIN-I LEVEL 26.5 ng/mL (<0.06)
--- NOTE | 2018-03-19 06:43 | NUR ---
ASSUMED PATIENT CARE AT 1900. PATIENT ALERT TO SELF AT THIS TIME. SHOWED MAJOR IMPROVEMENT THROUGH THE NIGHT. PATIENT IS ALERT AND ORIENTED TIMES FOUR THIS AM. LEFT SIDED WEAKNESS STILL APPARENT IN EXTREMITIES. FACIAL DROOP AND WEAKNESS IS RESOLVING. BLOOD GLUCOSE LEVELS HAVE REMAINED >200 SINCE 1999 ON 03/18/18. BARRAGAN CATHETER IN PLACE, DRAINING CLEAR, YELLOW URINE. RIGHT JUGULAR TRIPLE LUMEN PATENT TO FLUIDS AND BLOOD DRAWS. CRITICAL LAB RESULTS CALLED TO HIMS THIS AM AND NEW ORDERS RECEIVED AND COMPLETED.
[2018-03-19 12:38] LABS: ALBUMIN 2.4 g/dL (3.4-5.0); CALCIUM 8.1 mg/dL (8.5-10.1); CREATININE 1.4 mg/dL (0.6-1.3); MAGNESIUM 1.5 mg/dL (1.8-2.4); POTASSIUM 3.1 mmol/L (3.5-5.1); TOTAL BILIRUBIN 0.3 mg/dL (<0.1-1.0); TOTAL PROTEIN 5.7 g/dL (6.4-8.2)
--- NOTE | 2018-03-19 13:34 | EKG ---
[place] [address] ELECTROCARDIOGRAM REPORT Name: LON FREED Room: [address] ADM IN .R.#: [id number] Admission: 03/18/18 Attend Phys: Jimi Pugh MD Discharge: Date of : 50 Report #: [id number] THIS REPORT FOR: //name// [facility] ED Test Date: 2018-03-18 Test Time: 08:34:30 Pat Name: LON FREED Department: Room: [facility] Gender: M Oracle Reports Developer: Vito JETT : 1950 Requested By: Krunal Kowalski Order Number: [id number] MD: Stanley Bob Measurements Intervals [place] Rate: 88 P: 59 [place]: 164 QRS: 15 QRSD: 88 T: 89 QT: 369 QTc: 447 Interpretive Statements Sinus rhythm septal infarct, old Repol abnrm, severe global ischemia (LM/MVD) Compared to ECG 02/21/2018 20:45:22 Possible ischemia now present Myocardial infarct finding still present Electronically Signed On 03-19-2018 13:34:33 CUT OFF WORKER by Stanley Bob [email or web address] <ELECTRONICALLY SIGNED> By: Stanley Bob MD, [facility] 03/19/18 1334 0834 0834 Stanley Bob MD, [facility] /EPI
--- NOTE | 2018-03-19 13:57 | EKG ---
[place] [address] ELECTROCARDIOGRAM REPORT Name: LON FREED Room: [address] ADM IN M.R.#: [id number] Admission: 03/18/18 Attend Phys: Jimi Pugh MD Discharge: Date of : 50 Report #: [id number] THIS REPORT FOR: //name// [facility] Test Date: 2018-03-19 Test Time: 06:34:05 Pat Name: LON FREED Department: Room: [address] Gender: M Netezza Architect: : 1950 Requested By: Jimi Pugh Order Number: [id number] Reading MD: Stanley Bob Measurements Intervals [place] Rate: 91 P: 45 [place]: 127 QRS: 39 QRSD: 77 T: 224 QT: 351 QTc: 432 Interpretive Statements Sinus rhythm Probable left atrial enlargement Anteroseptal infarct, old Repol abnrm suggests ischemia, diffuse leads Electronically Signed On 03-19-2018 13:57:00 GENERAL SCRAP WORKER by Stanley Bob [email or web address] <ELECTRONICALLY SIGNED> By: Stanley Bob MD, [facility] 03/19/18 1357 0634 0634 Stanley Bob MD, [facility] /EPI
[2018-03-19 17:22] LABS: CALCIUM 8.1 mg/dL (8.5-10.1); CREATININE 1.2 mg/dL (0.6-1.3); POTASSIUM 3.6 mmol/L (3.5-5.1)
[2018-03-19 17:31] LABS: TROPONIN-I LEVEL 14.53 ng/mL (<0.06)
[2018-03-19 18:27] LABS: URINE BILIRUBIN NEGATIVE (Negative); URINE BLOOD 3+ (Negative); URINE CLARITY CLEAR; URINE COLOR YELLOW; URINE GLUCOSE-RANDOM 1+ (Negative); URINE KETONES NEGATIVE (Negative); URINE LEUKOCYTES-REFLEX NEGATIVE (Negative); URINE NITRITE-REFLEX NEGATIVE (Negative); URINE PROTEIN 2+ (Negative); URINE SPECIFIC GRAVITY 1.025 (1.005-1.030); URINE UROBILINOGEN 0.2 E.U./dl (0.2-1.0)
[2018-03-19 18:35] LABS: SQUAMOUS 0-3 Few /LPF (0-3)
[2018-03-19 18:36] LABS: BACTERIA-REFLEX 1-9 Few /HPF (None Seen); MUCUS 0-3 Light strn/LPF (None Seen); URINE RBC 3-10 Few /HPF (0-2); URINE WBC-REFLEX 0-5 Rare /HPF (0-5)
[2018-03-19 18:37] LABS: CRYSTALS None Seen /LPF (None Seen); HYALINE CASTS 0-3 Few /LPF (None Seen)
[2018-03-20] VITALS (9 sets, daily range): BP systolic 138–176; BP diastolic 66–79
[2018-03-20 00:26] LABS: CALCIUM 7.9 mg/dL (8.5-10.1); CREATININE 1.2 mg/dL (0.6-1.3); MAGNESIUM 1.8 mg/dL (1.8-2.4); PHOSPHORUS* 2.1 mg/dL (2.5-4.9); POTASSIUM 3.8 mmol/L (3.5-5.1)
--- NOTE | 2018-03-20 05:08 | NUR ---
PT. TRANSFERRED TO ROOM 208 VIA BED. REPORT GIVEN TO CYBER POLICY AND STRATEGY PLANNER, QUESTIONS DENIED.
[2018-03-20 05:12] LABS: ABSOLUTE LYMPHOCYTES 0.9 thou/uL (0.8-5.3); ABSOLUTE MONOCYTES 0.8 thou/uL (0.0-1.2); ABSOLUTE NEUTROPHILS 6.9 thou/uL (1.6-8.1); BASOPHILS 0.5 %; EOSINOPHILS 0.5 %; HEMATOCRIT 26.5 % (42.0-52.0); HEMOGLOBIN 8.9 gm/dL (14.0-18.0); LYMPHOCYTES 9.9 %; MCH 26.4 pg (26.0-34.0); MCHC 33.7 g/dL (28.0-37.0); MONOCYTES 8.9 %; MPV 8.8 fl. (7.2-11.1); NUCLEATED RBCS 0 /100WBC; PLATELET COUNT* 212 thou/uL (150-400); POLYS 80.2 %; RBC 3.39 mil/uL (4.50-6.00); RDW-CV 15.6 % (10.5-14.5); WBC 8.6 thou/uL (4.0-11.0)
[2018-03-20 05:51] LABS: ALBUMIN 1.9 g/dL (3.4-5.0); ALKALINE PHOSPHATASE 107 U/L (46-116); ANION GAP 6 mmol/L (7-16); BUN 19 mg/dL (7-18); CALCIUM 7.9 mg/dL (8.5-10.1); CHLORIDE 104 mmol/L (98-107); CO2 26 mmol/L (21-32); GLUCOSE 74 mg/dL (70-99); PHOSPHORUS* 2.1 mg/dL (2.5-4.9); POTASSIUM 3.4 mmol/L (3.5-5.1); SGOT 45 U/L (15-37); SGPT 35 U/L (30-65); SODIUM 136 mmol/L (136-145); TOTAL BILIRUBIN 0.2 mg/dL (<0.1-1.0)
[2018-03-20 05:52] LABS: MCV 78.2 fL (80.0-100.0)
--- NOTE | 2018-03-20 06:47 | NUR ---
RECEIVED REPORT FROM REINFORCING STEEL WORKER. PT TRANSFERRED TO 208. PT A&OX3. NOT ORIENTED TO TIME. VSS. PHYSICAL ASSESSMENT COMPLETED AND AGREE WITH PREVIOUS RN. PT ON RA WITH 99% O2 SAT. PT TRACING SR/ST ON TELE. PT ON INSULIN DRIP. BLOOD SUGAR CHECKED INITIALLY AT THE FLOOR AND ITS 49. STOPPED INSULIN DRIP PER PROTOCOL. RECHECKED BLOOD SUGAR AFTER 30 MINS AND ITS 67. RECAHECKED AGAIN AND ITS 158. RESUMED INSULIN DRIP PER PROTOCOL. CALL LIGHT WITHIN REACH.
--- NOTE | 2018-03-20 10:36 | NUR ---
Nutrition: Pt admitted with possible CVA. Consult for "DKA." RD has seen pt many times previously. H/o DM, DKA, Rt stump, foot wounds, CHF. BG was >1000, now 74. Albumin 1.9, prealb 18. Wt: 160#. NPO currently. Controlling blood sugars. Recommend advancing diet to heart healthy with a CHO count once pt is able. Will follow up for diet order, labs, wt, po intake 03/23/18.
--- NOTE | 2018-03-20 11:21 | NUR ---
RECEIVED REPORT FROM MOO AND ASSUMED CARE OF PT @ 5809.PT IS A/O X4,VSS,TRACING SR ON THE MONITOR.ASSESSMENT CHARTED.IV RIGHT IJ PATENT WITH IVF INFUSING PER ORDERS.INSULIN DRIP INFUSING PER PROTOCOL.NPO STATUS MAINTAINED.PT IS CALM AND COOPERATIVE WITH NO C/O PAIN.PT LEFT RESING IN BED WITH CALL LIGHT AND FALL PRECAUTIONS IN PLACE.WILL CONTINUE TO MONITOR.
--- NOTE | 2018-03-20 13:54 | CON ---
[address] [address] CONSULTATION Name: LON FREED Room: [address] IN M.R.#: [id number] Admission: 03/18/18 Attend Phys: Jimi Pugh MD Discharge: Date of : 50 Report #: [id number] THIS REPORT FOR: //name// CC: Terrell Pugh DATE OF SERVICE: 03/18/2018 CARDIOLOGY CONSULTATION HISTORY OF PRESENT ILLNESS: The patient is a 67-year-old white male who I was asked to see in the hospital today after he was noted to have a borderline elevated troponin. The patient has a long history of diabetes. He has had multiple complications. He apparently did have a previous myocardial infarction, heart catheterization, although he never required intervention. He has had previous right enoff-yha-ncmg amputation, although according to , he has never had PAD. The patient apparently was just recently admitted to the hospital with pneumonia. He developed pulmonary insufficiency and acute kidney injury. He eventually surmounted these issues and was discharged a couple of weeks ago. Today, the patient's knows his blood sugar was elevated. He then became less responsive. He was brought here to [facility] by ambulance. Troponin is borderline elevated. I was asked to see him for further evaluation and treatment. PAST MEDICAL AND SURGICAL HISTORY: I actually performed a cardiac catheterization back in 2011 that showed minimal coronary artery disease with only 50% narrowing in the circumflex artery. He has had previous surgeries that included back surgery, carpal tunnel surgery, elbow surgery and hernia repair. Diabetes, hypertension and chronic kidney disease. MEDICATIONS: Consists of aspirin, insulin, omeprazole, losartan, metoclopramide, metoprolol, amlodipine. ALLERGIES: He has a previous INTOLERANCE TO VALIUM. FAMILY HISTORY: Positive for heart disease. SOCIAL HISTORY: He is . He and his live in [place]. He is retired from [employer]. Quit smoking years ago. No alcohol abuse. REVIEW OF SYSTEMS: He has had no history of stroke before. No history of asthma. He does have gastroparesis. He has chronic kidney disease. No cancer. No psychiatric illness. PHYSICAL EXAMINATION: [place] [address] CONSULTATION Name: LON FREED Room: [address]#: [id number] Admission: 03/18/18 Attend Phys: Jimi Pugh MD Discharge: Date of : 50 Report #: [id number] GENERAL: Revealed an elderly male, lying in bed with his eyes closed. VITAL SIGNS: Blood pressure is 160/80, pulse 80. He is afebrile. HEENT: He was anicteric. Conjunctivae pink. Mucous membranes appear dry. CHEST: Clear to auscultation. CARDIOVASCULAR: Regular rate and rhythm. ABDOMEN: Soft. EXTREMITIES: Had no edema. SKIN: Cool and dry. NEUROLOGIC: His eyes were deviated to the right. He had left facial droop and hemiplegia on the left side. His ECG on admission showed a sinus rhythm with septal Q-waves, nonspecific ST and T-wave changes. The patient had an echocardiogram done last month that showed an ejection fraction of 60%, left ventricular hypertrophy, left atrial enlargement. He had a nuclear stress test in May of this year that showed no evidence of ischemia with a normal ejection fraction. His x-rays today, he had a portable chest x-ray that showed normal heart size, clear lung kenyon. LABORATORY DATA: Sodium 130; BUN 44; creatinine 2.3, it has been as high as 3.2 in January; glucose was 686; albumin is 2.7. Troponin today is 1.12. TSH 1.6 in January. White blood cell count 9.1, hemoglobin 9.6, it was 9.6 in January. IMPRESSION AND RECOMMENDATIONS: 1. Non-ST elevation myocardial infarction. Nuclear stress test in May showed no ischemia. I would recommend medical therapy at this time. No history of angina. 2. Diabetic ketoacidosis. 3. Neuropathy with previous amputation. 4. Hypertension. The patient has been on an ARB and beta priti and calcium priti. 5. Gastroparesis. 6. Chronic kidney disease. 7. Anemia. No history of bleeding. <ELECTRONICALLY SIGNED> By: Stanley Bob MD, [facility] 03/20/18 1354 1447 1630Dafortunato Bob MD, FAC /nt
--- NOTE | 2018-03-20 14:22 | NUR ---
SPOKE TO THE PATIENT AND HIS SPOUSE TO DISCUSS HIS HOME SITUATION, DISCHARGE PLANNING, AND TO INFORM OF THE ROLE OF CM. PATIENT IS ALERT AND ORIENTED. PATIENT RESIDES AT HOME WITH HIS SPOUSE AND SHE ASSIST THE PATIENT WITH CARES NEEDED. PATIENT USES A W/C FOR MOBILITY, BUT ALSO OWNS A CANE AND WALKER. PATIENT USES HOME O2. PATIENT HAS A HX OF HH WITH [facility]. THE PHYSICIAN INFORMS THAT THE PLAN IS TO D/C THE PATIENT TOMORROW WITH HH. PATIENT INFORMS THAT HE WOULD LIKE HH WITH [facility]. D/C PRICER SPOKE TO MATT TO INFORM OF THE HH REFERRAL, AND FAXED PATIENT'S FACESHEET, AND H&P. PATIENT'S D/C ORDERS WILL NEED TO BE FAXED TO [facility] AT D/C. [facility] PLANS TO SEE THE PATIENT ON TUESDAY AND WILL CONTACT THE PATIENT TO ARRANGE A TIME TO VISIT. PATIENT ALSO REQUEST ASSISTNACE COMPLETING ADVANCED DIRECTIVE. D/C PRICER HELPED THE PATIENT COMPLETE THE FORM AND INFORMED THE CM OF THE NEED TO NOTARIZE THE FORM. CM WILL REMAIN AVIALABLE TO ASSIST AND FOLLOW NEEDED. [facility] PHONE: [phone] FAX: [phone]
--- NOTE | 2018-03-20 18:05 | NUR ---
VSS.CARDIAC MONITORING IN PLACE WITH NO CHANGES.PT REMAINS ON ROOM AIR.IV RIGHT IJ PATENT AND SALINE LOCKED.INSULIN DRIP STOPPED PER ORDERS.MRA OF CAROTIDS COMPLETED.PT C/O NAUSEA-MEDICATIONS GIVEN.PT HAS A POOR APPETITE.PT INFORMED OF PLAN OF CARE AND COMMUNICATES UNDERSTANDING.PT WORKED WITH PHYSICAL THERAPY.HOURLY ROUNDING COMPLETED FOR PT SAFETY.CALL LIGHT AND FALL PRECAUTIONS IN PLACE.WILL CONTINUE TO MONITOR FOR DURATION OF SHIFT.
[2018-03-21] VITALS: BP 156/70
[2018-03-21 04:00] VITALS: BP 160/75
--- NOTE | 2018-03-21 04:54 | NUR ---
ASSUMED CARE OF PT AFTER REPORT AT 1930. PT A&OX4. VSS. PHYSICAL ASSESSMENT COMPLETED AND CHARTED. PT ON RA WITH 97% O2 SAT. PT TRACING SR ON TELE. IV TO RIGHT IJ PATENT & INTACT. DENIES ANY PAIN OR DISCOMFORT. CALL LIGHT WITHIN REACH. BED IN LOW POSITION.
[2018-03-21 08:45] VITALS: BP 183/84
--- NOTE | 2018-03-21 10:06 | NUR ---
ASSUMED CARE OF PT THIS AM AROUND 0715- BACK ROLLER IN PLACE ORDERED, TRACING SR- UPON ASSESSMENT PT NOTED TO BE RESTING IN BED- PT A&O X4- CONTINENT OF BOWEL AND BLADDER- A X1 WITH TRANSFERS WITH RIGHT BKA NOTED- LCTA, RESP EVEN AND UN-LABORED- VSS, O2 SAT 96% ON RA- ABDOMEN SOFT/ROUND/NON-TENDER, BSM X4 QUADS- UNKNOWN LAST BM- GOOD PO INTAKE NOTED THIS AM WITH BREAKFAST- RIGHT IJ NOTED INTACT AND SL, NO S/S INFECTION NOTED- PT EXPRESSESS WISHES TO D/C TODAY- HERE TO ASSESS AND OKOAY WITH D/C; COREG NOTED TO BE D/C'D WITH LOSARTAN INCREASED TO 100MG DAILY AND METO 100MG BID THIS AM- C/D/I DRESSING NOTED TO RIGHT BKA- PT DENIES ANY C/O PAIN/DISCOMFORT AT THIS TIME- CALL LIGHT AND PERSONAL BELONGINGS WITH IN REACH- HOURLY ROUNDS IN PLACE R/T SAFETY/NEEDS- ALL NEEDS MET AT THIS TIME-WCTM
[2018-03-21 12:00] VITALS: BP 183/84
[2018-03-21] MEDS ORDERED: NITROGLYCERIN0.4 MG SUBLING (12:45)
--- NOTE | 2018-03-21 13:17 | NUR ---
HERE TO SEE PT WITH ORDERS NOTED FOR OKAY TO D/C HOME WITH HH THIS SHIFT- RIGHTH IJ CENTRAL LINE D/C'D WITH PRESSURE APPLIED AND COVERED WITH PRESSURE DRESSING PRIOR TO D/C- TIP NOTED TO KATJA INTACT AT TIME OF D/C- D/C EDUCATION/TEACHING GIVEN TO PT AND PRIOR TO D/C, WITH ALL QUESTIONS AND CONCERNS ADDRESSED PRIOR TO D/C- WRITTEN EDUCATION ALONG WITH SCRIPTS PROVIDED TO PT AT TIME OF D/C- D/C ORDERS FAXED TO [facility] PRIOR TO D/C- BELONGINGS PACKED AND ACCOUNTED FOR PER PT AND - PT ESCORTED PER TECH VIA W/C WITH BELONGINGS TO VEHICLE, AT SIDE AT 1320- NO PROBLMES NOTED AT TIME OF D/C
== END 2018-03-21 13:20 | disposition home health service (06) | DRG 280 ==
LOC: M.ERS 08:30 → M.ICU 10:50 → M.TBA-ER 10:50 → M.2W 10:50 → M.ICU 13:45 → M.2W 03-20 04:24
PROVIDERS: Family Medicine; ADMIT Family Medicine
DX: I21.4 Non-ST elevation (NSTEMI) myocardial infarction (principal); E10.10 Type 1 diabetes mellitus with ketoacidosis without coma; J96.00 Acute respiratory failure, unspecified whether with hypoxia or hypercapnia; N17.9 Acute kidney failure, unspecified; E87.1 Hypo-osmolality and hyponatremia; G93.40 Encephalopathy, unspecified; N18.4 Chronic kidney disease, stage 4 (severe); I13.0 Hypertensive heart and chronic kidney disease with heart failure and stage 1 through stage 4 chronic kidney disease, or unspecified chronic kidney disease; I50.32 Chronic diastolic (congestive) heart failure; R41.4 Neurologic neglect syndrome; D64.9 Anemia, unspecified; E10.51 Type 1 diabetes mellitus with diabetic peripheral angiopathy without gangrene; E88.09 Other disorders of plasma-protein metabolism, not elsewhere classified; E10.40 Type 1 diabetes mellitus with diabetic neuropathy, unspecified; E10.22 Type 1 diabetes mellitus with diabetic chronic kidney disease; I25.10 Atherosclerotic heart disease of native coronary artery without angina pectoris; K21.9 Gastro-esophageal reflux disease without esophagitis; Z89.511 Acquired absence of right leg below knee; Z79.899 Other long term (current) drug therapy; Z82.49 Family history of ischemic heart disease and other diseases of the circulatory system; Z79.82 Long term (current) use of aspirin; Z88.8 Allergy status to other drugs, medicaments and biological substances; Z91.19 Patient's noncompliance with other medical treatment and regimen; Z90.49 Acquired absence of other specified parts of digestive tract; Z83.3 Family history of diabetes mellitus; Z87.891 Personal history of nicotine dependence; Z86.73 Personal history of transient ischemic attack (TIA), and cerebral infarction without residual deficits

== ENCOUNTER 2018-04-20 17:17 | Inpatient (IN) | payer BC ==
[~2018-04-20] VITALS: Ht 175.3 cm; Wt 65.3 kg
[2018-04-20] VITALS (7 sets, daily range): BP systolic 139–204; BP diastolic 51–88
[~2018-04-20 17:17] MED LIST changes: +COZAAR 25 MG TA25 M2 PO; +IRON325 M1 PO; +NITROGLYCERIN0.4 MG SUBLING
[2018-04-20 17:43] LABS: HEMATOCRIT 29.2 % (42.0-52.0); HEMOGLOBIN 9.6 gm/dL (14.0-18.0); MCH 26.7 pg (26.0-34.0); MCHC 32.9 g/dL (28.0-37.0); MCV 81.2 fL (80.0-100.0); MPV 8.3 fl. (7.2-11.1); NUCLEATED RBCS 0 /100WBC; PLATELET COUNT* 337 thou/uL (150-400); RDW-CV 16.9 % (10.5-14.5); WBC 8.1 thou/uL (4.0-11.0)
[2018-04-20 17:49] LABS: CALCIUM 8.8 mg/dL (8.5-10.1); CREATININE 1.2 mg/dL (0.6-1.3); POTASSIUM 3.3 mmol/L (3.5-5.1)
[2018-04-20 17:50] LABS: APTT 24.1 Seconds (25.0-31.3); INR 1.1; PROTIME 10.8 Seconds (9.20-11.50)
[2018-04-20 18:00] LABS: ALBUMIN 2.7 g/dL (3.4-5.0); TOTAL BILIRUBIN 0.2 mg/dL (<0.1-1.0); TOTAL PROTEIN 6.5 g/dL (6.4-8.2); TROPONIN-I LEVEL 0.07 ng/mL (<0.06)
[2018-04-20] MEDS ORDERED: VITAMINC500 PO (18:01)
[2018-04-20 18:24] LABS: ABSOLUTE EOSINOPHILS 0.1 thou/uL (0.0-0.7); ABSOLUTE LYMPHOCYTES 0.4 thou/uL (0.8-5.3); ABSOLUTE MONOCYTES 0.5 thou/uL (0.0-1.2); ABSOLUTE NEUTROPHILS 7.1 thou/uL (1.6-8.1)
[2018-04-20 18:25] LABS: PLATELET ESTIMATE ADEQUATE
[2018-04-20 18:28] LABS: URINE BILIRUBIN NEGATIVE (Negative); URINE BLOOD 1+ (Negative); URINE CLARITY CLEAR; URINE COLOR YELLOW; URINE GLUCOSE-RANDOM TRACE (Negative); URINE KETONES NEGATIVE (Negative); URINE LEUKOCYTES-REFLEX NEGATIVE (Negative); URINE NITRITE-REFLEX NEGATIVE (Negative); URINE PROTEIN 2+ (Negative); URINE UROBILINOGEN 0.2 E.U./dl (0.2-1.0)
[2018-04-20 18:42] LABS: HYALINE CASTS 0-3 Few /LPF (None Seen)
[2018-04-20 18:43] LABS: BACTERIA-REFLEX None Seen /HPF (None Seen); CRYSTALS None Seen /LPF (None Seen); MUCUS None Seen strn/LPF (None Seen); SQUAMOUS NONE SEEN /LPF (0-3); URINE RBC 0-2 Rare /HPF (0-2); URINE WBC-REFLEX 0-5 Rare /HPF (0-5)
[2018-04-21] VITALS (10 sets, daily range): BP systolic 111–180; BP diastolic 49–95
--- NOTE | 2018-04-21 10:27 | EKG ---
[place] [address] ELECTROCARDIOGRAM REPORT Name: LON FREED Room: [address] ADM IN .R.#: [id number] Admission: 04/20/18 Attend Phys: Kendy Holley Discharge: Date of : 50 Report #: [id number] THIS REPORT FOR: //name// [facility] ED Test Date: 2018-04-20 Test Time: 18:19:41 Pat Name: LON FREED Department: Room: [facility] Gender: M Account Manager Sales Representative: HERB : 1950 Requested By: Krunal Kowlaski Order Number: [id number] MD: Gautam Rodriguez Measurements Intervals [place] Rate: 79 P: 44 RI: 122 QRS: 13 QRSD: 89 T: 83 QT: 426 QTc: 489 Interpretive Statements Sinus rhythm Probable left atrial enlargement Anteroseptal infarct, old possible Borderline repolarization abnormality Compared to ECG 03/19/2018 06:34:05 Possible ischemia no longer present Myocardial infarct finding still possible Electronically Signed On 04-21-2018 10:27:12 DIFFERENTIAL REPAIRER by Gautam Rodriguez [email or web address] <ELECTRONICALLY SIGNED> By: Gautam Rodriguez MD, [facility] 04/21/18 1027 18 18 Gautam Rodriguez MD, [facility] /EPI
[2018-04-21 10:42] LABS: ANION GAP 15 mmol/L (7-16); BUN 25 mg/dL (7-18); CALCIUM 8.8 mg/dL (8.5-10.1); CHLORIDE 104 mmol/L (98-107); CO2 22 mmol/L (21-32); CREATININE 1.1 mg/dL (0.6-1.3); GLUCOSE 179 mg/dL (70-99); MAGNESIUM 1.8 mg/dL (1.8-2.4); SODIUM 141 mmol/L (136-145)
[2018-04-22] VITALS: BP 132/59
[2018-04-22 05:34] LABS: HEMATOCRIT 23.5 % (42.0-52.0); HEMOGLOBIN 7.9 gm/dL (14.0-18.0); MCH 27.2 pg (26.0-34.0); MCHC 33.4 g/dL (28.0-37.0); MCV 81.3 fL (80.0-100.0); MPV 8.6 fl. (7.2-11.1); RBC 2.89 mil/uL (4.50-6.00); RDW-CV 16.5 % (10.5-14.5); WBC 5.9 thou/uL (4.0-11.0)
[2018-04-22 05:42] LABS: CALCIUM 8.5 mg/dL (8.5-10.1); CREATININE 1.6 mg/dL (0.6-1.3); POTASSIUM 4.6 mmol/L (3.5-5.1)
[2018-04-22 08:00] VITALS: BP 172/73
[2018-04-22 11:30] VITALS: BP 129/60
[2018-04-22 15:57] VITALS: BP 130/61
[2018-04-22 19:30] VITALS: BP 132/50
[2018-04-22 23:49] VITALS: BP 132/50
[2018-04-23] VITALS: BP 148/68
[2018-04-23] MEDS ORDERED: MELATONIN5 M1 PO (00:12)
[2018-04-23] MEDS ORDERED: HUMALOG100 UNIT/1 SUBQ (00:13)
[2018-04-23 04:00] VITALS: BP 139/49
[2018-04-23 05:11] LABS: CALCIUM 8.9 mg/dL (8.5-10.1); CREATININE 1.5 mg/dL (0.6-1.3); POTASSIUM 4.3 mmol/L (3.5-5.1)
[2018-04-23 08:00] VITALS: BP 158/71
[2018-04-23] MEDS ORDERED: LANTUS SUBQ (14:06)
[2018-04-23 14:56] VITALS: BP 132/50
== END 2018-04-23 15:30 | disposition home or self-care (01) | DRG 637 ==
LOC: M.ERS 17:17 → M.2W 18:10 → M.TBA-ER 18:10 → M.ICU 20:02 → M.2W 04-21 05:10
PROVIDERS: Family Medicine; ADMIT Internal Medicine
DX: E10.649 Type 1 diabetes mellitus with hypoglycemia without coma (principal); E43 Unspecified severe protein-calorie malnutrition; I50.32 Chronic diastolic (congestive) heart failure; I13.0 Hypertensive heart and chronic kidney disease with heart failure and stage 1 through stage 4 chronic kidney disease, or unspecified chronic kidney disease; K21.9 Gastro-esophageal reflux disease without esophagitis; N18.3 Chronic kidney disease, stage 3 (moderate); I25.10 Atherosclerotic heart disease of native coronary artery without angina pectoris; E10.22 Type 1 diabetes mellitus with diabetic chronic kidney disease; E10.51 Type 1 diabetes mellitus with diabetic peripheral angiopathy without gangrene; D63.8 Anemia in other chronic diseases classified elsewhere; Z89.511 Acquired absence of right leg below knee; Z79.82 Long term (current) use of aspirin; Z83.3 Family history of diabetes mellitus; Z88.8 Allergy status to other drugs, medicaments and biological substances; Z87.891 Personal history of nicotine dependence; I25.2 Old myocardial infarction; Z79.4 Long term (current) use of insulin; Z79.899 Other long term (current) drug therapy; Z68.21 Body mass index [BMI] 21.0-21.9, adult

== ENCOUNTER → 2018-05-10 | Outpatient (CLI) | payer BC ==
[~2018-05-10] MED LIST changes: +MELATONIN5 M1 PO
== END ==
LOC: M.WC 09:30
DX: E10.621 Type 1 diabetes mellitus with foot ulcer (principal); L97.422 Non-pressure chronic ulcer of left heel and midfoot with fat layer exposed; E10.51 Type 1 diabetes mellitus with diabetic peripheral angiopathy without gangrene; E10.40 Type 1 diabetes mellitus with diabetic neuropathy, unspecified; K21.9 Gastro-esophageal reflux disease without esophagitis; Z79.4 Long term (current) use of insulin; Z87.891 Personal history of nicotine dependence; Z89.511 Acquired absence of right leg below knee; Z79.82 Long term (current) use of aspirin

== ENCOUNTER → 2018-05-25 | Outpatient (CLI) | payer BC | LOC: M.WC 05-24 05:04 | DX: E10.621 Type 1 diabetes mellitus with foot ulcer (principal); L97.421 Non-pressure chronic ulcer of left heel and midfoot limited to breakdown of skin; E10.51 Type 1 diabetes mellitus with diabetic peripheral angiopathy without gangrene; E10.40 Type 1 diabetes mellitus with diabetic neuropathy, unspecified; K21.9 Gastro-esophageal reflux disease without esophagitis; Z89.511 Acquired absence of right leg below knee; Z87.891 Personal history of nicotine dependence ==

== ENCOUNTER → 2018-05-31 | Outpatient (CLI) | payer BC | LOC: M.WC 04:39 | DX: E10.621 Type 1 diabetes mellitus with foot ulcer (principal); L97.422 Non-pressure chronic ulcer of left heel and midfoot with fat layer exposed; E10.40 Type 1 diabetes mellitus with diabetic neuropathy, unspecified; K21.9 Gastro-esophageal reflux disease without esophagitis; Z89.511 Acquired absence of right leg below knee; Z87.891 Personal history of nicotine dependence ==

== ENCOUNTER → 2018-06-07 | Outpatient (CLI) | payer BC | LOC: M.WC 05:30 | DX: E10.621 Type 1 diabetes mellitus with foot ulcer (principal); L97.422 Non-pressure chronic ulcer of left heel and midfoot with fat layer exposed; E10.40 Type 1 diabetes mellitus with diabetic neuropathy, unspecified; K21.9 Gastro-esophageal reflux disease without esophagitis; Z89.511 Acquired absence of right leg below knee; Z87.891 Personal history of nicotine dependence ==

== ENCOUNTER → 2018-06-14 | Outpatient (CLI) | payer BC | LOC: M.WC 04:53 | DX: E10.621 Type 1 diabetes mellitus with foot ulcer (principal); L97.422 Non-pressure chronic ulcer of left heel and midfoot with fat layer exposed; E10.622 Type 1 diabetes mellitus with other skin ulcer; L97.812 Non-pressure chronic ulcer of other part of right lower leg with fat layer exposed; E10.51 Type 1 diabetes mellitus with diabetic peripheral angiopathy without gangrene; E10.40 Type 1 diabetes mellitus with diabetic neuropathy, unspecified; K21.9 Gastro-esophageal reflux disease without esophagitis; Z89.511 Acquired absence of right leg below knee; Z87.891 Personal history of nicotine dependence ==

== ENCOUNTER → 2018-06-22 | Outpatient (CLI) | payer BC | LOC: M.WC 00:39 | DX: E10.621 Type 1 diabetes mellitus with foot ulcer (principal); E11.621 Type 2 diabetes mellitus with foot ulcer; L97.422 Non-pressure chronic ulcer of left heel and midfoot with fat layer exposed; E10.622 Type 1 diabetes mellitus with other skin ulcer; L97.812 Non-pressure chronic ulcer of other part of right lower leg with fat layer exposed; L97.522 Non-pressure chronic ulcer of other part of left foot with fat layer exposed; E10.40 Type 1 diabetes mellitus with diabetic neuropathy, unspecified; E10.51 Type 1 diabetes mellitus with diabetic peripheral angiopathy without gangrene; K21.9 Gastro-esophageal reflux disease without esophagitis; Z89.511 Acquired absence of right leg below knee; Z87.891 Personal history of nicotine dependence ==

== ENCOUNTER → 2018-06-28 | Outpatient (CLI) | payer BC | LOC: M.WC 05:40 | DX: E10.621 Type 1 diabetes mellitus with foot ulcer (principal); L97.421 Non-pressure chronic ulcer of left heel and midfoot limited to breakdown of skin; L97.521 Non-pressure chronic ulcer of other part of left foot limited to breakdown of skin; E10.622 Type 1 diabetes mellitus with other skin ulcer; L97.811 Non-pressure chronic ulcer of other part of right lower leg limited to breakdown of skin; E10.51 Type 1 diabetes mellitus with diabetic peripheral angiopathy without gangrene; E10.40 Type 1 diabetes mellitus with diabetic neuropathy, unspecified; K21.9 Gastro-esophageal reflux disease without esophagitis; Z89.511 Acquired absence of right leg below knee; Z87.891 Personal history of nicotine dependence ==

== ENCOUNTER → 2018-07-05 | Outpatient (CLI) | payer BC | LOC: M.WC 04:54 | DX: T87.89 Other complications of amputation stump (principal); E11.621 Type 2 diabetes mellitus with foot ulcer; L97.421 Non-pressure chronic ulcer of left heel and midfoot limited to breakdown of skin; L97.521 Non-pressure chronic ulcer of other part of left foot limited to breakdown of skin; E11.40 Type 2 diabetes mellitus with diabetic neuropathy, unspecified; K21.9 Gastro-esophageal reflux disease without esophagitis; Z87.891 Personal history of nicotine dependence; Y83.5 Amputation of limb(s) as the cause of abnormal reaction of the patient, or of later complication, without mention of misadventure at the time of the procedure ==

== ENCOUNTER → 2018-07-12 | Outpatient (CLI) | payer BC | LOC: M.WC 05:08 | DX: E10.621 Type 1 diabetes mellitus with foot ulcer (principal); L97.422 Non-pressure chronic ulcer of left heel and midfoot with fat layer exposed; L97.522 Non-pressure chronic ulcer of other part of left foot with fat layer exposed; E10.622 Type 1 diabetes mellitus with other skin ulcer; L97.811 Non-pressure chronic ulcer of other part of right lower leg limited to breakdown of skin; E10.40 Type 1 diabetes mellitus with diabetic neuropathy, unspecified; E10.51 Type 1 diabetes mellitus with diabetic peripheral angiopathy without gangrene; K21.9 Gastro-esophageal reflux disease without esophagitis; Z89.511 Acquired absence of right leg below knee; Z87.891 Personal history of nicotine dependence ==

== ENCOUNTER → 2018-07-19 | Outpatient (CLI) | payer BC | LOC: M.WC 07-18 10:00 | DX: T87.89 Other complications of amputation stump (principal); E10.621 Type 1 diabetes mellitus with foot ulcer; L97.422 Non-pressure chronic ulcer of left heel and midfoot with fat layer exposed; L97.522 Non-pressure chronic ulcer of other part of left foot with fat layer exposed; E10.622 Type 1 diabetes mellitus with other skin ulcer; L97.811 Non-pressure chronic ulcer of other part of right lower leg limited to breakdown of skin; L84 Corns and callosities; E10.51 Type 1 diabetes mellitus with diabetic peripheral angiopathy without gangrene; E10.40 Type 1 diabetes mellitus with diabetic neuropathy, unspecified; K21.9 Gastro-esophageal reflux disease without esophagitis; Z87.891 Personal history of nicotine dependence; Y83.5 Amputation of limb(s) as the cause of abnormal reaction of the patient, or of later complication, without mention of misadventure at the time of the procedure ==

== ENCOUNTER 2018-07-25 20:48 | Emergency (ER) | payer BC ==
[~2018-07-25] VITALS: Ht 177.8 cm; Wt 64.0 kg
[2018-07-25 21:13] LABS: HEMATOCRIT 34.6 % (42.0-52.0); HEMOGLOBIN 11.3 gm/dL (14.0-18.0); MCH 25.7 pg (26.0-34.0); MCHC 32.6 g/dL (28.0-37.0); MCV 78.7 fL (80.0-100.0); MPV 8.6 fl. (7.2-11.1); NUCLEATED RBCS 0 /100WBC; PLATELET COUNT* 374 thou/uL (150-400); RBC 4.39 mil/uL (4.50-6.00); RDW-CV 16.1 % (10.5-14.5); WBC 9.2 thou/uL (4.0-11.0)
[2018-07-25 21:18] LABS: BE 1.5 mmol/L (-2 to +3); PCO2 48.9 mmHg (35.0-45.0); PO2 102.7 mmHg (75.0-100.0); pH 7.366 (7.340-7.450)
[2018-07-25 21:33] LABS: ALKALINE PHOSPHATASE 167 U/L (46-116); ANION GAP 9 mmol/L (7-16); BUN 32 mg/dL (7-18); CALCIUM 9.4 mg/dL (8.5-10.1); CHLORIDE 106 mmol/L (98-107); CO2 26 mmol/L (21-32); CREATININE 1.4 mg/dL (0.6-1.3); MAGNESIUM 2.1 mg/dL (1.8-2.4); SGOT 38 U/L (15-37); SGPT 37 U/L (30-65); SODIUM 141 mmol/L (136-145); TOTAL BILIRUBIN 0.2 mg/dL (<0.1-1.0); TOTAL PROTEIN 7.7 g/dL (6.4-8.2); TROPONIN-I LEVEL <0.06 ng/mL (<0.06)
[2018-07-25 21:35] LABS: POTASSIUM 5.6 mmol/L (3.5-5.1)
[2018-07-25 21:37] LABS: ABSOLUTE EOSINOPHILS 0.2 thou/uL (0.0-0.7); ABSOLUTE LYMPHOCYTES 3.2 thou/uL (0.8-5.3); ABSOLUTE MONOCYTES 0.9 thou/uL (0.0-1.2); ABSOLUTE NEUTROPHILS 4.9 thou/uL (1.6-8.1); PLATELET ESTIMATE ADEQUATE
[2018-07-25 21:42] LABS: GLUCOSE 35 mg/dL (70-99)
[2018-07-26 00:17] VITALS: BP 185/78
--- NOTE | 2018-07-26 11:09 | EKG ---
[place] [address] ELECTROCARDIOGRAM REPORT Name: LON FREED Room: [facility]#: [id number] Admission: 07/25/18 Attend Phys: Discharge: 07/26/18 Date of : 50 Report #: [id number] THIS REPORT FOR: //name// [facility] ED Test Date: 2018-07-25 Test Time: 20:57:11 Pat Name: LON FREED Department: Room: Gender: M Rope Walker: DEZ : 1950 Requested By: Nina Stovall Order Number: [id number] MD: Stanley Bob Measurements Intervals [place] Rate: 67 P: 48 GA: 127 QRS: 41 QRSD: 90 T: 128 QT: 447 QTc: 472 Interpretive Statements Sinus rhythm Posterior infarct, old Borderline repolarization abnormality Baseline wander in lead(s) II,III,aVR,aVF,V5,V6 Compared to ECG 04/20/2018 18:19:41 early transition now noted Electronically Signed On 07-26-2018 11:09:18 CDT by Stanley Bob [email or web address] <ELECTRONICALLY SIGNED> By: Stanley oBb MD, FACC 07/26/18 1109 56 56 Stanley Bob MD, [facility] /EPI
== END 2018-07-26 00:10 | disposition home or self-care (01) ==
LOC: M.ERS 20:48
PROVIDERS: Personal Emergency Response Attendant
DX: E10.649 Type 1 diabetes mellitus with hypoglycemia without coma (principal); E87.6 Hypokalemia; K21.9 Gastro-esophageal reflux disease without esophagitis; G47.30 Sleep apnea, unspecified; I25.10 Atherosclerotic heart disease of native coronary artery without angina pectoris; I12.9 Hypertensive chronic kidney disease with stage 1 through stage 4 chronic kidney disease, or unspecified chronic kidney disease; E10.22 Type 1 diabetes mellitus with diabetic chronic kidney disease; N18.3 Chronic kidney disease, stage 3 (moderate); Z87.01 Personal history of pneumonia (recurrent); Z98.890 Other specified postprocedural states; Z87.891 Personal history of nicotine dependence; Z88.8 Allergy status to other drugs, medicaments and biological substances

== ENCOUNTER → 2018-07-26 | Outpatient (CLI) | payer BC | LOC: M.WC 05:04 | DX: T87.89 Other complications of amputation stump (principal); E10.621 Type 1 diabetes mellitus with foot ulcer; L97.422 Non-pressure chronic ulcer of left heel and midfoot with fat layer exposed; E10.622 Type 1 diabetes mellitus with other skin ulcer; L97.811 Non-pressure chronic ulcer of other part of right lower leg limited to breakdown of skin; L84 Corns and callosities; E10.51 Type 1 diabetes mellitus with diabetic peripheral angiopathy without gangrene; E10.40 Type 1 diabetes mellitus with diabetic neuropathy, unspecified; K21.9 Gastro-esophageal reflux disease without esophagitis; Z87.891 Personal history of nicotine dependence; Y83.5 Amputation of limb(s) as the cause of abnormal reaction of the patient, or of later complication, without mention of misadventure at the time of the procedure ==

== ENCOUNTER → 2018-08-02 | Outpatient (CLI) | payer BC | LOC: M.WC 04:33 | DX: E10.621 Type 1 diabetes mellitus with foot ulcer (principal); L97.421 Non-pressure chronic ulcer of left heel and midfoot limited to breakdown of skin; E10.622 Type 1 diabetes mellitus with other skin ulcer; L97.811 Non-pressure chronic ulcer of other part of right lower leg limited to breakdown of skin; E10.40 Type 1 diabetes mellitus with diabetic neuropathy, unspecified; E10.51 Type 1 diabetes mellitus with diabetic peripheral angiopathy without gangrene; K21.9 Gastro-esophageal reflux disease without esophagitis; Z89.511 Acquired absence of right leg below knee; Z87.891 Personal history of nicotine dependence ==

== ENCOUNTER → 2018-08-09 | Outpatient (CLI) | payer BC | LOC: M.WC 05:18 | DX: T87.89 Other complications of amputation stump (principal); E10.621 Type 1 diabetes mellitus with foot ulcer; L97.421 Non-pressure chronic ulcer of left heel and midfoot limited to breakdown of skin; E10.622 Type 1 diabetes mellitus with other skin ulcer; L97.811 Non-pressure chronic ulcer of other part of right lower leg limited to breakdown of skin; E10.40 Type 1 diabetes mellitus with diabetic neuropathy, unspecified; E10.51 Type 1 diabetes mellitus with diabetic peripheral angiopathy without gangrene; K21.9 Gastro-esophageal reflux disease without esophagitis; Y83.5 Amputation of limb(s) as the cause of abnormal reaction of the patient, or of later complication, without mention of misadventure at the time of the procedure ==

== ENCOUNTER 2018-08-14 10:52 | Inpatient (IN) | payer BC ==
[~2018-08-14] VITALS: Ht 175.3 cm; Wt 70.3 kg
[2018-08-14] VITALS (12 sets, daily range): BP systolic 96–126; BP diastolic 48–57
[2018-08-14] MEDS ORDERED: IRON325 PO (11:06)
[2018-08-14 11:29] LABS: HEMATOCRIT 36.3 % (42.0-52.0); HEMOGLOBIN 10.1 gm/dL (14.0-18.0); MCH 25.6 pg (26.0-34.0); MCHC 27.8 g/dL (28.0-37.0); MCV 92.2 fL (80.0-100.0); MPV 9.9 fl. (7.2-11.1); NUCLEATED RBCS 0 /100WBC; PLATELET COUNT* 332 thou/uL (150-400); RBC 3.93 mil/uL (4.50-6.00); RDW-CV 17.2 % (10.5-14.5); WBC 16.2 thou/uL (4.0-11.0)
[2018-08-14 11:55] LABS: ALBUMIN 3.1 g/dL (3.4-5.0); CALCIUM 8.8 mg/dL (8.5-10.1); CREATININE 3.6 mg/dL (0.6-1.3); TOTAL BILIRUBIN 0.5 mg/dL (<0.1-1.0)
[2018-08-14 12:04] LABS: POTASSIUM 6.4 mmol/L (3.5-5.1)
[2018-08-14 12:05] LABS: TROPONIN-I LEVEL 0.91 ng/mL (<0.06)
[2018-08-14 12:28] LABS: ABSOLUTE NEUTROPHILS 14.3 thou/uL (1.6-8.1); ATYPICAL LYMPHS 1 %
[2018-08-14 12:33] LABS: BURR CELLS 3+; PLATELET ESTIMATE ADEQUATE
[2018-08-14 12:34] LABS: OVALOCYTES Occasional; SCHISTOCYTES 1+
[2018-08-14 12:35] LABS: ANISOCYTOSIS 1+; POIKILOCYTOSIS 3+
[2018-08-14 13:23] LABS: URINE BILIRUBIN NEGATIVE (Negative); URINE BLOOD NEGATIVE (Negative); URINE CLARITY CLEAR; URINE COLOR YELLOW; URINE GLUCOSE-RANDOM 3+ (Negative); URINE KETONES 1+ (Negative); URINE LEUKOCYTES-REFLEX NEGATIVE (Negative); URINE NITRITE-REFLEX NEGATIVE (Negative); URINE PROTEIN 2+ (Negative); URINE SPECIFIC GRAVITY 1.025 (1.005-1.030); URINE UROBILINOGEN 0.2 E.U./dl (0.2-1.0)
[2018-08-14 13:48] LABS: BUN 69 mg/dL (7-18); CALCIUM 8.5 mg/dL (8.5-10.1); CHLORIDE 87 mmol/L (98-107); CREATININE 3.6 mg/dL (0.6-1.3); SODIUM 123 mmol/L (136-145)
[2018-08-14 13:51] LABS: BE -27.2 mmol/L (-2 to +3); PO2 107.2 mmHg (75.0-100.0)
[2018-08-14 13:55] LABS: pH 6.935 (7.340-7.450)
[2018-08-14 13:56] LABS: ANION GAP 31 mmol/L (7-16)
[2018-08-14 13:56] LABS: PCO2 17.1 mmHg (35.0-45.0)
[2018-08-14 13:57] LABS: CO2 < 5 mmol/L (21-32); GLUCOSE 1025 mg/dL (70-99); POTASSIUM 6.8 mmol/L (3.5-5.1)
[2018-08-14 14:14] LABS: BACTERIA-REFLEX None Seen /HPF (None Seen); CASTS None Seen /LPF (None Seen); CRYSTALS None Seen /LPF (None Seen); MUCUS 0-3 Light strn/LPF (None Seen); SQUAMOUS 0-3 Few /LPF (0-3); URINE RBC None Seen /HPF (0-2); URINE WBC-REFLEX None Seen /HPF (0-5)
[2018-08-14 14:30] LABS: CHOLESTEROL 192 mg/dL (<200); HDL CHOLESTEROL 52 mg/dL (>40); LDL CHOLESTEROL 98 mg/dL (<100); SERUM ASSESSMENT Clear; TC:HDL 3.7 Ratio (Not establshd); TRIGLYCERIDE 212 mg/dL (<150); VLDL 42 mg/dL (<40)
[2018-08-14 15:37] LABS: HEMOGLOBIN 9.4 gm/dL (14.0-18.0); MPV 9.8 fl. (7.2-11.1)
[2018-08-14 15:39] LABS: HEMATOCRIT 33.5 % (42.0-52.0); MCH 25.3 pg (26.0-34.0); MCV 90.6 fL (80.0-100.0); RBC 3.7 mil/uL (4.50-6.00); WBC 16.1 thou/uL (4.0-11.0)
--- NOTE | 2018-08-14 15:39 | NUR ---
CONSULTED TO PLACE PIV RELATED TO PT RENAL STATUS HE IS NO A CANDIDATE FOR PICC OR MIDLINE. UNABLE TO PLACE PIV AFTER 4 ATTEMPTS WITH ULTRASOUND. UNABLE TO THREAD CATH. LABS WERE OBTAINED. RECOMMEND TO PRIMARY RN LEFT CENTRAL IJ.
[2018-08-14 15:47] LABS: APTT 25.2 Seconds (25.0-31.3); INR 1.1; PROTIME 11.7 Seconds (9.20-11.50)
[2018-08-14 17:14] LABS: ALBUMIN 2.5 g/dL (3.4-5.0); CALCIUM 7.5 mg/dL (8.5-10.1); CREATININE 3.6 mg/dL (0.6-1.3); MAGNESIUM 1.9 mg/dL (1.8-2.4); PHOSPHORUS* 8.6 mg/dL (2.5-4.9)
[2018-08-14 17:17] LABS: POTASSIUM 5.3 mmol/L (3.5-5.1)
[2018-08-14 17:19] LABS: PO2 113.6 mmHg (75.0-100.0)
[2018-08-14 17:23] LABS: PCO2 18.3 mmHg (35.0-45.0); pH 7.072 (7.340-7.450)
[2018-08-14 17:31] LABS: CREATININE 3.6 mg/dL (0.6-1.3); POTASSIUM 5.3 mmol/L (3.5-5.1)
[2018-08-14 17:32] LABS: CALCIUM 7.5 mg/dL (8.5-10.1)
--- NOTE | 2018-08-14 17:36 | EKG ---
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: MS : 1950 Requested By: Jack Soto Order Number: [id number] MD: Jeovany Salgado Measurements Intervals [place] Rate: 64 P: 66 [place]: 177 QRS: -20 QRSD: 105 T: 87 QT: 482 QTc: 498 Interpretive Statements Sinus rhythm Possible left atrial enlargement Borderline left axis deviation Possible anteroseptal infarct, recent Compared to ECG 07/25/2018 20:57:11 No significant changes Electronically Signed On 08-14-2018 17:35:54 CDT by Jeovany Salgado [email or web address] <ELECTRONICALLY SIGNED> By: Jeovany Salgado MD, FACC 08/14/18 1735 1104 1104 Jeovany Salgado MD, [facility] /EPI
--- NOTE | 2018-08-14 18:50 | NUR ---
BLADDER SCAN DONE FOR UROLOGY. RESIDUAL AMOUNT=71
--- NOTE | 2018-08-14 20:10 | NUR ---
DR. GUZMAN HERE FROM UROLOGY TO INSERT BARRAGAN CATHETER. PROCEDURE IN PROGRESS AT THIS TIME.
--- NOTE | 2018-08-14 20:48 | NUR ---
PT ARRIVED TO ROOM 004 VIA CART FROM ED AT 1400. PT DROWSY ON ADMISSION BUT ABLE TO FOLLOW COMMANDS. NEPHROLOGY CONSULT CALLED AND ALL CRITICALS VERBALIZED TO MD. PLEASE SEE ORDERS IN CHART. ORDERED NOT TO GIVE BICARB BY NEPHROLOGY UNTIL THEY ORDERED IT. POTASSIUM STILL REMAINS ELEVATED. LABS TO BE REDRAWN AT 2100. HEPARIN DRIP INITIATED AND APTT TO BE DRAWN AT 2300. HEPARIN BOLUS OF 4000 GIVEN AND DRIP STARTED AT 872 PER PROTOCOL. UROLOGY CONSULT CALLED. RN X2 UNABLE TO GET CATHETER OR COUDE. UROLOGIST WAS ABLE TO PLACE A 16 NAMIBIAN COUDE WITH SOME URINE DRAINING. NO COMPLAINTS OF PAIN. CENTRAL LINE PLACED PATIENT ONLY CAME OVER FROM ER WITH 1 EJ. SEPSIS PROTOCOL INITIATED AND FLUIDS GIVEN PER MD ORDER.
[2018-08-14 20:55] LABS: CALCIUM 7.5 mg/dL (8.5-10.1); CREATININE 3.8 mg/dL (0.6-1.3); POTASSIUM 4.5 mmol/L (3.5-5.1)
[2018-08-14 21:00] LABS: ALBUMIN 2.5 g/dL (3.4-5.0); MAGNESIUM 1.8 mg/dL (1.8-2.4)
[2018-08-14 21:01] LABS: TROPONIN-I LEVEL 50.31 ng/mL (<0.06)
[2018-08-15] VITALS (24 sets, daily range): BP systolic 118–158; BP diastolic 53–83
[2018-08-15 02:05] LABS: CALCIUM 7.7 mg/dL (8.5-10.1); CREATININE 3.9 mg/dL (0.6-1.3); POTASSIUM 3.7 mmol/L (3.5-5.1)
[2018-08-15 02:08] LABS: ALBUMIN 2.5 g/dL (3.4-5.0); MAGNESIUM 1.6 mg/dL (1.8-2.4)
[2018-08-15 05:57] LABS: ALBUMIN 2.6 g/dL (3.4-5.0); CALCIUM 7.3 mg/dL (8.5-10.1); CREATININE 3.7 mg/dL (0.6-1.3); POTASSIUM 3.7 mmol/L (3.5-5.1); TOTAL BILIRUBIN 0.2 mg/dL (<0.1-1.0)
[2018-08-15 06:31] LABS: TROPONIN-I LEVEL 124.39 ng/mL (<0.06)
--- NOTE | 2018-08-15 06:32 | NUR ---
PT'S ANION GAP CLOSED, ELECTROLYTES MOSTLY NORMALIZED. SINUS RHYTHM ON MONITOR. TROPONIN CONTINUES TO INCREASE, DR. CANTRELL. DENIES CHEST PAIN. HEPARIN GTT THERAPEUTIC, PTT RECHECK IN THE A.M. 175CC OUT OF BARRAGAN CATHETER. LARGE BOWEL MOVEMENT, CONTINENT. INSULIN GTT DOWN TO 0.5 UNITS/HR. D5NS INFUSING AT 150CC/HR. CALL LIGHT IN REACH, WILL CONTINUE TO MONITOR.
[2018-08-15 08:31] LABS: HEMATOCRIT 26.9 % (42.0-52.0); HEMOGLOBIN 8.6 gm/dL (14.0-18.0); MCH 25.2 pg (26.0-34.0); MPV 9.2 fl. (7.2-11.1); RBC 3.42 mil/uL (4.50-6.00); WBC 21.1 thou/uL (4.0-11.0)
[2018-08-15 08:33] LABS: MCV 78.6 fL (80.0-100.0)
--- NOTE | 2018-08-15 11:11 | NUR ---
PT.SEEN. AT BEDSIDE. KNOWN TO CM FROM OTHER ADMISSIONS. HE HAS A WC AND RECEIVED A PROTHESIS IN MAR. BUT SINCE, HAS DEVELOPED A SORE TO STUMP-RBKA AND A SORE TO HIS L HEEL. HAS HAD [facility] IN THE PAST FOR HOME HEALTH . HE ALSO FOLLOWS IN THE WOUND CARE CENTER. PT.SAYS HE 'DOES ALRIGHT, AT HOME. HELPS ME'. NURSING FEELS HE WILL BE MED/SURG STATUS LATER TODAY. CM WILL FOLLOW.
[2018-08-15 11:40] LABS: ALBUMIN 2.4 g/dL (3.4-5.0); CALCIUM 7.7 mg/dL (8.5-10.1); CREATININE 3.6 mg/dL (0.6-1.3); MAGNESIUM 1.6 mg/dL (1.8-2.4); PHOSPHORUS* 5.4 mg/dL (2.5-4.9)
--- NOTE | 2018-08-15 12:31 | NUR ---
Nutrition: Pt admitted for DKA, now resolved. Wound consult for open wounds on stump and heel. Consult to RD received stating "?" Pt is type DM. RX noted. Wt: 180#. CHO controlled diet. BG 127, alb 2.4, prealb 18.3. No nutrition interventions today. Will follow per protocol, 08/18/18. Mild risk.
--- NOTE | 2018-08-15 12:41 | 2DMMODE ---
[place] [address] 2 D/M-MODE ECHOCARDIOGRAM Name: LON FREED Room: [facility]#: [id number] Admission: 08/14/18 Attend Phys: Celine Walker, Discharge: Date of : 50 Date of Service: 08/15/18 1241 Report #: [id number] THIS REPORT FOR: //name// APPROVED REPORT Study performed: 08/15/2018 10:09:18 EXAM: Comprehensive 2D, Doppler, and color-flow Echocardiogram Patient Location: In-Patient Room #: [facility] Status: routine BSA: 1.98 HR: 74 bpm BP: 141/69 mmHg Rhythm: NSR Other Information Study Quality: Good Indications Diabetes Non STEMI 2D Dimensions IVSd: 11.75 (7-11mm) LVOT Diam: 19.20 (18-24mm) LVDd: 48.08 mm PWd: 11.18 (7-11mm) Ascending Ao: 28.15 (22-36mm) LVDs: 28.09 (25-40mm) Aortic Root: 33.39 mm Volumes Left Atrial Volume (Systole) LA ESV Index: 32.00 mL/m2 Aortic Valve AoV Peak Carlos.: 1.42 m/s AO Peak Gr.: 8.08 mmHg LVOT Max P.66 mmHg AO Mean Gr.: 4.68 mmHg LVOT Mean P.55 mmHg LVOT Max V: 0.96 m/s AO V2 VTI: 26.96 cm LVOT Mean V: 0.55 m/s YUKI (VTI): 2.08 cm2 LVOT V1 VTI: 19.34 cm Mitral Valve E/A Ratio: 1.63 MV Decel. Time: 142.96 [place] [address] 2 D/M-MODE ECHOCARDIOGRAM Name: LON FREED Room: [address] IN .R.#: [id number] Admission: 08/14/18 Attend Phys: Celine Walker, Discharge: Date of : 50 Date of Service: 08/15/18 1241 Report #: [id number] MV E Max Carlos.: 1.31 m/s MV PHT: 41.46 ms MVA (PHT): 5.31 cm2 TDI E/Lateral E': 21.83 E/Medial E': 16.38 Medial E' Carlos.: 0.08 m/s Lateral E' Carlos.: 0.06 m/s Pulmonary Valve PV Peak Carlos.: 0.66 m/s PV Peak Gr.: 1.76 mmHg Tricuspid Valve RAP Estimate: 5.00 mmHg TR Peak Gr.: 32.16 mmHg RVSP: 37.00 mmHg PA Pressure: 37.00 mmHg Left Ventricle The left ventricle is normal size. There is normal LV segmental wall motion. Mild concentric left ventricular hypertrophy. Left ventricular systolic function is normal. LVEF is 60-65%. Transmitral Doppler flow pattern suggests restrictive physiology. Right Ventricle The right ventricle is normal size. The right ventricular systolic function is normal. Atria The left atrium size is normal. The right atrium size is normal. Aortic Valve Mild aortic valve sclerosis. No aortic regurgitation is present. There is no aortic valvular stenosis. Mitral Valve There is mitral annular calcification. Mild mitral regurgitation. No evidence of mitral valve stenosis. Tricuspid Valve The tricuspid valve is normal in structure. Trace tricuspid regurgitation. Mild pulmonary hypertension. Pulmonic Valve The pulmonary valve is normal in structure. There is no pulmonic [place] [address] 2 D/M-MODE ECHOCARDIOGRAM Name: LON FREED Room: [address] IN [facility]#: [id number] Admission: 08/14/18 Attend Phys: Celine Walker, Discharge: Date of : 50 Date of Service: 08/15/18 1241 Report #: [id number] Great Vessels The aortic root is normal in size. IVC is normal in size and collapses >50% with inspiration. Pericardium There is no pericardial effusion. <Conclusion> The left ventricle is normal size. Mild concentric left ventricular hypertrophy. Left ventricular systolic function is normal. LVEF is 60-65%. Transmitral Doppler flow pattern suggests restrictive physiology. Mild aortic valve sclerosis. There is mitral annular calcification. Mild mitral regurgitation. Trace tricuspid regurgitation. Mild pulmonary hypertension. <ELECTRONICALLY SIGNED> By: Jeovany Salgado MD, FACC 08/15/18 1241 1241 1241 Jeovany Salgado MD, FACC /INF
--- NOTE | 2018-08-15 12:58 | EKG ---
[place] [address] ELECTROCARDIOGRAM REPORT Name: LON FREED Room: [address] ADM IN M.R.#: [id number] Admission: 08/14/18 Attend Phys: Celine Walker MD Discharge: Date of : 50 Report #: [id number] THIS REPORT FOR: //name// Test Date: 2018-08-15 Test Time: 08:10:39 Pat Name: LON FREED Department: Room: [address] Gender: M Chronic Care Nurse: : 1950 Requested By: Kathy Simpson Order Number: [id number] Refugio MD: Jeovany Salgado Measurements Intervals [place] Rate: 70 P: 55 [place]: 123 QRS: 38 QRSD: 87 T: 231 QT: 407 QTc: 440 Interpretive Statements Sinus rhythm Left ventricular hypertrophy with repolarization abnormality, cannot rule out ischemia Compared to ECG 08/14/2018 11:04:02 Early repolarization now present Possible ischemia now present Myocardial infarct finding no longer present Electronically Signed On 08-15-2018 12:58:07 CDT by Jeovany Salgado [email or web address] <ELECTRONICALLY SIGNED> By: Jeovany Salgado MD, FAC 08/15/18 1258 0810 0810 Jeovany Salgado MD, [facility] /EPI
--- NOTE | 2018-08-15 12:59 | NUR ---
WOUND CARE NOTE: CONSULT FOR WOUND ON RIGHT STUMP PT HAD RIGHT BKA APPROX 1 YEAR AGO. PT STATES HE HAS BEEN "FIGHTING" A WOUND SINCE. PT ALSO HAS PRESSURE WOUND TO LEFT HEEL HE HAS HAD FOR SEVERAL MONTHS. PT CURRENTLY GOES TO ON TUE AND HAS HH ON MON/FRI. BOTH LE HAD DRESSINGS IN PLACE. RIGHT STUMP ULCER IS PINK, BLANCHES, HEALING, NO DRAINAGE, HAS SOME PEELING SKIN TO LARY WOUND. IT MEASURES 1.0X3.0X0.2. RIGHT OUTER ANKUR PROMINANCE OF ANKLE HAS STAGE 1 PRESSURE ULCER. NO DRAINAGE, MEASURES 2.1X2.0X0.0. LEFT HEEL STAGE 2 PRESSURE ULCER MEASURES 1.0X1.0X0.2. IT HAD SMALL AMOUNT OF DRIED, BROWN DRAINAGE TO OLD DRESSING. LARY WOUND DRY, HEALING, APPROXIMATED WELL. LEFT TOP OF FOOT STAGE 1 PRESSURE ULCER MEASURES 0.7X1.0X0.0. NON BLANCHING, RED BLANCABLE LARY WOUND. LEFT GREAT TOE HAS SMALL ULCERATION MEASURING 0.3X1.5X0.0 BANCHING, NO DRAINAGE. BILAT LE WERE CLEANSED WITH WOUND CLEASER, PATTED DRY. RIGHT STUMP AND LEFT HEEL COVERED WITH AQUACEL AG. RIGHT ANKLE COVERED WITH 3X3 BOARDERED FOAM, LEFT TOP OF FOOT COVERED WITH 3X3 BOARDERED FOAM. BILAT LE WRAPPED WITH KERLIX AND AGE BANDAGE. PT TOLERED WELL WITH MINIMAL PAIN AND WAS ABLE TO PARTICIPATE IN DRESSING CHANGE BY HOLING LEGS UP. RECOMEND: DRESSING CHANGE M/W/F AND PRN. OFF LOAD LEFT HEEL WITH BOOT FROM HOME OFF LOADING SPECIALTY BED. TURN Q2 HR. GOOD NUTRITION FOR HEALING TIGHT BLOOD SUGAR CONTROL PT EDUCATED TO REPOSITION OFTEN AND ENCOURAGED GOOD NUTRITION WHEN ABLE TO EAT. PT VERBALIZED UNDERSTANDING.
--- NOTE | 2018-08-15 17:51 | NUR ---
PT ASSESSMENT CHARTED. VSS. PT STATUS TO CC TELE. DKA PROTOCOL STOPPED THIS MORNING. ADVANCED DIET TO CARB CONTROLLED AND ACHS SLIDING SCALE INSULIN ADDED. PT COMPLAINING OF EXCESSIVE NAUSEA THAT COMES AND GOES. NEW ORDERS RECEIVED AND SEEM TO HELP PATIENT MORE THAN THE ZOFRAN. WOUND CARE CONSULTED AND PICTURES TAKEN OF LOWER EXTREMITY AND STUMP. NEW BANDAGES PLACED ON WOUNDS BY WOUND CARE. Q2H TURNS TO MAINTAIN SKIN INTEGRITY. PT DOES NOT HAVE MUCH FOR AN APPETITE AND ONLY TOOK A FEW BITES OF APPLESAUCE. NO OTHER COMPLAINTS DURING THE SHIFT.
[2018-08-16] VITALS (16 sets, daily range): BP systolic 145–197; BP diastolic 66–104
[2018-08-16 05:30] LABS: HEMATOCRIT 25.9 % (42.0-52.0); HEMOGLOBIN 8.5 gm/dL (14.0-18.0); MCH 25.8 pg (26.0-34.0); MCHC 32.8 g/dL (28.0-37.0); MCV 78.8 fL (80.0-100.0); MPV 9.2 fl. (7.2-11.1); RBC 3.29 mil/uL (4.50-6.00); RDW-CV 16.5 % (10.5-14.5); WBC 15.2 thou/uL (4.0-11.0)
[2018-08-16 06:14] LABS: ALBUMIN 2.3 g/dL (3.4-5.0); CALCIUM 7.2 mg/dL (8.5-10.1); CREATININE 3.5 mg/dL (0.6-1.3); MAGNESIUM 1.6 mg/dL (1.8-2.4); POTASSIUM 4.5 mmol/L (3.5-5.1); TOTAL BILIRUBIN 0.2 mg/dL (<0.1-1.0); TOTAL PROTEIN 5.7 g/dL (6.4-8.2)
[2018-08-16 06:17] LABS: TROPONIN-I LEVEL 33.25 ng/mL (<0.06)
--- NOTE | 2018-08-16 06:47 | NUR ---
No acute changes overnight, Heparin held at 0615 per protocol Aptt 91 this am. Heparin to resume at a new rate after an hour, will report to oncoming nurse. Heparin flowsheet updated. Troponins trending dowm ,pt denies chest pain/discomfort. Urine output 425 cc.
[2018-08-16 13:37] LABS: ABSOLUTE BASOPHILS 0.1 thou/uL (0.0-0.2); ABSOLUTE LYMPHOCYTES 0.6 thou/uL (0.8-5.3); ABSOLUTE MONOCYTES 0.9 thou/uL (0.0-1.2); ABSOLUTE NEUTROPHILS 14.1 thou/uL (1.6-8.1); BASOPHILS 0.4 %; HEMATOCRIT 26.2 % (42.0-52.0); HEMOGLOBIN 8.7 gm/dL (14.0-18.0); LYMPHOCYTES 3.6 %; MCV 78.6 fL (80.0-100.0); MONOCYTES 5.6 %; MPV 8.8 fl. (7.2-11.1); NUCLEATED RBCS 0 /100WBC; PLATELET COUNT* 222 thou/uL (150-400); POLYS 90.4 %; RBC 3.34 mil/uL (4.50-6.00); RDW-CV 16.7 % (10.5-14.5); WBC 15.5 thou/uL (4.0-11.0)
[2018-08-16 13:48] LABS: ALBUMIN 2.3 g/dL (3.4-5.0); ALKALINE PHOSPHATASE 126 U/L (46-116); ANION GAP 14 mmol/L (7-16); BUN 64 mg/dL (7-18); CALCIUM 7.3 mg/dL (8.5-10.1); CHLORIDE 101 mmol/L (98-107); CO2 19 mmol/L (21-32); CREATININE 3.5 mg/dL (0.6-1.3); GLUCOSE 163 mg/dL (70-99); PHOSPHORUS* 5.7 mg/dL (2.5-4.9); SGOT 59 U/L (15-37); SGPT 60 U/L (30-65); SODIUM 134 mmol/L (136-145); TOTAL BILIRUBIN 0.1 mg/dL (<0.1-1.0); TOTAL PROTEIN 5.8 g/dL (6.4-8.2)
[2018-08-16 13:53] LABS: POTASSIUM 3.5 mmol/L (3.5-5.1)
--- NOTE | 2018-08-16 14:38 | CON ---
[address] [address] CONSULTATION Name: LON FREED Room: [address] ADM IN M.R.#: [id number] Admission: 08/14/18 Attend Phys: Celine Walker MD Discharge: Date of : 50 Report #: [id number] THIS REPORT FOR: //name// CC: Terrell Walker DATE OF SERVICE: 08/14/2018 REQUESTING PHYSICIAN: Celine Solo MD REASON FOR CONSULTATION: Metabolic acidosis due to diabetic ketoacidosis and acute kidney injury on top of the chronic kidney disease stage 3. HISTORY OF PRESENT ILLNESS: The patient is very unfortunate 68-year-old gentleman, with medical history significant for very brittle diabetes mellitus type 2. Spoke to his and she says ____ is having problems correcting his sugar and he is easily goes from the very high sugar to very low sugar. The patient presents on 08/14/2018 with the complaints of nausea and vomiting for the last couple of days. When he was evaluated in the Emergency Room, he was found to be in diabetic ketoacidosis with a blood sugar over 1000. Potassium 6.4 and creatinine 3.6, very low bicarbonate level. Admitted to the ICU, started on IV fluids and insulin drip. PAST MEDICAL HISTORY: 1. Brittle diabetes mellitus type 1. 2. Chronic kidney disease stage 3. 3. Coronary artery disease. 4. Right below knee amputation. FAMILY HISTORY: Noncontributory in this situation. SOCIAL HISTORY: No tobacco abuse now, but used to smoke cigarettes. Denies use of alcohol or recreational drugs. MEDICATIONS: Prior to admission reviewed. He was on insulin, losartan, amlodipine. REVIEW OF SYSTEMS: Positive for some nausea, not feeling well, weakness. Denies chest pain, denies fever or chills. Rest of the systems reviewed and negative. PHYSICAL EXAMINATION: GENERAL: He [place] [address] CONSULTATION Name: LON FREED Room: [address] [facility].#: [id number] Admission: 08/14/18 Attend Phys: Celine Walker MD Discharge: Date of : 50 Report #: [id number] VITAL SIGNS: Blood pressure is 98/50, heart rate 58. Afebrile. HEENT: Pupils are round. NECK: Supple. Oral mucosa dry. LUNGS: Clear. CARDIOVASCULAR: Regular rate. ABDOMEN: Soft. EXTREMITIES: Lower extremities, no edema. He has right below knee amputation. LABORATORY DATA: Serum sodium 128, potassium 6.8, chloride 87, CO2 less than 5, BUN 69 and creatinine 3.6. ASSESSMENT: 1. Acute kidney injury due to volume depletion. 2. Chronic kidney disease stage 3. 3. Diabetic ketoacidosis. 4. Coronary artery disease. PLAN: 1. Continue with normal saline and insulin drip. I am rechecking his pH and chemistries. Holding temporarily bicarbonate drip. If pH is above 7 and potassium is better, we will stop bicarbonate drip. If pH is worse, we will give him some bicarbonate drip and continue with NS and insulin drip as well. Thank you very much for asking my opinion on the patient's acute kidney injury and acidosis. <ELECTRONICALLY SIGNED> By: Mac Orlando MD 08/16/18 1438 1651 0054Alexmariangel Orlando MD /[facility]
--- NOTE | 2018-08-16 17:53 | NUR ---
PATIENT SOMEWHAT PROGRESSING TOWARDS GOALS TODAY. REAMINS TELE STATUS. NAUSEA WENT AWAY UNTIL THIS EVENING, PATIENT REFUSING MEIDCATION AT THIS TIME TO TREAT NAUSEA AND VOMITTING. SMALL AMOUNTS OF VOMITTING. SUGARS ARE CONTINUING TO STAY IN THE 50S EVEN AFTER DEXTROSE PUSH AND MULTIPLE CONTAINERS OF JUICE AND CRACKERS. PAGED SPECIAL DIET COOK PHSYCIAN. PATIENT CLAMMY AND LETHARGIC. NO PAIN AT THIS TIME. VITALS REMAIN WITHIN NORMAL LIMITS. AT BEDSIDE. POOR APPETITE THIS SHIFT WELL. INCREASING URINE OUTPUT. REMAINS ON HEPARIN GTT PER CARDIOLOGY, POSSIBLE CATH IN FUTURE. BED IN LOWEST POSITION, WILL RECHECK SUGAR AT 1800. CALL LIGHT IN REACH. CLAY MODELER IN PLACE.
--- NOTE | 2018-08-16 18:41 | NUR ---
1/2 NS FLUIDS ON HOLD WHILE 500MLS OF DEXTROSE INFUSES OVERNIGHT PER DR PLUMMER.
[2018-08-17] VITALS (10 sets, daily range): BP systolic 138–186; BP diastolic 69–121
[2018-08-17 04:36] LABS: HEMATOCRIT 26.5 % (42.0-52.0); HEMOGLOBIN 8.8 gm/dL (14.0-18.0); MCHC 33.2 g/dL (28.0-37.0); MCV 78.3 fL (80.0-100.0); MPV 9.2 fl. (7.2-11.1); RBC 3.39 mil/uL (4.50-6.00); RDW-CV 16.8 % (10.5-14.5); WBC 13.4 thou/uL (4.0-11.0)
[2018-08-17 05:05] LABS: ALBUMIN 2.3 g/dL (3.4-5.0); CALCIUM 7.4 mg/dL (8.5-10.1); MAGNESIUM 1.5 mg/dL (1.8-2.4); POTASSIUM 3.6 mmol/L (3.5-5.1); TOTAL BILIRUBIN 0.2 mg/dL (<0.1-1.0); TOTAL PROTEIN 5.8 g/dL (6.4-8.2)
--- NOTE | 2018-08-17 06:28 | NUR ---
PT. HAS BEEN NAUSEATED THROUGHOUT SHIFT, ZOFRAN AND PHENERGAN GIVEN PER PRN ORDER. COLD WASHCLOTH PROVIDED. NO EMESIS NOTED, SPITTING UP PHLEGM. HYPERTENSIVE, HYDRALAZINE GIVEN PER PRN ORDER, WNL AT THIS TIME. BARRAGAN CATHETER. SINUS RHYTHM. PT. REFUSED TO BE BATHED, HAD TO HAVE LONG DISCUSSION FOR HIM TO ALLOW THIS RN TO CHANGE LINENS. DRAWSHEET AND CHUX CHANGED. PTT 43.9, HEPARIN GTT INCREASED TO 954 UNITS/HR. CALL LIGHT WITHIN REACH, WILL CONTINUE TO MONITOR.
--- NOTE | 2018-08-17 10:20 | NUR ---
SPOKE WITH OUTSIDE OF ROOM. SAID SHE HAS NO QUESTIONS ABOUT PLAN OF CARE. SHE SAID 'IT HAS BEEN A LONG YEAR, SURGERY, WOUND CENTER APPTS, HBO, JUST CAN'T GET THE BLOOD SUGARS UNDER CONTROL.' PT NORMALLY IS ABLE TO TRANSFER INTO HIS WHEELCHAIR, GETS AROUND THE HOUSE IN THAT. PLANS FOR PT TO RETURN HOME, SHE IS ABLE TO BE THERE WITH HIM. CASE MGT WILL CONTINUE TO FOLLOW.
--- NOTE | 2018-08-17 19:20 | NUR ---
PATIENT RESTING AT THIS TIME, FENTANYL GIVEN FOR SEVERE STOMACH PAIN, HELPING. WAITING FOR DR ALDANA TO UPDATE HER AFTER EGD THIS AFTERNOON. STILL NOT EATING WELL. PPN STARTED THIS SHIFT AND TPN TO START TONIGHT. NO NASUEA AT THIS TIME. SUGARS BETTER MAINTAINED TODAY. BED IN LOWEST POSITION, CALL LIGHT IN REACH, SAP DATA ARCHITECT IN PLACE. WILL CONTINUE TO MONITOR.
[2018-08-18] VITALS (26 sets, daily range): BP systolic 112–191; BP diastolic 56–96
--- NOTE | 2018-08-18 03:25 | NUR ---
PT. HAS BEEN VERY WITHDRAWN THIS SHIFT. STATING HE "JUST DOESN'T WANT TO BE BOTHERED". REFUSED BATH. REFUSED LINEN CHANGE. WILL CONTINUE TO MONITOR.
[2018-08-18 04:18] LABS: HEMATOCRIT 26.7 % (42.0-52.0); HEMOGLOBIN 8.8 gm/dL (14.0-18.0); MCH 25.9 pg (26.0-34.0); MCHC 33.1 g/dL (28.0-37.0); MCV 78.4 fL (80.0-100.0); MPV 9.6 fl. (7.2-11.1); NUCLEATED RBCS 0 /100WBC; PLATELET COUNT* 204 thou/uL (150-400); RBC 3.41 mil/uL (4.50-6.00); RDW-CV 16.7 % (10.5-14.5); WBC 13.1 thou/uL (4.0-11.0)
[2018-08-18 04:30] LABS: PREALBUMIN 15.5 mg/dL (18.0-35.7)
[2018-08-18 04:31] LABS: ALBUMIN 2.2 g/dL (3.4-5.0); CALCIUM 7.8 mg/dL (8.5-10.1); CREATININE 2.6 mg/dL (0.6-1.3); POTASSIUM 3.8 mmol/L (3.5-5.1); TOTAL BILIRUBIN 0.2 mg/dL (<0.1-1.0); TOTAL PROTEIN 5.8 g/dL (6.4-8.2)
[2018-08-18 04:41] LABS: ALBUMIN 2.2 g/dL (3.4-5.0); CALCIUM 7.7 mg/dL (8.5-10.1); CREATININE 2.6 mg/dL (0.6-1.3); MAGNESIUM 1.6 mg/dL (1.8-2.4); PHOSPHORUS* 5.1 mg/dL (2.5-4.9); POTASSIUM 3.8 mmol/L (3.5-5.1)
[2018-08-18 04:43] LABS: ABSOLUTE LYMPHOCYTES 0.7 thou/uL (0.8-5.3); ABSOLUTE MONOCYTES 0.7 thou/uL (0.0-1.2); ABSOLUTE NEUTROPHILS 11.8 thou/uL (1.6-8.1); ANISOCYTOSIS 1+; PLATELET ESTIMATE ADEQUATE; POLYCHROMASIA 1+
[2018-08-18 04:44] LABS: OVALOCYTES 1+; POIKILOCYTOSIS Occasional
[2018-08-18 05:21] LABS: ESR (SEDRATE) 28 mm/hr (0-20)
--- NOTE | 2018-08-18 15:11 | CON ---
[address] [address] CONSULTATION Name: LON FREED Room: [address] IN M.R.#: [id number] Admission: 08/14/18 Attend Phys: Celine Walker MD Discharge: Date of : 50 Report #: [id number] THIS REPORT FOR: //name// CC: Terrell Walker DATE OF SERVICE: 08/14/2018 UROLOGY CONSULT NOTE AND PROCEDURE NOTE REFERRING PHYSICIAN: Dr. Walker CONSULTING PHYSICIAN: Asaf Arvizu MD REASON FOR CONSULTATION: Diabetic ketoacidosis with a low urine output. Nursing staff unable to place Moody. HISTORY OF PRESENT ILLNESS: This is a 68-year-old gentleman admitted for diabetic ketoacidosis. He has been in and out of the hospital several times for this. His blood sugars have been uncontrolled. He was admitted to ICU for resuscitation. Unfortunately, he has had minimal urine output while in the ICU and the nursing staff attempted to place Moody catheter for close urine output monitoring. Unfortunately, they were unable to do so successfully after several attempts. Urology was consulted for evaluation and possible catheter placement. The patient has a history of gross hematuria with clot retention in January 2018. This is suspected to be due to a traumatic Moody catheter placement. His urine did clear up. He denies any other urologic history. He did not follow up with Urology as recommended. He does note some spraying and decreased force of stream over the past few months. Denies any fevers or chills. No dysuria. PAST MEDICAL HISTORY: Diabetic, hypercholesterolemia. MEDICATIONS: Losartan, dicyclomine, aspirin, metoclopramide, insulin, metoprolol, omeprazole, sertraline, diphenoxylate, amlodipine, ascorbic acid, iron sulfate. PAST SURGICAL HISTORY: Carpal tunnel surgery, tonsillectomy, back surgery, coronary artery stents, right yutja-dby-bzra amputation, chronic kidney disease. FAMILY HISTORY: Positive for diabetes. SOCIAL HISTORY: Former smoker. Denies any alcohol use. REVIEW OF SYSTEMS: CONSTITUTIONAL: He has had some decreased appetite, malaise and weakness. [place] [address] CONSULTATION Name: LON FREED Room: [address] IN [facility]#: [id number] Admission: 08/14/18 Attend Phys: Celine Walker MD Discharge: Date of : 50 Report #: [id number] EYES: No symptoms reported. HENT: No symptoms reported. RESPIRATORY: He has had a cough. Denies any shortness of breath. CARDIOVASCULAR: No symptoms reported. GENITOURINARY: See HPI. Otherwise, negative. Remainder of his review of systems was reviewed and unremarkable. PHYSICAL EXAMINATION: VITAL SIGNS: Temperature 36.4, heart rate 58, respiratory rate 14, blood pressure 98/50. GENERAL: He is alert and oriented x 3, in no apparent distress. HEENT: Normocephalic, atraumatic. NECK: Supple. LUNGS: Clear. HEART: Regular rate and rhythm. ABDOMEN: Soft, nontender, nondistended. BACK: No CVA tenderness. EXTREMITIES: He has got a right mahsc-iev-nvyz amputation. Left extremity is unremarkable with no edema or clubbing. GENITOURINARY: He has got an uncircumcised phallus, easily retractable foreskin. Scrotum is intact without any masses. No testicular masses. Bilateral testicles are normal. NEUROLOGIC: Cranial nerves 2 through 12 are intact. LABORATORY DATA: White count 16.1, hemoglobin 9.4, platelets 371. Urinalysis negative for red blood cells, negative for white blood cells, glucose 3+. Sodium 128, potassium 5.3, BUN 68, creatinine 3.6. PROCEDURE IN DETAIL: The patient's genitals were prepped and draped in a standard sterile fashion. 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 The patient had moderate discomfort with the 20-Sri Lankan dilator, so dilation was stopped at that point. A 16-Sri Lankan coude catheter was then easily passed into the bladder. Approximately 30 mL of dark elizabeth urine was immediately returned. A 10 mL of sterile water was placed in the balloon and the catheter was placed to dependent drainage. ASSESSMENT AND PLAN: Fossa navicularis stricture. Moody catheter was placed after dilation at the bedside. Continue Moody as needed for urine output monitoring. May discontinue Moody when the patient is stable. Call for assistance with voiding trial if needed. [address] [address] CONSULTATION Name: LON FREED Room: [address] IN M.R.#: [id number] Admission: 08/14/18 Attend Phys: Celine Walker MD Discharge: Date of : 50 Report #: [id number] We will sign off for now. Thank you for this consult. Would recommend followup with Urology in 3-4 weeks after discharge to make sure that he is voiding comfortably. <ELECTRONICALLY SIGNED> By: Asaf Arvizu MD 08/18/18 1511 22 [id number] Arvizu MD /nt
--- NOTE | 2018-08-18 15:20 | NUR ---
PT IS ALERT AND ORIENTED X4 BUT DROWSY. HE HAS WHEEZING, O2 SATS RANGING FROM 88-91% IN HFC 13L/M. PHYSICIAN NOTIFIED, LASIX 20MG GIVEN AND BREATHING TREATMENTS ADDED. NO SIGNIFICANT IMPROVEMENTS NOTED. FURTHER ORDERS RECEIVED FOR CXR AND ABG.
[2018-08-18 16:31] LABS: BE -6.2 mmol/L (-2 to +3); PCO2 44.5 mmHg (35.0-45.0)
[2018-08-18 16:35] LABS: PO2 38.9 mmHg (75.0-100.0); pH 7.278 (7.340-7.450)
[2018-08-18 17:07] LABS: GLYCOHEMOGLOBIN (HGB A1C) 9.5 % (4.8-5.6)
--- NOTE | 2018-08-18 18:39 | NUR ---
PATIENT SAT UP TO THE EDGE OF THE BED FOR 15 MINUTES, VERY WEAK AND NEEDED PILLOWS FOR SUPPORT. SPONGE BATH PROVIDED. CXR AND ABG RESULTS RECEIVED, PROVIDER NOTIFIED AND RECEIVED ORDERS. PULMONARY NOTIIFIED TOO, AWARE ABOUT THE PATIENT'S STATUS. 02 SATS 90-95% IN HFC. REPOSIITONING Q2H. HE HAS VERY POOR APPETITE. TPN CONTINUED AT 35 MLS/HR. HEPARIN AT 954 U/HR.
[2018-08-19 04:16] LABS: HEMOGLOBIN 8.1 gm/dL (14.0-18.0); MCH 26.3 pg (26.0-34.0); MCHC 33.7 g/dL (28.0-37.0); MCV 78.2 fL (80.0-100.0); MPV 9.6 fl. (7.2-11.1); RBC 3.06 mil/uL (4.50-6.00); RDW-CV 16.5 % (10.5-14.5); WBC 11.4 thou/uL (4.0-11.0)
[2018-08-19 04:55] LABS: ALBUMIN 1.9 g/dL (3.4-5.0); CALCIUM 8.1 mg/dL (8.5-10.1); CREATININE 2.5 mg/dL (0.6-1.3); MAGNESIUM 1.8 mg/dL (1.8-2.4); POTASSIUM 3.3 mmol/L (3.5-5.1); TOTAL BILIRUBIN 0.3 mg/dL (<0.1-1.0); TOTAL PROTEIN 5.5 g/dL (6.4-8.2)
[2018-08-19 06:27] LABS: BE -5.2 mmol/L (-2 to +3); PCO2 40.3 mmHg (35.0-45.0); PO2 72.5 mmHg (75.0-100.0); pH 7.324 (7.340-7.450)
--- NOTE | 2018-08-19 06:45 | NUR ---
ASSESSMENT CHARTED. PATIENT OFF MONITOR FOR ABOUT 1 HOUR. TORNADO WARNING PROTOCOL INITIATED AT 1949 AND ENDED AT 2044. DURING THAT TIME PATIENT WAS IN THE HALLWAY. NO COMPLICATIONS DURING PERIOD OF TIME. PATIENT SLEPT FOR ABOUT HALF THE SHIFT. OXYGEN WAS TITRTED UP TO 15L ON HFNC, SATS STAYED IN MID 80S. CONSULTED PULMONARY AND ORDERS RECIEVED. NEPHROLOGY ROUNDED BEFORE SHIFT CHANGE. WOULD LIKE TO WORK ON GETTING PATIENT OFF OF TPN. POTASSIUM LEVEL CAME BACK LOW, ADMINISTERED SUPPLEMENT PER REPLACEMENT PROTOCOL. BLOOD PRESSURE ELEVATED DURING SHIFT, ADMINISTERED HYDRALAZINE ONCE.
[2018-08-19 06:57] LABS: CALCIUM 8.3 mg/dL (8.5-10.1); CREATININE 2.5 mg/dL (0.6-1.3); PHOSPHORUS* 4.7 mg/dL (2.5-4.9); POTASSIUM 3.3 mmol/L (3.5-5.1)
--- NOTE | 2018-08-19 12:32 | CON ---
[address] [address] CONSULTATION Name: LON FERED Room: [address] IN M.R.#: [id number] Admission: 08/14/18 Attend Phys: Celine Walker MD Discharge: Date of : 50 Report #: [id number] THIS REPORT FOR: //name// CC: Terrell Walker DICTATED BY: Tiesha Whatley [facility] DATE OF SERVICE: 08/17/2018 Please note, at the time of this dictation, the patient was seen and physically examined by myself. REASON FOR CONSULTATION: Ongoing nausea and dry heaves. HISTORY OF PRESENT ILLNESS: This is a 68-year-old male who presented to the Emergency Room with ongoing nausea and vomiting, which he states has been going on. He was just mainly having dry heaves for the last 3 weeks and he was noted to be in diabetic ketoacidosis at that time. Despite his correction in his acidosis, he has continued to have ongoing nausea with dry heaves and he is currently on Reglan 10 mg a.c. and at bedtime IV. In obtaining a history from the patient, he states that he has had upper and lower scopes. He has had a gastric emptying test in the past. He does not recall what it showed with [facility] and will request those records. It appears the patient is a poorly controlled diabetic. He denies any early satiety prior to all this or any recent weight loss that he is aware of. After he has had episodes of dry heaves, he will have some epigastric tenderness. He avoids any NSAIDs at this time. Blood sugars while here have been running high at 280. No recent hemoglobin A1c, but we will obtain one to see where he has been trending over the last 3 months. ALLERGIES: VALIUM. MEDICATIONS: From home include Cozaar, Bentyl, aspirin, metoclopramide, Humalog, Unicomplex, Lopressor, omeprazole, Zoloft, Lomotil, Norvasc, vitamin C, and iron supplement. PAST MEDICAL HISTORY: Type 1 diabetic, GERD. He has sleep apnea, refuses treatment. Carpal tunnel, hypertension, coronary artery disease and chronic kidney disease stage 3. PAST SURGICAL HISTORY: Rotator cuff, elbow surgery, hernia surgery, tonsillectomy, adenoidectomy, sinus surgery. He has had a right partial calcanectomy, back surgery. He had a right BKA, also noted he had an [place] in 2018[place] [address] CONSULTATION Name: LON FREDE CAITIE Room: [address] IN .R.#: [id number] Admission: 08/14/18 Attend Phys: Celine Walker MD Discharge: Date of : 50 Report #: [id number] FAMILY HISTORY: Negative for any GI or female cancers. SOCIAL HISTORY: Past use of cigarettes. Denies any alcohol or illegal drug use. REVIEW OF SYSTEMS: Twelve-point review of systems is essentially negative except what is mentioned in the HPI. PHYSICAL EXAMINATION: VITAL SIGNS: Temperature 36.9, pulse 82, respirations 16, blood pressure 165/86. HEART: Regular rate and rhythm. LUNGS: Clear. ABDOMEN: Soft, positive bowel sounds in all 4 quadrants with no masses or tenderness noted. LABORATORY DATA: Hemoglobin is 8.8, white count is 13.4, platelets 210. Sodium 132, potassium 3.6, GFR is 21, glucose is 280, total bilirubin 0.2, alkaline phosphatase is 124, AST is 57, AST is 44. Abdominal x-ray recently done showed no acute process. IMPRESSION: 1. Nausea and vomiting. 2. Diabetic ketoacidosis is resolved. 3. Anemia. 4. Leukocytosis. 5. History of gastroparesis, on Reglan for home medications. PLAN: 1. EGD today with Dr. Brown. 2. We will check hemoglobin A1c. 3. Obtain records from [facility]. 4. May consider repeating gastric emptying test if above is negative. 5. Further recommendations to be made once the procedure has been performed. Thank you for allowing us to participate in this patient's care. Please do not hesitate to call with any questions in regard to this consult. <ELECTRONICALLY SIGNED> By: Max Brown DO 08/19/18 1232 1205 [id number] Brown DO /nt
[2018-08-19 15:41] VITALS: BP 162/81
--- NOTE | 2018-08-19 16:32 | NUR ---
PT TRANSFERED FROM ICU REPORT RECEIVED FROM ICU NURSE. PT ARRIVED ON TELE FLOOR AT 1515 AN ICU BED ACCOMPANIED BY RELATIVE AND NURSING STAFF. PT IS AOX4 SR TRACING ON ROOFING PLANT SUPERVISOR. ON HIGH FLOW OXYGEN 100% 40 LITERS. VS TAKEN SEE CHART. ACCUCHECK MONITORED. PT TO GET SCHEDULED DOSE OF INSULIN ALONG WITH ITHER SCHEDULED MEDICINES. WOUND DRESSINGS ON INTACT, NO DRAINAGE. NO SOB, WILL CONTINUE TO MONITOR.
--- NOTE | 2018-08-19 18:20 | NUR ---
PT WAS NAUSEOUS DURING DINER TIME. WAS HAVING SOME DRY-HEAVES EPISODES. ZOFRAN GIVEN. THEN PT DRINK ONE CUP OF MILK AND TEA. PT NOW STATES THAT HE DOES NOT FEEL NAUSEOUS ANYMORE. NO MORE DRY-HEAVES NOTICED.
[2018-08-19 20:30] VITALS: BP 143/47
[2018-08-20] VITALS: BP 147/67
[2018-08-20 04:00] VITALS: BP 150/67
--- NOTE | 2018-08-20 05:15 | NUR ---
PT SLEPT ON AND OFF THIS SHIFT. ASSESSMENT DOCUMENTED. MEDS GIVEN PER E-MAR. CENTRAL LINE PATENT. ABX INFUSED. NO REPORTS OF PAIN OR NAUSEA THIS SHIFT. SCOPOLAMINE PATCH MOVED FROM SHOULDER TO BEHIND EAR THIS SHIFT. HI-FLOW NC AT 40L NC BUT TRIES TO REMOVE IT, PT EDUCATED TO KEEP ON. PT STATES HE WILL NOT WEAR OXYGEN AT HOME. BARRAGAN IN PLACE. DRESSINGS C/D/I. PT REPOSITIONED THROUGH NIGHT. TELE MONITOR IN PLACE READING SR. WILL CONTINUE WITH PLAN OF CARE.
[2018-08-20 05:21] LABS: ABSOLUTE BASOPHILS 0.1 thou/uL (0.0-0.2); ABSOLUTE EOSINOPHILS 0.1 thou/uL (0.0-0.7); ABSOLUTE LYMPHOCYTES 0.7 thou/uL (0.8-5.3); ABSOLUTE MONOCYTES 1.2 thou/uL (0.0-1.2); ABSOLUTE NEUTROPHILS 8.4 thou/uL (1.6-8.1); BASOPHILS 0.5 %; EOSINOPHILS 0.6 %; HEMATOCRIT 23.5 % (42.0-52.0); HEMOGLOBIN 7.9 gm/dL (14.0-18.0); LYMPHOCYTES 6.4 %; MCH 26.4 pg (26.0-34.0); MCHC 33.8 g/dL (28.0-37.0); MCV 78.2 fL (80.0-100.0); MONOCYTES 11.8 %; MPV 9.6 fl. (7.2-11.1); NUCLEATED RBCS 0 /100WBC; PLATELET COUNT* 199 thou/uL (150-400); POLYS 80.7 %; RDW-CV 16.7 % (10.5-14.5); WBC 10.5 thou/uL (4.0-11.0)
[2018-08-20 05:39] LABS: ALBUMIN 1.8 g/dL (3.4-5.0); CALCIUM 8.5 mg/dL (8.5-10.1); CREATININE 2.4 mg/dL (0.6-1.3); MAGNESIUM 1.8 mg/dL (1.8-2.4); POTASSIUM 3.2 mmol/L (3.5-5.1); TOTAL BILIRUBIN 0.2 mg/dL (<0.1-1.0); TOTAL PROTEIN 5.7 g/dL (6.4-8.2)
[2018-08-20 07:22] LABS: BE -0.7 mmol/L (-2 to +3); PCO2 35.8 mmHg (35.0-45.0); PO2 103.3 mmHg (75.0-100.0); pH 7.432 (7.340-7.450)
[2018-08-20 08:00] VITALS: BP 156/76
[2018-08-20 11:20] VITALS: BP 170/79
[2018-08-20 15:52] VITALS: BP 120/63
--- NOTE | 2018-08-20 18:20 | NUR ---
ASSUMED PT CARE REPORT RECEIVED FROM NURSE PT IS AOX3 FORGETFUL AND CONFUSED. ON HIGH FLOW O2 40 L 100% , NO COMPLAINT. Q2TURN. HAD A SMALL BOWELL MOVEMENT TODAY. PULMOLOGIST ORDERED TO DECEREASE HIGH FLOW OXYGENATION SETTING. SE ORDER IN CHART. HIGH NOW AT 35 LITERS 70%. PT O2 SATURATION IS 91%. PT CONSUMED WHOLE FULL LIQUIDS MEALS. Q2TURN PERFORMED. IV ABX GIVEN. KAILA CONTINUE TO MONITOR PT
[2018-08-20 20:20] VITALS: BP 114/54
[2018-08-21] VITALS: BP 135/71
[2018-08-21 04:00] VITALS: BP 135/65
[2018-08-21 06:56] LABS: HEMATOCRIT 22.5 % (42.0-52.0); HEMOGLOBIN 7.5 gm/dL (14.0-18.0); MCHC 33.4 g/dL (28.0-37.0); MPV 9.6 fl. (7.2-11.1); RBC 2.89 mil/uL (4.50-6.00); RDW-CV 16.8 % (10.5-14.5); WBC 9.1 thou/uL (4.0-11.0)
[2018-08-21 07:04] LABS: CALCIUM 8.8 mg/dL (8.5-10.1); CREATININE 2.5 mg/dL (0.6-1.3); MAGNESIUM 1.8 mg/dL (1.8-2.4); POTASSIUM 3.7 mmol/L (3.5-5.1)
--- NOTE | 2018-08-21 07:55 | NUR ---
PT AWAKE MUCH OF THE NIGHT, DOZING ON AND OFF. ALERT, CONFUSED, HALLUCINATING AT TIMES.HI FLOW O2 70% 35L ON-PT TAKES IT OFF FREQUENTLY AND MUST BE CLOSELY MONITORED TO KEEP IN ON AND KEEP SATS IN THE 90'S, CONT HAND HELD PULSE OX KEPT ON PT OVERNIGHT TO MONITOR. TELE SR. HS ACCUCHECK 106, NO INSULIN GIVEN. BARRAGAN DRAINING YELLOW URINE. INCONTINENT LOOSE BROWN BM OVERNIGHT. L TL SUBCLAVIAN, SL, ABX GIVEN ORDERED. AM LABS DRAWN. R BKA DRSG CDI. L DRSG, BOOT IN PLACE. PT TURNED AND REPOSITIONED Q2 HOURS AND PRN FOR SKIN CARE AND COMFORT. TAKES PILLS ONE AT A TIME WITH SMALL AMOUNT WATER. BED ALARM ON FOR SAFETY, CLOSE TO DESK FOR EASIER MONITORING. CALL LITE IN EASY REACH.
[2018-08-21 08:00] VITALS: BP 164/77
--- NOTE | 2018-08-21 10:49 | CON ---
[address] [address] CONSULTATION Name: LON FREED Room: [address] IN M.R.#: [id number] Admission: 08/14/18 Attend Phys: Celine Walker MD Discharge: Date of : 50 Report #: [id number] THIS REPORT FOR: //name// CC: Terrell Walker DATE OF SERVICE: 08/19/2018 NEW PATIENT CONSULTATION REASON FOR EVALUATION: Acute respiratory failure. REFERRING PHYSICIAN: Dr. Walker HISTORY OF PRESENT ILLNESS: The patient is a pleasant 68-year-old gentleman with a history of diabetes mellitus who was admitted with initially diabetic ketoacidosis. He has past medical history of hypertension and chronic kidney disease, came in with acute on chronic kidney disease, diabetes, left BKA. He is known to have coronary artery disease, has non-STEMI this admission. Last cath noted in 2011. Over the last 2 days, the patient is complaining of worsening cough, shortness of breath. His cough is productive, but he is not sure what color is the mucus. He has been requiring increasing oxygen requirement, especially over the last 2 days, currently on 15 liters of green cannula. His oxygen saturation on my exam was 90%. He does not look in distress, able to speak full sentences. Denies any chest pain. His chest x-ray, which I have reviewed, showed bilateral infiltrate with a dense consolidation in the right lower lobe with bilateral interstitial infiltrates. The patient has received Lasix with some improvement. He is being treated at this time for sepsis with Pseudomonas. Currently on IV Diflucan. Received 60 mg of Lasix on 08/18 with additional on 08/19. PAST MEDICAL HISTORY: Brittle diabetes; chronic kidney disease, stage 3; coronary artery disease. PAST SURGICAL HISTORY: Right below-knee amputation. FAMILY HISTORY: Noncontributory. SOCIAL HISTORY: Quit smoking several years ago. He is not known to have COPD. HOME MEDICATIONS: Noted. CURRENT MEDICATIONS: [place] [address] CONSULTATION Name: JULIANNREGANLON LEDBETTER CAITIE Room: [address] IN ..#: [id number] Admission: 08/14/18 Attend Phys: Celien Walker MD Discharge: Date of : 50 Report #: [id number] REVIEW OF SYSTEMS: As above. Also, has a history of nausea. He has difficulty with swallowing. According to him and his , he has difficulty with swallowing at this time. As above, he had EGD. Has wheezing, has cough as above. Below-knee amputation. PHYSICAL EXAMINATION: VITAL SIGNS: He is on 15 liters, oxygen saturation was 90%. His respiratory rate is 18. He is afebrile, temperature 36.8. Blood pressure was 174/91 earlier. HEAD AND NECK: Neck is supple. Eyes nonicteric. Neck, no lymph node enlargement. Mucous membranes are clear. CHEST: He has bilateral basilar crackles. Good air movement, scattered wheezing. CARDIOVASCULAR: Regular rhythm. ABDOMEN: Soft, nontender. EXTREMITIES: Below-knee amputation. PSYCHIATRIC: Alert, oriented, pleasant. at the bedside. NEUROLOGIC: No focal deficits grossly. SKIN: Otherwise, no changes. LABORATORY AND OTHER DATABASE: At this time, white blood cell count 11.4, hemoglobin 8.1. His potassium is 3.3, creatinine is 2.5 and actually is improving, came in was 3.6. Arterial blood gas: PH 7.3, pCO2 40, pO2 72. This is on 12 liters. ASSESSMENT AND PLAN: Acute hypoxemic respiratory failure. The patient's chest x-ray shows pulmonary edema in addition to right lower lobe consolidation consistent with pneumonia. He has Pseudomonas, suspect Pseudomonas pneumonia. Agree with antibiotic treatment with Zosyn. Monitor closely. At this time, I recommend to have speech to evaluate him. Suspect his aspiration related to esophageal disease as above. He had esophagogastroduodenoscopy. Also, has coronary artery disease treated with DKA. Suspect volume overload. Recommend gentle diuresis. Has severe hypoxemic respiratory failure with borderline oxygen saturation. We will switch to high-flow nasal cannula, which has CPAP effect as well as the humidity effect and heated humidification. We will also obtain chest x-ray in the morning. 1. Acute on chronic kidney disease, improving. 2. Diabetic ketoacidosis, on subcutaneous insulin at this time. 3. Sepsis. He is currently on Diflucan and Zosyn. [place] [address] CONSULTATION Name: LON FREED Room: [address] IN ..#: [id number] Admission: 08/14/18 Attend Phys: Celine Walker MD Discharge: Date of : 50 Report #: [id number] consultation considered. CRITICAL CARE TIME: Total critical care time discussing with nursing staff with the other staff, the patient and his and reviewing records was 75 minutes. <ELECTRONICALLY SIGNED> By: Kristy Solorio MD 08/21/18 1049 1148 [id number] Raegan Solorio MD /nt
[2018-08-21 11:53] VITALS: BP 140/68
--- NOTE | 2018-08-21 11:57 | NUR ---
RECEIVED REPORT FROM AMPARO AND ASSUMED CARE OF PT @ 6371.PT IS ALERT AND ABLE TO CORRECTLY ANWSER ALL ORIENTATION QUESTIONS BUT STILL CONFUSED AND FORGETFUL AT TIMES.CENTRAL LINE PATENT AND SALINE LOCKED.PT REMAINS ON HEATED HIGH FLOW ON 35L.BARRAGAN SECURE AND PATENT.PT IS CALM AND COOPERATIVE WITH NO C/O PAIN. AT BEDSIDE.PT LEFT RESTING IN BED WITH CALL LIGHT AND FALL PRECAUTIONS IN PLACE.WILL CONTINUE TO MONITOR.
[2018-08-21 16:00] VITALS: BP 131/50
--- NOTE | 2018-08-21 18:08 | NUR ---
VSS.CARDIAC MONITORING IN PLACE WITH NO CHAGNES.PT REMAINS ON HEATED HIGH FLOW NC.CENTRAL LINE PATENT AND SALINE LOCKED.IV ANTIBIOTICS GIVEN.BARRAGAN SECURE AND PATENT.NO C/O PAIN.PT TO BE NPO AT MIDNIGHT FOR THORANCENTESIS TOMORROW.CONSENT ON CHART BUT NOT SIGNED YET.PT AND INFORMED OF PLAN OF CARE AND COMMUNICATES UNDERSTANDING.Q2 HOUR POSITION CHANGE.HOURLY ROUNDING COMPLETED FOR PT SAFETY.CALL LIGHT AND FALL PRECAUTIONS IN PLACE.WILL CONTINUE TO MONITOR FOR DURATION OF SHIFT. PT HAD LOW BLOOD GLUCOSE OF 38 AT DINNER-HYPOGLYCEMIC PROTOCOL FOLLOWED.
[2018-08-21 20:00] VITALS: BP 135/80
[2018-08-22] VITALS: BP 175/77
[2018-08-22 03:34] LABS: HEMATOCRIT 22.3 % (42.0-52.0); HEMOGLOBIN 7.4 gm/dL (14.0-18.0); MCV 78.6 fL (80.0-100.0); MPV 9.6 fl. (7.2-11.1); RBC 2.84 mil/uL (4.50-6.00); RDW-CV 16.8 % (10.5-14.5); WBC 7.7 thou/uL (4.0-11.0)
[2018-08-22 03:46] LABS: CREATININE 2.6 mg/dL (0.6-1.3); MAGNESIUM 1.8 mg/dL (1.8-2.4); POTASSIUM 3.6 mmol/L (3.5-5.1)
[2018-08-22 04:00] VITALS: BP 164/71
--- NOTE | 2018-08-22 05:28 | NUR ---
ASSUMED PATIENT CARE AT 1900. PATIENT ALERT AND WILL ANSWER SOME QUESTIONS IF PESTERED TO STAY AWAKE LONG ENOUGH. REMAINS ON HI-CAMRYN 02. SATURATION LEVEL STAYS BETWEEN 91-97%. HAS BEEN NPO SINCE MIDNIGHT. SEMICONDUCTOR WAFER INSPECTOR AND HOURLY ROUNING COMPLETED CHARTED.
[2018-08-22 08:00] VITALS: BP 135/60
--- NOTE | 2018-08-22 11:33 | NUR ---
RECEIVED REPORT FROM ALVIN AND ASSUMED CARE OF PT @ 2974.PT IS A/O X4,VSS,TRACING SR ON THE MONITOR.PT REMAINS ON HEATED HIGH FLOW 35L ON 70%.CENTRAL LINE SECURE AND SALINE LOCKED.BARRAGAN SECURE AND PATENT.PT REMAINS NPO STATUS FOR THORANCENTESIS TODAY.CONSENT SIGNED AND ON PT CHART.PT AND HAVE BEEN INFORMED OF PLAN OF CARE AND COMMUNICATES UNDERSTANDING.NO C/O PAIN.PT LEFT RESTING IN BED WITH CALL LIGHT AND FALL PRECAUTIONS IN PLACE.WILL CONTINUE TO MONITOR.
[2018-08-22 12:00] VITALS: BP 130/60
[2018-08-22 16:00] VITALS: BP 132/57
--- NOTE | 2018-08-22 17:52 | NUR ---
VSS.CARDIAC MONITORING IN PLACE WITH NO CHANGES.PT REMAINS ON HEATED HIGH FLOW ON 35L AT 70%.CENTRAL LINE SECURE AND SALINE LOCKED.BARRAGAN SECURE AND PATENT.NO C/O PAIN.THORANCENTESIS COMPLETED WITH 825 ML REMOVED.Q2 HOUR POSITION CHANGES COMPLETED.PT HAS BEEN DROWSY AND SLEEPING THROUGHOUT THE SHIFT.HOURLY ROUNDING COMPLETED FOR PT SAFETY.CALL LIGHT AND FALL PRECAUTIONS IN PLACE.WILL CONTINUE TO MONITOR FOR DURATION OF SHIFT.
[2018-08-22 20:00] VITALS: BP 123/57
[2018-08-23] VITALS: BP 120/53
[2018-08-23 04:00] VITALS: BP 129/54
[2018-08-23 05:12] LABS: HEMATOCRIT 22.3 % (42.0-52.0); HEMOGLOBIN 7.5 gm/dL (14.0-18.0); MCH 26.5 pg (26.0-34.0); MCHC 33.7 g/dL (28.0-37.0); MCV 78.6 fL (80.0-100.0); MPV 9.1 fl. (7.2-11.1); RBC 2.83 mil/uL (4.50-6.00); RDW-CV 16.8 % (10.5-14.5); WBC 8.1 thou/uL (4.0-11.0)
--- NOTE | 2018-08-23 05:24 | NUR ---
ASSUMED PATIENT CARE AT 1900. PATIENT ALERT AND ORIENTED TIMES FOUR. ON NON-REBREATHER AT 15L. NO COMPLAINTS OF PAIN OR DISCOMFORT NOTED. HOURLY ROUNDING AND RESIDENTIAL MONITOR COMPLETED DOCUEMENTED
[2018-08-23 05:27] LABS: CALCIUM 8.5 mg/dL (8.5-10.1); CREATININE 2.8 mg/dL (0.6-1.3); MAGNESIUM 1.8 mg/dL (1.8-2.4); POTASSIUM 3.3 mmol/L (3.5-5.1)
[2018-08-23 07:20] VITALS: BP 134/60
--- NOTE | 2018-08-23 11:46 | NUR ---
CONTINUE TO FOLLOW, MET WITH PT AND . REMAINS ON HIFLOW O2. PT HAS HAD HH AND BEEN TO SNF AND REHAB IN PAST. UNSURE OF DC NEEDS AT THIS TIME.
[2018-08-23 12:06] VITALS: BP 136/53
--- NOTE | 2018-08-23 13:19 | NUR ---
Nutriton: pt remains on full liquid diet. No intake records. Pt reported that his appetite is improving and would like a regular diet. Pt does not like supplements. Wt down; s/p thoracentesis yesterday. RFT's elevated, albumin 1.8. Lasix and other meds reivewed. Encouarged pt to ask for diet appropriate snacks PRN (ice cream, pudding, hot chocolate, jello.) Rec advance diet as medically appropriate. F/u early next week.
[2018-08-23 15:46] VITALS: BP 145/65
[2018-08-23 15:58] LABS: BODY FLUID LDH 67 IU/L (())
[2018-08-23 20:00] VITALS: BP 150/77
[2018-08-24] VITALS: BP 131/58
--- NOTE | 2018-08-24 01:43 | NUR ---
PT A&O. TURN Q 2 HOURS. O2 AT 55% PER OPTI FLOW. ENCOURAGE IS UP TO 1000. PT STATED HE DID NOT CARE IF HE USED IS. PT TEACHING RE PURPOSE OF BIPAP. ORDER FOR BIPAP. WILL NOT BE HERE UNTIL 299. DRSGS PERLAGD THIS SHIFT. PAIN IN PHILLIP LOWER EXTREMETIES. FENTANYL GIVEN. BARRAGAN WITH CLEAR YELLOW FOR CRITICAL I&O. TELEMETRY SHOWES ACCELERATED JUNCTIONAL AT SHIFT CHG. SR CURRENTLY.
--- NOTE | 2018-08-24 02:34 | NUR ---
BED, BATH AND SHAVED.
[2018-08-24 04:00] VITALS: BP 135/59
[2018-08-24 04:52] LABS: HEMATOCRIT 25.5 % (42.0-52.0); HEMOGLOBIN 7.9 gm/dL (14.0-18.0); MCH 24.7 pg (26.0-34.0); MCHC 31.1 g/dL (28.0-37.0); MCV 79.4 fL (80.0-100.0); MPV 9.4 fl. (7.2-11.1); NUCLEATED RBCS 0 /100WBC; PLATELET COUNT* 296 thou/uL (150-400); RBC 3.21 mil/uL (4.50-6.00); RDW-CV 16.4 % (10.5-14.5); WBC 11.3 thou/uL (4.0-11.0)
[2018-08-24 05:16] LABS: ALBUMIN 1.7 g/dL (3.4-5.0); CALCIUM 8.5 mg/dL (8.5-10.1); CREATININE 2.8 mg/dL (0.6-1.3); PHOSPHORUS* 3.9 mg/dL (2.5-4.9)
[2018-08-24 05:21] LABS: POTASSIUM 5.1 mmol/L (3.5-5.1)
[2018-08-24 07:32] LABS: ABSOLUTE LYMPHOCYTES 0.6 thou/uL (0.8-5.3); ABSOLUTE MONOCYTES 0.1 thou/uL (0.0-1.2); ABSOLUTE NEUTROPHILS 10.6 thou/uL (1.6-8.1); ATYPICAL LYMPHS 1 %; METAMYELOCYTES 1 %; PLATELET ESTIMATE ADEQUATE
[2018-08-24 07:33] LABS: HYPOCHROMASIA 2+; MICROCYTES 3+
[2018-08-24 07:34] LABS: POLYCHROMASIA 1+; SCHISTOCYTES 1+; TOXIC GRANULATION 2+
[2018-08-24 08:30] VITALS: BP 125/56
[2018-08-24 11:30] VITALS: BP 122/49
--- NOTE | 2018-08-24 11:43 | CON ---
[address] [address] CONSULTATION Name: LON FREED Room: [address] IN M.R.#: [id number] Admission: 08/14/18 Attend Phys: Celine Wlaker MD Discharge: Date of : 50 Report #: [id number] THIS REPORT FOR: //name// CC: Terrell Walker MD DATE OF SERVICE: 08/17/2018 ADDENDUM REFERRING PHYSICIAN: Celine Walker MD I have seen and examined the patient, agree with plan that had been outlined by our nurse practitioner, Tiesha Whatley. It should be noted that the patient has a history of diabetic gastroparesis, for which he is supposed to be taking Reglan 10 mg q.i.d. a.c. and at bedtime but at the present time, it is unclear whether he is taking his medication as prescribed. We will proceed with upper endoscopy today and make further recommendations thereafter. <ELECTRONICALLY SIGNED> By: Max Brown DO 08/24/18 1143 [id number] Brown DO /nt
--- NOTE | 2018-08-24 15:45 | NUR ---
WOUND NURSE: PATIENT SEEN FOR FOLLOW UP ASSESSMENT PERTAINING TO DFU ON LEFT HEEL: MEASURES 0.5 X 0.7 X 0.1 CM. SCANT SEROUSANGUINOUS DRAINAGE, ROUGH DRY SKIN NEAR THE WOUND EDGES, NO PERIWOUND REDNESS, WARMTH, OR INDURATION. SMALL AREA OF NONBLANCHEABLE REDNESS ON THE DORSUM OF FOOT WHICH IS NOT OPEN OR IRRITATED. BOTH AREAS TREATED WITH PETROLATUM GAUZE UNDER GAUZE SPONGE, WRAPPED WITH KERLEX AND SECURED WITH TAPE. RIGHT BKA LESION IS FULLY EPITHELIALIZED WITH INTACT PINK SCAR TISSUE. THERE IS AN AREA OF REDNESS OVER THE BONY PROMINENCE OF THE RIGHT LATERAL KNEE, BUT WHICH THE SKIN IS INTACT. THIS WAS PROTECTED USING A BORDERED FOAM DRESSING, THEN THE BKA WRAPPED WITH KERLEX ROLL GAUZE UNDER WHITE ROMINA WRAP. THIS WAS TOLERATED WELL BY THE PATIENT.
[2018-08-24 16:31] VITALS: BP 128/59
--- NOTE | 2018-08-24 18:39 | NUR ---
VSS, ASSUMED CARE IN THE AM, ASSESSMENT PERFORMED AND CHARTED, FALL PRECAUTIONS IN PLACE AND CALL LIGHT IN REACH, PT IS A&O4 WEAK, HE IS A Q2 TURN AND DENIES ANY PAIN, PT HAS A RIGHT BKA, WOUNDS ON STUMP AND ON LEFT HEEL, PT IS TO KEEP RIGHT STUMP ON PILLOW, HE IS TRACING SR ON THE MONITOR, ON HIFL HEATED ANMOL FLOW NC, IS TO WEAR BIPAP AT HS, PT GOAL WAS TO WORK WITH I.S AND IMPROVE BREATHING, AT THIS TIME NO STATUS CHANGE, GOAL MET BUT PT NEEDS TO SIT UP IN CHAIR, HOURLY ROUNDS COMPLETED AND WILL FOLLOW WITH PLAN OF CARE.
[2018-08-24 20:00] VITALS: BP 116/53
[2018-08-25] VITALS: BP 105/55
[2018-08-25 00:41] LABS: URINE BILIRUBIN NEGATIVE (Negative); URINE BLOOD TRACE (Negative); URINE CLARITY CLEAR; URINE COLOR YELLOW; URINE GLUCOSE-RANDOM NEGATIVE (Negative); URINE KETONES NEGATIVE (Negative); URINE LEUKOCYTES NEGATIVE (Negative); URINE NITRITE NEGATIVE (Negative); URINE PROTEIN 2+ (Negative); URINE UROBILINOGEN 0.2 E.U./dl (0.2-1.0)
--- NOTE | 2018-08-25 01:40 | NUR ---
PT ALERT ORIENTED. FENTYNEL GIVEN HS FOR PAIN. HS BG 229. SSI GIVEN. AT MN PT DIAPHORETIC AND UNRESPONSIVE. 1/2 AMP D50 GIVEN. BLOOD GLUCOSE RECHECKED AT 75. PT ROUSED AWAKE AND SPOKE. TELEMETRY SHOWS SR. O2 AT 45% OPTI FLOW. ON BIPAP AT 2300. TURNING Q 2 HRS.
[2018-08-25 04:00] VITALS: BP 131/71
[2018-08-25 04:16] LABS: AMORPHOUS URATES Few /LPF (None Seen); BACTERIA 1-9 Few /HPF (None Seen); CASTS None Seen /LPF (None Seen); MUCUS 0-3 Light strn/LPF (None Seen); SQUAMOUS 0-3 Few /LPF (0-3); URINE RBC 0-2 Rare /HPF (0-2); URINE WBC None Seen /HPF (0-5)
[2018-08-25 04:42] LABS: ABSOLUTE EOSINOPHILS 0.2 thou/uL (0.0-0.7); ABSOLUTE MONOCYTES 0.9 thou/uL (0.0-1.2); ABSOLUTE NEUTROPHILS 9.2 thou/uL (1.6-8.1); BASOPHILS 0.3 %; EOSINOPHILS 1.6 %; HEMATOCRIT 22.5 % (42.0-52.0); HEMOGLOBIN 7.1 gm/dL (14.0-18.0); LYMPHOCYTES 8.7 %; MCH 24.8 pg (26.0-34.0); MCHC 31.6 g/dL (28.0-37.0); MCV 78.2 fL (80.0-100.0); MONOCYTES 7.9 %; NUCLEATED RBCS 0 /100WBC; PLATELET COUNT* 289 thou/uL (150-400); POLYS 81.5 %; RBC 2.87 mil/uL (4.50-6.00); RDW-CV 16.5 % (10.5-14.5); WBC 11.3 thou/uL (4.0-11.0)
[2018-08-25 04:58] LABS: CALCIUM 8.5 mg/dL (8.5-10.1); CREATININE 3.4 mg/dL (0.6-1.3); MAGNESIUM 2.2 mg/dL (1.8-2.4); POTASSIUM 4.7 mmol/L (3.5-5.1)
[2018-08-25 08:00] VITALS: BP 111/60
[2018-08-25 16:08] VITALS: BP 130/67
--- NOTE | 2018-08-25 18:00 | NUR ---
ASSUMED PT CARE AT 0700, PT IS A&O X4, BEDREST D/T RBKA AND MULTIPLE WOUNDS. VSS, REMAINS ON OPTIFLO AT 45% O2 AND BIPAP Q HS. LS DIMINISHED, COLOR MAKER TRACES SINUS RHYTHM/SINUS LIU, DENIES ANY PAIN OR SOA THIS SHIFT. NEW ORDER FOR ST TO EVAL AND TX D/T PT COUGHING WITH EACH BITE OF FOOD AND STATES HVING DIFFICULTY SWALLOWING SOME FOODS. EDUCATED PT ON CHIN TUCK AND TAKING SMALL BITES/SIPS. BARRAGAN PATENT AND DRAINING LIGHT YELLOW URINE WITH MINIMAL SEDIMENT. FAMILY AND PT EDUCATED ON NEW ORDERS AND LABS. HOURLY ROUNDING COMPLETED WELL Q 2 HOUR TURNS.
[2018-08-25 20:10] VITALS: BP 128/55
[2018-08-26] VITALS: BP 132/49
[2018-08-26 04:00] VITALS: BP 145/68
[2018-08-26 05:42] LABS: HEMATOCRIT 22.7 % (42.0-52.0); HEMOGLOBIN 7.3 gm/dL (14.0-18.0)
[2018-08-26 05:59] LABS: ALBUMIN 2.2 g/dL (3.4-5.0); CALCIUM 8.4 mg/dL (8.5-10.1); CREATININE 3.4 mg/dL (0.6-1.3); MAGNESIUM 2.2 mg/dL (1.8-2.4); POTASSIUM 5.4 mmol/L (3.5-5.1)
--- NOTE | 2018-08-26 07:46 | NUR ---
PT CARE ASSUMED AT 1930. ALERT AND ORIENTED X4. SAT MAINTAINED IN OPTIFLOWMETER AND BIPAP. DENIES PAIN AND SOB. CALL LIGHT WITHIN REACH AND BED IN LOW POSITION. HOURLY ROUNDING DONE FOR PT SAFETY.
[2018-08-26 08:00] VITALS: BP 142/66
[2018-08-26 12:42] VITALS: BP 143/64
--- NOTE | 2018-08-26 14:00 | NUR ---
VSS, ASSUMED CARE IN THE AM, ASSESSMENT PERFORMED AND CHARTED, FALL PRECAUTIONS IN PLACE AND CALL LIGHT IN REACH, PT IS A&O4, ON 45L NC OPTIFLOW, UP WITH MAX ASSIST, TRACING SR BB ON THE MONITOR, DENIES ANY PAIN, HAS BARRAGAN IN PLACE AND IS DRAING WELL, AND GOOD UNRIN OUT PUT, PT GOAL IS TO SIT UP ON BEDSIDE, AND WORK WITH PT/SP, HOURLY ROUNDS COMPLETED,
[2018-08-26 17:27] VITALS: BP 92/53
[2018-08-26 20:00] VITALS: BP 132/61
[2018-08-27] VITALS: BP 143/56
[2018-08-27 04:00] VITALS: BP 146/61; BP 146/68
--- NOTE | 2018-08-27 05:38 | NUR ---
PT CARE ASSUMED AT 1930. SAT MAINTAINED IN OPTIFLOWMETER AND BIPAP. ALERT AND ORIENTED X4. CALL LIGHT WITHIN REACH AND BED IN LOW POSITION. DENIES PAIN AND SOB. HOURLY ROUNDING DONE FOR PT SAFETY.
[2018-08-27 05:52] LABS: CALCIUM 8.7 mg/dL (8.5-10.1); CREATININE 3.1 mg/dL (0.6-1.3); POTASSIUM 4.9 mmol/L (3.5-5.1)
[2018-08-27 08:45] VITALS: BP 156/70
--- NOTE | 2018-08-27 08:45 | NUR ---
REC'D REPORT FROM NOC RN, ASSUMED CARE OF PATIENT APPROX 0730. OX4, ABLE TO COMMUNICATE NEEDS TO STAFF. ASSESSMENT COMPLETE, VS OBTAINED. ARBORICULTURIST IN PLACE, SR. O2 SATS 95% HIGH FLOW HEATED O2. DRSG L FOOT C/D/I, BOOT ON. ROMINA WRAP TO R BKA, C/D/I. CALL LIGHT IN REACH. HOURLY ROUNDING FOR SAFETY AND PATIENT NEEDS.
[2018-08-27 12:00] VITALS: BP 130/88
[2018-08-27 16:00] VITALS: BP 126/58
[2018-08-27 17:26] LABS: SOURCE PLEURAL
[2018-08-27 17:27] LABS: SOURCE PLEURAL
[2018-08-27 20:10] VITALS: BP 130/49
[2018-08-28] VITALS: BP 169/61
[2018-08-28 04:00] VITALS: BP 157/63
[2018-08-28 04:33] LABS: CALCIUM 8.4 mg/dL (8.5-10.1); CREATININE 2.8 mg/dL (0.6-1.3); POTASSIUM 4.6 mmol/L (3.5-5.1)
--- NOTE | 2018-08-28 05:00 | NUR ---
PT CARE ASSUMED AT 1930. SAT MAINTAINED IN BIPAP AND OPTIFLOW. ALERT AND ORIENTED X4. CALL LIGHT WITHIN REACH AND BED IN LOW POSITION. DENIES PAIN. HOURLY ROUNDING DONE FOR PT SAFETY.
[2018-08-28 08:00] VITALS: BP 145/63
[2018-08-28 11:49] VITALS: BP 125/55
--- NOTE | 2018-08-28 13:07 | PATH ---
[address] [address] PATHOLOGY RPT PROCEDURE Name: LON FREED Room: [address] IN .R.#: [id number] Admission: 08/14/18 Date of : 50 Discharge: Report #: [id number] Path Case #: [id number] Note [facility] Accession Number: [id number] TESTS RESULT FLAG UNITS REF RANGE LAB Clinician Provided Cytology Information No. of containers..01 Other (Miscellaneous) Source: PLEURAL DIAGNOSIS: 02 PLEURAL NEGATIVE FOR MALIGNANT CELLS. REACTIVE MESOTHELIAL CELLS AND FEW INFLAMMATORY CELLS. THIS INTERPRETATION INCLUDES EVALUATION OF A CELL BLOCK. Signed out by: 02 Edgar Ching MD, Pathologist NPI- [id number] Performed by: 01 Radha Dutta, Electric Motor Assembler And Tester ([facility]) Gross description: 01 60ML, CLEAR, CLOUDY /LCS FLAG LEGEND: L-Low Normal,H-High Normal,LL-Alert Low,HH-Alert High <-Panic Low,>-Panic High,A-Abnormal,AA-Critical Abnormal Performed at: [address] [place] [address] Luke Urrutia MD, [address] [address] Edgar Ching MD, Specimen Comment: A courtesy copy of this report has been sent to Specimen Comment: [phone], , . Specimen Comment: Report sent to DR HUGGINS,DR DOSS / DR CARVER Specimen Comment: A duplicate report has been generated due to demographic updates. Performed at: [address], [place], [place] [id number] MD Luke Urrutia MD Phone: [phone]
[2018-08-28 16:32] VITALS: BP 153/72
--- NOTE | 2018-08-28 18:21 | NUR ---
PATINET RESTING IN BED. Q2HOUR TURNS. PATIENT AOX4. AFIB ON MONITOR, RATE CONTROLLED. ABSENT LEFT LOWER BREATH COUNDS R/T PHYSIOLOGY. 5L PER NASAL CANULA. HOURLY ROUNDING COMPLETED FOR PATINET SAFETY
[2018-08-28 20:00] VITALS: BP 126/62
--- NOTE | 2018-08-28 20:00 | NUR ---
RECEIVED REPORT AND ASSUMED CARE OF PT, ASSESSMENT COMPLETED. PT LETHARGIC AND WANTING TO SLEEP, DOES COOPERATE. ASSIST WITH REPOSITIONING. O2 ON AT 15L/HFC HEATED. HOB ELEVATED. REJI BOOT ONTO LT FOOT, ISABELLE NOTED. TELEMETRY ON SHOWING SR. WILL CONT TO MONITOR AND ASSIST NEEDED.
[2018-08-29] VITALS: BP 132/57
[2018-08-29 04:00] VITALS: BP 114/62
--- NOTE | 2018-08-29 05:40 | NUR ---
SLEPT WELL TONIGHT. ASSISTED WITH REPOSITIONING IN BED. O2 ON PER BIPAP. NO CHANGE IN ASSESSMENT. TELEMETRY CONT TO SHOW SR. HS GOALS OF REST AND SAFETY ACHIEVED. HOURLY ROUNDING OBSERVED.
[2018-08-29 08:00] VITALS: BP 154/66
[2018-08-29 08:54] LABS: CALCIUM 8.3 mg/dL (8.5-10.1); CREATININE 2.5 mg/dL (0.6-1.3); POTASSIUM 4.2 mmol/L (3.5-5.1)
[2018-08-29 13:25] VITALS: BP 139/58
--- NOTE | 2018-08-29 14:59 | NUR ---
CM ASSESSED PT TO DISCUSS D/C PLANNING. PT PLANS TO RETURN HOME AT TIME OF D/C. PT STATED HE DOESNT USE O2 AT HOME AND "WILL NOT" GO HOME ON O2 EVEN IF IT IS NEEDED. CM INQUIRED TO WHY NOT, PT STATES HE DOESNT LIKE IT, SAID, "IT'S TOO MUCH." CM ENCOURAGED PT TO REASSESS HIS DECISION AT TIME OF D/C. CM TO CONT TO FOLLOW AND ASSIST NEEDED.
--- NOTE | 2018-08-29 15:04 | NUR ---
CONSULTED TO PLACE PICC FORM LIBRARY DIRECTOR IV NEEDS. ORDER,CONSENT AND CHART REVIEWED. SPOKE WITH PT AND QUESTIONS ANSWERED. RIGHT UPER ARM ASSESSED. RIGHT BASILIC IDENTIFIED AND NOTED TO BE WIDLEY PATENT. DUAL LUMAN POWER PICC PLACED PER POLICY USING ULTRASOUND AND INCLUDIONG ALBERTO DENNEY PRECAUTIONS. LINE WAS TRIMMED AT 42CM AND ADVANCED 41CM. GOOD BRISK BLOOD RETURN NOTED AND FLUSHED WITH EASE. TIP CONFIRMATION WITH SHERLOCK 3CG. LINE SECURED AND RELEASED FOR USE. TOLERATED WELL. DENIES QUESTIONS OR NEEDS POST PROCEDURE. PRIMARY NURSING AWARE.
[2018-08-29 16:00] VITALS: BP 139/91
[2018-08-29 20:05] VITALS: BP 136/54
[2018-08-30] VITALS: BP 130/61
--- NOTE | 2018-08-30 03:22 | NUR ---
ASSUMED CARE OF PT AT 1900. PT IS ALERT AND OREINTED. VSS. PERRLA. NO COMPLAINTS OF PAIN. PT SPO2 WAS IN THE 80'S LAST NIGHT. PT HAS BEEN WEARING BIPAP SINCE THEN. PT TOLERATING BIPAP WELL. PT IS IN SINUS RYTHM ON THE TELEMETRY. PT IS RESTING COMFORTABLY IN BED. RESPIRATIONS ARE EVEN AND NONLABORED. WILL CONTINUE TO MONITOR PT.
[2018-08-30 04:00] VITALS: BP 118/64
[2018-08-30 05:58] LABS: CALCIUM 8.6 mg/dL (8.5-10.1); CREATININE 2.3 mg/dL (0.6-1.3)
[2018-08-30 08:00] VITALS: BP 151/63
[2018-08-30 12:54] VITALS: BP 133/59
--- NOTE | 2018-08-30 14:30 | NUR ---
VSS, ASSUMED CARE IN THE AM, ASSESSMENT PERFORMED AND CHARTED, FALL PRECAUTIONS IN PLACE AND CALL LIGHT IN REACH, PT IS A&O4 AND ON 45L HIFLOW OPTIFLOW, PT IS SR ON THE MONITOR, R-SAYRA, UP WITH ONR TRANS TO BSC, PT STATES SOME PAIN IN BUTT, PT IS Q2 TURN, PT GOAL IS TO WORK WITH PT/OT AND SIT UP IN CHAIR AND IMPROVE BREATHING, AT THIS TIME GOALS HAVE BEEN MET. HOURLY ROUNDS COMPLETED AND WILL FOLLOW WITH PLAN OF CARE.
[2018-08-30 17:10] VITALS: BP 153/66
[2018-08-30 19:55] VITALS: BP 149/64
[2018-08-31] VITALS: BP 151/61
--- NOTE | 2018-08-31 03:55 | NUR ---
ASSUMED CARE OF PT AT 1900. PT IS ALERT AND ORIENTED. VSS. PERRLA. NO COMPLAINTS OF PAIN. PT REFUSES TO WEAR BIPAP AT NIGHT. PT IS IN SINUS RYTHM ON THE TELEMETRY. PT IS RESTING COMFORTABLY IN BED. RESPIRATIONS ARE EVEN AND NONLABORED. WILL CONTINUE TO MONITOR PT.
[2018-08-31 04:00] VITALS: BP 144/61
[2018-08-31 08:00] VITALS: BP 154/64
[2018-08-31 11:54] VITALS: BP 164/75
--- NOTE | 2018-08-31 16:00 | NUR ---
VSS, ASSUMED CARE IN THE AM, ASSESSMENT BERFORMED AND CHARTED, FALL PRECAUTIONS IN PLACE AND CALL LIGHT IN REACH, PT IS A&O4 BUT AT TIMES SEEMS TO BE CONFUSED, PT IS ON 45L NC OPTIFLOW, AT THIS TIME HE IS ON HIGH FLOW 7 L NC, PT IS TRACING SR ON THE MONITOR, STATES PAIN ON HIS BUTT, HE IS A Q2 TURN, PT GOAL IS TO SIT UP IN CHAIR AND WORK WITH PT/OT, HE WAS UP IN CHAIR FOR BREAKFEST AND LUNCH, PT IS IN COAUNT OF BOWL AND HAS A SMALL BM TODAY, PT HAS BARRAGAN IN PLACE AND IS DRAINING AND URINE IS YELLOW, HOURLY ROUNDS COMPLETED AND CHART CHECKED,
[2018-08-31 16:13] VITALS: BP 136/61
[2018-08-31 20:00] VITALS: BP 113/58
[2018-09-01] VITALS: BP 151/55
--- NOTE | 2018-09-01 04:00 | NUR ---
ASSUMED CARE OF PT AT 1900. PT IS ALERT AND ORIENTED. VSS. PERRLA. PT IS WEARING BIPAP AND TOLERATING WELL. PT IS IN SINUS RYTHM ON THE TELEMETRY. PT IS RESTING COMFORTABLY IN BED. RESPIRATIONS ARE EVEN AND NONLABORED. WILL CONTINUE TO MONITOR PT.
[2018-09-01 04:01] VITALS: BP 152/67
[2018-09-01 05:06] LABS: CALCIUM 8.5 mg/dL (8.5-10.1); POTASSIUM 3.5 mmol/L (3.5-5.1)
[2018-09-01 08:00] VITALS: BP 147/60
--- NOTE | 2018-09-01 08:00 | NUR ---
ASSUMED PT CARE AT 0700, PT LYING IN BED, FALL PRECAUTIONS IN PLACE, CALL LIGHT IN REACH. A&O X4, VSS, REMAINS ON O2 7LPM VIA HIGH CAMRYN NC, LS COARSE. PT ON BEDREST, RIGHT BKA, MULTIPLE WOUNDS. BARRAGAN PATENT, DRAINING LIGHT YELLOW URINE. PT DENIES SOA, PAIN AT THIS TIME, CONT ON IV ABTS, WILL CONT POC.
[2018-09-01 12:45] VITALS: BP 126/56
--- NOTE | 2018-09-01 18:00 | NUR ---
PT REMAINS A&O X4, DROWSY, ON BEDREST, Q 2 TURNS AND PRN. PT DID HAVE INCONTINENT EPISODE OF BM THIS SHIFT. DENIES ANY PAIN OR SOA, REMAINS ON 7LPM O2 VIA HIGH CAMRYN NC, TOLERATING WELL, HOURLY ROUNDING COMPLETED.
[2018-09-01 21:09] VITALS: BP 139/63
[2018-09-02] VITALS: BP 151/66
[2018-09-02 04:00] VITALS: BP 139/55
--- NOTE | 2018-09-02 07:44 | NUR ---
PT IS ABLE TO COMMUNICATE HIS NEEDS TO STAFF EFFECTIVELY. HE HAS DENIED THE NEED FOR PAIN MEDICATION UP TO THIS TIME. HE HAS BEEN REFUSING HIS BIPAP AT NIGHT AND DID SO DURING THIS SHIFT WELL. RIGHT PICC LINE PATENT AT THIS TIME. BARRAGAN PATENT. NEW SCROTAL WOUND IDENTIFIED; PICTURES TAKEN AND PLACED ON CHART.
[2018-09-02 08:00] VITALS: BP 132/61
--- NOTE | 2018-09-02 11:15 | NUR ---
ASSUMED CARE OF PATIENT. PLEASE SEE DOCUMENTED ASSESSMENT. NASAL CANNULA INCREASED TO 9LPM TO KEEP SAT OF 92%
[2018-09-02 11:37] VITALS: BP 121/53
[2018-09-02 15:44] VITALS: BP 127/51
--- NOTE | 2018-09-02 15:48 | NUR ---
SW/CM continuing to follow. Pt noted to be on 9L today but still an improvement considering oxygen needs previous days during this admission. Will continue to follow to assist with safe dc planning.
--- NOTE | 2018-09-02 17:26 | NUR ---
PATIENT NOT PROGRESSING TOWARDS GOALS. OXYGEN INCREASED TO 10LPM TODAY. APPETITE POOR. LEFT FOOT WOUND HEALING. RIGHT STUMP NOT REDRESSED TODAY. VSS. BLOOD GLUCOSE LOWER TONIGHT SO INSULIN HELD. HAS VISITED
[2018-09-02 20:00] VITALS: BP 128/67
[2018-09-03] VITALS: BP 117/51
[2018-09-03 04:00] VITALS: BP 141/63
[2018-09-03 08:00] VITALS: BP 152/70
[2018-09-03 09:34] LABS: CALCIUM 8.4 mg/dL (8.5-10.1); CREATININE 2.3 mg/dL (0.6-1.3); POTASSIUM 4.1 mmol/L (3.5-5.1)
[2018-09-03 12:00] VITALS: BP 119/51
[2018-09-03 16:00] VITALS: BP 106/48
--- NOTE | 2018-09-03 18:39 | NUR ---
RECEIVED REPORT AND ASSUED CARE AT 0700. VSS. CARDIAC MONITORING IN PLACE. PT DENIES COMPLAINTS OF PAIN. ASSESSMENT COMPLETED CHARTED. BED LOCKED IN LOWEST POSITION, CALL LIGHT WITHIN REACH. BED ALARM ON. PT UP TO SIDE OF BED FOR LUNCH. PT HAD DIFFICULTY TOLERATING MEAL. PER PT, "FEELS LIKE EVERYTHING GOES DOWN THE WRONG PIPE" PHYSICIAN AWARE. PT TO SEE SPEECH THERAPY 09/04. POSITION CHANGED EVERY TWO HOURS. HOURLY ROUNDING COMPLETED AND ALL NEEDS MET.
[2018-09-03 20:18] VITALS: BP 126/59
[2018-09-04] VITALS: BP 115/45; BP 125/78
[2018-09-04 04:00] VITALS: BP 121/55; BP 133/52
[2018-09-04 05:06] LABS: CALCIUM 8.7 mg/dL (8.5-10.1); CREATININE 2.6 mg/dL (0.6-1.3); POTASSIUM 4.1 mmol/L (3.5-5.1)
[2018-09-04 05:08] LABS: MAGNESIUM 2.2 mg/dL (1.8-2.4); PHOSPHORUS* 4.5 mg/dL (2.5-4.9)
--- NOTE | 2018-09-04 05:41 | NUR ---
PT IS ABLE TO COMMUNICATE HIS NEEDS TO STAFF EFFECTIVELY. CURRENT PAIN MEDICATION REGIMEN HAS BEEN ADEQUATE FOR CONTROLLING HIS PAIN UP TO THIS TIME. YUNG IS PATENT. HE HAS BEEN NPO, EXCEPT SIPS WITH MEDS, FOR A SWALLOW EVAL WITH ST LAT[facility] TODAY.
[2018-09-04 07:30] VITALS: BP 128/58
[2018-09-04 12:24] VITALS: BP 125/56
--- NOTE | 2018-09-04 14:52 | NUR ---
CONTINUE TO FOLLOW, PT WAS ON O2 BY [place] OVER WEEKEND BUT BACK TO [place] O2 TODAY. DISCUSSED WITH HERMELINDO PEREZ AND DARIELA. ORDER TO [facility]AL FOR [facility] OBTAINED. TALKED WITH PT AND ABOUT [facility], THEY ARE INTERESTED [facility]. CALLED AND FAXED REFERRAL TO [facility]. AWAIT RESPONSE
[2018-09-04 16:40] VITALS: BP 129/55
[2018-09-04 20:34] VITALS: BP 115/57
[2018-09-05] VITALS: BP 130/44
[2018-09-05 04:00] VITALS: BP 131/65
[2018-09-05 07:30] VITALS: BP 120/54
--- NOTE | 2018-09-05 08:02 | NUR ---
PT IS ABLE TO COMMUNICATE HIS NEEDS TO STAFF EFFECTIVELY. CURRENT PAIN MEDICATION REGIMEN HAS BEEN ADEQUATE FOR CONTROLLING HIS PAIN UP TO HIS TIME. BARRAGAN IS PATENT, UP TO THIS TIME.
--- NOTE | 2018-09-05 09:45 | NUR ---
SPOKE WITH [facility]. PT IS APPROPRIATE FOR [facility] AND THEY HAVE SUBMITTED TO INSURANCE FOR AUTH. SHE PLANS TO COME OUT TO MEET WITH PT/ TODAY TO DISCUSS
[2018-09-05 12:13] VITALS: BP 119/54
[2018-09-05 20:00] VITALS: BP 123/56
[2018-09-06] VITALS: BP 90/66
[2018-09-06 04:00] VITALS: BP 133/61
--- NOTE | 2018-09-06 05:55 | NUR ---
PATIENT SLEPT MOST OF THE NIGHT. IV ANTIBIOTIC WAS GIVEN ODERED. PATIENT HAD NO COMPLAINTS OF PAIN. PATIENT HAS BEEN ON BIPAP PART OF THE NIGHT. DOBHOFF REMAINS IN PLACE. PATIENT WAS NOT STARTED ON TUBE FEEDING THOUGH IT DUE TO BIPAP BEING ON OVERNIGHT. WILL CONTINUE TO MONITOR.
[2018-09-06 06:58] LABS: ABSOLUTE EOSINOPHILS 0.2 thou/uL (0.0-0.7); ABSOLUTE LYMPHOCYTES 0.6 thou/uL (0.8-5.3); ABSOLUTE MONOCYTES 0.6 thou/uL (0.0-1.2); ABSOLUTE NEUTROPHILS 5.4 thou/uL (1.6-8.1); BASOPHILS 0.3 %; EOSINOPHILS 2.8 %; HEMATOCRIT 21.2 % (42.0-52.0); LYMPHOCYTES 8.7 %; MCH 25.2 pg (26.0-34.0); MCHC 31.9 g/dL (28.0-37.0); MCV 78.9 fL (80.0-100.0); MONOCYTES 9.2 %; MPV 9.1 fl. (7.2-11.1); NUCLEATED RBCS 0 /100WBC; PLATELET COUNT* 337 thou/uL (150-400); RBC 2.69 mil/uL (4.50-6.00); RDW-CV 16.4 % (10.5-14.5); WBC 6.8 thou/uL (4.0-11.0)
[2018-09-06 07:01] LABS: HEMOGLOBIN 6.8 gm/dL (14.0-18.0)
[2018-09-06 07:04] LABS: CALCIUM 8.7 mg/dL (8.5-10.1); CREATININE 3.5 mg/dL (0.6-1.3); POTASSIUM 4.8 mmol/L (3.5-5.1)
[2018-09-06 08:00] VITALS: BP 141/59
[2018-09-06 11:59] VITALS: BP 132/60
--- NOTE | 2018-09-06 14:36 | NUR ---
CONTINUE TO FOLLOW. RECEIVED CALL FROM [facility], THEY HAVE INSURANCE AUTH AND CAN ACCEPT PT. WILL PLAN FOR TOMORROW AFTER DISCUSSION WITH DR PEREZ. UPDATED PT AND . PT STILL NOT WANTING TO GO BUT VERBALIZED UNDERSTANDING. VOICED CONCERN ABOUT INCREASING O2 NEEDS TODAY. REASSURED HER. UPDATE FAXED TO [facility]. WILL FOLLOW
--- NOTE | 2018-09-06 15:15 | NUR ---
WOUND NURSE- DRESSINGS CHANGED TO BILATERAL LOWER EXTREMITIES. RIGHT BELOW KNEE AMPUTATION WITH SMALL AREA OF DARK PINK DISCOLORATION ALONG LATERAL PROXIMAL CALF, 3 X 3 X 0.1 CM. THIN LAYER OF OVERLYING SKIN, NO DRAINAGE. LEFT FOOT WITH SMALL AREA OF PINK DISCOLORATION ON PLANTAR ASPECT OF RIGHT GREAT TOE, 1.2 X 0.3 X 0.1 CM. OVERLYING SKIN INTACT, NO DRAINAGE. SUPERFICIALLY ABRADED AREA ON DORSUM OF FOOT, 0.6 X 0.4 X 0.1 CM. PINK & MOIST, NO DRAINAGE. MEDIAL HEEL AREA WITH AREA OF DARK PINK DISCOLORATION WITH VERY THIN LAYER OF SKIN OVER WOUND BED, NO DRAINAGE, 3.2 X 1.8 X 0.1 CM. BOTH LOWER EXTREMITIES CLEANSED WELL WITH SKIN CLEANSER AND WATER, RINSED WELL, OPEN/DISCOLORED AREAS RINSED WITH SALINE AND DRESSINGS APPLIED - FOAM TO RIGHT STUMP AND DORSUM OF LEFT FOOT, VASELINE GAUZE TO RIGHT GREAT TOE AND HEEL, WRAPPED WITH KERLIX AND PRAFO BOOT REAPPLIED. COMPRESSION WRAP TO RIGHT STUMP. PATIENT REPORTS THAT HIS "BOTTOM FEELS SORE", BUT THAT NURSE HAD CHECKED AND NO REDNESS OR BREAKDOWN. PATIENT ABLE TO TURN WITH MINIMAL ASSISTANCE, NOTING NO ERYTHEMA OR BREAKDOWN. CONTINUE REPOSITIONING EVERY 2 HOURS WITH FOAM WEDGES, PRAFO BOOT TO PROTECT LEFT HEEL.
[2018-09-06 15:52] VITALS: BP 139/54
[2018-09-06 20:00] VITALS: BP 135/66
--- NOTE | 2018-09-06 20:06 | NUR ---
ASSUMED PT CARE AT 0800, AOX4, BEDREST. PT O2 SAT AT MID 80'S. RT, PHYSICIAN NOTIFIED. PT ON BIPAP. TRACING SR ON TELE. PT FOR ACCU CHECK. PT RECEIVING ANTIBIOTICS. PT WOUND CLEANSE, DRESS. PT RECEIVED 1 UNIT OF BLOOD. PT ON NGT. PT NPO. PT HAS PICC LINE INTACT. AM ASSESSMENT CHARTED. MEDS GIVEN PER MAR. HOURLY ROUNDING, Q2 TURN. CALL LIGHT WITHIN REACH. GIVE REPORT TO NIGHT NURSE. WILL CONTINUE TO MONITOR.
[2018-09-07] VITALS: BP 129/58
[2018-09-07 03:49] LABS: ABSOLUTE LYMPHOCYTES 0.2 thou/uL (0.8-5.3); ABSOLUTE MONOCYTES 0.1 thou/uL (0.0-1.2); ABSOLUTE NEUTROPHILS 5.7 thou/uL (1.6-8.1); BASOPHILS 0.3 %; HEMATOCRIT 28.4 % (42.0-52.0); LYMPHOCYTES 3.5 %; MCH 25.5 pg (26.0-34.0); MCHC 31.6 g/dL (28.0-37.0); MCV 80.7 fL (80.0-100.0); MPV 9.5 fl. (7.2-11.1); NUCLEATED RBCS 0 /100WBC; PLATELET COUNT* 337 thou/uL (150-400); POLYS 95.2 %; RBC 3.52 mil/uL (4.50-6.00); RDW-CV 16.8 % (10.5-14.5)
[2018-09-07 04:00] VITALS: BP 138/63
[2018-09-07 04:02] LABS: CALCIUM 8.6 mg/dL (8.5-10.1); CREATININE 3.7 mg/dL (0.6-1.3); POTASSIUM 5.4 mmol/L (3.5-5.1)
[2018-09-07 08:00] VITALS: BP 129/62
--- NOTE | 2018-09-07 12:15 | NUR ---
ORDERS RECEIVED FOR PT TO DC TO [facility] TODAY. MET WITH , IN AGREEMENT. COBRA FORM STARTED. CHART COPIED. ORDERS CALLED AND FAXED TO [facility], THEY ARE AWAITING A DC TODAY AND WILL ACCEPT PT ONCE THAT BED IS AVAILABLE.
[2018-09-07] MEDS ORDERED: LOMOTIL TABLET1 EACH PO (14:03)
[2018-09-07 14:04] VITALS: BP 129/62
[2018-09-07 14:08] VITALS: BP 129/62
--- NOTE | 2018-09-07 15:44 | NUR ---
ASSUMED PT CARE AT 0800. AOX4, ON BEDREST. PT FOR NGT INSERTION. PT TO [facility]FER TO [facility]. PT O2 SAT STILL DROPPING TO MID 70'S, RT, DR NOTIFIED. PT ON BIPAP PT FOR ACCU CHECK. PT WOUND DRESS AND CLEAN. PICTURE TAKEN. TRACING SR ON TELE. Q2 TURN. R UPPER ARM PICC INTACT. PT ON BARRAGAN CATH. HOURLY ROUNDING. CALL LIGHT WITHIN REACH. WILL CONTINUE TO MONITOR.
--- NOTE | 2018-09-07 15:51 | NUR ---
PT DISCHARGE PLAN DISCUSS WITH PT AND . PT GOING TO [facility], GIVE REPORT TO LOU ELISE. PT TRANSPORTED VIA EMS AT 1530.
--- NOTE | 2018-09-07 16:25 | NUR ---
WOUND NURSE: PATIENT BEING DISCHARGED, WOUNDS UNBANDAGED AND PICTURES TAKEN BY STAFF NURSE. ALL WOUNDS CLEANSED WITH WOUND CLEANSER, BORDERED FOAM, KERLEX, ROMINA WRAP APPLIED TO RIGHT BKE. PETROLATUM GAUZE UNDER BORDERED FOAM TO DORSAL LEFT FOOT, PETROLATUM GAUZE UNDER COTTON GAUZE APPLIED TO LEFT GREAT TOE, PETROLATUM GAUZE UNDER BORDERED FOAM APPLIED TO LEFT DORSAL FOOT. GREAT TOE WITH INTACTSKIN AND RUST DISCOLORATION, DORSAL FOOT WITH PALE DISCOLORATION, SKIN INTACT. RIGHT BKA WITH REDDENED INTACT SKIN. HEEL WITH RED TISSUE AND SEROUSANGUINOUS DRAINAGE. PRAFO APPLIED TO LEFT FOOT.
== END 2018-09-07 15:30 | DRG 871 ==
LOC: M.ERS 10:52 → M.TBA-ER 12:18 → M.ICU 12:18 → M.2W 08-19 15:26
PROVIDERS: Emergency Medicine; Internal Medicine; Internal Medicine Critical Care Medicine; Internal Medicine Gastroenterology; Internal Medicine Nephrology; Internal Medicine Pulmonary Disease; Nurse Practitioner Adult Health; Registered Nurse; ADMIT Internal Medicine
DX: A41.52 Sepsis due to Pseudomonas (principal); E11.10 Type 2 diabetes mellitus with ketoacidosis without coma; I21.4 Non-ST elevation (NSTEMI) myocardial infarction; J96.01 Acute respiratory failure with hypoxia; I50.43 Acute on chronic combined systolic (congestive) and diastolic (congestive) heart failure; E43 Unspecified severe protein-calorie malnutrition; J69.0 Pneumonitis due to inhalation of food and vomit; N17.9 Acute kidney failure, unspecified; E87.1 Hypo-osmolality and hyponatremia; B37.81 Candidal esophagitis; K22.10 Ulcer of esophagus without bleeding; J91.8 Pleural effusion in other conditions classified elsewhere; I13.0 Hypertensive heart and chronic kidney disease with heart failure and stage 1 through stage 4 chronic kidney disease, or unspecified chronic kidney disease; K21.9 Gastro-esophageal reflux disease without esophagitis; I25.10 Atherosclerotic heart disease of native coronary artery without angina pectoris; N18.3 Chronic kidney disease, stage 3 (moderate); E86.9 Volume depletion, unspecified; E78.00 Pure hypercholesterolemia, unspecified; N99.115 Postprocedural fossa navicularis urethral stricture; E78.5 Hyperlipidemia, unspecified; E87.6 Hypokalemia; D63.8 Anemia in other chronic diseases classified elsewhere; E87.70 Fluid overload, unspecified; R13.10 Dysphagia, unspecified; D50.9 Iron deficiency anemia, unspecified; E11.22 Type 2 diabetes mellitus with diabetic chronic kidney disease; E11.69 Type 2 diabetes mellitus with other specified complication; Z89.511 Acquired absence of right leg below knee; I25.2 Old myocardial infarction; Z88.8 Allergy status to other drugs, medicaments and biological substances; Z87.891 Personal history of nicotine dependence; Z82.49 Family history of ischemic heart disease and other diseases of the circulatory system; Z79.899 Other long term (current) drug therapy; Z68.22 Body mass index [BMI] 22.0-22.9, adult